=== PATIENT | female | born 1940 | race Caucasian/White ===

== ENCOUNTER → 2018-12-25 | Outpatient (CLI) | payer MEDICARE ==
[~2018-12-25] MED LIST: ADVA1AER2; ALBU17IN2; AMLO5TAB6 PO; BENI20TA11; COLA100C2; CORE12.5; CORE6.25; COUM1TAB18; DULE100A INH; FERR325T; FURO20TA2; FURO40TA2 PO; GLIM2TAB29 PO; HEPARIN; Januvia; LASI20TA; LASI40TA; METAMUCIL; METF500T4; MILKSUS; NORV5TAB; ONDA8TAB8 PO; OXYC20TA15; OYST500T; PANT40TA3 PO; PERC5TAB8; POTA10TA67 PO; PRIL20CA; PROC10TA4 PO; PROV90AE; RIFA300C3; SALINE FLUSH; SENN8.6T14; SENN8.6T5; SEROQUIL; SING10TA31; SPIR1CAP; THEO200T7; THERGRAN; TYLE650T35 PO; TYLENOL; VALS1TAB67 PO; Vancomycin; ZOCO20TA; [UNRECOGNIZED DRUG - CODE]; [UNRECOGNIZED DRUG - CODE]; [UNRECOGNIZED DRUG - OTHER]; metamucil; milk of magnesia; nystatin
--- NOTE | 2018-12-29 11:49 | RADONC ---
RADIATION ONCOLOGY CONSULTATION NOTE DATE OF SERVICE: 12/25/2018 CHART NUMBER: [id number]. DIAGNOSIS: Rectal cancer. STAGE: IIIB, T3, N1b, M0. ECOG PERFORMANCE STATUS: 0. CONSULTATION NOTE: Ms. 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 HISTORY OF PRESENT ILLNESS: The patient was in her usual state of health but has reported some fecal incontinence going on for the last few months. She was seen by Munir Gallegos MD, and was found to have a large rectal lesion extending from just above the anal verge. On 11/17/2018, colonic biopsy was undertaken, and pathology revealed a moderately differentiated adenocarcinoma extending from the anal verge to 20 cm. An MRI was undertaken on 12/14/2018 and revealed a low rectal tumor extending from the anorectal junction with a craniocaudal length of approximately 10.5 cm. The bulkiest portion of the tumor was immediately above the anorectal junction. A second area of mild bulky tumor was noted at 8 cm from the anorectal junction where there was narrowing of the rectal lumen. In addition, there was stranding in adjacent mesorectal fat suggestive of tumor invasion, most prominent along the distal aspect of the tumor. The extramural depth of invasion measured up to 16 mm. There was possible extension into the mesorectal fascia posteriorly. There was no invasion of the uterus or the bladder. There was no definitive extramural venous invasion. There was a suspicious right mesorectal lymph node with mild heterogeneity. This node measured 5 mm, and there was a 6 mm mildly suspicious left mesorectal lymph node noted. The tumor was, therefore, staged as a T3N1b lesion. She is now presenting for consideration of postoperative radiation therapy. PAST MEDICAL HISTORY: The patient's past medical history is positive for arthritis, hypertension, and diabetes. She also has a history of asthma. The patient had an appendectomy and a cholecystectomy in the past. She has had bilateral cataract surgery, as well as bilateral knee replacement surgeries and a left shoulder rotator cuff repair. ALLERGIES: The patient has no known drug allergies. SOCIAL HISTORY: The patient does not smoke cigarettes. She drinks alcohol socially. FAMILY HISTORY: The patient's family history is positive for a mother with squamous cell cancer of the head and neck region and a father with prostate cancer. She also has an uncle with stomach cancer. REVIEW OF SYSTEMS: The patient's review of systems is positive for some rectal bleeding, as well as decreased energy. She has some constipation and very loose stools. She also reports generalized aches and pains. Her review of systems is otherwise noncontributory. She denies nausea, vomiting, fevers, chills, night sweats, diplopia, headaches, anxiety or depression, anorexia, weight loss, visual disturbances, chest pain, urinary or bowel difficulties, bone pain, or neurological problems. PHYSICAL EXAMINATION: The patient is a well-developed, well-nourished female in no acute distress. HEENT examination is normocephalic, atraumatic. Extraocular movements are intact. There is no palpable cervical, supraclavicular, infraclavicular, axillary, or inguinal lymphadenopathy present. Lungs are clear to auscultation and percussion. Heart has a regular rate and rhythm. Abdomen is benign with no hepatosplenomegaly, masses, or tenderness. Skeletal examination reveals no tenderness to pressure or percussion of the bony skeleton. Extremities reveal no clubbing, cyanosis, or edema. Neurologic examination is grossly intact, as is the remainder of the physical examination. Rectal examination revealed a lesion just past the anal verge, which is bleeding. ASSESSMENT: Clearly, the patient has very advanced local disease. With mesorectal fascia invasion, as well as, right and left mesorectal lymph nodes. Following the NCCN guidelines and having discussed this case with our medical oncologist, Dr. Amanda Enamorado, I would recommend 12-16 weeks of chemo such as FOLFOX followed by chemo/RT. The patient is scheduled to see Dr. Enamorado next week. Dr. Enamorado will refer the patient back after initial chemo. Clearly, this lesion requires more than just radiation alone, especially considering its size. I have also ordered a PET scan for further staging purposes. Thank you for allowing us to participate in the care of this very pleasant woman. If I could be of any further assistance, please feel free to contact me any time. As always, warm regards. René Arauz cc: MD Amanda Barnes MD Michael Moffa, MD MTDD
== END ==
LOC: M ONCR 09:42
PROVIDERS: ATTEND Radiology Radiation Oncology
DX: C21.8 Malignant neoplasm of overlapping sites of rectum, anus and anal canal (principal)

== ENCOUNTER → 2019-01-04 | Outpatient (CLI) | payer MEDICARE ==
[~2019-01-04] MED LIST changes: +CLINDAMYCIN 600 MG/50 ML PREMIX BAG As Ordered ONE; +DIFI200T PO; +LIDOCAINE 1% MDV 20ML VIAL As Ordered ONE; +LOPE1CAP5 PO; +MIDAZOLAM INJ 2 MG/2 ML VIAL (J2250) As Ordered ONE; +ONDANSETRON 4MG/2ML VIAL (J2405) As Ordered ONE; +VANC125C3 PO; +diphenhydrAMINE INJ 50MG/ML VIAL (J1200) As Ordered ONE; +fentaNYL 100 MCG/2 ML INJECTION (J3010) As Ordered ONE
--- NOTE | 2019-01-04 12:49 | IRHP ---
[facility] IR Pre-Procedure H & P General Date of Service: Jan 04, 2019 Procedure: Same Day Surgery Interval History and Physical I have seen the patient and reviewed last H & P performed within 30 days. There is [no significant interval change]. Patient [is stable for procedure]. History of Present Illness Chief Complaint The patient is a 78-year-old female admitted with a reason for visit of Rectal Ca. PRE-PROCEDURE DIAGNOSIS: rectal ca HEART: normal rate LUNGS: normal breathing at rest. ASA Classification ASA Classification: II-Mild systemic disease Mallampati Score: II NPO: Yes Problems with prior sedation: No Obstructive Sleep Apnea: No Plan moderate sedation Allergies Coded Allergies: vancomycin (Verified Allergy, Intermediate, HIVES/ITCHING, 01/04/19) Penicillins (Unverified Allergy, Unknown, 01/04/19) Sulfa (Sulfonamide Antibiotics) (Unverified Allergy, Unknown, 01/04/19) morphine (Verified Adverse Reaction, Unknown, NAUSEA, 01/04/19) Medications Scheduled Acetaminophen (Tylenol Arthritis), 650 MG PO Q8H, (Reported) Amlodipine Besylate (Amlodipine Besylate), 5 MG PO DAILY, (Reported) Furosemide (Furosemide), 40 MG PO DAILY, (Reported) Glimepiride (Glimepiride), 2 MG PO DAILY, (Reported) Mometasone/Formoterol (Dulera 100 Mcg/5 Mcg Inhaler), 2 PUFF INH DAILY, (R eported) Pantoprazole Sodium (Pantoprazole Sodium), 40 MG PO DAILY, (Reported) Potassium Chloride (Potassium Chloride), 10 MEQ PO BID, (Reported) Discontinued Medications Albuterol Sulfate (Proventil Hfa), (Reported) Discontinued Reason: Pt states not taking Amlodipine Besylate (Norvasc), (Reported) Discontinued Reason: Pt states not taking Carvedilol (Coreg), (Reported) Discontinued Reason: Pt states not taking Docusate Sod/Senna (Senna-S), (Reported) Discontinued Reason: Pt states not taking Ferrous Sulfate (Ferrous Sulfate), (Reported) Discontinued Reason: Pt states not taking Fluticasone Propion/Salmeterol (Advair 500-50 Diskus), (Reported) Discontinued Reason: Pt states not taking Furosemide (Furosemide), (Reported) Discontinued Reason: Pt states not taking Olmesartan/Hydrochlorothiazide (Benicar Hct 20-12.5 mg Tablet), (Reported) Discontinued Reason: Pt states not taking Omeprazole (Prilosec), (Reported) Discontinued Reason: Pt states not taking Oxycodone/Acetaminophen (Percocet), (Reported) Discontinued Reason: Pt states not taking Oxycodone/Acetaminophen (Percocet), (Reported) Discontinued Reason: Pt states not taking Simvastatin (Zocor), (Reported) Discontinued Reason: Pt states not taking Theophylline (Theophylline Cr), (Reported) Discontinued Reason: Pt states not taking Valsartan (Valsartan), 160 MG PO DAILY, (Reported) Discontinued Reason: Pt states not taking Warfarin Sodium (Coumadin), (Reported) Discontinued Reason: Pt states not taking [Janivia], (Reported) Discontinued Reason: Pt states not taking KENDELL VILLAVICENCIO MD Jan 04, 2019 12:49
--- NOTE | 2019-01-04 14:03 | POST-OPPD ---
Postoperative Procedure Note Date Of Procedure: Jan 04, 2019 Time Of Procedure: 14:02 PREOPERATIVE DIAGNOSIS: rectal ca POSTOPERATIVE DIAGNOSIS: rectal ca FINDINGS: patent right IJ PROCEDURE: right IJ port SURGEON: Venu ANESTHESIA: moderate sedation ESTIMATED BLOOD LOSS: < 5 ml COMPLICATIONS: none POSTOPERATIVE CONDITION: stable KENDELL VILLAVICENCIO MD Jan 04, 2019 14:03
[2019-01-04 16:01] VITALS: BP 145/72
--- NOTE | 2019-01-05 07:41 | REP ---
IR Ultrasound and fluoroscopy-guided port placement. IR Ultrasound of the neck. IR Moderate sedation. Clinical information: Rectal cancer. Needs port for chemotherapy. Physician: Dr. Lea. Procedure: The patient was advised of the benefits, risks, and alternatives of the procedure and informed consent was obtained. A time-out was performed with verification of the patient's name, MRN, site of procedure and type of procedure to be performed. The patient was positioned in the supine position on the angiographic table. The site was prepped and draped in the usual sterile fashion. Moderate sedation was performed by the physician including the presence of an independent trained observer who assisted and monitored the patient's level of consciousness and physiologic status. Following the administration of Fentanyl and Versed, the physician spent 45 minutes of continuous face to face time with the patient. Ultrasound of the neck reveals a patent and compressible right internal jugular vein. A director furniture radiograph reveals no significant abnormality. The neck and anterior chest wall were anesthetized with lidocaine. The right internal jugular vein was accessed using a microintroducer needle by a lateral approach. An 0018 wire was advanced into the superior vena cava, the needle was removed and a microsheath was placed. An Amplatz wire was then passed into the inferior vena cava. An incision at the internal jugular vein access site and anterior chest wall were made using a scalpel. An incision was made at the anterior chest wall. A small pocket was created using a combination of blunt and sharp dissection. A tunneling device was then used to pass the catheter from the pocket to the neck puncture site. An 8-[employer] smart power port was then positioned in the pocket. The catheter was then measured and cut. The introducer sheath was exchanged for a peel-away sheath. The catheter was passed through the peel-away sheath into the internal jugular vein and the peel-away sheath was removed. The port tip was positioned at the cavo atrial junction. The port was then accessed with a Wu needle. The port flushes and aspirates well. The puncture site in the neck was closed. The chest wall incision was then closed with 2-0 Vicryl and 4-0 Monocryl. Glue and Steri-Strips were applied. A sterile dressing was then applied. The patient tolerated the procedure well and was returned to the PRU in stable condition. Estimated blood loss: <5 ml. Complications: None. Conclusion: 1. Successful placement of an 8-[employer] smart power port via the right internal jugular vein. The port is ready for immediate use. 2. Patient to follow up in IR clinic in 2 weeks. Thank you for this referral. Electronically Signed by Frida Lea MD 01/04/2019 03:33 P
== END ==
LOC: M IRPRO 11:58
PROVIDERS: ATTEND Radiology Diagnostic Radiology
DX: C20 Malignant neoplasm of rectum (principal)
CPT/HCPCS: 36563; 76937; 77001; C1769; C1788; C1894; J2250; J2405; J3010

== ENCOUNTER → 2019-03-25 | Outpatient (CLI) | payer MEDICARE ==
[~2019-03-25] MED LIST changes: -CLINDAMYCIN 600 MG/50 ML PREMIX BAG As Ordered ONE; +CVS1CAP2 PO; +FLAG250T PO; +GASTROGRAFIN SOLUTION 30ML (Q9963) As Ordered ONE; +ISOVUE-370 76% 100ML VIAL (Q9967) As Ordered ONE; -LIDOCAINE 1% MDV 20ML VIAL As Ordered ONE; -MIDAZOLAM INJ 2 MG/2 ML VIAL (J2250) As Ordered ONE; -ONDANSETRON 4MG/2ML VIAL (J2405) As Ordered ONE; -diphenhydrAMINE INJ 50MG/ML VIAL (J1200) As Ordered ONE; -fentaNYL 100 MCG/2 ML INJECTION (J3010) As Ordered ONE
--- NOTE | 2019-03-25 17:19 | REP ---
CT chest with IV contrast: History: Colon carcinoma. Restaging. Stage III colon cancer on neoadjuvant chemotherapy, status post four cycles. Comparison chest CT study March 05, 2018. CT contrast dose: 100 ml of intravenous Isovue [address] findings: A large hiatal hernia is again noted. Vascular calcification is observed. Mitral annular calcification is seen. There is a small quantity of pericardial fluid unchanged. No pleural effusion is seen. No hilar or mediastinal mass or adenopathy is observed. There are scattered normal-sized mediastinal lymph nodes. Several of these appear to be some smaller than on the March 05, [address] study even though they were not pathologically enlarged on that prior study. A precarinal lymph node has decreased from 10 mm anterior to posterior dimension to 6 mm today. Another node at the level of the great vessel origins anterior to the trachea has decreased from 11 mm right to left to 4 mm. There is a node adjacent to this which measured 8 mm in short axis dimension previously and now measures 5 mm. No new adenopathy or new node is seen. There is an 8 mm left supraclavicular lymph node which is unchanged. This is normal in size. No axillary adenopathy is seen. There are two tiny pulmonary nodules noted on the right side including a 4 mm right upper lobe nodule and a 4 mm right lower lobe nodule which are unchanged from the March 05, 2018 study. No new pulmonary nodule is appreciated. No bony destructive lesion is seen. Impression: There is no evidence of pathologic adenopathy or new pulmonary nodule. Two stable tiny sub-centimeter nodules are seen in the right lung. There are scattered normal appearing mediastinal lymph nodes which have decreased since March 05, [address] even though they were normal in size at that time. Vascular calcification is noted. A hiatal hernia is seen and there is a small quantity of pericardial fluid again noted. Electronically Signed by Reece Jarrell MD 03/25/2019 06:30 P
--- NOTE | 2019-03-25 17:22 | REP ---
CT abdomen and pelvis with IV and oral contrast: History: Rectal carcinoma. Stage III colon carcinoma on neoadjuvant chemotherapy for restaging. Comparison CT study October 13, 2018. Comparison PET-CT December 30, 2018. CT contrast dose: 100 ml of intravenous Isovue [address] findings: Digital preliminary resident advisor radiograph demonstrates an unremarkable bowel gas pattern. Hiatal hernia is seen. There is a low-density hypervascular nodule in the anterior surface of the left lobe of the liver which measures 15 mm in greatest diameter. This it is unchanged from the October 13, [address] study. It is also felt to be unchanged from March 05, 2018 prior study and is most compatible with a small hemangioma. There is no evidence of hypermetabolic uptake in this region on PET-CT December 30, 2018. No other focal liver lesion is seen. The spleen is unremarkable. Large hiatal hernia again seen. No adrenal lesion is observed on either side. No abnormality noted in the pancreas. The kidneys enhance symmetrically and are morphologically intact. The gallbladder is surgically absent. The appendix is removed as well. No retroperitoneal mass or adenopathy is observed. No mesenteric adenopathy is seen. No uterine or ovarian abnormality is observed. There is some mural thickening in the upper rectum and possibly at the anorectal junction consistent with the patient's known neoplasm. These findings are unchanged. There is a 5 mm lymph node to the left of midline in the ischiorectal fat/presacral fat. This is unchanged. There is no definite pelvic lymphadenopathy. There is pancolonic diverticulosis. No bony destructive lesion is seen. There is no CT evidence of diverticulitis. Impression: Large hiatal hernia. 1.5 cm hemangioma in the left lobe of the liver. No abdominal adenopathy is seen. Mural thickening in the mid rectum and anorectal junction region unchanged. Electronically Signed by Reece Jarrell MD 03/25/2019 06:30 P
== END ==
LOC: M RAD 10:55
PROVIDERS: ATTEND Internal Medicine Medical Oncology
DX: D18.03 Hemangioma of intra-abdominal structures (principal); R91.8 Other nonspecific abnormal finding of lung field; K44.9 Diaphragmatic hernia without obstruction or gangrene; C18.9 Malignant neoplasm of colon, unspecified
CPT/HCPCS: 71260; 74178; Q9963; Q9967

== ENCOUNTER 2019-03-29 08:50 | Outpatient (CLI) | payer MEDICARE ==
[~2019-03-29] VITALS: Ht 180.3 cm; Wt 128.6 kg
[~2019-03-29 08:50] MED LIST changes: -CVS1CAP2 PO; -GASTROGRAFIN SOLUTION 30ML (Q9963) As Ordered ONE; -ISOVUE-370 76% 100ML VIAL (Q9967) As Ordered ONE
[2019-03-29 08:55] VITALS: BP 141/84
[2019-03-29] MEDS ORDERED: FILTER 1.2 MICRON (ADULT TPN/MANNITOL/REMICADE) XX ONE (09:15)
[2019-03-29] MEDS ORDERED: VANC125C3 PO (09:52)
[2019-03-29] MEDS ORDERED: CVS1CAP2 PO (09:52)
[2019-03-29] MEDS ORDERED: BEZLOTOXUMAB 1,000 MG in NS 100 ML IV ONE (10:00)
[2019-03-29] MEDS ORDERED: SODIUM CHLORIDE 0.9% INJ 10 ML SYR IV PRN (11:00)
[2019-03-29 11:30] VITALS: BP 137/72
[2019-03-30] MEDS ORDERED: SODIUM CHLORIDE 0.9% INJ 10 ML SYR IV SCH (09:00)
== END 2019-03-29 11:30 | disposition home or self-care (01) ==
LOC: M INFU 08:50
PROVIDERS: ATTEND Internal Medicine Infectious Disease
DX: A04.71 Enterocolitis due to Clostridium difficile, recurrent (principal)
CPT/HCPCS: 96365; J0565

== ENCOUNTER 2019-04-15 20:33 | Inpatient (IN) | payer MEDICARE ==
[~2019-04-15] VITALS: Ht 160 cm; Wt 121.6 kg
[~2019-04-15 20:33] MED LIST changes: -FOLFOX; -GASTROGRAFIN SOLUTION 30ML (Q9963) As Ordered ONE; -ISOVUE-370 76% 100ML VIAL (Q9967) As Ordered ONE
[2019-04-15] MEDS ORDERED: HumaLOG INSULIN (NovoLOG) PER UNIT SC SCH (21:00)
[2019-04-15 21:19] LABS: BASO # 0.1 10^3/uL (0.0-0.2); BASO % 0.2 % (0.0-1.0); HEMATOCRIT 38.8 % (36.0-47.0); HEMOGLOBIN 11.5 g/dl (12.0-15.5); LYMPH % 0.7 % (24.0-44.0); MEAN CORPUSCULAR HEMOGLOBIN 23.9 pg (27.0-33.0); MEAN CORPUSCULAR HGB CONC 29.6 g/dl (32.0-36.5); MEAN CORPUSCULAR VOLUME 80.5 fl (80.0-96.0); MONO # 0.1 10^3/uL (0.0-0.8); MONO % 0.4 % (0.0-5.0); NEUTROPHILS % 97.3 % (36.0-66.0); PLATELET COUNT, AUTOMATED 203 10^3/uL (150-450); RED BLOOD COUNT 4.82 10^6/uL (4.00-5.40); WHITE BLOOD COUNT 28.5 10^3/uL (4.0-10.0)
[2019-04-15 21:26] LABS: LYMPH # 0.2 10^3/uL (1.5-5.0); NEUTROPHILS # 27.7 10^3/uL (1.5-8.5)
[2019-04-15] MEDS ORDERED: fentaNYL 100 MCG/2 ML INJECTION (J3010) IV ONE (21:30)
[2019-04-15] MEDS ORDERED: ONDANSETRON 4MG/2ML VIAL (J2405) IV ONE (21:30)
[2019-04-15] MEDS ORDERED: ONDA8TAB8 PO (21:31)
[2019-04-15] MEDS ORDERED: FOLFOX (21:31)
[2019-04-15] MEDS ORDERED: PROC10TA4 PO (21:31)
[2019-04-15 21:52] LABS: ALBUMIN 3.3 GM/DL (3.2-5.2); BILIRUBIN,DIRECT 0.2 MG/DL (0.0-0.2); BILIRUBIN,TOTAL 0.6 MG/DL (0.2-1.0); CALCIUM LEVEL 8.7 MG/DL (8.8-10.2); CREATININE FOR GFR 1.22 MG/DL (0.55-1.30); GLOMERULAR FILTRATION RATE 45.5 (>39); POTASSIUM SERUM 4.4 MEQ/L (3.5-5.1); TOTAL PROTEIN 6.6 GM/DL (6.4-8.2)
[2019-04-15] MEDS ORDERED: GLUCOSE 4 GM CHEW TABLET PO PRN (23:45)
[2019-04-15] MEDS ORDERED: GLUCAGON FOR INJ 1 MG VIAL (J1610) SC PRN (23:45)
[2019-04-15] MEDS ORDERED: DEXTROSE 50% 50 ML SYRINGE IV PRN (23:45)
--- NOTE | 2019-04-15 23:47 | HPEPDOC ---
[facility] Medical History & Physical Date of Admission Apr 15, 2019 Date of Service: Apr 15, 2019 Primary Care Physician: Yomi York MD Attending Physician: AMY MCCOY MD History and Physical TIME OF SERVICE: 11:20 PM CHIEF COMPLAINT: Abdominal pain HISTORY OF PRESENT ILLNESS: This is a 78-year-old female who presents with complaints of 10 out of 10 mid nonradiating abdominal pain for 2 days. Associated symptoms include nausea without vomiting. She has chronic C. difficile and continues to have liquid stools. She last passed gas yesterday. A few days ago she saw Dr. Amanda Enamorado who ordered a CT abdomen that showed colonic obstruction, based on these findings, the patient was instructed to come to the ER. 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 Status post carpal tunnel surgery. Status post cataract surgery SOCIAL HISTORY: Nonsmoker FAMILY HISTORY: Prostate cancer Mother had squamous cell carcinoma ALLERGIES: Please see below. HOME MEDICATIONS: Please see below. PHYSICAL EXAMINATION: VITAL SIGNS: Please see below. GENERAL APPEARANCE: Well-nourished, well-developed, not in apparent distress HEENT: Normocephalic, atraumatic, mucous membranes slightly dry CARDIOVASCULAR: Slightly tachycardic. No murmurs, rubs or gallops. Radial pulses are intact LUNGS: Clear to auscultation bilaterally on room air ABDOMEN: There are bowel sounds. Abdomen is soft and tender with palpation in the epigastric region MUSCULOSKELETAL: Range of motion is intact in all 4 extremities INTEGUMENT: She does not have generalized pallor, does not appear flushed and does not have jaundice NEUROLOGICAL: Cranial nerves II-12 grossly intact. Speech is not dysarthric PSYCHIATRIC: Alert and oriented to person, place and time, able to understand and follow all commands LABORATORY DATA: See below. IMAGING: CT of the abdomen " IMPRESSION: 1. Development of severe distention of the entire colon with liquid stool and multiple air-fluid levels. This is thought to be secondary to obstruction by an enhancing neoplasm along the course of the rectum. 2. 1 CM enhancing nodule along the surface of the left lobe of the liver. " MICROBIOLOGY: Please see below. ASSESSMENT: Ms. Blackwell is a 78-year-old female the past medical history of low rectal stage III adenocarcinoma, refractory C. difficile, chronic hypertension, diabetes, iron deficiency anemia and morbid obesity who is admitted for management of a partial small bowel obstruction due to colonic mass. PLAN: 1. Partial small bowel obstruction secondary to colonic mass Report from CT of the abdomen reviewed Plan: Admit to general medical floor/nothing by mouth/IV fluids/ Per discussion with who talked with (Gen Surg) there is no need for an NG tube for now / monitor electrolytes and replete as needed / fentanyl for pain and zofran for nausea 2. SIRS/ Sepsis SIRS criteria include a WBC count of 20.5, heart rate of 111, respiratory rate of 20. Likely due to C. difficile infection versus other cause to be determined. Qsofa score = 0 = not high risk Plan: sepsis protocol/ c/w vancomycin & IVF / f/u lactic acid, blood cx / Acetaminophen PRN for fever 3. Recurrent C. difficile Plan: Contact precautions/Continue with vancomycin 4. Azotemia likely 2/2 dehydration Plan: IVF / f/u BMP in the morning 5. iron deficiency anemia likely 2/2 low rectal stage III adenocarcinoma Plan: f/u CBC / f/u w Oncologist on an out pt basis 6. Chronic hypertension Plan: c/w home meds 7.NIDDM2 Plan: f/u serum glucose 6H while NPO / SSI / hypoglycemia protocol / hold glimepiride DVT prophylaxis with Lovenox. Disposition pending clinical course/ will consult case management to determine if the patient would benefit from a home energy rater and home RN Vital Signs Vital Signs Date Time Temp Pulse Resp B/P (MAP) Pulse Ox O2 Delivery O2 Flow Rate FiO2 04/15/19 23:15 102 20 148/67 (94) 96 Room Air 04/15/19 20:34 97.1 Laboratory Data Labs 24H Laboratory Tests 2 04/15/19 21:04: Immature Granulocyte % (Auto) 1.4, Neutrophils (%) (Auto) 97.3H, Lymphocytes (%) (Auto) 0.7L, Monocytes (%) (Auto) 0.4, Eosinophils (%) (Auto) 0.0, Basophils (%) (Auto) 0.2, Neutrophils # (Auto) 27.7H, Lymphocytes # (Auto) 0.2L, Monocytes # (Auto) 0.1, Eosinophils # (Auto) 0.0, Basophils # (Auto) 0.1, Nucleated Red Blood Cells % (auto) 0.0, Anion Gap 8, Glomerular Filtration Rate 45.5, Calcium Level 8.7L, Total Bilirubin 0.6, Direct Bilirubin 0.2, Aspartate Amino Transf (AST/SGOT) 28, Alanine Aminotransferase (ALT/SGPT) 25, Alkaline Phosphatase 205H, Total Protein 6.6, Albumin 3.3, Albumin/Globulin Ratio 1.00, Lipase 168 CBC/BMP Laboratory Tests 04/15/19 21:04 Home Medications Scheduled Acetaminophen (Tylenol Arthritis) 650 Mg Tablet.er, 650 MG PO Q8H Amlodipine Besylate (Amlodipine Besylate) 5 Mg Tablet, 5 MG PO DAILY Furosemide (Furosemide) 40 Mg Tablet, 40 MG PO DAILY Glimepiride (Glimepiride) 2 Mg Tablet, 2 MG PO DAILY Lactobacillus Combo No.10 (Probiotic) 1 Each Capsule, 1 TAB PO DAILY Mometasone/Formoterol (Dulera 100 Mcg/5 Mcg Inhaler) 13 Gm Hfa.aer.ad, 2 PUFF INH DAILY Pantoprazole Sodium (Pantoprazole Sodium) 40 Mg Tablet.dr, 40 MG PO DAILY Potassium Chloride (Potassium Chloride) 10 Meq Tab.er.prt, 20 MEQ PO BID Vancomycin Hcl (Vancomycin HCl) 125 Mg Capsule, 125 MG PO DAILY PRESCRIBED 35 FOR A 14 DAYS SUPPLY ON 04/08. WAS INSTRUCTED TO TAKE 1 CAP BID OFR 7 DAYS AND THEN 1 CAP DAILY FOR 7 DAYS Scheduled PRN Ondansetron (Ondansetron Odt) 8 Mg Tab.rapdis, 8 MG PO Q6H PRN for NAUSEA OR VOMITING Prochlorperazine Maleate (Prochlorperazine Maleate) 10 Mg Tablet, 10 MG PO Q6H PRN for NAUSEA OR VOMITING Miscellaneous Medications [Folfox] IS UNDERGOING FOLFOX CHEMOTHERAPY WENT ON FRIDAY FOR INFUSION AND HAD HER PUMP TAKEN OUT TODAY. SHE IS ON A 2 WEEK CYCLE Allergies Coded Allergies: vancomycin (Verified Allergy, Intermediate, HIVES/ITCHING, 01/04/19) Penicillins (Unverified Allergy, Unknown, 01/04/19) Sulfa (Sulfonamide Antibiotics) (Unverified Allergy, Unknown, 01/04/19) morphine (Verified Adverse Reaction, Unknown, NAUSEA, 01/04/19) A-FIB/CHADSVASC A-FIB History Current/History of A-Fib/PAF?: No Current PO Anticoag Therapy: No AMY MCCOY MD Apr 15, 2019 23:47
[2019-04-16] MEDS: NS 1,000 ML IV SCH ×2 (00:01→15:15)
[2019-04-16 02:05] VITALS: BP 138/78
[2019-04-16] MEDS ORDERED: ACETAMINOPHEN 650MG ER TAB (TYLENOL ARTHRITIS) PO PRN (02:15)
[2019-04-16] MEDS ORDERED: fentaNYL 100 MCG/2 ML INJECTION (J3010) IV PRN (02:15)
[2019-04-16] MEDS: HumaLOG INSULIN (NovoLOG) PER UNIT SC SCH ×4 (02:44→18:04)
[2019-04-16] MEDS: ONDANSETRON 4MG/2ML VIAL (J2405) IV PRN ×3 (03:24→12:19)
[2019-04-16 03:59] LABS: HEMATOCRIT 39.7 % (36.0-47.0); HEMOGLOBIN 11.8 g/dl (12.0-15.5); MEAN CORPUSCULAR HEMOGLOBIN 23.9 pg (27.0-33.0); MEAN CORPUSCULAR HGB CONC 29.7 g/dl (32.0-36.5); MEAN CORPUSCULAR VOLUME 80.4 fl (80.0-96.0); PLATELET COUNT, AUTOMATED 188 10^3/uL (150-450); RED BLOOD COUNT 4.94 10^6/uL (4.00-5.40)
[2019-04-16 04:00] VITALS: BP 128/68
[2019-04-16 04:00] LABS: WHITE BLOOD COUNT 32.9 10^3/uL (4.0-10.0)
[2019-04-16] MEDS ORDERED: KETOROLAC 30 MG/ML VIAL (J1885) IV ONE (04:15)
[2019-04-16 04:29] LABS: CALCIUM LEVEL 8.5 MG/DL (8.8-10.2); CREATININE FOR GFR 1.13 MG/DL (0.55-1.30); GLOMERULAR FILTRATION RATE 49.7 (>39); MAGNESIUM LEVEL 2.1 MG/DL (1.8-2.4); POTASSIUM SERUM 4.7 MEQ/L (3.5-5.1)
[2019-04-16] MEDS: fentaNYL 100 MCG/2 ML INJECTION (J3010) IV PRN ×2 (05:02→07:33)
[2019-04-16] MEDS ORDERED: HEPARIN SOD (PORCINE) 5000 UNITS/ML VIAL SQ SCH (06:00)
[2019-04-16] MEDS ORDERED: HumaLOG INSULIN (NovoLOG) PER UNIT SC SCH (07:30)
[2019-04-16 08:00] VITALS: BP 148/77
[2019-04-16] MEDS: ALBUTEROL SULFATE 2.5 MG/0.5 ML INH NEB SOLN NEB SCH ×2 (08:00→20:35)
[2019-04-16] MEDS ORDERED: DULERA INH SCH (09:00)
[2019-04-16] MEDS ORDERED: FUROSEMIDE 40 MG TAB PO SCH (09:00)
[2019-04-16] MEDS: ENOXAPARIN 40 MG/0.4 ML SYRINGE (J1650) SC SCH (09:59)
[2019-04-16] MEDS: amLODIPine 5 MG TAB PO SCH (10:00)
[2019-04-16] MEDS: VANCOMYCIN ORAL SOL 250MG/5ML ORAL SYRINGE PO SCH (10:00)
--- NOTE | 2019-04-16 11:15 | IPNPDOC ---
Subjective Date Seen The patient was seen on 04/16/19. Subjective Chief Complaint/HPI Continues to have abdominal pain, now also with nausea. Pain is crampy in nature. no fever or chills, continues to have small amounts of liquid brown stools. She has been having intermittent constipation and diarrhea. last week she was constipated so was taking stool softners. She started with severe abdominal pain with cramps and intermittent diarrhea with small liquid brown stools on 04/13. She also had a fall on 04/13. 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 Denies any sob but has some wheezing. Objective Physical Examination General Exam: Positive: Alert, Cooperative, No Acute Distress Eye Exam: Positive: PERRLA, Conjunctiva & lids normal, EOMI; Negative: Sclera icteric ENT Exam: Positive: Atraumatic, Mucous membr. moist/pink, Pharynx Normal Neck Exam: Positive: Supple; Negative: JVD, thyromegaly Chest Exam: Positive: Rhonchi, Wheezing Heart Exam: Positive: Tachycardic, Regular Rhythm, Normal S1, Normal S2, Murmurs; Negative: Rubs Abdomen Exam: Positive: BS Hyperactive, Soft, Tenderness (in the left upper quadrant, epigastrim and left lower quadrant, ), Other (no guarding or rigidity, no rebound) Extremity Exam: Negative: Clubbing, Cyanosis, Edema Skin Exam: Positive: Nl turgor and temperature; Negative: Rash, Breakdown Assessment /Plan Assessment Ms. Blackwell is a 78-year-old female the past medical history of low rectal stage III adenocarcinoma, refractory C. difficile, chronic hypertension, diabetes, iron deficiency anemia and morbid obesity who is admitted for management of a large bowel obstruction due to colonic mass. Bowel obstruction secondary to colonic mass some of the dilatation seen in ct may also be due to c diff infection. Report from CT of the abdomen reviewed worse than in March. IVF, zofran, morphine for pain. NPO. Dr collins consulted. Leucocytosis this is probably related to filgrastim which she received on 04/14/19 however worsening c diff is always a possibility SIRS/ Sepsis SIRS criteria include a WBC count of 20.5, heart rate of 111, respiratory rate of 20. I am not sure if There is any active infection or not. The wbc probably related to filgrastim. Recurrent C. difficile Contact precautions/Continue with vancomycin Locally advanced low rectal cancer diagnosed in September 2018, she underwent diagnostic colonoscopy with Dr. Moore of [facility]. Findings included a large distal rectal mass multilobulated with biopsy showing moderately differentiated adenocarcinoma. She was referred to Munir Gallegos MD of surgery. His sense was that this was a locally advanced rectal carcinoma, and because of the patient's obesity, she may not be a storm te for abdominal perineal surgical approach and recommended up front chemoradiation. He did obtain an abdomen/pelvis MRI with gadolinium, 12/14/2018, ultimately showing T3d, MRF+N1low rectal tumor and large, multilobulated low rectal tumor extending to the anorectal junction with craniocaudal length 10.5 cm was seen with bulkiest portion above the anorectal junction. A second bulky tumor area measuring 8 cm from the anorectal junction with narrowing of the rectal lumen was seen. Current getting chemo last dose on 04/13/19 planned for chemoradiation next and reassessment for surgery Hiatal hernia and abdominal hernias. Iron deficiency anemia 2/2 low rectal stage III adenocarcinoma Hypertension amlodipine NIDDM2 lispro q 6 hours. DVT prophylaxis with Lovenox. Plan/VTE VTE Prophylaxis Ordered?: Yes VS, I&O, 24H, Fishbone Vital Signs/I&O Vital Signs Date Time Temp Pulse Resp B/P (MAP) Pulse Ox O2 Delivery O2 Flow Rate FiO2 04/16/19 10:00 104 128/68 04/16/19 08:17 16 04/16/19 08:00 98.1 96 04/16/19 05:02 Room Air I&O- Last 24 Hours up to 6 AM 04/16/19 06:00 Intake Total 0 ml Output Total 0 ml Balance 0 ml Laboratory Data 24H LABS Laboratory Tests 2 04/15/19 21:04: Immature Granulocyte % (Auto) 1.4, Neutrophils (%) (Auto) 97.3H, Lymphocytes (%) (Auto) 0.7L, Monocytes (%) (Auto) 0.4, Eosinophils (%) (Auto) 0.0, Basophils (%) (Auto) 0.2, Neutrophils # (Auto) 27.7H, Lymphocytes # (Auto) 0.2L, Monocytes # (Auto) 0.1, Eosinophils # (Auto) 0.0, Basophils # (Auto) 0.1, Nucleated Red Blood Cells % (auto) 0.0, Anion Gap 8, Glomerular Filtration Rate 45.5, Calcium Level 8.7L, Total Bilirubin 0.6, Direct Bilirubin 0.2, Aspartate Amino Transf (AST/SGOT) 28, Alanine Aminotransferase (ALT/SGPT) 25, Alkaline Phosphatase 205H, Total Protein 6.6, Albumin 3.3, Albumin/Globulin Ratio 1.00, Lipase 168 04/15/19 23:56: Bedside Glucose (Misc Panel) 226H 04/16/19 01:47: Bedside Glucose (Misc Panel) 232H 04/16/19 03:52: Nucleated Red Blood Cells % (auto) 0.0, Anion Gap 9, Glomerular Filtration Rate 49.7, Calcium Level 8.5L, Lactic Acid Level 1.4, Magnesium Level 2.1 04/16/19 07:16: Bedside Glucose (Misc Panel) 198H CBC/BMP Laboratory Tests 04/15/19 21:04 04/16/19 03:52 Microbiology Microbiology 04/16/19 Blood Culture, Received Pending JOELLE MARIE MD Apr 16, 2019 11:15
[2019-04-16 12:00] VITALS: BP 148/67
[2019-04-16] MEDS ORDERED: FLEET ENEMA PR ONE (12:00)
[2019-04-16] MEDS: MORPHINE 4 MG/ML 1ML VIAL/SYRINGE (J2270) IV PRN ×2 (12:19→22:47)
[2019-04-16] MEDS: FAMOTIDINE IV BAG 20 MG in IV 1 EA IV SCH ×2 (13:54→22:07)
--- NOTE | 2019-04-16 14:34 | CR ---
DATE OF CONSULTATION: 04/16/2019 REASON FOR CONSULTATION: Rectal cancer with obstruction. HISTORY OF THE PRESENT ILLNESS: The patient is a pleasant 78-year-old woman who was diagnosed in about November with a large rectal cancer. This was very low and was diagnosed apparently by endoscopy at [facility]. She was sent to a Dr. Gallegos at the colorectal surgery group in [place] who, according to the patient, reported that she was a poor candidate for surgery, and she was referred to medical and radiation oncology in [place] for treatment. She has seen Dr. Amanda Enamorado and Dr. René Arauz. She has been receiving chemotherapy every 2 weeks for several cycles now. She apparently has developed some Clostridium difficile at some point in her treatment process and has been on oral vancomycin for the last several weeks to address. She apparently had her most recent episode of chemotherapy 3 days ago on Friday. She had complained to Dr. Enamorado yesterday or the day before about some lower abdominal discomfort and yesterday she underwent a CT scan of the abdomen and pelvis as an outpatient. This revealed that her colon was full of primarily liquid-appearing stool with mild to moderate distension throughout the length of the colon. There was a suggestion of a significant narrowing in her rectum, and it was felt that she had some degree of obstruction and she was directed to the emergency department last evening. She was admitted by the hospitalist, and I am now being consulted. ALLERGIES: Are reported to PENICILLIN, SULFA, MORPHINE and VANCOMYCIN. Her current scheduled medications include; Tylenol as needed for pain, amlodipine, furosemide, glimepiride, a probiotic with lactobacillus, a Dulera inhaler, Protonix, potassium chloride, and oral vancomycin 125 mg by mouth daily. MEDICAL HISTORY: Is significant for her rectal cancer. She has a history of recurrent Clostridium difficile. She has diabetes mellitus, chronic hypertension, a history of iron-deficiency anemia, gastroesophageal reflux, morbid obesity. SURGICAL HISTORY: Is significant for bilateral total knee replacements. She has had an appendectomy, cholecystectomy, right shoulder surgery, carpal tunnel surgery, and cataract surgery. SOCIAL HISTORY: The patient was a year or so ago. She is a nonsmoker and denies any significant alcohol intake. FAMILY HISTORY: Is really noncontributory with no family history of colorectal cancer. REVIEW OF SYSTEMS: Shows no history of chest pains or palpitations. She has no cough, wheezing, or sputum production. She denies any dysuria or hematuria. She reports that she has been having primarily some loose bowel movements fairly regularly. She is not having any solid stool pass. She has no significant control of her bowel function at this point and is relying on adult incontinence garments. She still notes occasional spotting of blood. She has not yet started her radiation therapy. PHYSICAL EXAM: Reveals a pleasant woman who is lying quietly on the hospital bed. Her height is recorded as 63 inches with a weight of 126 kg giving her a BMI of approximately 49. She is alert and oriented and appears quite knowledgeable about her treatment to date. Sclerae are anicteric. Her skin is warm and dry. Heart exam reveals a regular rate and rhythm. Her lungs are clear. The abdomen is somewhat obese. She does have bowel sounds present. The abdomen is somewhat protuberant. There is no evident hernia. She does have some scarring consistent with her prior surgery. There is some mild tenderness to percussion in the low midabdomen. On palpation, she has some mild tenderness to palpation across the lower abdomen, primarily in the suprapubic area and also to a lesser degree in the epigastrium. There is no mass appreciated. She has no rebound tenderness. Laboratory studies from last night showed a white count of 28,000 with a hemoglobin of 11, hematocrit 39, and platelet count of 203,000. Differential count showed 97% neutrophils and 1% lymphocytes. This morning, she had a repeat CBC showing a white count of 33,000, hemoglobin of 12, hematocrit of 40, and a platelet count of 188,000. Her chemistry profile from this morning showed a sodium of 140, potassium 4.7, chloride 110, CO2 of 21, BUN of 30, creatinine is 1.1. and glucose is 215. She had a lactic acid of 1.4. Her CT scan was done yesterday evening. This showed that the colon was quite full of some air and more fluid and material suggestive of liquid stool. There was no pneumatosis noted and no free air or free fluid were noted. There was no evidence of any small bowel distension. The appearance of the rectum suggested some fairly marked narrowing, particularly in the distal rectum. This would correspond with the location of her tumor. IMPRESSION: The patient has known rectal cancer undergoing chemotherapy. She appears to have significant narrowing in this area of the tumor. She is showing some symptoms of obstruction at this point with moderate distension of her entire colon but no evidence of any distension of the small bowel. She has some mild tenderness in the areas of her distended colon but is not showing any signs of impending perforation. She does have an elevated white blood cell count but this may well relate to her recent chemotherapy. RECOMMENDATIONS: At this point, I have recommended that we attempt use of a small Fleet's enema to see if this would allow some passage of additional stool. I would keep her nothing by mouth for now until we see if this is going to improve somewhat. I spoke with the patient about what the long-term plan had been for her cancer, and she is really uncertain. Certainly, her only option for this large, low-lying rectal tumor would be an abdominoperineal resection if curative treatment is planned. Her understanding was that following the chemo and radiation she would be reassessed by the colorectal surgeon in [place] to determine the next course of action. If she does not show evidence of improving her rectal output then a diverting ostomy may be needed urgently in the next day or two to prevent an uncontrolled bowel rupture with sepsis and potentially . I advised her that this may become necessary urgently here in the next day or two, and she appears to understand. She has not yet started her radiation therapy and once this begins I cannot imagine that the degree of narrowing will improve and may actually be worsened with additional treatment to this area. Even if she weathers the storm of this obstruction and it improves over the next couple days, I think considering an elective ostomy would probably be prudent to prevent recurring problems with obstruction. IMER
[2019-04-16 16:00] VITALS: BP 129/60
[2019-04-16 20:00] VITALS: BP 130/60
[2019-04-17] VITALS: BP 166/76
[2019-04-17 04:00] VITALS: BP 176/82
[2019-04-17] MEDS: HumaLOG INSULIN (NovoLOG) PER UNIT SC SCH ×5 (06:00→21:00)
[2019-04-17] MEDS: ALBUTEROL SULFATE 2.5 MG/0.5 ML INH NEB SOLN NEB SCH ×2 (07:33→20:24)
[2019-04-17 08:00] VITALS: BP 138/60
[2019-04-17 08:08] LABS: BASO % 0.1 % (0.0-1.0); HEMATOCRIT 32.4 % (36.0-47.0); LYMPH # 0.6 10^3/uL (1.5-5.0); LYMPH % 3.2 % (24.0-44.0); MEAN CORPUSCULAR HEMOGLOBIN 24.4 pg (27.0-33.0); MEAN CORPUSCULAR HGB CONC 30.2 g/dl (32.0-36.5); MEAN CORPUSCULAR VOLUME 80.6 fl (80.0-96.0); MONO # 0.2 10^3/uL (0.0-0.8); NEUTROPHILS # 17.6 10^3/uL (1.5-8.5); NEUTROPHILS % 93.7 % (36.0-66.0); PLATELET COUNT, AUTOMATED 136 10^3/uL (150-450); RED BLOOD COUNT 4.02 10^6/uL (4.00-5.40); WHITE BLOOD COUNT 18.8 10^3/uL (4.0-10.0)
[2019-04-17 08:11] LABS: HEMOGLOBIN 9.8 g/dl (12.0-15.5)
[2019-04-17 08:27] LABS: ALBUMIN 2.4 GM/DL (3.2-5.2); BILIRUBIN,TOTAL 0.4 MG/DL (0.2-1.0); CALCIUM LEVEL 8.3 MG/DL (8.8-10.2); CREATININE FOR GFR 1.05 MG/DL (0.55-1.30); GLOMERULAR FILTRATION RATE 54.1 (>39); POTASSIUM SERUM 3.5 MEQ/L (3.5-5.1); TOTAL PROTEIN 5.7 GM/DL (6.4-8.2)
[2019-04-17] MEDS: VANCOMYCIN ORAL SOL 250MG/5ML ORAL SYRINGE PO SCH (08:52)
[2019-04-17] MEDS: FAMOTIDINE IV BAG 20 MG in IV 1 EA IV SCH ×2 (08:52→21:12)
[2019-04-17] MEDS: ENOXAPARIN 40 MG/0.4 ML SYRINGE (J1650) SC SCH (08:52)
[2019-04-17] MEDS: NS 1,000 ML IV SCH ×2 (08:53→23:33)
[2019-04-17] MEDS: amLODIPine 5 MG TAB PO SCH (08:58)
--- NOTE | 2019-04-17 10:10 | IPNPDOC ---
Subjective Date Seen The patient was seen on 04/17/19. Subjective Chief Complaint/HPI patient feels much better today after she had 2 massive bowel movements yesterday and several small ones. He pain is resolved says her abominal d istention also feels less. SHe is hungry. No fever or chills, no chest pain or sob , no nausea or vomiting. Objective Physical Examination General Exam: Positive: Alert, Cooperative, No Acute Distress Eye Exam: Positive: PERRLA, Conjunctiva & lids normal, EOMI; Negative: Sclera icteric ENT Exam: Positive: Atraumatic, Mucous membr. moist/pink, Pharynx Normal Neck Exam: Positive: Supple; Negative: JVD, thyromegaly Chest Exam: Positive: Clear to auscultation, Wheezing (on deep expiration) Heart Exam: Positive: Tachycardic, Regular Rhythm, Normal S1, Normal S2, Murmurs; Negative: Rubs Abdomen Exam: Positive: BS Hyperactive, Soft, Other (no guarding or rigidity, no rebound) Extremity Exam: Negative: Clubbing, Cyanosis, Edema Skin Exam: Positive: Nl turgor and temperature; Negative: Rash, Breakdown Assessment /Plan Assessment Ms. Blackwell is a 78-year-old female the past medical history of low rectal stage III adenocarcinoma, refractory C. difficile, chronic hypertension, diabetes, iron deficiency anemia and morbid obesity who is admitted for management of a large bowel obstruction due to colonic mass. Bowel obstruction secondary to colonic mass had massive bowel movement spontaneously yesterday. did not need the enema. Probably is now resolving. IVF, zofran, morphine for pain. allow water and ice chips if tolerated to advance to clear liquids. appreciate surgical consult. Leucocytosis this is probably related to filgrastim which she received on 04/14/19 now improving SIRS but no sepsis. The wbc probably related to filgrastim. Recurrent C. difficile Contact precautions/Continue with vancomycin Locally advanced low rectal cancer diagnosed in September 2018, she underwent diagnostic colonoscopy with Dr. Moore of [facility]. Findings included a large distal rectal mass multilobulated with biopsy showing moderately differentiated adenocarcinoma. She was referred to Munir Gallegos MD of surgery. His sense was that this was a locally advanced rectal carcinoma, and because of the patient's obesity, she may not be a candidate for abdominal perineal surgical approach and recommended up front chemoradiation. He did obtain an abdomen/pelvis MRI with gadolinium, 12/14/2018, ultimately showing T3d, MRF+N1low rectal tumor and large, multilobulated low rectal tumor extending to the anorectal junction with craniocaudal length 10.5 cm was seen with bulkiest portion above the anorectal junction. A second bulky tumor area measuring 8 cm from the anorectal junction with narrowing of the rectal lumen was seen. Current getting chemo last dose on 04/13/19 planned for chemoradiation next and reassessment for surgery Hiatal hernia and abdominal hernias. Iron deficiency anemia 2/2 low rectal stage III adenocarcinoma Hypertension amlodipine NIDDM2 lispro q 6 hours. DVT prophylaxis with Lovenox. Plan/VTE VTE Prophylaxis Ordered?: Yes VS, I&O, 24H, Fishbone Vital Signs/I&O Vital Signs Date Time Temp Pulse Resp B/P (MAP) Pulse Ox O2 Delivery O2 Flow Rate FiO2 04/17/19 08:58 106 138/60 04/17/19 08:00 97.4 20 99 Room Air I&O- Last 24 Hours up to 6 AM 04/17/19 06:00 Intake Total 740 ml Output Total 700 ml Balance 40 ml Laboratory Data 24H LABS Laboratory Tests 2 04/16/19 12:41: Bedside Glucose (Misc Panel) 211H 04/16/19 16:35: Bedside Glucose (Misc Panel) 123H 04/16/19 20:34: Bedside Glucose (Misc Panel) 94 04/17/19 07:42: Immature Granulocyte % (Auto) 2.0, Neutrophils (%) (Auto) 93.7H, Lymphocytes (%) (Auto) 3.2L, Monocytes (%) (Auto) 1.0, Eosinophils (%) (Auto) 0.0, Basophils (%) (Auto) 0.1, Neutrophils # (Auto) 17.6H, Lymphocytes # (Auto) 0.6L, Monocytes # (Auto) 0.2, Eosinophils # (Auto) 0.0, Basophils # (Auto) 0.0, Nucleated Red Blood Cells % (auto) 0.0, Anion Gap 6L, Glomerular Filtration Rate 54.1, Calcium Level 8.3L, Total Bilirubin 0.4, Aspartate Amino Transf (AST/SGOT) 16, Alanine Aminotransferase (ALT/SGPT) 16, Alkaline Phosphatase 137H, Total Protein 5.7L, Albumin 2.4#L, Albumin/Globulin Ratio 0.73L CBC/BMP Laboratory Tests 04/17/19 07:42 Microbiology Microbiology 04/16/19 Blood Culture - Preliminary, Resulted No growth after 24 hours . All specim... JOELLE MARIE MD Apr 17, 2019 10:09
--- NOTE | 2019-04-17 11:21 | REP ---
Supine abdomen two views: Comparison is the abdomen/pelvis CT dated 04/15/2019. There is scattered gas in nondistended small bowel loops. There is gas in the few mildly distended loops of colon in the hepatic flexure and distal transverse colon measuring up to 8 cm transverse diameter. No other dilated colonic loops are identified. However, upon review of the CT most of the dilated colonic loops are filled with fecal residue and may not be visible on plain films. There are metallic surgical sutures in the pelvis. There is degenerative disc disease in the lumbar spine. Impression Mildly dilated loops of small bowel as described. No small bowel distension. Electronically Signed by Quan Corona MD 04/17/2019 11:13 A
[2019-04-17 12:00] VITALS: BP 120/68
[2019-04-17 16:00] VITALS: BP 116/56
[2019-04-17 20:00] VITALS: BP 118/56
[2019-04-18] VITALS: BP 134/58
[2019-04-18 04:00] VITALS: BP 140/64
[2019-04-18] MEDS: ALBUTEROL SULFATE 2.5 MG/0.5 ML INH NEB SOLN NEB SCH ×2 (07:29→20:05)
[2019-04-18] MEDS: HumaLOG INSULIN (NovoLOG) PER UNIT SC SCH ×4 (07:30→20:43)
[2019-04-18 07:38] LABS: BASO % 0.1 % (0.0-1.0); EOS % 0.1 % (0.0-3.0); HEMATOCRIT 29.9 % (36.0-47.0); HEMOGLOBIN 8.8 g/dl (12.0-15.5); LYMPH # 0.7 10^3/uL (1.5-5.0); LYMPH % 6.5 % (24.0-44.0); MEAN CORPUSCULAR HEMOGLOBIN 24.2 pg (27.0-33.0); MEAN CORPUSCULAR HGB CONC 29.4 g/dl (32.0-36.5); MEAN CORPUSCULAR VOLUME 82.4 fl (80.0-96.0); MONO # 0.1 10^3/uL (0.0-0.8); MONO % 1.2 % (0.0-5.0); NEUTROPHILS # 9.2 10^3/uL (1.5-8.5); NEUTROPHILS % 91.2 % (36.0-66.0); PLATELET COUNT, AUTOMATED 124 10^3/uL (150-450); RED BLOOD COUNT 3.63 10^6/uL (4.00-5.40); WHITE BLOOD COUNT 10.1 10^3/uL (4.0-10.0)
[2019-04-18 07:53] LABS: BLOOD UREA NITROGEN 16 MG/DL (7-18); CARBON DIOXIDE LEVEL 22 MEQ/L (21-32); CHLORIDE LEVEL 114 MEQ/L (98-107); CREATININE FOR GFR 0.63 MG/DL (0.55-1.30); GLOMERULAR FILTRATION RATE > 60.0 (>39); GLUCOSE, FASTING 79 MG/DL (70-100); POTASSIUM SERUM 3.1 MEQ/L (3.5-5.1); SODIUM LEVEL 143 MEQ/L (136-145)
[2019-04-18 08:00] VITALS: BP 146/82
--- NOTE | 2019-04-18 08:59 | IPNPDOC ---
Subjective General Date/Time Seen The patient was seen on 04/18/19 at 08:58. Subject Chief Complaint/History The patient is a 78-year-old female admitted with a reason for visit of C-Diff; Colonic Obstruction. Patient has been having incontinent stools, with flatus. Shes generally tolerating clears. Denies nausea, reports mild bloating , occasional cramping. Current Medications Current Medications Current Medications Medications (Trade) Dose Ordered Sig/Tereso Route PRN Reason Start Time Stop Time Status Last Admin Dose Admin Acetaminophen (Tylenol Arthritis Er) 1,300 mg Q8HP PRN PO PAIN 04/16/19 02:15 04/16/19 10:33 DC Albuterol Sulfate (Proventil Neb) 2.5 mg RBID NEB 04/16/19 08:00 04/18/19 07:29 Amlodipine Besylate (Norvasc) 5 mg DAILY PO 04/16/19 09:00 04/17/19 08:58 Dextrose (Dextrose 50%) 25 ml ASDIRECTED PRN IV SEE LABEL COMMENTS 04/15/19 23:45 Enoxaparin Sodium (Lovenox) 40 mg DAILY SC 04/16/19 09:00 04/17/19 08:52 Famotidine 20 mg/ IV Miscellaneous Supplies 50 ml @ 100 mls/hr Q12H IV 04/16/19 09:00 04/17/19 21:12 Fentanyl Citrate (Sublimaze) 25 mcg Q1HP PRN IV PAIN 04/16/19 02:15 04/16/19 04:16 DC 04/16/19 03:26 Fentanyl Citrate (Sublimaze) 50 mcg Q1HP PRN IV PAIN 04/16/19 04:15 04/16/19 10:33 DC 04/16/19 07:33 Furosemide (Lasix) 40 mg DAILY PO 04/16/19 09:00 04/16/19 10:33 DC 04/16/19 10:00 Glucagon (Glucagon) 1 mg ASDIRECTED PRN SC SEE LABEL COMMENTS 04/15/19 23:45 Glucose (Glucose) 16 GM ASDIRECTED PRN PO SEE LABEL COMMENTS 04/15/19 23:45 Heparin Sodium (Porcine) (Heparin) 5,000 units Q8H SQ 04/16/19 06:00 04/16/19 02:39 DC Home Med (Med Rec Complete!) ASDIRECTED XX 04/15/19 21:45 04/15/19 21:33 DC Insulin Human Lispro (HumaLOG INSULIN) See Protocol Table AC [place] 04/16/19 07:30 04/16/19 01:08 DC Insulin Human Lispro (HumaLOG INSULIN) See Protocol Table AC [place] 04/17/19 17:30 04/17/19 18:14 Insulin Human Lispro (HumaLOG INSULIN) See Protocol Table Q6H [place] 04/16/19 00:00 04/17/19 16:05 DC 04/16/19 18:04 Insulin Human Lispro (HumaLOG INSULIN) See Protocol Table QHS [place] 04/15/19 21:00 04/16/19 01:08 DC Insulin Human Lispro (HumaLOG INSULIN) See Protocol Table QFOX [facility] 04/17/19 21:00 Miscellaneous (Unresolved Patient Own Med Order) SEE LABEL COMMENTS DAILY XX 04/16/19 09:00 Morphine Sulfate (Morphine Sulfate Inj) 4 mg Q3HP PRN IV SEVERE PAIN (PS 8-10) 04/16/19 10:30 04/16/19 22:47 Ondansetron HCl (ZOFRAN INJection) 4 mg Q4HP PRN IV NAUSEA OR VOMITING 04/16/19 02:15 04/16/19 12:19 Patient Own Medication (Patient'S Own Med) 2 PUFF DAILY INH 04/16/19 09:00 UNV Sodium Chloride 1,000 ml @ 75 mls/hr [id number] IV 04/15/19 23:45 04/17/19 23:33 Vancomycin HCl (First-Vancomycin 50(Firvanq)- 250mg/5ml) 125 mg DAILY PO 04/16/19 09:00 04/17/19 08:52 Allergies Coded Allergies: vancomycin (Verified Allergy, Intermediate, HIVES/ITCHING, 01/04/19) Penicillins (Unverified Allergy, Unknown, 01/04/19) Sulfa (Sulfonamide Antibiotics) (Unverified Allergy, Unknown, 01/04/19) morphine (Verified Adverse Reaction, Unknown, NAUSEA, 01/04/19) Objective Physical Examination Examination GENERAL APPEARANCE:looks comfortable. SKIN: warm and dry. LUNGS: Clear to auscultation bilaterally. No wheezing appreciated. ABDOMEN: Abdomen is obese, soft, mild prominent distention in the upper abdomen, tympanitic to percussion, nontender on palpation. Vital Signs Vital Signs Date Time Temp Pulse Resp B/P (MAP) Pulse Ox O2 Delivery O2 Flow Rate FiO2 04/18/19 08:00 97.0 89 17 146/82 (103) 96 Room Air I&Os I&O- Last 24 Hours up to 6 AM 04/18/19 06:00 Intake Total 2860 ml Balance 2860 ml Laboratory Data Labs 24H Laboratory Tests 2 04/17/19 12:45: Bedside Glucose (Misc Panel) 90 04/17/19 17:36: Bedside Glucose (Misc Panel) 113H 04/17/19 21:11: Bedside Glucose (Misc Panel) 136H 04/18/19 07:04: Immature Granulocyte % (Auto) 0.9, Neutrophils (%) (Auto) 91.2H, Lymphocytes (%) (Auto) 6.5L, Monocytes (%) (Auto) 1.2, Eosinophils (%) (Auto) 0.1, Basophils (%) (Auto) 0.1, Neutrophils # (Auto) 9.2H, Lymphocytes # (Auto) 0.7L, Monocytes # (Auto) 0.1, Eosinophils # (Auto) 0.0, Basophils # (Auto) 0.0, Nucleated Red Blood Cells % (auto) 0.0, Anion Gap 7L, Glomerular Filtration Rate > 60.0, Calcium Level 8.0L CBC/BMP Laboratory Tests 04/18/19 07:04 Microbiology Microbiology 04/16/19 Blood Culture - Preliminary, Resulted No Growth after 48 hours. All Specime... Impression obstructing advanced rectal adenocarcinoma on chemotherapy presenting with acute obstruction which seems to be resolving on its own. She has a high chance of obstructing while undergoing chemotherapy and probably should get a diverting colostomy in a nonurgent timing. Plan / VTE VTE Prophylaxis Ordered?: Yes JIM CARRILLO MD Apr 18, 2019 08:59
[2019-04-18] MEDS: ENOXAPARIN 40 MG/0.4 ML SYRINGE (J1650) SC SCH (09:09)
[2019-04-18] MEDS: FAMOTIDINE IV BAG 20 MG in IV 1 EA IV SCH ×2 (09:09→20:43)
[2019-04-18] MEDS: amLODIPine 5 MG TAB PO SCH (09:09)
[2019-04-18] MEDS: VANCOMYCIN ORAL SOL 250MG/5ML ORAL SYRINGE PO SCH (09:09)
--- NOTE | 2019-04-18 09:28 | IPNPDOC ---
Subjective Date Seen The patient was seen on 04/18/19. Subjective Chief Complaint/HPI Still has some soreness and pain in the epigastrium and left upper quadrant. Continues to have several small and large bowel movements daily. Objective Physical Examination General Exam: Positive: Alert, Cooperative, No Acute Distress Eye Exam: Positive: PERRLA, Conjunctiva & lids normal, EOMI; Negative: Sclera icteric ENT Exam: Positive: Atraumatic, Mucous membr. moist/pink, Pharynx Normal Neck Exam: Positive: Supple; Negative: JVD, thyromegaly Chest Exam: Positive: Clear to auscultation, Wheezing (on deep expiration) Heart Exam: Positive: Tachycardic, Regular Rhythm, Normal S1, Normal S2, Murmurs; Negative: Rubs Abdomen Exam: Positive: Normal bowel sounds, Soft, Tenderness (in melany epigastrium and left upper quadrant. ), Other (no guarding or rigidity, no rebound) Extremity Exam: Negative: Clubbing, Cyanosis, Edema Skin Exam: Positive: Nl turgor and temperature; Negative: Rash, Breakdown Assessment /Plan Assessment Ms. Blackwell is a 78-year-old female the past medical history of low rectal stage III adenocarcinoma, refractory C. difficile, chronic hypertension, diabetes, iron deficiency anemia and morbid obesity who is admitted for management of a large bowel obstruction due to colonic mass. Bowel obstruction secondary to Rectal cancer now resolving spontaneously IVF, zofran, morphine for pain tolerating full liquids advance diet as per surgery. appreciate surgical consult. hypokalemia replaced Leucocytosis this is probably related to filgrastim which she received on 04/14/19 now improving SIRS but no sepsis. The wbc probably related to filgrastim. Recurrent C. difficile Contact precautions/Continue with vancomycin Locally advanced low rectal cancer diagnosed in September 2018, she underwent diagnostic colonoscopy with Dr. Moore of [facility]. Findings included a large distal rectal mass multilobulated with biopsy showing moderately differentiated adenocarcinoma. She was referred to Munir Gallegos MD of surgery. His sense was that this was a locally advanced rectal carcinoma, and because of the patient's obesity, she may not be a candidate for abdominal perineal surgical approach and recommended up front chemoradiation. He did obtain an abdomen/pelvis MRI with gadolinium, 12/14/2018, ultimately showing T3d, MRF+N1low rectal tumor and large, multilobulated low rectal tumor extending to the anorectal junction with craniocaudal length 10.5 cm was seen with bulkiest portion above the anorectal junction. A second bulky tumor area measuring 8 cm from the anorectal junction with narrowing of the rectal lumen was seen. Current getting chemo last dose on 04/13/19 planned for chemoradiation next and reassessment for surgery Hiatal hernia and abdominal hernias. Iron deficiency anemia 2/2 low rectal stage III adenocarcinoma Hypertension amlodipine NIDDM2 lispro AC and HS. DVT prophylaxis with Lovenox. Plan/VTE VTE Prophylaxis Ordered?: Yes VS, I&O, 24H, Fishbone Vital Signs/I&O Vital Signs Date Time Temp Pulse Resp B/P (MAP) Pulse Ox O2 Delivery O2 Flow Rate FiO2 04/18/19 09:09 78 146/82 04/18/19 08:00 97.0 17 96 Room Air I&O- Last 24 Hours up to 6 AM 04/18/19 05:59 Intake Total 2860 ml Balance 2860 ml Laboratory Data 24H LABS Laboratory Tests 2 04/17/19 12:45: Bedside Glucose (Misc Panel) 90 04/17/19 17:36: Bedside Glucose (Misc Panel) 113H 04/17/19 21:11: Bedside Glucose (Misc Panel) 136H 04/18/19 07:04: Immature Granulocyte % (Auto) 0.9, Neutrophils (%) (Auto) 91.2H, Lymphocytes (%) (Auto) 6.5L, Monocytes (%) (Auto) 1.2, Eosinophils (%) (Auto) 0.1, Basophils (%) (Auto) 0.1, Neutrophils # (Auto) 9.2H, Lymphocytes # (Auto) 0.7L, Monocytes # (Auto) 0.1, Eosinophils # (Auto) 0.0, Basophils # (Auto) 0.0, Nucleated Red Bloo d Cells % (auto) 0.0, Anion Gap 7L, Glomerular Filtration Rate > 60.0, Calcium Level 8.0L CBC/BMP Laboratory Tests 04/18/19 07:04 Microbiology Microbiology 04/16/19 Blood Culture - Preliminary, Resulted No Growth after 48 hours. All Specime... JOELLE MARIE MD Apr 18, 2019 09:28
[2019-04-18] MEDS ORDERED: POTASSIUM CHLORIDE 10 MEQ SR TABLET PO ONE (09:30)
[2019-04-18] MEDS: KCL 10MEQ/100ML SWI (KRUN) 10 MEQ in IV 1 EA IV SCH ×2 (10:33→12:22)
[2019-04-18 12:00] VITALS: BP 118/62
[2019-04-18] MEDS: MORPHINE 4 MG/ML 1ML VIAL/SYRINGE (J2270) IV PRN ×2 (15:23→22:28)
[2019-04-18] MEDS: FUROSEMIDE 40 MG TAB PO SCH (15:23)
[2019-04-18 16:00] VITALS: BP 128/60
[2019-04-18 20:00] VITALS: BP 136/58
[2019-04-18] MEDS: SODIUM CHLORIDE 0.9% INJ 10 ML SYR IV PRN (22:28)
[2019-04-19] VITALS: BP 128/64
[2019-04-19 05:12] LABS: EOS % 0.2 % (0.0-3.0); HEMATOCRIT 29.5 % (36.0-47.0); LYMPH # 0.6 10^3/uL (1.5-5.0); LYMPH % 6.9 % (24.0-44.0); MEAN CORPUSCULAR HEMOGLOBIN 24.2 pg (27.0-33.0); MEAN CORPUSCULAR HGB CONC 30.5 g/dl (32.0-36.5); MEAN CORPUSCULAR VOLUME 79.3 fl (80.0-96.0); MONO # 0.1 10^3/uL (0.0-0.8); MONO % 1.6 % (0.0-5.0); NEUTROPHILS # 7.5 10^3/uL (1.5-8.5); NEUTROPHILS % 89.7 % (36.0-66.0); PLATELET COUNT, AUTOMATED 112 10^3/uL (150-450); RED BLOOD COUNT 3.72 10^6/uL (4.00-5.40); WHITE BLOOD COUNT 8.3 10^3/uL (4.0-10.0)
[2019-04-19 05:36] LABS: BLOOD UREA NITROGEN 11 MG/DL (7-18); CALCIUM LEVEL 8.1 MG/DL (8.8-10.2); CARBON DIOXIDE LEVEL 24 MEQ/L (21-32); CHLORIDE LEVEL 111 MEQ/L (98-107); CREATININE FOR GFR 0.67 MG/DL (0.55-1.30); GLOMERULAR FILTRATION RATE > 60.0 (>39); GLUCOSE, FASTING 86 MG/DL (70-100); POTASSIUM SERUM 3.2 MEQ/L (3.5-5.1); SODIUM LEVEL 142 MEQ/L (136-145)
[2019-04-19] MEDS: HumaLOG INSULIN (NovoLOG) PER UNIT SC SCH ×6 (07:30→20:41)
[2019-04-19 08:00] VITALS: BP 128/72
[2019-04-19] MEDS: VANCOMYCIN ORAL SOL 250MG/5ML ORAL SYRINGE PO SCH (09:00)
[2019-04-19] MEDS: amLODIPine 5 MG TAB PO SCH (09:39)
[2019-04-19] MEDS: ENOXAPARIN 40 MG/0.4 ML SYRINGE (J1650) SC SCH (09:39)
[2019-04-19] MEDS: SODIUM CHLORIDE 0.9% INJ 10 ML SYR IV SCH (09:40)
[2019-04-19] MEDS: FAMOTIDINE IV BAG 20 MG in IV 1 EA IV SCH ×2 (09:40→21:07)
[2019-04-19] MEDS: POTASSIUM CHLORIDE 10 MEQ SR TABLET PO SCH (09:40)
[2019-04-19] MEDS: FUROSEMIDE 40 MG TAB PO SCH (09:41)
[2019-04-19] MEDS: ALBUTEROL SULFATE 2.5 MG/0.5 ML INH NEB SOLN NEB SCH ×2 (10:08→20:31)
[2019-04-19] MEDS: MORPHINE 4 MG/ML 1ML VIAL/SYRINGE (J2270) IV PRN ×2 (10:58→21:08)
[2019-04-19] MEDS: ONDANSETRON 4MG/2ML VIAL (J2405) IV PRN ×2 (12:38→21:12)
--- NOTE | 2019-04-19 13:21 | IPNPDOC ---
Subjective Date Seen The patient was seen on 04/19/19. Subjective Chief Complaint/HPI Complains of frequent loose stools , denies any abdominal pain, says feels hungry . Denies any abdominal distension. No fever or chills, says her perineum is raw from all the stools Objective Physical Examination General Exam: Positive: Alert, Cooperative, No Acute Distress Eye Exam: Positive: PERRLA, Conjunctiva & lids normal, EOMI; Negative: Sclera icteric ENT Exam: Positive: Atraumatic, Mucous membr. moist/pink, Pharynx Normal Neck Exam: Positive: Supple; Negative: JVD, thyromegaly Chest Exam: Positive: Clear to auscultation, Wheezing (on deep expiration) Heart Exam: Positive: Tachycardic, Regular Rhythm, Normal S1, Normal S2, Murmurs; Negative: Rubs Abdomen Exam: Positive: Normal bowel sounds, Soft, Tenderness (in melany epigastrium and left upper quadrant. ), Other (no guarding or rigidity, no rebound) Extremity Exam: Negative: Clubbing, Cyanosis, Edema Skin Exam: Positive: Nl turgor and temperature; Negative: Rash, Breakdown Assessment /Plan Assessment Ms. Blackwell is a 78-year-old female the past medical history of low rectal stage III adenocarcinoma, refractory C. difficile, chronic hypertension, diabetes, iron deficiency anemia and morbid obesity who is admitted for management of a large bowel obstruction due to colonic mass. Bowel obstruction secondary to Rectal cancer now resolving spontaneously. however continues to have large number of loose stools. Unfortunately we cannot give any antidiarrheal agents as that will probably put her back into obstruction again. will need early diverting colostomy to prevent recurrent obstruction which will take care of the diarrhea too. Will discuss with pateint if she wants to go back to the colorectal surgeon that she saw in [place] for this procedure then we can refer her there for an early appointment for evaluation fro colostomy. diet advanced to soft appreciate surgical consult. hypokalemia replaced Leucocytosis this is probably related to filgrastim which she received on 04/14/19 now improved SIRS but no sepsis. The wbc probably related to filgrastim. Recurrent C. difficile Contact precautions/Continue with vancomycin Locally advanced low rectal cancer diagnosed in September 2018, she underwent diagnostic colonoscopy with Dr. Moore of [facility]. Findings included a large distal rectal mass multilobulated with biopsy showing moderately differentiated adenocarcinoma. She was referred to Munir Gallegos MD of surgery. His sense was that this was a locally advanced rectal carcinoma, and because of the patient's obesity, she may not be a candidate for abdominal perineal surgical approach and recommended up front chemoradiation. He did obtain an abdomen/pelvis MRI with gadolinium, 12/14/2018, ultimately showing T3d, MRF+N1low rectal tumor and large, multilob ulated low rectal tumor extending to the anorectal junction with craniocaudal length 10.5 cm was seen with bulkiest portion above the anorectal junction. A second bulky tumor area measuring 8 cm from the anorectal junction with narrowing of the rectal lumen was seen. Current getting chemo last dose on 04/13/19 planned for chemoradiation next and reassessment for surgery Hiatal hernia and abdominal hernias. Iron deficiency anemia 2/2 low rectal stage III adenocarcinoma Hypertension amlodipine NIDDM2 lispro AC and HS. DVT prophylaxis with Lovenox. Plan/VTE VTE Prophylaxis Ordered?: Yes VS, I&O, 24H, [facility] Healthel[facility] Vital Signs/I&O Vital Signs Date Time Temp Pulse Resp B/P (MAP) Pulse Ox O2 Delivery O2 Flow Rate FiO2 04/19/19 12:00 Room Air 04/19/19 11:08 16 04/19/19 09:39 86 128/72 04/19/19 08:00 98.9 96 I&O- Last 24 Hours up to 6 AM 04/19/19 06:00 Intake Total 1660 ml Output Total 700 ml Balance 960 ml Laboratory Data 24H LABS Laboratory Tests 2 04/18/19 17:09: Bedside Glucose (Misc Panel) 110 04/18/19 18:37: Urine Color STRAW, Urine Appearance CLEAR, Urine pH 5.0, Urine Specific [place] 1.005, Urine Protein NEGATIVE, Urine Glucose (UA) NEGATIVE, Urine Ketones NEGATIVE, Urine Blood 1+H, Urine Nitrite NEGATIVE, Urine Bilirubin NEGATIVE, Urine Urobilinogen 0.2, Urine Leukocyte Esterase NEGATIVE, Urine WBC (Auto) 5H, Urine RBC (Auto) 2, Urine Hyaline Casts (Auto) 0, Urine Bacteria (Auto) 1+H, Urine Squamous Epithelial Cells 1, Urine Amorphous Sediment SMALLH, Urine Mucus (Auto) SMALL, Urine Sperm (Auto) 04/18/19 20:38: Bedside Glucose (Misc Panel) 101 04/19/19 04:54: Immature Granulocyte % (Auto) 1.6, Neutrophils (%) (Auto) 89.7H, Lymphocytes (%) (Auto) 6.9L, Monocytes (%) (Auto) 1.6, Eosinophils (%) (Auto) 0.2, Basophils (%) (Auto) 0.0, Neutrophils # (Auto) 7.5, Lymphocytes # (Auto) 0.6L, Monocytes # (Auto) 0.1, Eosinophils # (Auto) 0.0, Basophils # (Auto) 0.0, Nucleated Red B lood Cells % (auto) 0.0, Anion Gap 7L, Glomerular Filtration Rate > 60.0, Calcium Level 8.1L 04/19/19 11:57: Bedside Glucose (Misc Panel) 162H CBC/BMP Laboratory Tests 04/19/19 04:54 Microbiology Microbiology 04/16/19 Blood Culture - Preliminary, Resulted No Growth after 72 hours. All specime... JOELLE MARIE MD Apr 19, 2019 13:21
[2019-04-19 16:00] VITALS: BP 144/80
[2019-04-19 19:54] VITALS: BP 144/50
[2019-04-20] VITALS (8 sets, daily range): BP systolic 121–166; BP diastolic 58–80
[2019-04-20] MEDS: SODIUM CHLORIDE 0.9% INJ 10 ML SYR IV PRN (06:04)
[2019-04-20] MEDS: ONDANSETRON 4MG/2ML VIAL (J2405) IV PRN (06:32)
[2019-04-20] MEDS: MORPHINE 4 MG/ML 1ML VIAL/SYRINGE (J2270) IV PRN ×3 (06:33→20:30)
[2019-04-20] MEDS: HumaLOG INSULIN (NovoLOG) PER UNIT SC SCH ×4 (07:30→20:33)
[2019-04-20] MEDS: ALBUTEROL SULFATE 2.5 MG/0.5 ML INH NEB SOLN NEB SCH ×2 (07:43→20:00)
[2019-04-20 08:57] LABS: BASO % 0.2 % (0.0-1.0); EOS % 0.2 % (0.0-3.0); HEMATOCRIT 29.7 % (36.0-47.0); HEMOGLOBIN 8.8 g/dl (12.0-15.5); LYMPH # 0.4 10^3/uL (1.5-5.0); LYMPH % 8.7 % (24.0-44.0); MEAN CORPUSCULAR HGB CONC 29.6 g/dl (32.0-36.5); MEAN CORPUSCULAR VOLUME 81.1 fl (80.0-96.0); MONO # 0.2 10^3/uL (0.0-0.8); MONO % 3.8 % (0.0-5.0); NEUTROPHILS # 4.1 10^3/uL (1.5-8.5); NEUTROPHILS % 86.5 % (36.0-66.0); RED BLOOD COUNT 3.66 10^6/uL (4.00-5.40); WHITE BLOOD COUNT 4.7 10^3/uL (4.0-10.0)
[2019-04-20 08:58] LABS: PLATELET COUNT, AUTOMATED 95 10^3/uL (150-450)
[2019-04-20 09:22] LABS: BLOOD UREA NITROGEN 9 MG/DL (7-18); CALCIUM LEVEL 7.8 MG/DL (8.8-10.2); CARBON DIOXIDE LEVEL 30 MEQ/L (21-32); CHLORIDE LEVEL 110 MEQ/L (98-107); CREATININE FOR GFR 0.64 MG/DL (0.55-1.30); GLOMERULAR FILTRATION RATE > 60.0 (>39); GLUCOSE, FASTING 101 MG/DL (70-100); POTASSIUM SERUM 3.3 MEQ/L (3.5-5.1); SODIUM LEVEL 144 MEQ/L (136-145)
[2019-04-20] MEDS: SODIUM CHLORIDE 0.9% INJ 10 ML SYR IV SCH (09:45)
[2019-04-20] MEDS: VANCOMYCIN ORAL SOL 250MG/5ML ORAL SYRINGE PO SCH (09:45)
[2019-04-20] MEDS: POTASSIUM CHLORIDE 10 MEQ SR TABLET PO SCH (09:45)
[2019-04-20] MEDS: FUROSEMIDE 40 MG TAB PO SCH (09:45)
[2019-04-20] MEDS: FAMOTIDINE IV BAG 20 MG in IV 1 EA IV SCH ×2 (09:46→20:32)
[2019-04-20] MEDS: amLODIPine 5 MG TAB PO SCH (09:46)
[2019-04-20] MEDS ORDERED: KCL 10MEQ IN STERILE WATER 100ML As Ordered ONE (13:17)
[2019-04-20] MEDS ORDERED: BUPIVACAINE HCL 0.25% 30 ML VIAL As Ordered ONE (13:37)
[2019-04-20] MEDS ORDERED: ERTAPENEM 1 GM INJ (INVanz) (J1335) As Ordered ONE (13:54)
[2019-04-20] MEDS ORDERED: KCL 20MEQ IN 100ML SWI (KRUN) 100 ML IV ONE (14:00)
[2019-04-20] MEDS ORDERED: PHENYLephrine HCL 500 MCG/5 ML (100MCG/ML) SYRINGE (J2370) As Ordered ONE (15:21)
[2019-04-20] MEDS ORDERED: fentaNYL 250 MCG/5 ML INJECTION (J3010) As Ordered ONE (15:21)
[2019-04-20] MEDS ORDERED: LIDOCAINE 2% INJ 100 MG/5 ML SDV (FOR ANES.) As Ordered ONE (15:21)
[2019-04-20] MEDS ORDERED: MIDAZOLAM INJ 2 MG/2 ML VIAL (J2250) As Ordered ONE (15:21)
[2019-04-20] MEDS ORDERED: dexameTHASONE 4 MG/ML 1ML VIAL (J1100) As Ordered ONE (15:21)
[2019-04-20] MEDS ORDERED: ROCURONIUM BROMIDE 50 MG/5 ML VIAL As Ordered ONE ×2 (15:21→15:25)
[2019-04-20] MEDS ORDERED: SUCCINYLCHOLINE 100 MG/5 ML SYRINGE (J0330) As Ordered ONE (15:21)
[2019-04-20] MEDS ORDERED: KETOROLAC 60 MG/2 ML VIAL (J1885) As Ordered ONE (15:21)
[2019-04-20] MEDS ORDERED: METOCLOPRAMIDE INJ 10MG/2ML VIAL (J2765) As Ordered ONE (15:21)
[2019-04-20] MEDS ORDERED: PROPOFOL 200 MG/20 ML VIAL As Ordered ONE (15:21)
[2019-04-20] MEDS ORDERED: SUGAMMADEX SODIUM 500 MG/5 ML VIAL (BRIDION) As Ordered ONE (15:21)
[2019-04-20] MEDS ORDERED: ONDANSETRON 4MG/2ML VIAL (J2405) As Ordered ONE (15:21)
[2019-04-20] MEDS ORDERED: LABETALOL HCL 100 MG/20 ML VIAL As Ordered ONE (15:37)
--- NOTE | 2019-04-20 17:08 | IPN ---
DATE: 04/20/2019 Patient continues to have loose bowel movements, had four bowel movements yesterday, and incontinent bowel movements of three, total of seven yesterday and five today despite being on oral vancomycin daily. Denies any abdominal pain, fever, or chills. No dizziness or lightheadedness. Vital signs: Temperature 97.4, pulse 96, respiratory rate 18, blood pressure 132/72, 98% on room air. Generally, patient is awake, alert, oriented, answering questions appropriately. Moist mucous membranes. No jugular venous distention (JVD). No cervical lymphadenopathy. Lungs are clear to auscultation. Heart: S1, S2, sinus rhythm. Abdomen: Soft, positive bowel sounds, some tenderness on the left. No rebound, guarding. Extremities: No cyanosis or clubbing. ASSESSMENT AND PLAN: A 78-year-old female with a history of stage III adenocarcinoma of the rectum with refractory Clostridium difficile, on oral vancomycin, iron deficiency anemia, admitted for large bowel obstruction due to colonic mass. IMPRESSION: 1. Rectal cancer with bowel obstruction. General surgery is being consulted, recommended nothing by mouth status currently. Will need diverting colostomy to prevent recurrent obstruction. Patient did see a colorectal surgeon in [place] in the past. Defer to general surgery for further management. 2. Electrolyte abnormalities with low potassium. Patient has been given K-run. 3. History of recurrent Clostridium difficile with ongoing diarrhea, hopefully to be resolved with diverting colostomy. Infectious disease has been consulted, Dr. Proctor, on oral vancomycin. 4. Adenocarcinoma of the rectum, stage III. See colorectal surgeon, Dr. Moore, [facility]. Patient was not a candidate for abdominoperineal surgical approach. Recommended chemoradiation. MRI with gadolinium 12/2018 showed T3d rectal tumor, large, multilobulated low rectal tumor extending to the anorectal junction with craniocaudad length 10.5, second bulky tumor 8 cm from anorectal junction with narrowing of the rectal lumen. Last chemotherapy was given 04/13/2019 and received filgrastim with elevated white count on admission. 5. History of abdominal hernia, hiatal hernia. 6. Hypertension, on Norvasc. 7. Insulin-dependent diabetes, on Lispro sliding scale. MTDD
[2019-04-20] MEDS ORDERED: DESFLURANE 240 ML INHALANT As Ordered ONE (17:48)
[2019-04-20] MEDS ORDERED: ACETAMINOPHEN 1000MG 100ML IV BTL (OFIRMEV) (J0131 PER 10MG) As Ordered ONE (17:58)
--- NOTE | 2019-04-20 18:13 | IPN ---
DATE: 04/20/2019 I have tried to see Aida between 4:00 o'clock and 6:00 o'clock, but she remains in the operating room for a diverting colostomy by Dr. Chao. The patient is well-known to me from outpatient visits with recurrent Clostridium (C) difficile colitis that had responded to oral fidaxomicin in the past. The patient was on a tapering dose of vancomycin, currently at 125 mg daily. She is having recurrent diarrhea which could be from obstruction from rectal cancer versus recurrent C. difficile. The patient will be having some perioperative antibiotic, therefore at risk of having recurrent C. difficile. I would recommend switching to Dificid 200 mg twice a day to prevent recurrence in setting of surgery /atbx and recent chemotherapy I will see the patient in consultation in the morning as she is still in the operating room tonight. In the meantime, we will switch her back to dificid Bid as symptoms have worsened on vancocin MTDD
[2019-04-20] MEDS ORDERED: VANCOMYCIN ORAL SOL 250MG/5ML ORAL SYRINGE PO SCH (18:15)
[2019-04-20] MEDS ORDERED: fentaNYL 100 MCG/2 ML INJECTION (J3010) IV PRN (18:45)
[2019-04-20] MEDS ORDERED: NS 0.45% 1,000 ML IV SCH (18:45)
[2019-04-20] MEDS ORDERED: PERCOCET 5MG/325MG TAB As Ordered ONE (18:48)
[2019-04-20] MEDS ORDERED: PERCOCET 5MG/325MG TAB PO SCH (19:15)
[2019-04-20] MEDS: FIDAXOMICIN 200 MG TAB (DIFICID) PO SCH (20:32)
[2019-04-21] VITALS: BP 124/56
[2019-04-21 04:00] VITALS: BP 142/63
[2019-04-21] MEDS: NORCO, ANEXSIA 5/325MG TABLET (HYDROcodone/ACETAMINOPHEN) PO PRN ×2 (05:26→10:02)
[2019-04-21 05:52] LABS: BASO % 0.2 % (0.0-1.0); HEMATOCRIT 26.9 % (36.0-47.0); HEMOGLOBIN 8.2 g/dl (12.0-15.5); LYMPH # 0.3 10^3/uL (1.5-5.0); LYMPH % 5.2 % (24.0-44.0); MEAN CORPUSCULAR HEMOGLOBIN 24.1 pg (27.0-33.0); MEAN CORPUSCULAR HGB CONC 30.5 g/dl (32.0-36.5); MEAN CORPUSCULAR VOLUME 79.1 fl (80.0-96.0); MONO # 0.2 10^3/uL (0.0-0.8); MONO % 3.7 % (0.0-5.0); NEUTROPHILS # 4.8 10^3/uL (1.5-8.5); NEUTROPHILS % 90.3 % (36.0-66.0); WHITE BLOOD COUNT 5.4 10^3/uL (4.0-10.0)
[2019-04-21 05:54] LABS: PLATELET COUNT, AUTOMATED 94 10^3/uL (150-450)
[2019-04-21 06:11] LABS: BLOOD UREA NITROGEN 10 MG/DL (7-18); CALCIUM LEVEL 7.7 MG/DL (8.8-10.2); CARBON DIOXIDE LEVEL 27 MEQ/L (21-32); CHLORIDE LEVEL 107 MEQ/L (98-107); CREATININE FOR GFR 0.65 MG/DL (0.55-1.30); GLOMERULAR FILTRATION RATE > 60.0 (>39); GLUCOSE, FASTING 117 MG/DL (70-100); POTASSIUM SERUM 3.1 MEQ/L (3.5-5.1); SODIUM LEVEL 142 MEQ/L (136-145)
[2019-04-21] MEDS: ALBUTEROL SULFATE 2.5 MG/0.5 ML INH NEB SOLN NEB SCH ×2 (07:18→20:20)
[2019-04-21] MEDS: ONDANSETRON 4MG/2ML VIAL (J2405) IV PRN (08:02)
[2019-04-21] MEDS: SODIUM CHLORIDE 0.9% INJ 10 ML SYR IV SCH (08:11)
[2019-04-21] MEDS: HumaLOG INSULIN (NovoLOG) PER UNIT SC SCH ×4 (08:12→20:06)
[2019-04-21] MEDS: FIDAXOMICIN 200 MG TAB (DIFICID) PO SCH ×2 (10:01→20:16)
[2019-04-21] MEDS: POTASSIUM CHLORIDE 10 MEQ SR TABLET PO SCH (10:01)
[2019-04-21] MEDS: amLODIPine 5 MG TAB PO SCH (10:01)
[2019-04-21] MEDS: FUROSEMIDE 40 MG TAB PO SCH (10:01)
[2019-04-21] MEDS: FAMOTIDINE IV BAG 20 MG in IV 1 EA IV SCH ×2 (10:02→20:16)
[2019-04-21] MEDS: SODIUM CHLORIDE 0.9% INJ 10 ML SYR IV PRN ×2 (10:44→16:25)
[2019-04-21] MEDS: MORPHINE 4 MG/ML 1ML VIAL/SYRINGE (J2270) IV PRN ×3 (10:44→22:22)
[2019-04-21] MEDS ORDERED: PROMETHAZINE 25 MG TAB PO ONE ×2 (10:45→11:00)
[2019-04-21 12:00] VITALS: BP 150/67
--- NOTE | 2019-04-21 13:12 | CR ---
INFECTIOUS DISEASE CONSULTATION DATE OF CONSULTATION: 04/20/2019 REASON FOR CONSULTATION: C. difficile colitis. HISTORY OF PRESENT ILLNESS: Mrs. Blackwell is a 78-year-old female known to me from outpatient visits for recurrent C. difficile colitis. The patient has a history of rectal cancer on FOLFOX treatment with Dr. Amanda Enamorado. The patient had received 2 days prior to admission her sixth cycle of chemotherapy. She then developed severe abdominal pain, nonradiating for a couple days prior to admission. It was associated with nausea, but no vomiting. The patient had a history of recurrent C. difficile colitis since on chemotherapy. She had been treated with two cycles of fidaxomicin for 14 days and had been on a tapering schedule of vancomycin to prevent relapses. She was currently on 125 mg daily. She continued having liquid stools. CT of the abdomen showed colonic obstruction. The patient was taken to the operating room by Dr. Chao for colostomy. I discussed the case with Dr. Chao after the OR and the colon section that he was able to visualize was consistent with C. difficile. PAST MEDICAL HISTORY: Stage III low rectal adenocarcinoma nonresectable, managed with FOLFOX treatment, currently cycle number six out of six. She also gets Neulasta with her chemotherapy. Recurrent C. difficile on vancomycin on a tapering schedule. She received also an IV infusion of a bezlotoxumab on 03/30. Diabetes. Hypertension. Iron deficiency anemia. Gastroesophageal reflux disease. Morbid obesity. History of infected right total knee replacement, treated with six weeks of IV vancomycin. PAST SURGICAL HISTORY Bilateral total knee replacement. Appendectomy. Cholecystectomy. Right shoulder surgery. Carpal tunnel. SOCIAL HISTORY: She does not smoke or drink. She is a . FAMILY HISTORY: Prostate cancer. Mother had squamous cell carcinoma. ALLERGIES: 1. PENICILLIN. 2. SULFA. 3. MORPHINE. LABORATORY DATA: White count on admission was 25, the next day is was 32.9. Of note, the patient had received Neulasta. 04/20 white count was 47, hemoglobin 8.8, hematocrit 29.7, platelets 95, 86% neutrophils, 8% lymphocytes, 3% monocytes. Sodium 144, potassium 3.3, chloride 110, bicarb 30, BUN 9, creatinine 0.64, glucose 105, calcium 7.8. Urinalysis had 5 white cells, 2 red cells. Blood culture 04/16 was no growth after 7 days. C. difficile was not repeated. Abdominal x-ray showed dilated loops of small bowel. No small bowel distention. MEDICATIONS: - vancomycin 125 mg daily - Tylenol as needed - Vicodin as needed - furosemide 40 mg by mouth daily - insulin sliding scale - amlodipine 5 mg by mouth daily - morphine 4 mg IV every 3 hours as needed - Norvasc 5 mg by mouth daily - Lovenox 40 mg daily - famotidine 20 mg IV every 12 hours - albuterol 2.5 mg nebs four times a day - Zofran as needed PHYSICAL EXAMINATION: Patient seen in the recovery room. She is a little lethargic from the anesthsia, but alert and oriented. She knows where she is, recognizes me. She has been afebrile throughout the admission. Temperature is 96.9, pulse 90, respirations 18, blood pressure 121/77, oxygen saturation 99% on room air. Heart normal S1, S2. No murmur is appreciated. Lungs anteriorly clear. No wheezes, rales or rhonchi. Abdomen is distended. Decreased bowel sounds. Colostomy left lower quadrant, mildly tender postoperatively. Extremities no clubbing, cyanosis or edema. No calf tenderness. Alert and oriented times three. Moves all extremities. IMPRESSION: Refractory C. difficile colitis after two courses of fidaxomicin. and tapering schedule of vancomycin and the patient has persistent diarrhea possibly related fidaxomicin or combination with chemotherapy for rectal cancer. Per Dr. Chao intraoperatively the colon looked like it had C. difficile plaques. In spite of the patient being treated with two regimens fidaxomicin and IV ZINPLAVA. PLAN: Discontinue by mouth vancomycin, restart by mouth fidaxomicin 200 mg p.o. b.i.d. Will continue to follow the patient with you. Thank you for the consult. IMER
[2019-04-21] MEDS ORDERED: POTASSIUM CHLORIDE 10 MEQ SR TABLET PO ONE (14:00)
--- NOTE | 2019-04-21 14:01 | IPN ---
DATE: 04/21/2019 Patient underwent diverting colostomy to prevent recurrent obstruction from rectal cancer yesterday. Pain was well controlled overnight and was able to sleep soundly. She continues to have loose bowel movements, six total over the past 24 hours, has complaints of nausea and pain 5 out of 10 this morning, has been given Zofran with no improvement, and has been given [place] one tablet and Phenergan times one dose. The patient had no fever or chills. No new complaints. Per Dr. Proctor, patient has been placed on Dificid 200 mg twice a day due to failure to improve on vancomycin by mouth. Vital signs: Temperature 98, pulse 98, respiratory rate 18, blood pressure 150/67, 96% on room air. Generally, patient is awake, alert, oriented to person, place and time, able to provide the history. No use of respiratory accessory muscles. Anicteric. No jaundice. No pallor. No jugular venous distention (JVD), thyromegaly or cervical lymphadenopathy. Lungs are clear to auscultation. No wheezing, rales or rhonchi. reddened areas under the breast. Heart S1, S2, sinus rhythm. Abdomen is soft, status post diverting colostomy with loose brown stool noted in the bag. No rebound, guarding. Positive bowel sounds, hyperactive. Extremities no cyanosis, clubbing or any pitting edema. LABORATORY DATA: White count 5.4, hemoglobin 8.2, hematocrit 26, platelet count 94, previous platelet count was 203. Heparin induced antibody is pending. Sodium 142, potassium 3.1, chloride 107, bicarb 27, BUN 10, creatinine 0.65, glucose of 117. 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 The patient was found to have a colonic obstruction secondary to rectal CA brought in for diverting colostomy on 04/20/[address] Chao with colon section consistent with C. difficile plaques. Bowel obstruction status post diverting colostomy. Visualization of the colon shows C. difficile plaques currently on Dificid 200 mg twice a day per infectious disease specialist. Defer postop management to general surgery. Currently on a soft diet. History of recurrent Clostridium difficile with ongoing diarrhea, failed on 14 days of fidaxomicin times two cycles, IV infusion of bezlotoxumab on 03/30, and tapering dose of vancomycin. Currently on Dificid 200 mg twice a day with increased colostomy output today. Type 2 diabetes. Currently on a soft diet. Controlled 99-144. Hypertension. Slightly increased due to pain. Currently on [place] as needed for pain. She is on chronic Norvasc 5 mg daily. May need to titrate if needed for better blood pressure control. tinea corporis. topical nystatin powder to affected areas under the breast. keep area dry. MTDD
[2019-04-21 16:00] VITALS: BP 124/60
[2019-04-21 20:00] VITALS: BP 160/74
[2019-04-21] MEDS: NYSTATIN 100,000 UNITS/GM TOPICAL PWD 15 GM TOP SCH (20:16)
[2019-04-21 23:59] VITALS: BP 114/61
[2019-04-22] MEDS: NORCO, ANEXSIA 5/325MG TABLET (HYDROcodone/ACETAMINOPHEN) PO PRN ×3 (03:18→18:33)
[2019-04-22 04:00] VITALS: BP_SYST 122; BP_SYST 134; BP_DIAS 58; BP_DIAS 60
[2019-04-22 06:07] LABS: EOS % 0.2 % (0.0-3.0); HEMATOCRIT 26.4 % (36.0-47.0); HEMOGLOBIN 7.9 g/dl (12.0-15.5); LYMPH # 0.6 10^3/uL (1.5-5.0); LYMPH % 14.6 % (24.0-44.0); MEAN CORPUSCULAR HEMOGLOBIN 24.2 pg (27.0-33.0); MEAN CORPUSCULAR HGB CONC 29.9 g/dl (32.0-36.5); MEAN CORPUSCULAR VOLUME 80.7 fl (80.0-96.0); MONO # 0.4 10^3/uL (0.0-0.8); MONO % 8.8 % (0.0-5.0); NEUTROPHILS # 3.2 10^3/uL (1.5-8.5); NEUTROPHILS % 75.7 % (36.0-66.0); RED BLOOD COUNT 3.27 10^6/uL (4.00-5.40); WHITE BLOOD COUNT 4.2 10^3/uL (4.0-10.0)
[2019-04-22 06:16] LABS: PLATELET COUNT, AUTOMATED 92 10^3/uL (150-450)
[2019-04-22 06:31] LABS: BLOOD UREA NITROGEN 9 MG/DL (7-18); CALCIUM LEVEL 7.3 MG/DL (8.8-10.2); CARBON DIOXIDE LEVEL 31 MEQ/L (21-32); CHLORIDE LEVEL 105 MEQ/L (98-107); CREATININE FOR GFR 0.63 MG/DL (0.55-1.30); GLOMERULAR FILTRATION RATE > 60.0 (>39); GLUCOSE, FASTING 120 MG/DL (70-100); SODIUM LEVEL 141 MEQ/L (136-145)
[2019-04-22] MEDS: HumaLOG INSULIN (NovoLOG) PER UNIT SC SCH ×4 (07:30→21:00)
[2019-04-22 08:00] VITALS: BP 143/63
[2019-04-22] MEDS: ALBUTEROL SULFATE 2.5 MG/0.5 ML INH NEB SOLN NEB SCH ×2 (08:06→20:15)
[2019-04-22] MEDS: ONDANSETRON 4MG/2ML VIAL (J2405) IV PRN (08:43)
[2019-04-22] MEDS: FAMOTIDINE IV BAG 20 MG in IV 1 EA IV SCH ×2 (08:44→21:10)
--- NOTE | 2019-04-22 08:53 | RO ---
DATE OF PROCEDURE: 04/20/2019 PREOPERATIVE DIAGNOSIS: Obstructing rectal cancer. POSTOPERATIVE DIAGNOSES: 1. Obstructing rectal cancer. 2. Clostridium (C.) difficile pseudomembranous colitis. PROCEDURE PERFORMED: Laparoscopy with creation of end descending colostomy. SURGEON: Dr. Shmuel Chao ANESTHESIA: General. INDICATIONS FOR PROCEDURE: The patient is a 78-year-old woman who in about November of this year was identified as having a large rectal cancer. This was described as being associated with some significant narrowing in the mid distal rectum. She was evaluated in [place] for possible resection and started on a program of chemotherapy and possible chemo radiation. The records would suggest that the tumor is so low that her only surgical option would be an abdominoperineal resection. She presented to the hospital several days ago with abdominal distension with pain and severe cramping with a CT scan showing a dilated colon but a narrowed mid to distal rectum consistent with obstruction from her rectal cancer. There has also been concern that she has had episodes of Clostridium difficile colitis and she presented with a marked elevation of her white blood cell count. Because of her obstruction with frequent loose small stools, she is now for a colostomy to divert her fecal stream. DESCRIPTION OF PROCEDURE: The patient was brought to the operating room and placed on the table in a supine position. She was placed under general endotracheal anesthesia. The patient's abdomen was prepped and draped in a sterile fashion. 0.25% Marcaine was infiltrated at her trocar sites. A short supraumbilical midline incision was made. I placed a Shefali cannula using an open technique. The abdomen was insufflated with carbon dioxide gas. The laparoscope was placed. Examination showed that the gallbladder remained mildly to moderately distended throughout its length. The colon wall appeared somewhat thickened and in areas there were suggestions of some edema. There did appear to be adequate room within the abdomen to perform a laparoscopic mobilization of colon. A 5 mm trocar was placed in the lower abdomen near the midline and a third trocar also 5 mm was placed in the upper abdomen along the midline. Graspers were inserted. A harmonic scalpel was used for much of the dissection. The descending colon was identified. The patient was rolled somewhat to the right and placed in a Trendelenburg position. The junction of the descending colon with the sigmoid colon was noted. In order to gain adequate length for creation of an ostomy in the left upper quadrant, I elected to mobilize the descending colon and transected this at the level of the distal descending colon. Colon was rolled medially and the lateral attachments were divided using the harmonic scalpel and the colon was mobilized medially. Dissection was carried up to the splenic flexure. I then divided some attachments in the region of the junction of the descending and sigmoid colon. An opening was created through the mesentery at this level using the harmonic scalpel with dissection on both sides of the colon. The bowel was divided using two loads of the [place] stapler with green loads. The mesentery was then divided down to its base using the harmonic scalpel and dissection proceeded proximally dividing the base of the mesentery of the descending colon. The dissection was carried proximally until there was adequate length to turn this piece of bowel medially and superiorly to exit the anterior abdominal wall as a colostomy. Once the colon had been adequately mobilized, a site for the colostomy was created in the left upper quadrant. This site was initially marked with a skin marker and a 5-mm port was placed into the abdomen through this site. A grasper was inserted and the end of the bowel was grasped. A disk of skin was excised and the subcutaneous tissues were opened longitudinally. The anterior rectus sheath was opened longitudinally as well. The muscle fibers were spread and the posterior sheath was divided longitudinally as well. The colon was delivered through the opening. It was possible to pass approximately 10-12 cm of colon through the abdominal wall. Inspection within the abdomen showed no evidence of any significant bleeding. I elected to resect approximately 5 cm of the colon and this was accomplished using the electrocautery. As the colon was opened, it was clear that there were ulcerated areas within the bowel mucosa that were coated with yellowish patches of adherent matter and the appearance was felt to be typical for pseudomembranous colitis of Clostridium difficile. The colon was everted to mature the ostomy. This required a several centimeter [place] slit down the antimesenteric border of the bowel wall to allow this to be folded back. Several corner sutures of 3-0 Vicryl were placed taking a bite of the dermis, bite of the bowel wall and the edge of the bowel to roll this over and to mature its. Multiple additional tacking sutures of 3-0 Vicryl were also placed to complete the maturation of the ostomy. This appeared pink and viable. Hemostasis was ensured. The abdomen was gently reinflated and final inspection showed no evidence of any significant blood. The remaining trocars were removed. The fascia at the Shefali site was closed with 2-0 Vicryl and the skin incisions were closed with buried 4-0 Vicryl and Steri-Strips. An ostomy appliance was applied to the ostomy. The patient tolerated the procedure well without apparent complication. She was awakened in the operating room, extubated and moved to the recovery room in stable condition. IMER
[2019-04-22] MEDS: MORPHINE 4 MG/ML 1ML VIAL/SYRINGE (J2270) IV PRN ×2 (09:17→14:29)
--- NOTE | 2019-04-22 10:04 | IPN ---
DATE OF SERVICE: 04/22/2019 The patient complains of nausea this morning and pain 8/10 out of a 10/10 pain scale. She says that the bag had to be changed once yesterday. Still with copious amount of liquid through the colostomy. Output was 1.025 liters yesterday and 350 since midnight. Denies any lightheadedness or dizziness. Aside from nausea, she was able to eat her food, however, complained that her eggs were cold, which we are working on heating up for her. No fever. No chills. No weakness. The patient has not been ambulating since her surgery. Afebrile. Temperature 97.4, pulse 92, respiratory rate 18, blood pressure 143/63, and 96% on room air. Generally awake, alert, and oriented times three. No jugular venous distention (JVD) or thyromegaly. Moist mucous membranes. Lungs are clear to auscultation. No wheezing, rales or rhonchi. Heart: S1, S2. Sinus rhythm. Abdomen: Soft. Nontender. Nondistended. Normoactive bowel sounds. Colostomy on the left. Extremities: No pitting edema. LABORATORY DATA: White count 4.2, hemoglobin 7.9, hematocrit 26 and platelet count 92. Previous platelet count was 204. Heparin induced thrombocytopenia panel is pending. Chemistries: Sodium 141, potassium 3, chloride 105, bicarbonate 31, BUN 9, creatinine 0.6, glucose 120. Microbiology and imaging studies have been reviewed. ASSESSMENT AND PLAN: 78-year-old female with history of recurrent Clostridium difficile who failed on oral Vancocin, Dificid for 14 days, and IV infusion of bezlotoxumab on 03/30/2019, on FOLFOX therapy for rectal cancer cycle six out of six with Neulasta with her chemo, diabetes, hypertension, iron deficiency anemia, reflux, morbid obesity, infected right total knee, who presented due to ongoing diarrhea and was found to have a colonic obstruction secondary to rectal CA status post diverting colostomy 04/20/[address] Chao with colon section consistent with C. difficile plaques. Active Issues: 1. Bowel obstruction status post diverting colostomy. Visualization of the colon showed C. Difficile plaques. Currently on Dificid 200 twice a day per infectious disease (ID). Postoperative management per general surgery. Currently on a soft diet which she is tolerating despite episodes of nausea. 2. History of recurrent C. Difficile with ongoing diarrhea. Failed on 14 days of fidaxomicin times two cycles, IV infusion bezlotoxumab on 03/30/2019 and tapering dose of Vancomycin, currently on Dificid 200 mg twice a day managed by infectious disease specialist Dr. Proctor. 3. Type 2 diabetes, on soft diet. Appears to be well controlled on sliding scale. 4. Hypertension. On Norvasc and [place] for pain. 5. Tinea corporis. Topical Nystatin affected areas under the breasts and to keep the area dry. MTDD
[2019-04-22] MEDS: FIDAXOMICIN 200 MG TAB (DIFICID) PO SCH ×2 (10:30→21:08)
[2019-04-22] MEDS: amLODIPine 5 MG TAB PO SCH (10:30)
[2019-04-22] MEDS: FUROSEMIDE 40 MG TAB PO SCH (10:30)
[2019-04-22] MEDS: POTASSIUM CHLORIDE 10 MEQ SR TABLET PO SCH ×3 (10:30→21:08)
[2019-04-22] MEDS: SODIUM CHLORIDE 0.9% INJ 10 ML SYR IV SCH (10:31)
[2019-04-22] MEDS: NYSTATIN 100,000 UNITS/GM TOPICAL PWD 15 GM TOP SCH ×2 (10:33→21:10)
[2019-04-22] MEDS: ENOXAPARIN 40 MG/0.4 ML SYRINGE (J1650) SC SCH (10:44)
[2019-04-22 11:43] VITALS: BP 114/56
[2019-04-22 16:00] VITALS: BP 162/86
[2019-04-22 20:00] VITALS: BP 138/72
--- NOTE | 2019-04-22 23:00 | IPN ---
DATE: 04/22/2019 Mrs. Blackwell is doing well. She is currently postop day #2. Her nausea has improved. It is resolved after some Zofran. She has some pain from surgery, but the colostomy is working well. Stool was getting a little more formed. She has had no fever or chills. PHYSICAL EXAMINATION: Afebrile. Temperature is 97.4, pulse 92, respiratory rate 18, blood pressure 143/63. Heart: Normal S1, S2. No murmurs, rubs or gallops. Lungs are clear. No wheezes, rales or rhonchi. Abdomen: Obese, soft, nontender. Left lower quadrant colostomy with soft stools. Extremities: No clubbing, cyanosis or edema. She has a scab on her big toe on the right side. IMPRESSION 1. Bowel obstruction status post diverting colostomy, doing well. 2. History of recurrent C difficile. Pathology from colectomy shows pseudomembranous colitis with plaques and necrosis in the exudate. Patient on third cycle of daptomycin 200 mg twice a day, also has received IV bezlotoxumab. 3. Anal cancer on FOLFOX treatment cycle 6 out of 12. This probably should be on hold for a little while until her C difficile heals and her surgery. The patient usually gets chemotherapy every 2 weeks. Will discuss the case with Dr. Enamorado tomorrow. LABORATORY DATA White count 4.2, hemoglobin 7.9, hematocrit 26.4, platelet 92, 75% neutrophils, 14% lymphocytes, 8% monocytes. Sodium 141, potassium 3, chloride 105, bicarb 31, BUN 9, creatinine 0.63, glucose 120, calcium 7.3. PLAN Continue to fidaxomycin 200 mg by mouth twice a day and will probably keep her on that for at least 2 weeks and then do a tapering schedule to prevent any further recurrences. MTDD
[2019-04-23] VITALS: BP 139/65
[2019-04-23] MEDS: NORCO, ANEXSIA 5/325MG TABLET (HYDROcodone/ACETAMINOPHEN) PO PRN ×2 (00:30→10:04)
[2019-04-23] MEDS: ACETAMINOPHEN TAB 650MG DOSE (2X325MG) PO PRN (03:49)
[2019-04-23 04:00] VITALS: BP 108/69
[2019-04-23] MEDS: MORPHINE 4 MG/ML 1ML VIAL/SYRINGE (J2270) IV PRN (06:36)
[2019-04-23] MEDS: SODIUM CHLORIDE 0.9% INJ 10 ML SYR IV PRN (06:36)
[2019-04-23] MEDS: ALBUTEROL SULFATE 2.5 MG/0.5 ML INH NEB SOLN NEB SCH ×3 (07:19→19:48)
[2019-04-23] MEDS: HumaLOG INSULIN (NovoLOG) PER UNIT SC SCH ×4 (07:30→21:00)
[2019-04-23] MEDS: ADVAIR HFA 115/21MCG INHALER INH SCH ×3 (07:33→19:48)
[2019-04-23 07:35] LABS: BLOOD UREA NITROGEN 7 MG/DL (7-18); CALCIUM LEVEL 6.9 MG/DL (8.8-10.2); CARBON DIOXIDE LEVEL 28 MEQ/L (21-32); CHLORIDE LEVEL 106 MEQ/L (98-107); CREATININE FOR GFR 0.57 MG/DL (0.55-1.30); GLOMERULAR FILTRATION RATE > 60.0 (>39); GLUCOSE, FASTING 112 MG/DL (70-100); POTASSIUM SERUM 2.9 MEQ/L (3.5-5.1); SODIUM LEVEL 142 MEQ/L (136-145)
[2019-04-23 08:00] VITALS: BP 120/64
[2019-04-23] MEDS ORDERED: POTASSIUM CHLORIDE 10 MEQ SR TABLET PO SCH (09:00)
[2019-04-23] MEDS: NYSTATIN 100,000 UNITS/GM TOPICAL PWD 15 GM TOP SCH ×2 (09:00→21:39)
[2019-04-23] MEDS: amLODIPine 5 MG TAB PO SCH (09:00)
[2019-04-23] MEDS ORDERED: PROMETHAZINE INJ 25 MG/ML VIAL (J2550) IV ONE (09:30)
[2019-04-23] MEDS: FAMOTIDINE IV BAG 20 MG in IV 1 EA IV SCH (09:58)
[2019-04-23] MEDS: SODIUM CHLORIDE 0.9% INJ 10 ML SYR IV SCH (09:59)
[2019-04-23] MEDS: ENOXAPARIN 40 MG/0.4 ML SYRINGE (J1650) SC SCH (10:08)
[2019-04-23 11:38] VITALS: BP 130/60
[2019-04-23] MEDS: ONDANSETRON 4MG/2ML VIAL (J2405) IV PRN (12:05)
[2019-04-23] MEDS: KCL 10MEQ/100ML SWI (KRUN) 10 MEQ in IV 1 EA IV SCH ×4 (14:21→18:30)
[2019-04-23] MEDS: PROMETHAZINE INJ 25 MG/ML VIAL (J2550) IV SCH ×2 (14:21→19:43)
--- NOTE | 2019-04-23 14:27 | REP ---
KUB: Two views. Portable film. History: Intractable nausea. Comparison study: April 17, 2019. Findings: There is an oval-shaped air bubble to the right of midline in the upper abdomen which may be gastric antral air. In addition there is mildly dilated loop of small bowel in the left upper quadrant near or at the ligament of Treitz. No other dilated large or small bowel loops are seen. There is air and stool in the right colon. Sutures are visible in the left pelvis. Impression: Mildly distended small bowel loop at the ligament of Treitz. Gastric antral air. No evidence of obstruction seen. Electronically Signed by Reece Jarrell MD 04/23/2019 06:39 P
[2019-04-23 14:37] LABS: BASO % 0.5 % (0.0-1.0); EOS % 0.5 % (0.0-3.0); HEMATOCRIT 31.4 % (36.0-47.0); HEMOGLOBIN 9.5 g/dl (12.0-15.5); LYMPH # 0.3 10^3/uL (1.5-5.0); LYMPH % 14.2 % (24.0-44.0); MEAN CORPUSCULAR HEMOGLOBIN 24.2 pg (27.0-33.0); MEAN CORPUSCULAR HGB CONC 30.3 g/dl (32.0-36.5); MEAN CORPUSCULAR VOLUME 80.1 fl (80.0-96.0); MONO # 0.4 10^3/uL (0.0-0.8); MONO % 19.1 % (0.0-5.0); NEUTROPHILS # 1.3 10^3/uL (1.5-8.5); NEUTROPHILS % 64.7 % (36.0-66.0); PLATELET COUNT, AUTOMATED 100 10^3/uL (150-450); RED BLOOD COUNT 3.92 10^6/uL (4.00-5.40)
[2019-04-23] MEDS: FIDAXOMICIN 200 MG TAB (DIFICID) PO SCH ×2 (15:00→21:38)
[2019-04-23] MEDS: KCL 40MEQ IN D5/0.45NS 1000ML 1,000 ML IV SCH (17:24)
[2019-04-23] MEDS: ONDANSETRON 4MG/2ML VIAL (J2405) IV SCH ×2 (17:24→23:19)
--- NOTE | 2019-04-23 18:17 | IPN ---
DATE: 04/21/2019 HISTORY The patient is now postop day #1 from a descending colostomy. At the time of her surgery she was noted to have fairly characteristic changes of severe pseudomembranous colitis with ulceration in the bowel consistent with Clostridium difficile. Her symptoms are probably a combination of rectal obstruction, fairly high-grade, and also at the acute Clostridium difficile changes. She reports that she has done fairly well overnight. She is not having much pain currently and her colostomy has been functioning well. Vital signs: Show that she has been afebrile since surgery. Her pulse has been in the 90s to as high as 100. Blood pressure has been good. Intake and output. She has had adequate urine output. She has had a moderate amount of liquid stool from her ostomy with no apparent bleeding. PHYSICAL EXAMINATION The patient is alert and oriented. Heart and lung exams are unremarkable. The abdomen remains quite full. Her ostomy appliance is nicely in place. Her incisions are clean. The ostomy is clearly viable, though perhaps mildly edematous. There is some liquid brown stool in her ostomy bag. Laboratory studies show that her white count this morning is 5 with a hemoglobin of 8, hematocrit 27 and a platelet count of 94,000. Differential count showed 90% neutrophils and 5% lymphocytes. Chemistry profile showed a sodium of 142, potassium 3.1, chloride 107, CO2 of 27, BUN of 10, creatinine 0.7 and a glucose of 117. IMPRESSION The patient is doing quite well following her surgery. She has been able to tolerate a diet. Her ostomy is functioning. PLAN I will continue to monitor the patient during her hospital stay. I have advised her that this should not be a major cause for delay in her cancer treatment, although we would need to let her heal for a time before chemotherapy could be restarted. I suspect that given the Clostridium difficile infection that this will delay her treatment more than anything. [facility]
--- NOTE | 2019-04-23 18:20 | IPN ---
DATE: 04/23/2019 HISTORY The patient is now postop day #3 from her descending colostomy for obstruction and severe Clostridium difficile. She has been having some abdominal discomfort for which she is taking narcotic analgesics. Her ostomy continues to function well. Her pathology revealed changes of marked mucosal inflammation and necrosis with acute inflammatory exudate consistent with C diff/pseudomembranous colitis. Vital signs: Show that she has been afebrile over the past 24 hours. Her pulse has generally been in the 90s to low 100s. Blood pressure is good and her room air oxygen saturation is normal. Intake and output show that yesterday she had 830 of oral intake recorded with 1875 of urine output and 1200 of stool from her ostomy. PHYSICAL EXAMINATION The patient is lying quietly in the hospital bed. She reports some nausea this morning. Heart exam shows a regular rhythm. The abdomen is still somewhat full. She has some very mild tenderness in the mid epigastrium and right upper quadrant. The ostomy appears healthy and is functioning. Her incisions are clean and dry. Laboratory studies show that her CBC is pending but her chemistry profile shows a sodium of 142, potassium 2.9, chloride 106, CO2 of 28, BUN of 7, creatinine 0.6 and glucose of 112. IMPRESSION Patient has fairly severe Clostridium difficile with pseudomembranous colitis. I anticipate that she is going to take quite some time to heal from this. Her ostomy appears to be functioning well. Dr. Proctor is managing the medications for her C diff infection. I encouraged her to take a diet as able and to continue with physical therapy. PLAN I will continue to monitor her though there are no plans for any additional surgical intervention and she appears to be doing well from her surgery. IMER
[2019-04-23 20:00] VITALS: BP 148/80
[2019-04-23] MEDS ORDERED: PROMETHAZINE INJ 25 MG/ML VIAL (J2550) IV PRN (21:00)
[2019-04-23] MEDS: PANTOPRAZOLE 40MG INJ (PROTONIX) (C9113) IV SCH (21:38)
--- NOTE | 2019-04-23 21:59 | IPN ---
DATE: 04/23/2019 SUBJECTIVE: Mrs. Blackwell was seen and examined this morning. She is currently postop day #3 for her diverting colostomy. She states that she has some nausea today with some vomiting. She has had Zofran. Patient admits to some abdominal pain. Otherwise she states she is feeling well. She denies any fevers or chills. OBJECTIVE: VITAL SIGNS: Temperature 98.4, pulse 106, respiratory rate 18, blood pressure 130/60, pulse oximetry, saturating 94% on room air. HEENT: Atraumatic, normocephalic. Eyes nonicteric. Trachea is midline. CARDIAC: Normal S1, S2. There is a regular rate and rhythm. There are no clicks, rubs or murmurs. RESPIRATORY: Patient has clear vesicular breath sounds bilaterally with good respiratory effort. There are no wheezes, rhonchi or rales. Symmetric chest expansion. ABDOMEN: Patient's abdomen is obese, is soft, is nondistended. There is mild tenderness in the left lower quadrant. She has a left lower quadrant colostomy in place. Her stoma appears pink. There is stool in her colostomy bag. EXTREMITIES: There is no clubbing, cyanosis or edema. She has 2+ posterior tibia and radial pulses bilaterally. LABORATORY STUDIES: Hematology: White blood cell 2.0, hemoglobin 9.5, hematocrit 31.4, platelet count 100. Chemistry: Sodium 142, potassium 2.9, chloride 106, CO2 28, BUN 7, creatinine 0.57. Fasting glucose 112. Calcium 6.9. Microbiology: Stool occult blood pending. Blood culture is negative. Abdominal x-ray. Demonstrates mildly distended small loops of bowel at the ligament of Treitz. Gastric antral air. No evidence of obstruction. IMPRESSION AND PLAN: 1. Bowel obstruction, status post diverting colectomy, postop day #3. Patient is currently doing well. 2. History of recurrent C. difficile. Patient had pathology from her colectomy which demonstrates pseudomembranous colitis with plaques and necrosis significant for C. difficile. Patient is currently recieving Dificid 200 mg by mouth twice a day. Will continue. Patient will need to have her chemotherapy held until her C. difficile resolves. 3. Anal cancer on FOLFOX treatment, cycle 6 out of 12. Patient should have this held until her C. difficile heals. Patient typically gets her chemotherapy every two weeks. Patient will need to be evaluated by oncology. However, at the present time I would recommend holding her chemotherapy. PLAN: Patient is to continue her DIFICID 200 mg by mouth twice a day for at least two weeks and then taper her to prevent any further occurrences. Once the patient has completed her therapy for C. difficile and it has resolved, she may resume her chemotherapy. My faculty preceptor for this patient encounter was physically present during the encounter and was fully available. All aspects of the patient interview, examination, medical decision making process, and medical care plan development were reviewed and approved by the faculty preceptor. The faculty preceptor is aware and concurs with the plan as stated in the body of this note and will attest to such by his/her co-signature. IMER
[2019-04-24 00:01] LABS: MAGNESIUM LEVEL 1.4 MG/DL (1.8-2.4); POTASSIUM SERUM 3.8 MEQ/L (3.5-5.1)
[2019-04-24 06:00] VITALS: BP 123/68
[2019-04-24] MEDS: NORCO, ANEXSIA 5/325MG TABLET (HYDROcodone/ACETAMINOPHEN) PO PRN (06:29)
[2019-04-24] MEDS: ONDANSETRON 4MG/2ML VIAL (J2405) IV SCH ×3 (06:29→18:00)
[2019-04-24] MEDS: ALBUTEROL SULFATE 2.5 MG/0.5 ML INH NEB SOLN NEB SCH ×2 (07:26→20:00)
[2019-04-24] MEDS: ADVAIR HFA 115/21MCG INHALER INH SCH ×2 (07:26→21:07)
[2019-04-24 07:28] LABS: HEMATOCRIT 31.7 % (36.0-47.0); HEMOGLOBIN 9.5 g/dl (12.0-15.5); MEAN CORPUSCULAR HEMOGLOBIN 23.9 pg (27.0-33.0); MEAN CORPUSCULAR VOLUME 79.8 fl (80.0-96.0); PLATELET COUNT, AUTOMATED 110 10^3/uL (150-450); RED BLOOD COUNT 3.97 10^6/uL (4.00-5.40)
[2019-04-24] MEDS: HumaLOG INSULIN (NovoLOG) PER UNIT SC SCH ×4 (07:30→21:00)
[2019-04-24 07:42] LABS: ANISOCYTOSIS 1+; ATYPICAL LYMPH 1 % (0-5); BASOPHILS 1 % (0-1); LYMPHOCYTES 28 % (16-44); MICROCYTOSIS 1+; MONOCYTES 23 % (0-5); NEUTROPHILS 42 % (28-66); POLYCHROMASIA 1+
[2019-04-24 07:43] LABS: HYPOCHROMASIA 1+
[2019-04-24 07:44] LABS: PLATELET ESTIMATE DECREASED (NORMAL)
[2019-04-24 07:47] LABS: BLOOD UREA NITROGEN 8 MG/DL (7-18); CARBON DIOXIDE LEVEL 30 MEQ/L (21-32); CHLORIDE LEVEL 103 MEQ/L (98-107); CREATININE FOR GFR 0.74 MG/DL (0.55-1.30); GLOMERULAR FILTRATION RATE > 60.0 (>39); GLUCOSE, FASTING 151 MG/DL (70-100); POTASSIUM SERUM 3.4 MEQ/L (3.5-5.1); SODIUM LEVEL 140 MEQ/L (136-145)
[2019-04-24] MEDS: KCL 40MEQ IN D5/0.45NS 1000ML 1,000 ML IV SCH (08:00)
[2019-04-24] MEDS: PANTOPRAZOLE 40MG INJ (PROTONIX) (C9113) IV SCH ×2 (08:35→21:35)
[2019-04-24] MEDS: SODIUM CHLORIDE 0.9% INJ 10 ML SYR IV SCH (08:38)
[2019-04-24] MEDS: ENOXAPARIN 40 MG/0.4 ML SYRINGE (J1650) SC SCH (08:38)
[2019-04-24] MEDS: FIDAXOMICIN 200 MG TAB (DIFICID) PO SCH ×2 (08:38→21:36)
[2019-04-24] MEDS: amLODIPine 5 MG TAB PO SCH (08:38)
[2019-04-24] MEDS: NYSTATIN 100,000 UNITS/GM TOPICAL PWD 15 GM TOP SCH ×2 (08:39→21:36)
--- NOTE | 2019-04-24 09:15 | IPN ---
DATE: 04/23/2019 Patient complains of significant nausea this morning. Unable to eat her breakfast. Abdominal film is unchanged. No fever or chills overnight. She has continued loose stools through her colostomy bag. Yesterday had 1.1 liters out and since midnight had 550 mL out. Patient had 200 mL of emesis today and despite Zofran, continued to have nausea. Patient has no worsening abdominal distention. Abdominal film shows no obstruction. Currently appears to be herself but according to family members, in the early evening patient appeared to be confused. Vital Signs: Temperature 98.4, pulse 106, respiratory rate 18, blood pressure 130/60, 94% on room air. Generally, awake, alert, oriented, able to state that she is not feeling well. Face is symmetric. No jugular venous distention (JVD). No thyromegaly. Lungs are diminished and clear with fine crackles at the bases. Heart: S1, S2, sinus tachycardia. Abdomen has a left-sided colostomy, distended, hyperactive bowel sounds. Extremities: Positive pitting edema. LABORATORY DATA: White count 2, hemoglobin 9.5, hematocrit 31, platelet count 100. Sodium 142, potassium 2.9, chloride 106, bicarbonate 28, BUN 7, creatinine 0.57, glucose of 112, calcium of 6.9. ASSESSMENT AND PLAN: This is a 78-year-old female, history of recurrent Clostridium difficile, failed on oral Vancocin, Dificid for 14 days and IV infusion of bezlotoxumab on 03/30/2019. Patient has a history of rectal cancer, on FOLFOX therapy, six cycle out of six with Neulasta with her chemo, diabetes, hypertension, iron deficiency anemia, reflux, morbid obesity, presented with ongoing diarrhea, abdominal distention, found to have a colonic obstruction due to rectal CA and underwent diverting colostomy 04/20/[address] Chao with colon resection consistent with Clostridium difficile plaques. Bowel obstruction status post diverting colostomy. Visualization of colon showed Clostridium difficile plaques. Postoperative management per Dr. Chao. Currently on a soft diet but not tolerating this well with intractable nausea. She is currently on Zofran with no improvement. Phenergan has been given but now patient appears to have had changes in mental status according to the family. Acute encephalopathy. Most likely secondary to Phenergan being given at the correct dose and frequency. As an adverse effect, patient currently is not eating well. Defer to surgery for further management. Recurrent Clostridium difficile. Patient failed on 14 days fidaxomicin times two cycles IV infusion of bezlotoxumab on 03/30/2019, tapering dose of oral Vanocin. Dr. Proctor has been consulted and recommended Dificid 200 mg twice a day. Type 2 diabetes. On soft diet. IV fluids for now as the patient has been nauseated and vomiting 200 mL today. Hypertension. On Norvasc. Tinea corporis. Topical Nystatin. 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
[2019-04-24 14:00] VITALS: BP 135/59
[2019-04-24] MEDS ORDERED: POTASSIUM CHLORIDE 10 MEQ SR TABLET PO ONE (14:15)
[2019-04-24] MEDS: ACETAMINOPHEN TAB 650MG DOSE (2X325MG) PO PRN (21:37)
[2019-04-24 22:00] VITALS: BP 135/61
[2019-04-25] VITALS (8 sets, daily range): BP systolic 95–146; BP diastolic 54–82
[2019-04-25] MEDS: ONDANSETRON 4MG/2ML VIAL (J2405) IV SCH ×4 (00:20→17:41)
[2019-04-25] MEDS ORDERED: DIGOXIN INJ 0.5 MG/2 ML AMP (J1160) IV STA (07:40)
[2019-04-25] MEDS: ADVAIR HFA 115/21MCG INHALER INH SCH ×2 (07:40→20:09)
[2019-04-25] MEDS ORDERED: NS 1,000 ML IV ONE (07:45)
[2019-04-25] MEDS: HumaLOG INSULIN (NovoLOG) PER UNIT SC SCH ×4 (07:45→20:32)
[2019-04-25] MEDS: ALBUTEROL SULFATE 2.5 MG/0.5 ML INH NEB SOLN NEB SCH ×2 (08:00→20:00)
[2019-04-25] MEDS ORDERED: MAG SULF 1GM/100ML (MAG RUN) 1 GM in IV 1 EA IV ONE (08:00)
--- NOTE | 2019-04-25 08:12 | IPNPDOC ---
Date Seen The patient was seen on 04/25/19. Progress Note Addendum to progress note: New onset Afib rate 173bpm: -transfer to pcu -since blood pressure is soft, trial of ivfluids and iv cardizem gtt -digoxin 0.125mg iv for now. digoxin level in am -2D echo to rule out structural heart disease -will need to watch for rectal bleeding from rectal cancer on anticoagulation -transfuse rbc if rectal bleed. VS, I&O, 24H, Fishbone Vital Signs/I&O Vital Signs Date Time Temp Pulse Resp B/P (MAP) Pulse Ox O2 Delivery O2 Flow Rate FiO2 04/25/19 06:00 98.4 86 20 115/82 (93) 97 Room Air 04/23/19 10:34 2.0 I&O- Last 24 Hours up to 6 AM 04/25/19 06:00 Intake Total 1125 ml Output Total 1400 ml Balance -275 ml Laboratory Data 24H LABS Laboratory Tests 2 04/24/19 11:37: Bedside Glucose (Misc Panel) 119H 04/24/19 17:10: Bedside Glucose (Misc Panel) 132H 04/24/19 21:43: Bedside Glucose (Misc Panel) 133H 04/25/19 06:48: Bedside Glucose (Misc Panel) 124H Microbiology Microbiology 04/23/19 Stool Occult Blood (ISIDRO), Ordered Pending 04/23/19 Occult Blood - Final, Complete 04/16/19 Blood Culture - Final, Complete NO GROWTH AFTER 5 DAYS BOSTON LEWIS MD Apr 25, 2019 08:12
[2019-04-25] MEDS ORDERED: HEPARIN SOD (PORCINE) 5000 UNITS/ML VIAL IV PRN (08:15)
--- NOTE | 2019-04-25 08:46 | ECGEPIP ---
[facility] Test Date: 2019-04-25 Pat Name: FLO MUNGUIA Department: Room: [place] [address] Gender: Female Area Supervisor: SHAHRZAD : [id number] Requested By: BOSTON Girard Order Number: [id number] Reading MD: Leandra Kruger Measurements Intervals [place] Rate: 173 P: NE: 0 QRS: 65 QRSD: 89 T: -18 QT: 201 QTc: 342 Interpretive Statements ATRIAL FIBRILLATION WITH RAPID VENTRICULAR RESPONSE RIGHT VENTRICULAR CO CONDUCTION DELAY ST & T-WAVE ABNORMALITY NO PRIOR Electronically Signed on 04-25-2019 8:46:01 EST by Leandra Kruger
[2019-04-25] MEDS: NYSTATIN 100,000 UNITS/GM TOPICAL PWD 15 GM TOP SCH ×2 (09:00→21:31)
[2019-04-25] MEDS: FIDAXOMICIN 200 MG TAB (DIFICID) PO SCH ×2 (09:00→21:31)
[2019-04-25] MEDS: SODIUM CHLORIDE 0.9% INJ 10 ML SYR IV SCH ×2 (09:00→12:12)
[2019-04-25] MEDS ORDERED: diltiaZEM 125 MG in NS 100 ML IV SCH (09:00)
[2019-04-25] MEDS ORDERED: POTASSIUM CHLORIDE 10 MEQ SR TABLET PO SCH (09:00)
[2019-04-25 09:11] LABS: PLATELET COUNT, AUTOMATED 125 10^3/uL (150-450); RED BLOOD COUNT 3.75 10^6/uL (4.00-5.40)
[2019-04-25 09:19] LABS: WHITE BLOOD COUNT 1.8 10^3/uL (4.0-10.0)
[2019-04-25] MEDS ORDERED: CALCIUM GLUCONATE 1,000 MG in D5W MINI-BAG PLUS 100 ML IV ONE (09:30)
[2019-04-25 09:33] LABS: BLOOD UREA NITROGEN 10 MG/DL (7-18); CALCIUM LEVEL 7.9 MG/DL (8.8-10.2); CARBON DIOXIDE LEVEL 26 MEQ/L (21-32); CHLORIDE LEVEL 107 MEQ/L (98-107); CREATININE FOR GFR 0.73 MG/DL (0.55-1.30); GLOMERULAR FILTRATION RATE > 60.0 (>39); GLUCOSE, FASTING 137 MG/DL (70-100); MAGNESIUM LEVEL 1.5 MG/DL (1.8-2.4); POTASSIUM SERUM 3.4 MEQ/L (3.5-5.1); SODIUM LEVEL 142 MEQ/L (136-145)
--- NOTE | 2019-04-25 09:45 | IPN ---
DATE OF SERVICE: 04/24/2019 Patient was very nauseated yesterday, required IV Zofran and Phenergan as needed. Per family, she was slightly confused on the Phenergan, appeared to be more sedated. She continues to have increasing diarrhea according to the patient with ostomy output documented of 550 yesterday, 875 this morning from midnight. She complains of persistent intractable nausea but is able to keep her food down today without any emesis. Afebrile, no fever or chills overnight. Was tachycardic yesterday at 121. IV fluids were given. Temperature 97.2, pulse 103, respiratory 19, blood pressure 123/68, 97% on room air. Generally, awake, alert, oriented to person, place and time. Answers questions appropriately this morning. No signs of confusion. Lungs are diminished but clear. Heart: S1, S2, sinus rhythm with episodes of sinus tachycardia. Abdomen is soft, colostomy noted at left lower quadrant. She currently has loose stools in there. No rebound, guarding. No abdominal bruits. Extremities: No cyanosis or clubbing. White count 2, hemoglobin 9.5, hematocrit 31, platelet count 110. Sodium 140, potassium 3.4, chloride 103, bicarbonate 30, BUN 8, creatinine 0.74, glucose of 151. ASSESSMENT AND PLAN: This is a 78-year-old female with history of rectal carcinoma admitted with bowel obstruction status post diverting colostomy, still undergoing chemotherapy and history of recurrent Clostridium difficile, failed on fidaxomicin, oral vancomycin. IV bezlotoxumab on 03/30/2019 admitted for colonic obstruction due to rectal cancer status post diverting colostomy 04/20/[address] Chao with colon resection. IMPRESSION: 1. Bowel obstruction status post diverting colostomy 04/20 with Clostridium difficile plaques noted intraoperatively. Post management per surgery. Currently on soft diet. Had intractable nausea yesterday. Abdominal film showed no change. Patient had been on Zofran routinely, Phenergan as needed. 2. Clostridium difficile. Continue on Dificid per Dr. Proctor's instructions 200 twice daily. 3. Type 2 diabetes on soft diet. IV fluid added due to her current nausea and decreased oral intake yesterday. 4. Hypertension on Norvasc. 5. Tinea corporis on topical Nystatin. MTDD
--- NOTE | 2019-04-25 09:50 | REP ---
Abdomen series: Four views. History: Intractable nausea. Comparison study: April 23, 2019. Findings: Supine chest x-ray demonstrates an [id number] catheter in place. There is linear opacity behind the heart in the left lower lobe consistent with atelectasis and/or fibrosis. Recent CT study shows a hiatal hernia. There is benign pleural thickening along the right lateral chest wall. Supine views of the abdomen demonstrate moderately dilated central abdominal small bowel loops. There is a paucity of colonic gas. There are scattered surgical sutures in the left lower abdomen and pelvis. Some vascular calcification is noted. No evidence of free air. Impression: Air-fluid levels and dilated central abdominal small bowel loops. Paucity of distal gas. Small bowel obstruction pattern. No evidence of free air. Electronically Signed by Reece Jarrell MD 04/25/2019 12:20 P
[2019-04-25] MEDS: HEPARIN DRIP 25,000 UNITS in IV 1 EA IV SCH (10:12)
--- NOTE | 2019-04-25 10:39 | IPN ---
DATE OF SERVICE: 04/25/2019 Patient seen and examined at the bedside. Chart has been reviewed. Per the patient, she had episodes of tachycardia yesterday documented at 121 with questionable irregularity. Patient has had no prior episode of atrial fibrillation. She did not receive any medications. Was asymptomatic. No complains of chest pain, pressure, tightness, palpitations, lightheadedness or dizziness. She continues to complain of copious amounts of output through her colostomy with 1.425 over 24 hours yesterday and 825 since midnight. No complaints of dizziness. Patient had persistent nausea on Zofran every 6 hours. One episode of bilious vomiting per the patient. Eating her breakfast this morning, orange juice and cereal without any difficulty. VITALS: Temperature 98.4, pulse 103, respiratory 20, blood pressure 135/61, 97% on room air. Generally, patient is awake, alert, oriented times three. Sitting at 60 degrees eating her breakfast at the bedside. No pallor. No icterus. No jaundice. Patient has no jugular venous distention (JVD), thyromegaly. Speaks in full sentences. There is no respiratory distress. Able to speak in full sentences. No cervical lymphadenopathy. Lungs are clear, diminished. No wheezing or rales. Heart: S1, S2. Sinus tachycardia. No murmurs, rubs or gallops. Abdomen is obese, soft. Colostomy tube on the left, nontender, nondistended with liquid brownish discharge. No rebound or guarding. Extremities: Positive 1+ pitting edema. Input and output: Input of 1425, output 2025, negative 540. Patient's colostomy output yesterday was 1425. This morning from midnight it is 825 mL. LABORATORY DATA: 04/25/2019 CBC, metabolic panel are not available. ASSESSMENT AND PLAN: 1. 78-year-old female with history of rectal cancer, 6/6 cycles of FOLFOX therapy with Neulasta with her chemo, diabetes, hypertension, iron deficiency anemia, reflex, morbid obesity with recurrent Clostridium difficile, failed on oral vancomycin, Dificid for 14 days and IV infusion bezlotoxumab on 03/30/2019, presented with diarrhea, abdominal distention, found to have colonic obstruction due to rectal cancer, underwent diverting colostomy 04/20/[address] Chao with colon resection and finding of Clostridium difficile plaques. Bowel obstruction status post diverting colostomy, resolved. Postop management per surgery Dr. Chao. Currently on soft diet and is tolerating this currently despite ongoing nausea. Currently on Zofran every 6 hours. 2. Acute encephalopathy secondary to Phenergan given at the right dose and frequency as an adverse affect. Patient's family thought that she was confused and disoriented with the Phenergan. This has been cut as needed currently. 3. Recurrent Clostridium difficile, failed on 14 days of fidaxomicin as well as times two IV infusion of bezlotoxumab and oral Vancocin. Dr. Proctor recommended Dificid 200 twice daily for now still with very high output. 4. Type 2 diabetes, on soft diet. Needed IV fluids due to continued intractable nausea with one episode of bilious emesis. 5. Hypertension on Norvasc. 6. Tinea corporis on Nystatin. 7. Electrolyte abnormality with low potassium secondary to vomiting and persistent diarrhea. Patient has been supplemented yesterday. Awaiting levels today. Will check magnesium as well as ionized calcium. 8. Tachycardia. No hemodynamic compromise yesterday and asymptomatic. Check 12 lead EKG if persistent. Concern for pulmonary embolus (PE), will send for venous Dopplers of the lower extremities, check 12 lead EKG, rule out atrial fibrillation. Continue with compression stockings for now. MTDD
[2019-04-25] MEDS ORDERED: NS 500 ML IV ONE (11:00)
[2019-04-25] MEDS: ENOXAPARIN 40 MG/0.4 ML SYRINGE (J1650) SC SCH (11:06)
[2019-04-25] MEDS ORDERED: AMIODARONE HCL 150 MG in IV 1 EA IV ONE (11:15)
[2019-04-25] MEDS ORDERED: AMIODARONE HCL IV SCH (11:30)
[2019-04-25] MEDS ORDERED: AMIODARONE HCL 360 MG in IV 1 EA IV SCH ×5 (11:30→17:30)
[2019-04-25] MEDS: PANTOPRAZOLE 40MG INJ (PROTONIX) (C9113) IV SCH ×2 (12:11→21:31)
[2019-04-25] MEDS: NORCO, ANEXSIA 5/325MG TABLET (HYDROcodone/ACETAMINOPHEN) PO PRN (13:41)
[2019-04-26] MEDS: ONDANSETRON 4MG/2ML VIAL (J2405) IV SCH ×5 (00:33→23:46)
[2019-04-26] MEDS: NORCO, ANEXSIA 5/325MG TABLET (HYDROcodone/ACETAMINOPHEN) PO PRN ×2 (02:41→18:07)
[2019-04-26 04:00] VITALS: BP 133/63
[2019-04-26] MEDS: HEPARIN DRIP 25,000 UNITS in IV 1 EA IV SCH (04:24)
[2019-04-26] MEDS: SODIUM CHLORIDE 0.9% INJ 10 ML SYR IV PRN (05:24)
[2019-04-26 06:22] LABS: HEMATOCRIT 30.3 % (36.0-47.0); HEMOGLOBIN 8.9 g/dl (12.0-15.5); MEAN CORPUSCULAR HEMOGLOBIN 23.3 pg (27.0-33.0); MEAN CORPUSCULAR HGB CONC 29.4 g/dl (32.0-36.5); MEAN CORPUSCULAR VOLUME 79.3 fl (80.0-96.0); PLATELET COUNT, AUTOMATED 161 10^3/uL (150-450); RED BLOOD COUNT 3.82 10^6/uL (4.00-5.40)
[2019-04-26 06:39] LABS: WHITE BLOOD COUNT 1.9 10^3/uL (4.0-10.0)
[2019-04-26 07:17] LABS: BLOOD UREA NITROGEN 10 MG/DL (7-18); CREATININE FOR GFR 0.86 MG/DL (0.55-1.30); GLUCOSE, FASTING 122 MG/DL (70-100)
[2019-04-26 07:18] LABS: CALCIUM LEVEL 8.1 MG/DL (8.8-10.2); CARBON DIOXIDE LEVEL 28 MEQ/L (21-32); CHLORIDE LEVEL 106 MEQ/L (98-107); DIGOXIN LEVEL 0.3 NG/ML (0.5-2.0); GLOMERULAR FILTRATION RATE > 60.0 (>39); MAGNESIUM LEVEL 1.7 MG/DL (1.8-2.4); POTASSIUM SERUM 3.1 MEQ/L (3.5-5.1); SODIUM LEVEL 142 MEQ/L (136-145)
[2019-04-26] MEDS: HumaLOG INSULIN (NovoLOG) PER UNIT SC SCH ×4 (07:30→21:00)
[2019-04-26 08:00] VITALS: BP 142/82
[2019-04-26] MEDS: ADVAIR HFA 115/21MCG INHALER INH SCH ×2 (08:00→20:34)
[2019-04-26] MEDS: ALBUTEROL SULFATE 2.5 MG/0.5 ML INH NEB SOLN NEB SCH ×2 (08:00→20:00)
[2019-04-26] MEDS: NYSTATIN 100,000 UNITS/GM TOPICAL PWD 15 GM TOP SCH ×2 (08:42→21:01)
[2019-04-26] MEDS: PANTOPRAZOLE 40MG INJ (PROTONIX) (C9113) IV SCH ×2 (08:42→21:02)
[2019-04-26] MEDS: FIDAXOMICIN 200 MG TAB (DIFICID) PO SCH ×2 (08:43→21:01)
[2019-04-26] MEDS: ENOXAPARIN 40 MG/0.4 ML SYRINGE (J1650) SC SCH (08:43)
[2019-04-26] MEDS: POTASSIUM CHLORIDE 10 MEQ SR TABLET PO SCH ×3 (08:43→21:02)
[2019-04-26] MEDS: SODIUM CHLORIDE 0.9% INJ 10 ML SYR IV SCH (08:45)
[2019-04-26] MEDS ORDERED: MAG SULF 1GM/100ML (MAG RUN) 1 GM in IV 1 EA IV ONE (09:00)
[2019-04-26] MEDS: FILGRASTIM 480 MCG/0.8 ML SYRINGE (J1442) SC SCH (10:45)
[2019-04-26 12:00] VITALS: BP 137/67
--- NOTE | 2019-04-26 14:12 | IPN ---
DATE: 04/26/2019 The patient remains without any rectal bleeding despite starting heparin for atrial fibrillation and may be transitioned over to Eliquis twice a day. At this time, the patient states that she continues to have increased output through the colostomy with documented 2.9 liters yesterday and 875 mL since midnight. The patient continues to have nausea, but able to keep her food down. She remains neutropenic since her Neulasta has not bee restarted in the hospital. PHYSICAL EXAMINATION: Temperature 96.5, pulse 97, respiratory rate 16, blood pressure 133/63, 98% on room air. Generally awake, alert, oriented times three, answering questions appropriately. Pupils round and reactive to light and accommodation. Extraocular muscles are intact. Normocephalic, atraumatic. No jugular venous distention (JVD). No thyromegaly. Lungs are clear to auscultation. No wheezing, rales or rhonchi. Heart S1, S2 irregularly irregular, atrial fibrillation, has returned to sinus rhythm this morning with sinus tach. No murmurs, rubs or gallops. Abdomen is soft, nontender, nondistended. Colostomy tube on the left nontender. Liquid brownish bilious discharge. No rebound or guarding. Extremities positive pitting edema, 1+. LABORATORY DATA: White count 1.9, hemoglobin 8.9, hematocrit 30, platelet count 161. Sodium 142, potassium 3.1, chloride 106, bicarb 28, BUN 10, creatinine 0.86, glucose 122, calcium of 8.1, magnesium of 1.7. ASSESSMENT/PLAN: This is a 78-year-old female with a history of rectal cancer who presented with colonic obstruction, status post diverting colostomy, has a history of recurrent C. difficile failed on oral vancomycin, Dificid for 14 days, IV infusion bezlotoxumab on 03/30, on FOLFOX therapy for rectal CA 6/6 cycles, usually gets Neulasta with her chemo, diabetes, hypertension, iron deficiency anemia, reflux disease and morbid obesity. IMPRESSION: 1. Atrial fibrillation with rapid ventricular rate. Currently on IV amiodarone, currently converted to sinus rhythm. On a heparin drip to make sure that she did not bleed through the rectal cancer. She is currently transitioned to Eliquis twice a day, loading dose 10 twice a day and 5 twice a day subsequently. If bleeding occurs will need to discontinue. She is currently sinus rhythm. May be transitioned over to atenolol 50 mg twice a day if the patient remains with a heart rate less than 100. 2. C. difficile colitis. Failed on fidaxomicin 14 days, oral Vancocin and bezlotoxumab, currently on Dificid for [address] Proctor has been consulted for further management. 3. Rectal cancer with diverting colostomy. Managed by surgery. Obstruction has resolved entirely. 4. Electrolyte abnormalities due to increase in colostomy output. Replenish with potassium and magnesium supplementation. 5. Neutropenia. Most likely secondary to chemotherapy. Patient will be receiving Neupogen shots. MTDD
[2019-04-26 16:00] VITALS: BP 144/76
[2019-04-26] MEDS ORDERED: ATENOLOL 50 MG TAB PO ONE (16:30)
[2019-04-27] VITALS (7 sets, daily range): BP systolic 98–129; BP diastolic 50–73
[2019-04-27] MEDS: HEPARIN DRIP 25,000 UNITS in IV 1 EA IV SCH (02:20)
[2019-04-27] MEDS ORDERED: NS 500 ML IV ONE (05:00)
[2019-04-27] MEDS: ONDANSETRON 4MG/2ML VIAL (J2405) IV SCH ×3 (05:50→17:33)
[2019-04-27 05:55] LABS: HEMATOCRIT 29.8 % (36.0-47.0); HEMOGLOBIN 8.6 g/dl (12.0-15.5); MEAN CORPUSCULAR HEMOGLOBIN 23.4 pg (27.0-33.0); MEAN CORPUSCULAR HGB CONC 28.9 g/dl (32.0-36.5); MEAN CORPUSCULAR VOLUME 81.2 fl (80.0-96.0); PLATELET COUNT, AUTOMATED 219 10^3/uL (150-450); RED BLOOD COUNT 3.67 10^6/uL (4.00-5.40); WHITE BLOOD COUNT 15.2 10^3/uL (4.0-10.0)
[2019-04-27 06:11] LABS: BLOOD UREA NITROGEN 10 MG/DL (7-18); CALCIUM LEVEL 8.1 MG/DL (8.8-10.2); CARBON DIOXIDE LEVEL 24 MEQ/L (21-32); CHLORIDE LEVEL 109 MEQ/L (98-107); CREATININE FOR GFR 0.92 MG/DL (0.55-1.30); GLOMERULAR FILTRATION RATE > 60.0 (>39); GLUCOSE, FASTING 71 MG/DL (70-100); MAGNESIUM LEVEL 1.6 MG/DL (1.8-2.4); POTASSIUM SERUM 3.8 MEQ/L (3.5-5.1); SODIUM LEVEL 140 MEQ/L (136-145)
[2019-04-27] MEDS: ADVAIR HFA 115/21MCG INHALER INH SCH ×2 (07:26→20:23)
[2019-04-27] MEDS: ALBUTEROL SULFATE 2.5 MG/0.5 ML INH NEB SOLN NEB SCH ×2 (07:26→20:00)
[2019-04-27] MEDS: HumaLOG INSULIN (NovoLOG) PER UNIT SC SCH ×4 (07:30→21:00)
--- NOTE | 2019-04-27 08:10 | ECHO ---
DATE OF PROCEDURE: 04/26/2019 AGE: 78 Gender: Female. Height 63 inches. Weight 275 pounds. Body surface area 2.22 meters squared. Location: Inpatient, progressive care unit (PCU), room 3228. REFERRING PHYSICIAN: Dr. Glenna العلي INDICATION: Abnormal EKG. Paroxysmal atrial fibrillation. 2-D MEASUREMENTS: RV: 3.6 cm LV: 3.7 cm Septum: 1.2 cm Posterior wall: 1.2 cm Aortic root: 2.9 cm LA: 4.2 cm LVEF: 75% DOPPLER MEASUREMENTS: AV: 2.52 meters per second LVOT: 1.1 meters per second LVOT diameter: 1.9 cm Mean AV systolic gradient 17 mmHg Dimensionless index: 0.4 MVE: 83, A: 123, E/A ratio: 0.7. Early mitral deceleration time 251 milliseconds E prime medial 4.6, A prime medial 9.3, E prime lateral 6.9 Average E/E prime ratio 14.4 PCWP: 19.8 mmHg PV: 0.75 meters per second Pulmonary artery acceleration time 92 milliseconds RVSP: 36 - 42 mmHg IVC: 2.0 cm COMMENT: Normal sinus rhythm without intraventricular conduction disturbance. M-mode and two-dimensional echocardiography was performed with pulsed, continuous wave, color flow and tissue Doppler studies. Borderline concentric left ventricle hypertrophy. Mildly dilated left atrium with grade 1 LV diastolic dysfunction and mildly elevated estimated mean left atrial pressure. Normal right heart chamber sizes and motion with Doppler evidence of mild to moderate pulmonary hypertension. Normal IVC size with slightly reduced respiratory collapse suggestive of at least a mildly elevated central venous pressure. Mild calcific aortic stenosis with trace insufficiency. Normal aortic dimensions. Moderately severe mitral annular calcification without LV inflow tract obstruction or significant mitral insufficiency. Normal appearing tricuspid valve with very mild insufficiency. Small posterior pericardial effusion measuring 5 mm without evidence of cardiac chamber compression. Echogenic catheter in the right atrium but otherwise no apparent intracardiac mass.
[2019-04-27] MEDS ORDERED: MAG SULF 1GM/100ML (MAG RUN) 1 GM in IV 1 EA IV ONE (08:15)
[2019-04-27] MEDS: MAGNESIUM OXIDE 400 MG TAB (MAG-OX) PO SCH ×2 (09:00→21:25)
[2019-04-27] MEDS: FILGRASTIM 480 MCG/0.8 ML SYRINGE (J1442) SC SCH (09:00)
[2019-04-27] MEDS: ATENOLOL 50 MG TAB PO SCH ×2 (09:00→21:27)
[2019-04-27] MEDS: SODIUM CHLORIDE 0.9% INJ 10 ML SYR IV SCH (09:00)
[2019-04-27] MEDS: POTASSIUM CHLORIDE 10 MEQ SR TABLET PO SCH ×3 (09:24→21:26)
[2019-04-27] MEDS: FIDAXOMICIN 200 MG TAB (DIFICID) PO SCH ×2 (09:24→21:25)
[2019-04-27] MEDS: PANTOPRAZOLE 40MG INJ (PROTONIX) (C9113) IV SCH ×2 (09:25→21:26)
[2019-04-27] MEDS: ENOXAPARIN 40 MG/0.4 ML SYRINGE (J1650) SC SCH (09:25)
[2019-04-27] MEDS: NYSTATIN 100,000 UNITS/GM TOPICAL PWD 15 GM TOP SCH ×2 (09:26→21:26)
--- NOTE | 2019-04-27 16:02 | IPNPDOC ---
Text Note Date of Service The patient was seen on 04/27/19. NOTE SUBJECTIVE: Feeling much better today, denies any abdominal pain or nausea, said had a good breakfast. SHe had bright red bleeding from her rectum this am. PHYSICAL EXAM: Vitals: as below General: awake, alert, oriented times three, answering questions appropriately. sitting in chair in no acute distress. HEENT: Pupils round and reactive to light and accommodation. Extraocular muscles are intact. Normocephalic, atraumatic. Neck: No jugular venous distention (JVD). No thyromegaly. Lungs are clear to auscultation. No wheezing, rales or rhonchi. Heart S1, S2 regular,No rub, murmur or gallop. Abdomen is soft, nontender, nondistended. Colostomy tube on the left nontender. Liquid brownish bilious discharge. No rebound or guarding. Extremities positive pitting edema, 1+. Labs : reviewed as below. Assessment and Plan: Ms. Blackwell is a 78-year-old female the past medical history of low rectal stage III adenocarcinoma, refractory C. difficile, hypertension, diabetes, iron deficiency anemia and morbid obesity who is admitted for management of a large bowel obstruction due to colonic mass. Bowel obstruction secondary to Rectal cancer s/p diverting colostomy diet advanced to soft appreciate surgical consult. Paroxysmal Afib with RVR now in sinus rhythm on atenolol. patient was started on heparin gtt with the plan to change it to eliquis However patient having rectal bleeding. have stopped heparin will not give any anticoagulation in view of the rectal cancer due to the high risk of bleeding. Leucopenia due to chemo resolved with neupogen. Recurrent C. difficile was on oral Vancocin daily prolonged taper till 04/20/19 then was stopped. Had bezlotoxumab on 03/30. Started on currently on Dificid for [address] Proctor has been consulted for further management. Locally advanced low rectal cancer diagnosed in September 2018, she underwent diagnostic colonoscopy with Dr. Moore of [facility]. Findings included a large distal rectal mass multilobulated with biopsy showing moderately differentiated adenocarcinoma. She was referred to Munir Gallegos MD of surgery. His sense was that this was a locally advanced rectal carcinoma, and because of the patient's obesity, she may not be a candidate for abdominal perineal surgical approach and recommended up front chemoradiation. He did obtain an abdomen/pelvis MRI with gadolinium, 12/14/2018, ultimately showing T3d, MRF+N1low rectal tumor and large, multilobu lated low rectal tumor extending to the anorectal junction with craniocaudal length 10.5 cm was seen with bulkiest portion above the anorectal junction. A second bulky tumor area measuring 8 cm from the anorectal junction with narrowing of the rectal lumen was seen. Current getting chemo last dose on 04/13/19 planned for chemoradiation next and reassessment for surgery Hiatal hernia and abdominal hernias. Iron deficiency anemia 2/2 low rectal stage III adenocarcinoma Hypertension amlodipine NIDDM2 lispro AC and HS. DVT prophylaxis with Lovenox. VS,Fishbone, I+O VS, Fishbone, I+O Laboratory Tests 04/27/19 05:25 Vital Signs Date Time Temp Pulse Resp B/P (MAP) Pulse Ox O2 Delivery O2 Flow Rate FiO2 04/27/19 12:00 96.9 88 18 123/73 (90) 96 Room Air 04/23/19 10:34 2.0 I&O- Last 24 Hours up to 6 AM 04/27/19 06:00 Intake Total 1569 ml Output Total 1825 ml Balance -256 ml JOELLE MARIE MD Apr 27, 2019 14:49
[2019-04-27] MEDS ORDERED: APIXABAN 5 MG TAB (ELIQUIS) PO SCH (21:00)
[2019-04-28] VITALS (7 sets, daily range): BP systolic 108–131; BP diastolic 54–76
[2019-04-28] MEDS: ONDANSETRON 4MG/2ML VIAL (J2405) IV SCH ×5 (06:00→23:14)
[2019-04-28 06:01] LABS: HEMATOCRIT 32.1 % (36.0-47.0); HEMOGLOBIN 9.1 g/dl (12.0-15.5); MEAN CORPUSCULAR HEMOGLOBIN 23.5 pg (27.0-33.0); MEAN CORPUSCULAR HGB CONC 28.3 g/dl (32.0-36.5); MEAN CORPUSCULAR VOLUME 82.9 fl (80.0-96.0); PLATELET COUNT, AUTOMATED 262 10^3/uL (150-450); RED BLOOD COUNT 3.87 10^6/uL (4.00-5.40); WHITE BLOOD COUNT 15.7 10^3/uL (4.0-10.0)
[2019-04-28 06:17] LABS: CREATININE FOR GFR 1.03 MG/DL (0.55-1.30); GLOMERULAR FILTRATION RATE 55.3 (>39); MAGNESIUM LEVEL 1.8 MG/DL (1.8-2.4)
[2019-04-28] MEDS: ADVAIR HFA 115/21MCG INHALER INH SCH ×2 (07:28→20:06)
[2019-04-28] MEDS: ALBUTEROL SULFATE 2.5 MG/0.5 ML INH NEB SOLN NEB SCH ×2 (07:29→20:00)
--- NOTE | 2019-04-28 08:54 | IPN ---
DATE: HISTORY: The patient is now 1 week postoperative from her laparoscopy and creation of an end descending colostomy for obstructing rectal cancer and Clostridium difficile pseudomembranous colitis. The patient reports that she is feeling much better today. She was up in a chair at the bedside when I came to see her and appears much more comfortable. Vital signs show that she has been afebrile. Her pulse is variable between 55 and 97. Her blood pressure is good. Intake and output show that she is having fair oral intake. She is receiving some IV fluids. Her output from her colostomy has been 2000 mL yesterday. She reports that she does have a small amount of liquid material from the rectum still. Physical exam shows that the heart exam shows a rhythm that appears to be regular at about 100. Her lungs are clear. The abdomen is obese, but soft and without significant tenderness today. Her ostomy appears to have diminished in size slightly consistent with some decrease in swelling and it is clearly viable and working. Laboratory studies today show a white count of 15,000 which is up significantly from yesterday with a hemoglobin of 9, hematocrit of 30 and a platelet count of 219,000. Her chemistry profile shows sodium of 140, potassium 3.8, chloride 109, CO2 of 24, BUN of 10, creatinine 0.9 and glucose of 71. IMPRESSION: The patient appears to be making some progress now. Her pain has diminished and her ostomy is working well. I am not really concerned about the relatively high colostomy output as I would anticipate this to remain elevated until her significant colitis heals. She remains on fidaxomicin as her only antibiotic and is taking a soft diet. RECOMMENDATIONS: At this point, I think the patient is showing some signs of improvement with decreased discomfort and an improved comfort level and demeanor. I would continue the antibiotics per Dr. Proctor. She can take a diet as tolerated. [facility]
--- NOTE | 2019-04-28 09:06 | IPN ---
DATE: 04/27/2019 Aida seems to be doing well. She did have some rectal bleeding. Labs with white count 15.2, hemoglobin 8.6, hematocrit 29.8 and platelets 219,000. White count yesterday was 1.9, but she has responded to Neupogen, sodium 140, potassium 3.8, chloride 109, bicarbonate 24, BUN 10, creatinine 0.92, glucose 71, calcium 8.1, magnesium 1.6. Medications: Fidaxomicin 200 mg by mouth twice a day. Temperature is 96.9, pulse 88, respirations 18, blood pressure 123/73, oxygen saturation 96% on room air. Heart: Normal S1 and S2. No murmurs. Lungs are clear. No wheezes, rales or rhonchi. Abdomen: Left lower quadrant colostomy with some formed bowel movements. Mild serosanguineous discharge on the bed underneath the patient, but there is no evidence of bright red blood per rectum. Extremities: No clubbing, cyanosis or edema. IMPRESSION: 1. Clostridium difficile colitis. On by mouth fidaxomicin. Seems to be controlled. 2. Rectal bleeding. Probably related to rectal mass and IV heparin that has been discontinued. 3. Paroxysmal atrial fibrillation postoperatively. Patient on atenolol and blood thinners have been discontinued. 4. Neutropenia from chemotherapy has resolved. PLAN: Continue fidaxomicin for a total of 2 weeks. Then taper down to one tablet daily for one week and one tablet every other day for one week and then every third day for one week or could do vancomycin tapering as well MTDD
[2019-04-28] MEDS: PANTOPRAZOLE 40MG INJ (PROTONIX) (C9113) IV SCH ×2 (09:20→20:28)
[2019-04-28] MEDS: MAGNESIUM OXIDE 400 MG TAB (MAG-OX) PO SCH ×2 (09:21→20:30)
[2019-04-28] MEDS: FIDAXOMICIN 200 MG TAB (DIFICID) PO SCH ×2 (09:21→20:29)
[2019-04-28] MEDS: ATENOLOL 50 MG TAB PO SCH ×2 (09:21→20:29)
[2019-04-28] MEDS: NYSTATIN 100,000 UNITS/GM TOPICAL PWD 15 GM TOP SCH ×2 (09:21→20:30)
[2019-04-28] MEDS: ENOXAPARIN 40 MG/0.4 ML SYRINGE (J1650) SC SCH (09:22)
[2019-04-28] MEDS: POTASSIUM CHLORIDE 10 MEQ SR TABLET PO SCH ×3 (09:22→20:29)
[2019-04-28] MEDS: SODIUM CHLORIDE 0.9% INJ 10 ML SYR IV SCH (09:23)
[2019-04-28] MEDS: HumaLOG INSULIN (NovoLOG) PER UNIT SC SCH ×4 (09:24→20:11)
--- NOTE | 2019-04-28 11:36 | IPNPDOC ---
Text Note Date of Service The patient was seen on 04/28/19. NOTE SUBJECTIVE: Feeling better every day. denies any abdominal pain or nausea, said had a good breakfast. She had bright red bleeding from her rectum yesterday so her anticoagulation was stopped and was placed only on prophylactic lovenox. PHYSICAL EXAM: Vitals: as below General: awake, alert, oriented times three, answering questions appropriately. sitting in chair in no acute distress. HEENT: Pupils round and reactive to light and accommodation. Extraocular muscles are intact. Normocephalic, atraumatic. Neck: No jugular venous distention (JVD). No thyromegaly. Lungs are clear to auscultation. No wheezing, rales or rhonchi. Heart S1, S2 regular,No rub, murmur or gallop. Abdomen is soft, nontender, nondistended. Colostomy tube on the left nontender. No rebound or guarding. Stool in colostomy bag is semisolid today. Extremities : trace edema. Labs : reviewed as below. Assessment and Plan: Ms. Blackwell is a 78-year-old female the past medical history of low rectal stage III adenocarcinoma, refractory C. difficile, hypertension, diabetes, iron deficiency anemia and morbid obesity who is admitted for management of a large bowel obstruction due to colonic mass. Bowel obstruction secondary to Rectal cancer and C diff pseudomembranous colitis. s/p diverting colostomy. Stool thickening up in the bag. diet advanced to soft appreciate surgical consult. Paroxysmal Afib with RVR now in sinus rhythm on atenolol. patient was started on heparin gtt with the plan to change it to eliquis However patient having rectal bleeding. have stopped heparin and eliquis. Discussed with patient the risk of stroke vs bleeding from the mass. It is felt that her risk of bleeding is higher than stroke so will not give anticoagulation for now. Leucopenia due to chemo resolved with neupogen. Recurrent C. difficile was on oral Vancocin daily prolonged taper till 04/20/19 then was stopped. Had bezlotoxumab on 03/30. Started on currently on Dificid for [address] Proctor has been consulted for further management. Locally advanced low rectal cancer diagnosed in September 2018, she underwent diagnostic colonoscopy with Dr. Moore of [facility]. Findings included a large distal rectal mass multilobulated with biopsy showing moderately differentiated adenocarcinoma. She was referred to Munir Gallegos MD of surgery. His sense was that this was a locally advanced rectal carcinoma, and because of the patient's obesity, she may not be a candidate for abdominal perineal surgical approach and recommended up front chemoradiation. He did obtain an abdomen/pelvis MRI with gadolinium, 12/14/2018, ultimately showing T3d, MRF+N1low rectal tumor and large, multilobulated low rectal tumor extending to the anorectal junction with c raniocaudal length 10.5 cm was seen with bulkiest portion above the anorectal junction. A second bulky tumor area measuring 8 cm from the anorectal junction with narrowing of the rectal lumen was seen. Currently getting chemo last dose on 04/13/19 planned for chemoradiation next and reassessment for surgery Hiatal hernia and abdominal hernias. Iron deficiency anemia 2/2 low rectal stage III adenocarcinoma Hypertension amlodipine NIDDM2 lispro AC and HS. DVT prophylaxis with Lovenox. VS,Fishbone, I+O VS, Fishbone, I+O Laboratory Tests 04/28/19 05:48 Vital Signs Date Time Temp Pulse Resp B/P (MAP) Pulse Ox O2 Delivery O2 Flow Rate FiO2 04/28/19 09:21 81 120/58 04/28/19 08:00 97.7 18 81 Room Air 04/23/19 10:34 2.0 I&O- Last 24 Hours up to 6 AM 04/28/19 06:00 Intake Total 1086 ml Output Total 1075 ml Balance 11 ml JOELLE MARIE MD Apr 28, 2019 11:36
[2019-04-28] MEDS: SODIUM CHLORIDE 0.9% INJ 10 ML SYR IV PRN (20:45)
[2019-04-29] VITALS (7 sets, daily range): BP systolic 108–133; BP diastolic 58–76
[2019-04-29] MEDS: ONDANSETRON 4MG/2ML VIAL (J2405) IV SCH (05:12)
[2019-04-29 05:51] LABS: HEMATOCRIT 30.4 % (36.0-47.0); HEMOGLOBIN 8.7 g/dl (12.0-15.5); MEAN CORPUSCULAR HGB CONC 28.6 g/dl (32.0-36.5); MEAN CORPUSCULAR VOLUME 83.7 fl (80.0-96.0); PLATELET COUNT, AUTOMATED 267 10^3/uL (150-450); RED BLOOD COUNT 3.63 10^6/uL (4.00-5.40); WHITE BLOOD COUNT 9.3 10^3/uL (4.0-10.0)
[2019-04-29 06:09] LABS: CALCIUM LEVEL 7.6 MG/DL (8.8-10.2); CREATININE FOR GFR 0.97 MG/DL (0.55-1.30); GLOMERULAR FILTRATION RATE 59.3 (>39); MAGNESIUM LEVEL 1.7 MG/DL (1.8-2.4); POTASSIUM SERUM 4.4 MEQ/L (3.5-5.1)
[2019-04-29] MEDS: HumaLOG INSULIN (NovoLOG) PER UNIT SC SCH ×4 (07:30→21:00)
[2019-04-29] MEDS: ADVAIR HFA 115/21MCG INHALER INH SCH ×2 (08:13→20:08)
[2019-04-29] MEDS: MAG SULF 1GM/100ML (MAG RUN) 1 GM in IV 1 EA IV SCH ×2 (08:20→09:53)
[2019-04-29] MEDS: ENOXAPARIN 40 MG/0.4 ML SYRINGE (J1650) SC SCH (08:21)
[2019-04-29] MEDS: SODIUM CHLORIDE 0.9% INJ 10 ML SYR IV SCH (08:22)
[2019-04-29] MEDS: NYSTATIN 100,000 UNITS/GM TOPICAL PWD 15 GM TOP SCH ×2 (08:23→21:22)
[2019-04-29] MEDS: MAGNESIUM OXIDE 400 MG TAB (MAG-OX) PO SCH ×2 (08:23→21:21)
[2019-04-29] MEDS: FIDAXOMICIN 200 MG TAB (DIFICID) PO SCH ×2 (08:23→21:21)
[2019-04-29] MEDS: ATENOLOL 50 MG TAB PO SCH ×2 (08:24→21:21)
[2019-04-29] MEDS ORDERED: PANTOPRAZOLE 40MG TAB (PROTONIX) PO SCH (09:00)
[2019-04-29] MEDS ORDERED: POTASSIUM CHLORIDE 10 MEQ SR TABLET PO SCH (09:00)
[2019-04-29] MEDS ORDERED: DIFI200T PO (11:43)
--- NOTE | 2019-04-29 11:50 | IPNPDOC ---
Text Note Date of Service The patient was seen on 04/29/19. NOTE SUBJECTIVE: Feeling better every day. denies any abdominal pain or nausea, said had a good breakfast. She is learning to manage her colostomy. Working with PT. PHYSICAL EXAM: Vitals: as below General: awake, alert, oriented times three, answering questions appropriately. sitting in chair in no acute distress. HEENT: Pupils round and reactive to light and accommodation. Extraocular muscles are intact. Normocephalic, atraumatic. Neck: No jugular venous distention (JVD). No thyromegaly. Lungs are clear to auscultation. No wheezing, rales or rhonchi. Heart S1, S2 regular,No rub, murmur or gallop. Abdomen is soft, nontender, nondistended. Colostomy tube on the left nontender. No rebound or guarding. Stool in colostomy bag is semisolid today. Extremities : trace edema. Labs : reviewed as below. Assessment and Plan: Ms. Blackwell is a 78-year-old female the past medical history of low rectal stage III adenocarcinoma, refractory C. difficile, hypertension, diabetes, iron deficiency anemia and morbid obesity who is admitted for management of a large bowel obstruction due to colonic mass. Bowel obstruction secondary to Rectal cancer and C diff pseudomembranous colitis. s/p diverting colostomy. Stool thickening up in the bag. diet advanced to soft appreciate surgical consult. Colostomy teaching. Hypomagnesemia persistent, will stop PPI and place her on famotidine replaced IV and PO. Paroxysmal Afib with RVR now in sinus rhythm on atenolol. patient was started on heparin gtt with the plan to change it to eliquis However patient having rectal bleeding. have stopped heparin and eliquis. Discussed with patient the risk of stroke vs bleeding from the mass. It is felt that her risk of bleeding is higher than stroke so will not give anticoagulation for now. Leucopenia due to chemo resolved with neupogen. Recurrent C. difficile was on oral Vancocin daily prolonged taper till 04/20/19 then was stopped. Had bezlotoxumab on 03/30. Started on currently on Dificid for 14 days 04/20/19 then tapering course as per ID Locally advanced low rectal cancer diagnosed in September 2018, she underwent diagnostic colonoscopy with Dr. Moore of [facility]. Findings included a large distal rectal mass multilobulated with biopsy showing moderately differentiated adenocarcinoma. She was referred to Munir Gallegos MD of surgery. His sense was that this was a locally advanced rectal carcinoma, and because of the patient's obesity, she may not be a candidate for abdominal perineal surgical approach and recommended up front c hemoradiation. He did obtain an abdomen/pelvis MRI with gadolinium, 12/14/2018, ultimately showing T3d, MRF+N1low rectal tumor and large, multilobulated low rectal tumor extending to the anorectal junction with craniocaudal length 10.5 cm was seen with bulkiest portion above the anorectal junction. A second bulky tumor area measuring 8 cm from the anorectal junction with narrowing of the rectal lumen was seen. Currently getting chemo last dose on 04/13/19 planned for chemoradiation next and reassessment for surgery Hiatal hernia and abdominal hernias. Iron deficiency anemia 2/2 low rectal stage III adenocarcinoma Hypertension with hypertensive heart disease with diastolic dys amd mild to moderrate pulmonary hypertension. amlodipine Valvular heart disease Mild Aortic stenosis and mitral valvular calcification no issues at present NIDDM2 lispro AC and HS. DVT prophylaxis with Lovenox. VS,Fishbone, I+O VS, Fishbone, I+O Laboratory Tests 04/29/19 05:37 Vital Signs Date Time Temp Pulse Resp B/P (MAP) Pulse Ox O2 Delivery O2 Flow Rate FiO2 04/29/19 08:24 72 115/68 04/29/19 08:00 97.3 18 97 Room Air 04/23/19 10:34 2.0 I&O- Last 24 Hours up to 6 AM 04/29/19 06:00 Intake Total 1440 ml Output Total 1815 ml Balance -375 ml JOELLE MARIE MD Apr 29, 2019 11:50
[2019-04-29] MEDS: ALBUTEROL SULFATE 2.5 MG/0.5 ML INH NEB SOLN NEB SCH (20:00)
[2019-04-29] MEDS: FAMOTIDINE 20 MG TAB PO SCH (21:21)
[2019-04-29] MEDS ORDERED: NS 500 ML IV SCH (22:30)
[2019-04-30 04:00] VITALS: BP 110/52
[2019-04-30 05:46] LABS: HEMATOCRIT 30.4 % (36.0-47.0); HEMOGLOBIN 8.6 g/dl (12.0-15.5); MEAN CORPUSCULAR HEMOGLOBIN 23.6 pg (27.0-33.0); MEAN CORPUSCULAR HGB CONC 28.3 g/dl (32.0-36.5); MEAN CORPUSCULAR VOLUME 83.3 fl (80.0-96.0); PLATELET COUNT, AUTOMATED 289 10^3/uL (150-450); RED BLOOD COUNT 3.65 10^6/uL (4.00-5.40); WHITE BLOOD COUNT 6.9 10^3/uL (4.0-10.0)
[2019-04-30 06:00] VITALS: BP_SYST 120; BP_SYST 130; BP_DIAS 64; BP_DIAS 72; BP_DIAS 80
[2019-04-30 06:06] LABS: BLOOD UREA NITROGEN 10 MG/DL (7-18); CARBON DIOXIDE LEVEL 22 MEQ/L (21-32); CHLORIDE LEVEL 114 MEQ/L (98-107); CREATININE FOR GFR 0.85 MG/DL (0.55-1.30); GLOMERULAR FILTRATION RATE > 60.0 (>39); GLUCOSE, FASTING 94 MG/DL (70-100); POTASSIUM SERUM 4.3 MEQ/L (3.5-5.1); SODIUM LEVEL 142 MEQ/L (136-145)
[2019-04-30] MEDS: ALBUTEROL SULFATE 2.5 MG/0.5 ML INH NEB SOLN NEB SCH ×2 (07:17→20:00)
[2019-04-30] MEDS: ADVAIR HFA 115/21MCG INHALER INH SCH ×2 (07:17→19:59)
[2019-04-30] MEDS: HumaLOG INSULIN (NovoLOG) PER UNIT SC SCH ×4 (07:30→21:00)
[2019-04-30 07:59] VITALS: BP 138/58
[2019-04-30] MEDS: POTASSIUM CHLORIDE 10 MEQ SR TABLET PO SCH (09:01)
[2019-04-30] MEDS: FAMOTIDINE 20 MG TAB PO SCH ×2 (09:01→21:41)
[2019-04-30] MEDS: NYSTATIN 100,000 UNITS/GM TOPICAL PWD 15 GM TOP SCH ×2 (09:02→21:42)
[2019-04-30] MEDS: ATENOLOL 50 MG TAB PO SCH ×2 (09:02→21:42)
[2019-04-30] MEDS: MAGNESIUM OXIDE 400 MG TAB (MAG-OX) PO SCH ×2 (09:02→21:41)
[2019-04-30] MEDS: FIDAXOMICIN 200 MG TAB (DIFICID) PO SCH ×2 (09:02→21:41)
[2019-04-30] MEDS: ENOXAPARIN 40 MG/0.4 ML SYRINGE (J1650) SC SCH (09:03)
[2019-04-30] MEDS: SODIUM CHLORIDE 0.9% INJ 10 ML SYR IV SCH (09:04)
--- NOTE | 2019-04-30 11:10 | IPNPDOC ---
Text Note Date of Service The patient was seen on 04/30/19. NOTE SUBJECTIVE: Feeling better every day. denies any abdominal pain or nausea, said had a good breakfast. She is learning to manage her colostomy. Working with PT. PHYSICAL EXAM: Vitals: as below General: awake, alert, oriented times three, answering questions appropriately. sitting in chair in no acute distress. HEENT: Pupils round and reactive to light and accommodation. Extraocular muscles are intact. Normocephalic, atraumatic. Neck: No jugular venous distention (JVD). No thyromegaly. Lungs are clear to auscultation. No wheezing, rales or rhonchi. Heart S1, S2 regular,No rub, murmur or gallop. Abdomen is soft, nontender, nondistended. Colostomy tube on the left nontender. No rebound or guarding. Stool in colostomy bag is semisolid today. Extremities : trace edema. Labs : reviewed as below. Assessment and Plan: Ms. Blackwell is a 78-year-old female the past medical history of low rectal stage III adenocarcinoma, refractory C. difficile, hypertension, diabetes, iron deficiency anemia and morbid obesity who is admitted for management of a large bowel obstruction due to colonic mass. Bowel obstruction secondary to Rectal cancer and C diff pseudomembranous colitis. s/p diverting colostomy. Stool thickening up in the bag. regular diet appreciate surgical consult. Colostomy teaching. Hypomagnesemia corrected with continue po. Paroxysmal Afib with RVR now in sinus rhythm on atenolol. patient was started on heparin gtt with the plan to change it to eliquis However patient having rectal bleeding. have stopped heparin and eliquis. Discussed with patient the risk of stroke vs bleeding from the mass. It is felt that her risk of bleeding is higher than stroke so will not give anticoagulation for now. Leucopenia due to chemo resolved with neupogen. Recurrent C. difficile was on oral Vancocin daily prolonged taper till 04/20/19 then was stopped. Had bezlotoxumab on 03/30. Started on currently on Dificid for 14 days 04/20/19 then tapering course as per ID having difficulty in insurance coverage high coopay as her is in coverage gap. PFS is workng on it. Locally advanced low rectal cancer diagnosed in September 2018, she underwent diagnostic colonoscopy with Dr. Moore of [facility]. Findings included a large distal rectal mass multilobulated with biopsy showing moderately differentiated adenocarcinoma. She was referred to Munir Gallegos MD of surgery. His sense was that this was a locally advanced rectal carcinoma, and because of the patient's obesity, she may not be a candidate for abdominal perineal surgical approach and recommended up front chemoradiation. He did obtain an abdomen/pelvis MRI with gadolinium, 12/14/2018, ultimately showing T3d, MRF+N1low rectal tumor and large, multilobulated low rectal tumor extending to the anorectal junction with craniocaudal length 10.5 cm was seen with bulkiest portion above the anorectal junction. A second bulky tumor area measuring 8 cm from the anorectal junction with narrowing of the rectal lumen was seen. Chemo last dose was on 04/13/19 planned for chemoradiation next and reassessment for surgery Hiatal hernia and abdominal hernias. continue famotidine. PPI changed due to persistent hypomagnesemia. Iron deficiency anemia 2/2 low rectal stage III adenocarcinoma Hypertension with hypertensive heart disease with diastolic dys amd mild to moderrate pulmonary hypertension. amlodipine Valvular heart disease Mild Aortic stenosis and mitral valvular calcification no issues at present NIDDM2 lispro AC and HS. DVT prophylaxis with Lovenox. VS,Fishbone, I+O VS, Fishbone, I+O Laboratory Tests 04/30/19 05:29 Vital Signs Date Time Temp Pulse Resp B/P (MAP) Pulse Ox O2 Delivery O2 Flow Rate FiO2 04/30/19 09:02 73 138/58 04/30/19 07:59 97.8 18 98 Room Air I&O- Last 24 Hours up to 6 AM 04/30/19 06:00 Intake Total 660 ml Output Total 875 ml Balance -215 ml JOELLE MARIE MD Apr 30, 2019 11:10
[2019-04-30] MEDS ORDERED: DIFI200T PO (11:24)
[2019-04-30] MEDS ORDERED: VANC1CAP7 PO (14:08)
[2019-04-30 16:00] VITALS: BP 142/63
[2019-04-30 20:00] VITALS: BP 150/62
[2019-04-30 23:49] VITALS: BP 110/52
--- NOTE | 2019-04-30 23:55 | ECGEPIP ---
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
[2019-05-01 04:00] VITALS: BP 108/60
[2019-05-01 06:20] LABS: HEMATOCRIT 29.8 % (36.0-47.0); HEMOGLOBIN 8.4 g/dl (12.0-15.5); MEAN CORPUSCULAR HEMOGLOBIN 23.7 pg (27.0-33.0); MEAN CORPUSCULAR HGB CONC 28.2 g/dl (32.0-36.5); MEAN CORPUSCULAR VOLUME 83.9 fl (80.0-96.0); PLATELET COUNT, AUTOMATED 295 10^3/uL (150-450); RED BLOOD COUNT 3.55 10^6/uL (4.00-5.40); WHITE BLOOD COUNT 6.8 10^3/uL (4.0-10.0)
[2019-05-01 06:39] LABS: BLOOD UREA NITROGEN 10 MG/DL (7-18); CALCIUM LEVEL 7.7 MG/DL (8.8-10.2); CARBON DIOXIDE LEVEL 20 MEQ/L (21-32); CHLORIDE LEVEL 112 MEQ/L (98-107); CREATININE FOR GFR 0.78 MG/DL (0.55-1.30); GLOMERULAR FILTRATION RATE > 60.0 (>39); GLUCOSE, FASTING 106 MG/DL (70-100); MAGNESIUM LEVEL 1.7 MG/DL (1.8-2.4); POTASSIUM SERUM 4.2 MEQ/L (3.5-5.1); SODIUM LEVEL 139 MEQ/L (136-145)
[2019-05-01 08:00] VITALS: BP 112/68
[2019-05-01] MEDS: ALBUTEROL SULFATE 2.5 MG/0.5 ML INH NEB SOLN NEB SCH (08:00)
[2019-05-01] MEDS: ADVAIR HFA 115/21MCG INHALER INH SCH (08:39)
[2019-05-01] MEDS: FIDAXOMICIN 200 MG TAB (DIFICID) PO SCH (08:56)
[2019-05-01] MEDS: ENOXAPARIN 40 MG/0.4 ML SYRINGE (J1650) SC SCH (08:56)
[2019-05-01] MEDS: HumaLOG INSULIN (NovoLOG) PER UNIT SC SCH ×2 (08:56→12:00)
[2019-05-01 08:57] VITALS: BP 112/68
[2019-05-01] MEDS: ATENOLOL 50 MG TAB PO SCH (08:57)
[2019-05-01] MEDS: MAGNESIUM OXIDE 400 MG TAB (MAG-OX) PO SCH (08:57)
[2019-05-01] MEDS: POTASSIUM CHLORIDE 10 MEQ SR TABLET PO SCH (08:57)
[2019-05-01] MEDS: SODIUM CHLORIDE 0.9% INJ 10 ML SYR IV SCH (08:59)
[2019-05-01] MEDS: NYSTATIN 100,000 UNITS/GM TOPICAL PWD 15 GM TOP SCH (09:00)
[2019-05-01] MEDS: FAMOTIDINE 20 MG TAB PO SCH (09:00)
[2019-05-01] MEDS ORDERED: MAG400TA PO (10:08)
[2019-05-01] MEDS ORDERED: ATEN50TA2 PO (10:08)
--- NOTE | 2019-05-01 10:22 | DS.PDOC ---
Discharge Summary General Date of Admission Apr 15, 2019 at 23:40 Date of Discharge 05/01/19 Discharge Summary PROCEDURES PERFORMED DURING STAY: 04/20/19: Laparoscopy with creation of end descending colostomy. DISCHARGE DIAGNOSES: Bowel obstruction secondary to Rectal cancer C diff pseudomembranous colitis S/p Diverting colostomy New onset Paroxysmal Afib with RVR. Mild Aortic stenosis and mild mitral valvular calcification. SECONDARY DIAGNOSIS: Low rectal stage III adenocarcinoma, refractory C. difficile, hypertension, diabetes, iron deficiency anemia and morbid obesity , Hiatal hernia with GERD COMPLICATIONS/CHIEF COMPLAINT: C-Diff; Colonic Obstruction. HISTORY OF PRESENT ILLNESS: see history and physical. HOSPITAL COURSE: Ms. Blackwell is a 78-year-old female the past medical history of low rectal stage III adenocarcinoma, refractory C. difficile, hypertension, diabetes, iron deficiency anemia and morbid obesity who is admitted for management of a large bowel obstruction due to colonic mass. Bowel obstruction secondary to Rectal cancer and C diff pseudomembranous colitis. s/p diverting colostomy. Stool thickening up in the bag. regular diet appreciate surgical consult. Colostomy teaching completed Discussed with Dr Chao . Patient's Chemotherapy can be resumed 1 month after the surgery unless some complication ocurs then to follow up prn with him. Hypomagnesemia corrected with continue po. Paroxysmal Afib with RVR now in sinus rhythm on atenolol. patient was started on heparin gtt with the plan to change it to eliquis However patient was having rectal bleeding. So have stopped heparin and eliquis. Discussed with patient the risk of stroke vs bleeding from the mass. It is felt that her risk of bleeding is higher than stroke so will not give anticoagulation for now. Patient continues to have daily small amounts of rectal bleeding. Leucopenia due to chemo resolved with neupogen. Recurrent C. difficile was on oral Vancocin daily prolonged taper till 04/20/19 then was stopped. Had bezlotoxumab on 03/30. Started on currently on Dificid for 14 days 04/20/19 then tapering course as per ID. However very high copy so changed back to vancomycin willneed the tapering course again. Starting with 250 mg bid for 14 days . Rest to be given by DR Proctor when she sees her in the office on 05/10/19. Locally advanced low rectal cancer diagnosed in September 2018, she underwent diagnostic colonoscopy with Dr. Moore of [facility]. Findings included a large distal rectal mass multilobulated with biopsy showing moderately differentiated adenocarcinoma. She was referred to Munir Gallegos MD of surgery. His sense was that this was a locally advanced rectal carcinoma, and because of the patient's obesity, she may not be a candidate for abdominal perineal surgical approach and recommended up front chemoradiation. He did obtain an abdomen/pelvis MRI with gadolinium, 12/14/2018, ultimately showing T3d, MRF+N1low rectal tumor and large, multilo bulated low rectal tumor extending to the anorectal junction with craniocaudal length 10.5 cm was seen with bulkiest portion above the anorectal junction. A second bulky tumor area measuring 8 cm from the anorectal junction with narrowing of the rectal lumen was seen. Chemo last dose was on 04/13/19 planned for chemoradiation next and reassessment for surgery Chemo can be resumed 1 month after surgery. Hiatal hernia and abdominal hernias. patient wants to go back to PPI will also give magnesium. Iron deficiency anemia 2/2 low rectal stage III adenocarcinoma Hypertension with hypertensive heart disease with diastolic dys amd mild to moderrate pulmonary hypertension. amlodipine changed to atenolol due to afib Valvular heart disease Mild Aortic stenosis and mitral valvular calcification no issues at present NIDDM2 sugars controlled not on any home meds. DISCHARGE MEDICATIONS: Please see below. ALLERGIES: Please see below. PHYSICAL EXAMINATION ON DISCHARGE: VITAL SIGNS: Please see below. General: awake, alert, oriented times three, answering questions appropriately. sitting in chair in no acute distress. HEENT: Pupils round and reactive to light and accommodation. Extraocular muscles are intact. Normocephalic, atraumatic. Neck: No jugular venous distention (JVD). No thyromegaly. Lungs are clear to auscultation. No wheezing, rales or rhonchi. Heart S1, S2 regular,No rub, murmur or gallop. Abdomen is soft, nontender, nondistended. Colostomy tube on the left nontender. No rebound or guarding. Stool in colostomy bag is semisolid today. Extremities : trace edema. LABORATORY DATA: Please see below. ACTIVITY: [As tolerated]. DIET: As tolerated DISCHARGE PLAN: Home with services. DISPOSITION: . DISCHARGE INSTRUCTIONS: Follow up Dr Hitesh Villasenor up PMD Follow up Dr Chao Follow up DR Enamorado DISCHARGE CONDITION: [Stable]. TIME SPENT ON DISCHARGE: 35minutes. Vital Signs/I&Os Vital Signs Date Time Temp Pulse Resp B/P (MAP) Pulse Ox O2 Delivery O2 Flow Rate FiO2 05/01/19 08:57 80 112/68 05/01/19 08:00 96.6 17 99 Room Air I&O- Last 24 Hours up to 6 AM 05/01/19 06:00 Intake Total 1260 ml Output Total 925 ml Balance 335 ml Laboratory Data Labs 24H Laboratory Tests 2 04/30/19 12:13: Bedside Glucose (Misc Panel) 153H 04/30/19 16:36: Bedside Glucose (Misc Panel) 104 04/30/19 20:54: Bedside Glucose (Misc Panel) 122H 05/01/19 05:43: Nucleated Red Blood Cells % (auto) 0.0, Anion Gap 7L, Glomerular Filtration Rate > 60.0, Calcium Level 7.7L, Magnesium Level 1.7L CBC/BMP Laboratory Tests 05/01/19 05:43 FSBS Laboratory Tests Test 04/30/19 12:13 04/30/19 16:36 04/30/19 20:54 Range/Units Bedside Glucose (Misc Panel) 153 104 122 83-110 MG/DL Microbiology Microbiology 04/23/19 Occult Blood - Final, Complete Discharge Medications Scheduled Acetaminophen (Tylenol Arthritis) 650 Mg Tablet.er, 650 MG PO Q8H, (Reported) Atenolol (Atenolol) 50 Mg Tablet, 50 MG PO BID Furosemide (Furosemide) 40 Mg Tablet, 40 MG PO DAILY, (Reported) Glimepiride (Glimepiride) 2 Mg Tablet, 2 MG PO DAILY, (Reported) Lactobacillus Combo No.10 (Probiotic) 1 Each Capsule, 1 TAB PO DAILY, (Reported) Magnesium Oxide (Magnesium Oxide) 400 Mg Tablet, 400 MG PO DAILY Mometasone/Formoterol (Dulera 100 Mcg/5 Mcg Inhaler) 13 Gm Hfa.aer.ad, 2 PUFF INH DAILY, (Reported) Pantoprazole Sodium (Pantoprazole Sodium) 40 Mg Tablet.dr, 40 MG PO DAILY, (Reported) Potassium Chloride (Potassium Chloride) 10 Meq Tab.er.prt, 20 MEQ PO BID, (Reported) Vancomycin HCl (Vancocin HCl) 250 Mg Capsule, 250 MG PO BID Scheduled PRN Ondansetron (Ondansetron Odt) 8 Mg Tab.rapdis, 8 MG PO Q6H PRN for NAUSEA OR VOMITING, (Reported) Prochlorperazine Maleate (Prochlorperazine Maleate) 10 Mg Tablet, 10 MG PO Q6H PRN for NAUSEA OR VOMITING, (Reported) Miscellaneous Medications [Folfox] , (Reported) IS UNDERGOING FOLFOX CHEMOTHERAPY WENT ON FRIDAY FOR INFUSION AND HAD HER PUMP TAKEN OUT TODAY. SHE IS ON A 2 WEEK CYCLE Allergies Coded Allergies: vancomycin (Verified Allergy, Intermediate, HIVES/ITCHING, 01/04/19) Penicillins (Unverified Allergy, Unknown, 01/04/19) Sulfa (Sulfonamide Antibiotics) (Unverified Allergy, Unknown, 01/04/19) morphine (Verified Adverse Reaction, Unknown, NAUSEA, 01/04/19) JOELLE MARIE MD May 01, 2019 10:22
--- NOTE | 2019-05-01 14:14 | IPN ---
DATE: 05/01/2019 HISTORY: Patient is now 11 days postop from laparoscopy with creation of an end descending colostomy for colonic obstruction, which may have been a combination of her rectal stricture from her tumor and Clostridium difficile pseudomembranous colitis. She has been doing well over the last couple days and is scheduled to go home today. Vital signs show that she has been afebrile with a pulse in the 70s and low 80s and a good blood pressure. Intake and output shows that she had 1350 in yesterday with 1600 out. PHYSICAL EXAMINATION: The patient is sitting up in a chair awaiting discharge. Her ostomy appliance is in place. She denies any abdominal pain. Laboratory studies shows a white count of 7, hemoglobin of 8, hematocrit of 30 and platelet count of 295,000. Chemistry profile shows sodium 139, potassium 4.2, chloride 112, CO2 of 20, BUN of 10, creatinine 0.8 and a glucose of 106. IMPRESSION: The patient appears to be doing well and seems ready for discharge. RECOMMENDATIONS: I have recommended to the patient that she avoid any chemotherapy until she has had about a month to heal from her colostomy. Certainly this decision would ultimately be made by the medical oncologist. I do not see any likelihood of reversing her colostomy at any time. She has some what sounds like a low-lying rectal cancer, which has been treated with chemotherapy and my understanding is that there is a plan for radiation therapy as well. The colorectal surgeon in [place] would ultimately have to determine if there is any chance of resecting her rectal cancer with the establishment of bowel continuity or whether an abdominoperineal resection would be appropriate. The patient can follow up with me as necessary for her colostomy. MARY IMOGENE BASSETT HOSPITALEloise
== END 2019-05-01 12:31 | disposition home health service (06) | DRG 330 ==
LOC: M ED 20:33 → M ED INP 23:40 → M PCU 04-16 01:43 → M MS5PR 04-23 17:06 → M PCU 04-25 09:17
PROVIDERS: ADMIT Internal Medicine; ATTEND Internal Medicine Nephrology
PROC: 0D1 Gastrointestinal System, Bypass (ICD-10-PCS; 2019-04-20)
PROC: 0DBM4ZZ Excision of Descending Colon, Percutaneous Endoscopic Approach (ICD-10-PCS; principal; 2019-04-20 11:00)
DX: C20 Malignant neoplasm of rectum (principal); K56.699 Other intestinal obstruction unspecified as to partial versus complete obstruction; A04.71 Enterocolitis due to Clostridium difficile, recurrent; Z68.42 Body mass index [BMI] 45.0-49.9, adult; E66.01 Morbid (severe) obesity due to excess calories; K21.9 Gastro-esophageal reflux disease without esophagitis; E11.9 Type 2 diabetes mellitus without complications; D50.9 Iron deficiency anemia, unspecified; I10 Essential (primary) hypertension; E86.0 Dehydration; Z88.0 Allergy status to penicillin; Z88.2 Allergy status to sulfonamides; Z88.5 Allergy status to narcotic agent; D72.829 Elevated white blood cell count, unspecified; E87.6 Hypokalemia; B35.4 Tinea corporis; E83.42 Hypomagnesemia; I48.0 Paroxysmal atrial fibrillation; K44.9 Diaphragmatic hernia without obstruction or gangrene; D70.1 Agranulocytosis secondary to cancer chemotherapy

== ENCOUNTER → 2019-04-15 | Outpatient (CLI) | payer MEDICARE ==
[~2019-04-15] MED LIST changes: +CVS1CAP2 PO; +FOLFOX; +GASTROGRAFIN SOLUTION 30ML (Q9963) As Ordered ONE; +ISOVUE-370 76% 100ML VIAL (Q9967) As Ordered ONE
--- NOTE | 2019-04-15 18:58 | REPVR ---
PROCEDURE INFORMATION: Exam: CT Chest With Contrast Exam date and time: 04/15/2019 5:54 PM Clinical history: 78 years old, female; Condition or disease; Other: CA; Additional info: Advanced colon CA, inact rectal mass, eval progress TECHNIQUE: Imaging protocol: Computed tomography of the chest with intravenous contrast. Radiation optimization: All CT scans at this facility use at least one of these dose optimization techniques: automated exposure control; mA and/or kV adjustment per patient size (includes targeted exams where dose is matched to clinical indication); or iterative reconstruction. Contrast material: ISOVUE 370; Contrast volume: 100 ml; Contrast route: IV; COMPARISON: CT Chest with contrast 03/25/2019 1:00 PM FINDINGS: Thyroid: Normal appearing thyroid. Lungs: The lungs appear clear. Pleural space: Unremarkable. No pneumothorax. No pleural effusion. Heart: The heart is top normal in size. Pulmonary arteries: This opacification of the pulmonary arteries with no evidence of pulmonary embolus. Aorta: There is opacification of the aorta which appears normal in size. Lymph nodes: There is no evidence of mediastinal or hilar lymphadenopathy. Stomach and bowel: There is a large hiatal hernia with one fourth of the stomach above the diaphragm. There is prominent distention of the entire colon with liquid stool. If there is any concern for obstruction suggest correlation with a abdominal CT. IMPRESSION: 1. Clear lungs. 2. Progressive distention of the colon with liquid stool. Suggest CT scan of the abdomen and pelvis to exclude developing obstruction. Electronically signed by: Venancio Hernandes On 04/15/2019 18:58:18 PM
--- NOTE | 2019-04-15 19:19 | REPVR ---
PROCEDURE INFORMATION: Exam: CT Abdomen And Pelvis With Contrast Exam date and time: 04/15/2019 5:54 PM Clinical history: 78 years old, female; Condition or disease; Cancer; Intestine, large; Additional info: Advanced colon CA, inact rectal mass, eval progress TECHNIQUE: Imaging protocol: Computed tomography of the abdomen and pelvis with intravenous contrast. Radiation optimization: All CT scans at this facility use at least one of these dose optimization techniques: automated exposure control; mA and/or kV adjustment per patient size (includes targeted exams where dose is matched to clinical indication); or iterative reconstruction. Contrast material: ISOVUE 370; Contrast volume: 100 ml; Contrast route: IV; COMPARISON: CT ABD PELVIS W/O FOL BY WIT 03/25/2019 1:00 PM FINDINGS: Liver: There is a 1 CM enhancing nodule along the surface of the left lobe of the liver which could be benign or malignant. Pancreas: Normal pancreas. Spleen: Normal spleen. Adrenals: Mild adrenal hypertrophy bilaterally. Kidneys and ureters: There is opacification of the kidneys. There is no evidence of hydronephrosis. Stomach and bowel: Large hiatal hernia with one fourth of the stomach above the diaphragm. There is contrast throughout the small bowel. There is a small amount of free fluid in the right and left paracolic space. There is severe distention of the entire colon with liquid stool and a few air-fluid levels. There is thickened enhancing areas within the rectum suspicious for neoplasm. This is thought to represent a high grade obstruction of the colon. The amount of distention of the colon has developed since the examination of 03/25/2019. Intraperitoneal space: There is no evidence of pneumoperitoneum. Vasculature: There is opacification of the SMV and the SMA. There is enhancement of the aorta which appears intact. Lymph nodes: Unremarkable. No enlarged lymph nodes. Bladder: Small amount of urine in the urinary bladder. Reproductive: Uterus is normal in size. Bones/joints: There is degenerative change of the thoracic and lumbar spine with anterior osteophyte formation. Soft tissues: Unremarkable. IMPRESSION: 1. Development of severe distention of the entire colon with liquid stool and multiple air-fluid levels. This is thought to be secondary to obstruction by an enhancing neoplasm along the course of the rectum. 2. 1 CM enhancing nodule along the surface of the left lobe of the liver. Electronically signed by: Venancio Hernandes On 04/15/2019 19:18:51 PM
== END ==
LOC: M RAD 14:57
PROVIDERS: ATTEND Internal Medicine Medical Oncology
DX: C18.9 Malignant neoplasm of colon, unspecified (principal); K76.9 Liver disease, unspecified; E27.8 Other specified disorders of adrenal gland; K44.9 Diaphragmatic hernia without obstruction or gangrene

== ENCOUNTER → 2019-06-11 | Outpatient (CLI) | payer MEDICARE ==
[~2019-06-11] MED LIST changes: +ATEN50TA2 PO; +FOLFOX; +GASTROGRAFIN SOLUTION 30ML (Q9963) As Ordered ONE; +ISOVUE-370 76% 100ML VIAL (Q9967) As Ordered ONE; +MAG400TA PO; +VANC1CAP7 PO
--- NOTE | 2019-06-11 15:33 | REP ---
Clinical: Colorectal carcinoma. Followup. Technique: Axial contrast enhanced images from the the as inlet to the upper abdomen with coronal and sagittal re-formations using 100 ml Isovue 370 intravenous contrast material. Comparison: 04/15/2019. Findings: The bilateral lung knight are relatively well aerated and without consolidation, nodule or mass lesion. Trace right basilar atelectasis is suggested. A moderate hiatal hernia is again noted. No adenopathy. The mediastinum demonstrates relatively normal thoracic aorta, pulmonary vasculature, and heart/pericardium. Surrounding musculoskeletal structures are intact. Impression: 1. Trace right basilar atelectasis. 2. No acute mediastinal or pleuroparenchymal process. No evidence for metastatic disease. 3. Stable moderate hiatal hernia. Electronically Signed by Desmond Alcantara MD 06/11/2019 03:24 P
--- NOTE | 2019-06-15 08:56 | REP ---
Clinical: Colorectal carcinoma. Followup. Technique: Axial contrast enhanced images from the lung bases to the pubic symphysis using oral (per protocol) and 100 ml Isovue 370 intravenous contrast material coronal and sagittal re-formations. Comparison: 04/15/2019, 03/25/2019 Findings: Liver demonstrates a small subcapsular enhancing lesion measuring 1 cm along the anterior margin of the left lateral segment similar to prior examination. No further hepatic lesions are identified. Spleen, pancreas, bilateral adrenal glands, and kidneys are normal / stable. Evidence of prior cholecystectomy. There is evidence for prior partial left hemicolectomy with ostomy through the left anterior abdominal wall and oversewn, excluded sigmoid colon. Scattered colonic diverticula noted without acute diverticulitis. The small bowel is unremarkable. The 2 cm fat containing periumbilical hernia is identified and unchanged. Evaluation of the pelvis demonstrates normal bladder and and age-appropriate uterus/adnexa the rectosigmoid and anorectal regions appear relatively normal / stable. No pelvic fluid or ascites. No free air. No obvious adenopathy. Abdominal aorta without aneurysm or dissection. Musculoskeletal structures demonstrate age-related degenerative changes without focal abnormality. Impression: 1. Stable small hyperdense lesion along the subcapsular left hepatic lobe previously described as hemangioma. No further hepatic lesions are identified. 2. Evidence for recent partial left hemicolectomy and ostomy without obstruction or obvious acute abnormality. 3. Diverticulosis. 4. No ascites, adenopathy, focal inflammatory stranding, or obvious metastasis/recurrence. Electronically Signed by Desmond Alcantara MD 06/15/2019 08:47 A
== END ==
LOC: M RAD 11:17
PROVIDERS: ATTEND Internal Medicine Medical Oncology
DX: C18.9 Malignant neoplasm of colon, unspecified (principal); K57.30 Diverticulosis of large intestine without perforation or abscess without bleeding; K76.89 Other specified diseases of liver; J98.11 Atelectasis; D64.9 Anemia, unspecified; K44.9 Diaphragmatic hernia without obstruction or gangrene; Z90.49 Acquired absence of other specified parts of digestive tract
CPT/HCPCS: 71260; 74177; Q9963; Q9967

== ENCOUNTER → 2019-06-22 | Outpatient (CLI) | payer MEDICARE ==
[~2019-06-22] MED LIST changes: -GASTROGRAFIN SOLUTION 30ML (Q9963) As Ordered ONE; -ISOVUE-370 76% 100ML VIAL (Q9967) As Ordered ONE
--- NOTE | 2019-06-22 14:24 | REP ---
PET/CT: HISTORY: Restaging colorectal cancer. COMPARISONS: Comparison PET/CT study December 30, 2018. Comparison CT study chest, abdomen pelvis June 11, 2019. TECHNIQUE: 55 minutes following the intravenous injection of a 8.54 mCi dose of F-18 FDG, three-dimensional PET scintigraphy is acquired from the skull base to the proximal thighs. Triplanar noncontrast CT scanning is acquired through the same anatomic range for attenuation correction, and image registration with scan parameters optimized to minimize radiation exposure to the patient. PET scintigraphy and CT datasets were fused and displayed on a workstation with multiplanar and projection display capability. PET/CT FINDINGS: Head and neck soft tissues remain unremarkable. There is some normal variant skeletal muscle uptake about the shoulders. There is a small new right pleural effusion. A tiny sliver of pleural fluid is noted on the left. A moderate size hiatal hernia is noted. No abnormal pulmonary parenchymal hypermetabolic uptake is seen. No hilar or mediastinal josie hypermetabolic uptake is appreciated. There is a right-sided Iishoc-J-Pqhc catheter. No abnormal hypermetabolic uptake is seen in the liver. Normal splenic uptake is observed. The left lower quadrant colostomy is noted. No hypermetabolic uptake is seen in retroperitoneal or upper abdominal lymph nodes. No abnormal abdominal wall mass is seen. There is hypermetabolic uptake again noted in the rectosigmoid colon and in the region of the anus corresponding with the patient's known malignancy. Maximum standard uptake value in the region of the anal uptake is 22.43. The more rectal uptake shows maximum standard uptake value of 21.7. These values are essentially unchanged, previously 19.3. There is no evidence of adenopathy either on CT images or scintigraphy images. No other abnormal hypermetabolic uptake is appreciated within the pelvis. No abnormal skeletal hypermetabolic uptake is seen. IMPRESSION: There is persistent abnormal hypermetabolic uptake in the region of the anus and rectum. This is essentially unchanged from comparison PET/CT. No other abnormal hypermetabolic uptake is appreciated. There is a small right and a tiny left pleural effusion noted today. Electronically Signed by Reece Jarrell MD 06/22/2019 06:01 P
== END ==
LOC: M PLARAD 08:05
PROVIDERS: ATTEND Internal Medicine Medical Oncology
DX: C19 Malignant neoplasm of rectosigmoid junction (principal)
CPT/HCPCS: 78815; A9552

== ENCOUNTER → 2019-07-15 | Outpatient (CLI) | payer MEDICARE ==
--- NOTE | 2019-07-15 14:45 | RADONC ---
RADIATION ONCOLOGY CONSULTATION NOTE DATE OF SERVICE: 07/15/2019 CHART NUMBER: [id number] DIAGNOSIS: Rectal cancer. STAGE: Stage III B, [id number]. ECOG PERFORMANCE STATUS: 0. CONSULTATION NOTE: Ms. 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 Since her initial visit, the decision was made to have the patient undergo neoadjuvant FOLFOX. She underwent FOLFOX but subsequently developed refractor Clostridium (C.) difficile, which resulted in pseudomembranous colitis and obstructive bowel. On 04/20/2019, the patient underwent a colectomy and diverting colostomy. The patient reports that after her last course of vancomycin, she has had no usual smelling bowel movements or diarrhea. She reports that her colostomy is working well. More recently, a CT scan of the chest, abdomen and pelvis was done on June 11, 2019, none of which showed any evidence of metastatic disease. There was no evidence of lymphadenopathy. There was no focal inflammatory stranding or obvious recurrence. On 06/22/2019, the patient had a PET CT scan done, which showed no evidence of metastatic disease. There continued to be persistent abnormal hypermetabolic uptake in the region of the rectum with an SUV value essentially unchanged at 19.3. Previous SUV value was 21.7. The patient is now presenting to me to discuss the possibility of external beam radiation therapy combined with chemotherapy as a therapeutic option. I had a very lengthy discussion with this patient. Apparently, other than her C diff., she has been in generally good health. Indeed the patient has a history of some hypertension and diabetes, as well as arthritis but no significant heart problems or kidney problems or other illnesses. I am unsure of why her previous colorectal surgeon said she would not be a candidate for surgery due to comorbidities. Indeed, the C diff developed after initiation of chemotherapy and was not of factor in that decision. Indeed, she underwent diverting colostomy and colectomy without significant difficulties for her C. Diff. In light of the fact that there is no evidence of metastatic disease and indeed her initial stage was a III B, [id number] rectal cancer with subsequent scanning, including the most recent CT scan showing only localized disease, I think she should be reevaluated at a major center to see whether or not she would be a surgical candidate. Clearly, we cannot control this and this would not be curable with radiation and chemo alone. Indeed, we continued to have hypermetabolic uptake, which is largely unchanged after FOLFOX chemotherapy. I am therefore referring this patient to the [facility] in [place] for evaluation for the possibility of surgical resection following preoperative radiation therapy and chemo sensitizing agent. I have discussed this case at length with her medical oncologist, Dr. Enamorado. I do wish to confirm whether or not this woman qualifies for surgery prior to deciding simply to give palliative radiation therapy. I have placed this patient in addition for discussion on our multidisciplinary tumor conference. I have spoken with the patient in detail about the potential benefits, as well as possible acute and chronic sequelae of external beam radiation therapy. We discussed the risks of radiation after colitis and will take great care to stay off her small bowel with our radiation knight, which will be limited. I am scheduling her for simulation initiation of treatment planning. Clearly, if she receives preoperative radiation or palliative radiation, the planning should be the same, and we will take great care to avoid her small bowel and unnecessary GI tract regions. I look forward to the expert opinion of the colorectal service at [facility], as well as discussion at our multidisciplinary tumor conference. cc: MD Amanda Barnes MD
== END ==
LOC: M ONCR 08:49
PROVIDERS: ATTEND Radiology Radiation Oncology
DX: C20 Malignant neoplasm of rectum (principal)

== ENCOUNTER 2019-07-27 10:16 | Outpatient (RCR) | payer MEDICARE | END 2019-08-07 | LOC: M ONCR 10:16 | PROVIDERS: ATTEND Radiology Radiation Oncology | DX: C20 Malignant neoplasm of rectum (principal) ==

== ENCOUNTER → 2019-09-07 | Outpatient (RCR) | payer MEDICARE ==
--- NOTE | 2019-08-10 13:12 | RADONC ---
RADIATION ONCOLOGY PROGRESS NOTE DATE OF SERVICE: 08/09/2019 CHART NUMBER: [id number] Ms. Blackwell has undergone her first fraction of radiation today to her rectum. It was tolerated without difficulty or discomfort. The patient's review of systems is noncontributory. Denies nausea, vomiting, fevers, chills, night sweats, diplopia, headaches, anxiety or depression, anorexia, weight loss, visual disturbances, chest pain, urinary or bowel difficulties, bone pain, or neurological problems. PHYSICAL EXAMINATION Clearly, there is no evidence of radiation change present as this was her first fraction. The remainder of her physical exam remains unchanged. I had a discussion with the patient who has not started Xeloda. She has seen the surgeon in [place] who is planning on doing surgery. We are attempting to get the records from [place] with his dictation. In addition, I will be speaking with her medical oncologist to see whether or not Xeloda is planned. Standardly, we would; however, I believe her medical oncologist, Dr. Enamorado, is having some reservations considering her difficulties with Clostridium (C.) difficile. In the meantime, radiation will continue as scheduled.
--- NOTE | 2019-08-17 15:58 | RADONC ---
RADIATION ONCOLOGY PROGRESS NOTE DATE: 08/16/2019 CHART NUMBER: [id number] Ms. Blackwell is presently at a dose of 1080 cGy to her rectum and is tolerating treatments quite well at this point with no complaints related to her radiation therapy. She is having no rectal pain or other problems. The patient's review of systems is noncontributory. She denies nausea, vomiting, fevers, chills, night sweats, diplopia, headaches, anxiety or depression, anorexia, weight loss, visual disturbances, chest pain, urinary or bowel difficulties, bone pain, or neurological problems. PHYSICAL EXAMINATION: The patient's skin is in good condition with no evidence of moist or dry desquamation. The remainder of her physical exam remains unchanged. Ms. Blackwell is tolerating treatments quite well and radiation will continue as scheduled. As per multiple discussions with her medical oncologist, Dr. Amanda Enamorado, radiation sensitizing chemotherapy is being withheld. The concern is another flare up of C. difficile which has caused this patient any problems and was worsened by her previous chemotherapy. We therefore are planning to continue with radiation without chemotherapy sensitization.
--- NOTE | 2019-08-30 14:35 | RADONC ---
RADIATION ONCOLOGY PROGRESS NOTE DATE: 08/30/2019 CHART NUMBER: [id number] PROGRESS NOTE: Ms. Blackwell is presently at a dose of 2520 cGy to her rectum and is tolerating her treatments fairly well with some burning upon urination. REVIEW OF SYSTEMS: The patient's review of systems is positive for some burning on urination but is otherwise noncontributory. Denies nausea, vomiting, fevers, chills, night sweats, diplopia, headaches, anxiety or depression, anorexia, weight loss, visual disturbances, chest pain, urinary or bowel difficulties, bone pain, or neurological problems. PHYSICAL EXAMINATION: The physical examination was deferred secondary to COVID-19 precautions. ASSESSMENT: Ms. Blackwell is tolerating treatments quite well and radiation will continue as scheduled.
--- NOTE | 2019-09-06 14:02 | RADONC ---
RADIATION ONCOLOGY PROGRESS NOTE DATE: 09/06/2019 CHART NUMBER: [id number] Ms. Blackwell is thus far at a dose of 3240 cGy to her rectum and was last treated on 09/03/2019. She was not treated today secondary to machine breakdown. As of Friday she was tolerating her treatments quite well with no significant difficulties related to her radiation therapy. The patient is scheduled for reinitiation of treatment tomorrow.
== END ==
LOC: M ONCR 08-09 11:04
PROVIDERS: ATTEND Radiology Radiation Oncology
DX: C20 Malignant neoplasm of rectum (principal)

== ENCOUNTER 2019-09-15 11:07 | Outpatient (RCR) | payer MEDICARE ==
--- NOTE | 2019-09-14 08:16 | RADONC ---
RADIATION ONCOLOGY PROGRESS NOTE: DATE OF SERVICE: 09/13/2019 CHART NUMBER: [id number] Ms. Blackwell is presently at a dose of 4140 cGy to her rectum and is tolerating treatments quite well at this point with no significant difficulties related to her radiation therapy. She does have some tenderness with bowel movements. Physical examination was deferred at this point for COVID-19 precautions. The patient is scheduled to continue with her treatment as scheduled. I have reviewed the patient's vital signs in our treatment records. Apparently, her weight showed a typographical error 08/16/2019. She appears to have been stable in weight from 07/15/2019 to 08/23/2019. Yesterday's journal has not been entered by our nurse and I will investigate that as well. In the meantime radiation will continue as scheduled.
--- NOTE | 2019-09-15 13:28 | RADONC ---
RADIATION ONCOLOGY TREATMENT SUMMARY DATE: 09/15/2019 CHART #: [id number] DIAGNOSIS: Rectal cancer. STAGE: III B, H2E3pN2. ECOG PERFORMANCE STATUS: 0. TREATMENT SUMMARY: Ms. Blackwell is a very pleasant 78-year-old white female with the diagnosis of an initially stage III B, [id number], moderately differentiated adenocarcinoma of the rectum who presented to us for consideration of preoperative external beam radiation therapy combined with chemotherapy as a therapeutic option. We treated the patient to her rectum for a total dose of 4500 cGy delivered in 25 fractions of 180 cGy each over 37 elapsed days from 08/09/2019 through 09/15/2019. The patient's rectum was treated on a linear accelerator utilizing 3-D conformal technique with a 15 MV photon beam via posterior left and right lateral knight. Ms. Blackwell tolerated her treatments quite well and was able complete therapy as prescribed without difficulties. I have scheduled the patient to see me again in 1 month for further followup. She will also continue to be followed by her other physicians as well. As per my discussion with her, she is scheduled to see her surgeon in [place] who is planning on scheduling her for her resection. cc: MD Amanda Barnes MD Steven Nurkin, MD
== END 2019-10-07 ==
LOC: M ONCR 11:07
PROVIDERS: ATTEND Radiology Radiation Oncology
DX: C20 Malignant neoplasm of rectum (principal)

== ENCOUNTER → 2019-10-20 | Outpatient (CLI) | payer MEDICARE ==
[~2019-10-20] MED LIST changes: +OXYC-1 PO; +PRED10TA2 PO
--- NOTE | 2019-10-25 09:53 | RADONC ---
RADIATION ONCOLOGY TELEPHONE FOLLOWUP NOTE DATE: 10/20/2019 This is a telemedicine visit. The patient was informed of the risks including security breech, technological failure, inability to perform a comprehensive physical exam which could delay or prevent an accurate diagnosis, and potential complications from treatment decisions rendered over a telemedicine platform. The patient understands and consented to the use of telehealth services phone only. CHART #: [id number] DIAGNOSIS: Rectal cancer. STAGE: Initial III B, T3, N1b, M0. ECOG PERFORMANCE STATUS: 0. FOLLOWUP NOTE: Ms. Blackwell is a very pleasant 78-year-old white female with the diagnosis of what initially was thought to be a stage III B, T3, N1b, M0, moderately differentiated adenocarcinoma of the rectum who is presenting to me today for followup visit 1 month post completion of preoperative radiation therapy with concomitant chemotherapy. The patient presents today reporting that she is having chronic rectal pain. Her medical oncologist gave her narcotics, but that caused constipation and she stopped using them after 3 days. She reports that she has also had problems with Advil. She reports that the pain in the radiated area is keeping her from sleeping and causing loss of [id number]-ld-yxbs. She is having no blood, urinary problems or other bowel problems at this time. She is taking stool softeners and bowel movements are okay. REVIEW OF SYSTEMS: The patient's review of systems is otherwise noncontributory. Denies nausea, vomiting, fevers, chills, night sweats, diplopia, headaches, anxiety or depression, anorexia, weight loss, visual disturbances, chest pain, urinary or bowel difficulties, bone pain, or neurological problems. PHYSICAL EXAMINATION: The patient's physical examination was deferred at this time secondary to COVID-19 precautions. This was a telephone consult. ASSESSMENT: The patient is scheduled to be seen by her surgeon on November 10 for a full evaluation. A CT scan of the chest, abdomen and pelvis will be done initially followed by a scoping and visit with the surgeon to discuss surgery and its possibility. I am concerned about the patient's discomfort at this point and I suspect that this is radiation inflammation. I have sent in a prescription for prednisone to begin today. I have recommended 20 mg of prednisone daily and we will begin that this afternoon. I have set her up for a followup visit with me on a weekly basis until this pain is resolved. I have given her enough pills to increase the dose if necessary and have confirmed with her the need for a tapering schedule and routine followup. The patient has been given my cell phone number once again as well as office number and told to contact our office to let us know if the pills are not working. I made clear that I want to follow her closely until we get her over this acute inflammation. Once again, the patient is scheduled to see me again on a weekly basis and we began with prednisone. She has been instructed to contact me on a p.r.n. basis throughout this week. In addition, she is scheduled to see her surgeon on November 10 for scheduling of her resection. She will also continue her close followup with her medical oncologist, Dr. Amanda Enamorado. cc: MD Amanda Barnes MD
== END ==
LOC: M ONCR 10:07
PROVIDERS: ATTEND Radiology Radiation Oncology
DX: C20 Malignant neoplasm of rectum (principal)

== ENCOUNTER 2020-01-01 14:02 | Emergency (ER) | payer MEDICARE ==
[~2020-01-01 14:02] MED LIST changes: +ACET650T61 PO; +AMLO1TAB24 PO; -AMLO5TAB6 PO; +PANT40TA29 PO; -PANT40TA3 PO; -TYLE650T35 PO
== END 2020-01-01 16:45 | disposition home or self-care (01) ==
LOC: M ED 14:02
DX: L76.32 Postprocedural hematoma of skin and subcutaneous tissue following other procedure (principal); I10 Essential (primary) hypertension; E78.5 Hyperlipidemia, unspecified; Z85.048 Personal history of other malignant neoplasm of rectum, rectosigmoid junction, and anus; Z79.899 Other long term (current) drug therapy

== ENCOUNTER → 2020-09-12 | Outpatient (CLI) | payer MEDICARE ==
[~2020-09-12] MED LIST changes: +GASTROGRAFIN SOLUTION 30ML (Q9963) As Ordered ONE; +ISOVUE-370 76% 100ML VIAL As Ordered ONE; -MAG400TA PO; +MAGN400T35 PO; +METF500T13 PO; +NEUR100C PO
--- NOTE | 2020-09-12 17:54 | REP ---
INDICATION: COLORECTAL CA. COMPARISON: Chest CT studies dated 06/11/2019 and 03/25/2019. TECHNIQUE: CT of the chest with IV contrast. FINDINGS: There are small bilateral pleural effusions as a change from the prior studies. There is a 3 mm pleural-based nodule peripherally in the left lower lobe on image 63, not present on the comparison studies. There is a small 3 mm nodule posteriorly in the right middle lobe on image 47, unchanged from both prior studies. This is likely a granuloma. On 03/25/2019 there was a tiny lung nodule posteriorly in the left lower lobe on image 46. This was no longer present on 06/11/2019 there is no longer present today, likely transient atelectasis. There is no mediastinal or hilar lymph node enlargement. There is no axillary lymphadenopathy. The thoracic aorta is unremarkable. Cardiac size is normal. There is no pericardial effusion. There is a fixed hiatal hernia, unchanged. There are no lytic, blastic or destructive skeletal changes. IMPRESSION: There are new small bilateral pleural effusions. There are no infiltrates. There is a 3 mm pleural based nodule peripherally in the left lower lobe, not present previously. There is a 3 mm granuloma in the right lung as described. There are no other lung nodules or masses. There is no lymphadenopathy. There are no lytic, blastic or destructive skeletal changes. There is a fixed hiatal hernia, unchanged. <Electronically signed by Quan Corona > 09/12/20 [id number]
--- NOTE | 2020-09-12 18:13 | REP ---
INDICATION: COLORECTAL CA. COMPARISON: Abdomen and pelvis CT studies dated 06/11/2019 and 04/15/2019. TECHNIQUE: Abdomen/pelvis CT with IV and bowel contrast during the portal venous phase of enhancement and repeat scanning the abdomen after a delay during the renal excretion phase of enhancement. FINDINGS: There is a left hemicolectomy and colostomy, unchanged. Additionally there is a cholecystectomy and appendectomy. The visualized hepatic parenchyma is homogeneous. There are small bilateral pleural effusions as a change from the prior study. There is a fixed hiatal hernia, unchanged. There are no hepatic metastases. There is a focal small enhancing subcapsular lesion anteriorly in the left lobe of the liver, unchanged, previously described as a small hemangioma. The pancreas and spleen are normal size and unremarkable. There is a fixed hiatal hernia, unchanged. The adrenals and kidneys are unremarkable. The abdominal aorta is unremarkable. There is no periaortic adenopathy or mass. The bowel and mesentery are unremarkable. There is no ascites. There is a fat containing umbilical hernia measuring approximately 3.4 cm, unchanged. Pelvis: The uterus, adnexa and bladder are unremarkable. There is no pelvic adenopathy or ascites. There are stranding densities into the pararenal fat as an interval change, possibly post radiation change. No focal nodule or mass is identified. There are no lytic, blastic or destructive skeletal changes. There is multilevel degenerative disc disease in the lumbar spine IMPRESSION: There is stranding into the perirectal fat as an interval change, possibly postradiation change. There are small bilateral pleural effusions as an interval change. Fixed hiatal hernia, unchanged. Fat containing umbilical hernia, unchanged. Small subcapsular hepatic hemangioma, unchanged. No ascites, adenopathy or metastatic disease. <Electronically signed by Quan Corona > 09/12/20 [id number]
== END ==
LOC: M RAD 14:15
PROVIDERS: ATTEND Internal Medicine Medical Oncology
DX: C18.9 Malignant neoplasm of colon, unspecified (principal)
CPT/HCPCS: 71260; 74177; J1642; Q9963; Q9967

== ENCOUNTER → 2020-12-04 | Outpatient (CLI) | payer MEDICARE ==
[~2020-12-04] MED LIST changes: +BUME1TAB3 PO; +CARV3.12 PO; +ENTR1TAB PO; -GASTROGRAFIN SOLUTION 30ML (Q9963) As Ordered ONE; +IPRA0.00 NEB; -ISOVUE-370 76% 100ML VIAL As Ordered ONE; +MECL-136 PO; +NEUR300C PO; +POTA20TA6 PO; +PROAAER10 INH; +TRAZ-252 PO
--- NOTE | 2020-12-05 10:46 | REP ---
INDICATION: RESTAGING COLON CANCER C18.8. Patient is status post robotic abdominal peroneal resection December of 2019 for rectal adenocarcinoma with adjacent vaginal invasion. Status post neoadjuvant radiation and chemotherapy. COMPARISON: Comparison PET-CT study is from 22 June 2019. Comparison PET-CT study is also reviewed from December 30, 2018. Most recent comparison chest abdomen pelvis CT study September 12, 2020.. TECHNIQUE: Sixty-two minutes following the intravenous injection of a 8.60 mCi dose of F-18 FDG, three-dimensional PET scintigraphy is acquired from the skull base to the proximal thighs. Triplanar noncontrast CT scanning is acquired through the same anatomic range for attenuation correction, and image registration with scan parameters optimized to minimize radiation exposure to the patient. PET scintigraphy and CT datasets were fused and displayed on a workstation with multiplanar and projection display capability. FINDINGS: Head and neck soft tissues are unremarkable. There is arthropathy associated uptake about the shoulders. A right-sided Jcopse-O-Dzwl catheter is seen in place with its tip in the superior vena cava. No hypermetabolic uptake is seen within the mediastinum or in either lung hilus. There is a large sliding-type hiatal hernia. No abnormal pulmonary parenchymal hypermetabolic uptake is appreciated. In the abdomen and pelvis there is normal distribution to the liver, spleen, gastrointestinal, and genitourinary tract. There is a parastomal hernia in the left lower quadrant trans Rios nonobstructed small and large bowel loops. There is a ventral periumbilical hernia trans Rios some abdominal fat. No hypermetabolic josie uptake is seen in the upper abdomen. In the pelvis there is postoperative soft tissue fibrosis and/or granulation tissue post abdominal perineal resection. There is some slightly increased uptake in this tissue posterior to the bladder. The proximity of the physiologic activity in the bladder may artificially elevate this and this is of uncertain significance. There is no definite mass effect. Maximum SUV value here is 5.85. No inguinal or pelvic josie hypermetabolic uptake is seen. No abnormal skeletal hypermetabolic uptake is appreciated. IMPRESSION: Status post abdominal peroneal resection. AP resection bed activity of uncertain significance without obvious mass effect. See discussion above. No other abnormal hypermetabolic uptake is seen. <Electronically signed by Michael Jarrell > 12/05/20 [id number]
== END ==
LOC: M PLARAD 11:53
PROVIDERS: ATTEND Internal Medicine Medical Oncology
DX: C18.8 Malignant neoplasm of overlapping sites of colon (principal)
CPT/HCPCS: 78815; A9552

== ENCOUNTER → 2021-01-16 | Outpatient (CLI) | payer MEDICARE ==
[~2021-01-16] MED LIST changes: +PROHANCE 279.3MG/ML 15ML VIAL As Ordered ONE; +PROHANCE 279.3MG/ML 5ML VIAL As Ordered ONE
--- NOTE | 2021-01-17 08:13 | REP ---
INDICATION: INCREASING CEA, COLON CA. COMPARISON: Comparison is made with CT study of the pelvis from September 12, 2020 and PET-CT study dated December 04, 2020. June 11, 2019 CT study is also reviewed. TECHNIQUE: Axial and sagittal and coronal images are utilized. T1 and T2 weighted sequences include spin echo, turbo spin echo, inversion recovery, diffusion, and post gadolinium enhanced T1 fat sat images. Gadolinium enhancement dose is 20 mL of intravenous ProHance.. FINDINGS: Cortical and medullary bone signal intensity are normal in the visualized pelvis. There is no evidence of pelvic mass or adenopathy. The patient is status post abdominal peroneal resection. No abnormality is noted in the cervix or uterus. It is displaced posteriorly as expected post AP resection. The urinary bladder is intact. No perineal mass is appreciated. There is postoperative granulation tissue in the presacral space, somewhat eccentric to the right but unchanged from the September 12, 2020 CT study. No mass lesion or pelvic adenopathy is seen. Postcontrast images show no evidence of pelvic mass or adenopathy. IMPRESSION: No evidence of mass or adenopathy seen. Postoperative changes in the presacral soft tissues as expected post AP resection. <Electronically signed by Michael Jarrell > 01/17/21 0809
== END ==
LOC: M RAD 15:44
PROVIDERS: ATTEND Internal Medicine Medical Oncology
DX: C18.9 Malignant neoplasm of colon, unspecified (principal); R97.0 Elevated carcinoembryonic antigen [CEA]; Z98.890 Other specified postprocedural states
CPT/HCPCS: 72197; A9576

== ENCOUNTER → 2021-05-07 | Outpatient (CLI) | payer MEDICARE ==
[~2021-05-07] MED LIST changes: +EZET10TA21 PO; +LEVO50TA5 PO; +MAGN400T2 PO; +NITR-67 PO; +ONDA-84 PO; +POTA-151 PO; -POTA20TA6 PO; -PROC10TA4 PO; +PROC10TA5 PO; -PROHANCE 279.3MG/ML 15ML VIAL As Ordered ONE; -PROHANCE 279.3MG/ML 5ML VIAL As Ordered ONE
== END ==
LOC: M PLARAD 07:52
PROVIDERS: ATTEND Internal Medicine Medical Oncology
DX: C18.8 Malignant neoplasm of overlapping sites of colon (principal)
CPT/HCPCS: 78815; A9552

== ENCOUNTER → 2021-10-01 | Outpatient (CLI) | payer MEDICARE ==
[~2021-10-01] MED LIST changes: +CLOT1CRE56 TOP
== END ==
LOC: M PLARAD 08:59
PROVIDERS: ATTEND Internal Medicine Medical Oncology
DX: C20 Malignant neoplasm of rectum (principal); I51.7 Cardiomegaly; I25.10 Atherosclerotic heart disease of native coronary artery without angina pectoris; K44.9 Diaphragmatic hernia without obstruction or gangrene
CPT/HCPCS: 78815; A9552

== ENCOUNTER → 2022-01-16 | Outpatient (CLI) | payer MEDICARE ==
[~2022-01-16] MED LIST changes: +GASTROGRAFIN SOLUTION 30ML (Q9963) As Ordered ONE; +ISOVUE-370 76% 100ML VIAL As Ordered ONE
== END ==
LOC: M RAD 14:03
PROVIDERS: ATTEND Internal Medicine Medical Oncology
DX: C20 Malignant neoplasm of rectum (principal); R91.1 Solitary pulmonary nodule
CPT/HCPCS: 71260; 74177; Q9963; Q9967

== ENCOUNTER → 2022-04-23 | Outpatient (CLI) | payer MEDICARE ==
[~2022-04-23] VITALS: Ht 154.9 cm; Wt 125.9 kg
[~2022-04-23] MED LIST changes: +CALC-175; +CARV6.25; +CLIN1GEL3 TOP; +CLIN30GE TP; +DILT-65; +FIDA200TA PO; +FLUO-215 TOP; -GASTROGRAFIN SOLUTION 30ML (Q9963) As Ordered ONE; +HYDR-3363; +HYDR25OIN TOP; +HYDR28CR33 TOP; -ISOVUE-370 76% 100ML VIAL As Ordered ONE; +LOMO2.5T PO; +XARE15TA
[2022-04-23 10:11] VITALS: BP 128/78
== END ==
LOC: M PAL 09:47
PROVIDERS: ATTEND Nurse Practitioner Adult Health
DX: C20 Malignant neoplasm of rectum (principal); E11.9 Type 2 diabetes mellitus without complications; I48.91 Unspecified atrial fibrillation; I10 Essential (primary) hypertension; K91.5 Postcholecystectomy syndrome; L85.3 Xerosis cutis; L89.152 Pressure ulcer of sacral region, stage 2; L89.321 Pressure ulcer of left buttock, stage 1; M19.90 Unspecified osteoarthritis, unspecified site; Z51.5 Encounter for palliative care; Z66 Do not resuscitate; Z79.51 Long term (current) use of inhaled steroids; Z88.0 Allergy status to penicillin; Z88.1 Allergy status to other antibiotic agents; Z88.2 Allergy status to sulfonamides; Z88.5 Allergy status to narcotic agent; Z79.84 Long term (current) use of oral hypoglycemic drugs; Z95.0 Presence of cardiac pacemaker; Z92.21 Personal history of antineoplastic chemotherapy; Z96.653 Presence of artificial knee joint, bilateral; Z80.42 Family history of malignant neoplasm of prostate; Z80.0 Family history of malignant neoplasm of digestive organs; Z79.899 Other long term (current) drug therapy

== ENCOUNTER → 2022-06-11 | Outpatient (CLI) | payer MEDICARE ==
[~2022-06-11] MED LIST changes: +ALBU6.7H6 INH; +DOXY100C81 PO; +FLUOCRE TOP; +PRED20TA PO; +VENL37TA PO
== END ==
LOC: M PAL 07:47
PROVIDERS: ATTEND Nurse Practitioner Family
DX: C20 Malignant neoplasm of rectum (principal); Z51.5 Encounter for palliative care; R21 Rash and other nonspecific skin eruption; Z95.0 Presence of cardiac pacemaker; I10 Essential (primary) hypertension; M19.90 Unspecified osteoarthritis, unspecified site; Z90.89 Acquired absence of other organs; Z90.49 Acquired absence of other specified parts of digestive tract; E11.9 Type 2 diabetes mellitus without complications; Z80.0 Family history of malignant neoplasm of digestive organs; Z80.42 Family history of malignant neoplasm of prostate; Z92.21 Personal history of antineoplastic chemotherapy; Z96.653 Presence of artificial knee joint, bilateral

== ENCOUNTER → 2022-06-25 | Outpatient (CLI) | payer MEDICARE ==
[~2022-06-25] MED LIST changes: +DOXY-444 PO; +GASTROGRAFIN SOLUTION 30ML As Ordered ONE; +ISOVUE-370 76% 100ML VIAL As Ordered ONE
== END ==
LOC: M RAD 10:56
PROVIDERS: ATTEND Nurse Practitioner
DX: C18.9 Malignant neoplasm of colon, unspecified (principal)
CPT/HCPCS: 71260; 74177; Q9963; Q9967

== ENCOUNTER → 2022-07-17 | Outpatient (CLI) | payer MEDICARE ==
[~2022-07-17] MED LIST changes: +AZIT-12 PO; -GASTROGRAFIN SOLUTION 30ML As Ordered ONE; -ISOVUE-370 76% 100ML VIAL As Ordered ONE
== END ==
LOC: M PAL 08:36
PROVIDERS: ATTEND Nurse Practitioner Adult Health
DX: C20 Malignant neoplasm of rectum (principal); Z51.5 Encounter for palliative care; R21 Rash and other nonspecific skin eruption; R61 Generalized hyperhidrosis; Z95.0 Presence of cardiac pacemaker; I10 Essential (primary) hypertension; M19.90 Unspecified osteoarthritis, unspecified site; Z90.89 Acquired absence of other organs; Z90.49 Acquired absence of other specified parts of digestive tract; E11.9 Type 2 diabetes mellitus without complications; Z80.0 Family history of malignant neoplasm of digestive organs; Z80.42 Family history of malignant neoplasm of prostate; Z92.21 Personal history of antineoplastic chemotherapy; Z96.653 Presence of artificial knee joint, bilateral; Z88.0 Allergy status to penicillin; Z88.2 Allergy status to sulfonamides; Z88.1 Allergy status to other antibiotic agents; Z88.5 Allergy status to narcotic agent; Z79.899 Other long term (current) drug therapy; Z79.891 Long term (current) use of opiate analgesic; Z79.51 Long term (current) use of inhaled steroids; R11.0 Nausea

== ENCOUNTER → 2022-08-08 | Outpatient (CLI) | payer MEDICARE ==
[~2022-08-08] MED LIST changes: -DULE100A INH; -FLUO-215 TOP; +FLUO5OI TOP; +MOME13HF8 INH
== END ==
LOC: M PAL 09:14
PROVIDERS: ATTEND Nurse Practitioner Adult Health
DX: C20 Malignant neoplasm of rectum (principal); Z51.5 Encounter for palliative care; R21 Rash and other nonspecific skin eruption; R61 Generalized hyperhidrosis; Z95.0 Presence of cardiac pacemaker; I10 Essential (primary) hypertension; M19.90 Unspecified osteoarthritis, unspecified site; Z90.89 Acquired absence of other organs; Z90.49 Acquired absence of other specified parts of digestive tract; Z92.21 Personal history of antineoplastic chemotherapy; Z96.653 Presence of artificial knee joint, bilateral; Z88.0 Allergy status to penicillin; Z88.1 Allergy status to other antibiotic agents; Z88.2 Allergy status to sulfonamides; Z79.891 Long term (current) use of opiate analgesic; Z79.899 Other long term (current) drug therapy; Z88.5 Allergy status to narcotic agent; Z79.51 Long term (current) use of inhaled steroids; R11.0 Nausea; Z66 Do not resuscitate

== ENCOUNTER 2022-08-28 11:44 | Outpatient (CLI) | payer MEDICARE ==
[2022-08-28 11:40] VITALS: BP 168/71
[2022-08-28] MEDS ORDERED: SODIUM CHLORIDE 0.9% INJ 10 ML SYR IV PRN (12:25)
[2022-08-28] MEDS: MAG SULF 1GM/100ML (MAG RUN) X 2 DOSES (2GM TOTAL) IV SCH ×4 (12:25→13:21)
[2022-08-28 14:35] VITALS: BP 151/65
[2022-08-29] MEDS ORDERED: SODIUM CHLORIDE 0.9% INJ 10 ML SYR IV SCH (09:00)
== END 2022-08-28 14:35 | disposition home or self-care (01) ==
LOC: M INFU 11:44
PROVIDERS: ATTEND Internal Medicine Medical Oncology
DX: C20 Malignant neoplasm of rectum (principal); Z88.0 Allergy status to penicillin; Z88.1 Allergy status to other antibiotic agents; Z88.2 Allergy status to sulfonamides; Z88.5 Allergy status to narcotic agent
CPT/HCPCS: 36591; 83735; 96365; 96366; J1642; J3475

== ENCOUNTER 2022-09-04 09:43 | Observation (INO) | payer MEDICARE ==
[~2022-09-04] VITALS: Ht 154.9 cm; Wt 116.7 kg
[~2022-09-04 09:43] MED LIST changes: -HYDR-3363; +HYDR-3363 PO; +VITMTA PO; -XARE15TA; +XARE15TA PO
[2022-09-04] MEDS ORDERED: MAG SULF 1GM/100ML (MAG RUN) 1 GM in IV 1 EA IV ONE ×3 (10:25→11:55)
[2022-09-04 11:17] LABS: TOTAL 25(OH) VITAMIN D 38.6 NG/ML (20.0-100.0)
[2022-09-04] MEDS ORDERED: POTASSIUM CHLORIDE 10MEQ SR TABLET PO ONE (11:55)
[2022-09-04] MEDS ORDERED: GLUCOSE 4GM CHEW TABLET PO PRN (11:55)
[2022-09-04] MEDS ORDERED: MAGNESIUM OXIDE 400MG TAB (MAG-OX) PO ONE (11:55)
[2022-09-04] MEDS ORDERED: ACETAMINOPHEN TAB 650MG DOSE (2X325MG) PO PRN (11:55)
[2022-09-04] MEDS ORDERED: DEXTROSE 50% 50ML SYRINGE IV PRN (11:55)
[2022-09-04] MEDS ORDERED: GLUCAGON INJ 1MG VIAL SC PRN (11:55)
[2022-09-04] MEDS ORDERED: CALCIUM GLUCONATE 1,000 MG in D5W MINI-BAG PLUS 100 ML IV ONE ×2 (11:55→21:00)
[2022-09-04] MEDS: INSULIN LISPRO (NovoLOG) PER UNIT SC SCH ×2 (12:00→17:13)
[2022-09-04] MEDS ORDERED: BUDE10.7 INH (12:21)
[2022-09-04] MEDS ORDERED: ONDA-196 PO (12:21)
[2022-09-04] MEDS ORDERED: HYDR25OIN TOP (12:24)
[2022-09-04] MEDS ORDERED: PANT-23 PO (12:24)
[2022-09-04] MEDS ORDERED: HOME MED LIST COMPLETE! XX SCH (12:25)
[2022-09-04 12:41] LABS: RSV AMPLIFICATION NEGATIVE (NEGATIVE)
[2022-09-04 12:44] LABS: ALKALINE PHOSPHATASE 78 U/L (46-116); ALT/SGPT 11 U/L (7.0-40); AST/SGOT 14 U/L (<34); BILIRUBIN,TOTAL 0.5 MG/DL (0.3-1.2); BLOOD UREA NITROGEN 8 MG/DL (9-23); CALCIUM LEVEL 5.2 MG/DL (8.3-10.6); CARBON DIOXIDE LEVEL 23 MMOL/L (20-31); CHLORIDE LEVEL 108 MMOL/L (98-107); CREATININE FOR GFR 0.62 MG/DL (0.55-1.30); GLOMERULAR FILTRATION RATE > 60.0 (>32); GLUCOSE, FASTING 109 MG/DL (74-106); POTASSIUM SERUM 3.3 MMOL/L (3.5-5.1); SODIUM LEVEL 142 MMOL/L (136-145)
[2022-09-04] MEDS ORDERED: ACETAMINOPHEN 650MG ER TAB (TYLENOL ARTHRITIS) PO PRN (12:55)
[2022-09-04] MEDS ORDERED: ALBUTEROL 90 MCG/ACT 8GM HFA INHALER INH PRN (12:55)
[2022-09-04] MEDS ORDERED: PROCHLORPERAZINE 5MG TAB PO PRN (12:55)
[2022-09-04] MEDS ORDERED: IPRATROPIUM 0.5MG/ALBUTEROL 2.5MG INH SOL UD 3ML (DUONEB) NEB PRN (12:55)
[2022-09-04] MEDS ORDERED: SODIUM CHLORIDE 0.9% INJ 10 ML SYR IV PRN (14:40)
[2022-09-04 15:31] VITALS: BP 138/58
[2022-09-04] MEDS: EZETIMIBE 10MG TABLET (ZETIA) PO SCH (15:42)
[2022-09-04] MEDS: MULTIVITAMINS/MINERALS THERAP 1 TAB PO SCH (15:42)
[2022-09-04] MEDS: GABAPENTIN 300 MG CAP PO SCH ×2 (15:42→20:16)
[2022-09-04] MEDS: LEVOTHYROXINE 50MCG TABLET (0.05MG) PO SCH (16:27)
[2022-09-04] MEDS: BUMETANIDE 1 MG TAB PO SCH (17:12)
[2022-09-04] MEDS ORDERED: RIVAROXABAN 15MG TAB (XARELTO) PO SCH (18:00)
[2022-09-04 18:02] LABS: BLOOD UREA NITROGEN 7 MG/DL (9-23); CALCIUM LEVEL 6.2 MG/DL (8.3-10.6); CARBON DIOXIDE LEVEL 27 MMOL/L (20-31); CHLORIDE LEVEL 107 MMOL/L (98-107); CREATININE FOR GFR 0.64 MG/DL (0.55-1.30); GLOMERULAR FILTRATION RATE > 60.0 (>32); GLUCOSE, FASTING 130 MG/DL (74-106); MAGNESIUM LEVEL 1.1 MG/DL (1.8-2.4); SODIUM LEVEL 142 MMOL/L (136-145)
[2022-09-04] MEDS ORDERED: CALCIUM CARBONATE 500 MG CHEW U/D PO ONE (18:05)
[2022-09-04] MEDS: MAG SULF 1GM/100ML (MAG RUN) 1 GM in IV 1 EA IV SCH ×2 (18:32→20:16)
[2022-09-04 20:00] VITALS: BP 136/92
[2022-09-04] MEDS: NYSTATIN 100,000 UNITS/GM TOPICAL PWD 15GM TOP SCH (20:16)
[2022-09-04] MEDS ORDERED: INSULIN LISPRO (NovoLOG) PER UNIT SC SCH (21:00)
[2022-09-05] MEDS: LEVOTHYROXINE 50MCG TABLET (0.05MG) PO SCH (05:43)
[2022-09-05 05:49] LABS: HEMATOCRIT 31.8 % (36.0-47.0); HEMOGLOBIN 9.4 g/dl (12.0-15.5); MEAN CORPUSCULAR HEMOGLOBIN 25.5 pg (27.0-33.0); MEAN CORPUSCULAR HGB CONC 29.6 g/dl (32.0-36.5); MEAN CORPUSCULAR VOLUME 86.4 fl (80.0-96.0); PLATELET COUNT, AUTOMATED 273 10^3/uL (150-450); RED BLOOD COUNT 3.68 10^6/uL (4.00-5.40); WHITE BLOOD COUNT 5.9 10^3/uL (4.0-10.0)
[2022-09-05 06:14] LABS: ALKALINE PHOSPHATASE 82 U/L (46-116); ALT/SGPT 12 U/L (7.0-40); AST/SGOT 21 U/L (<34); BILIRUBIN,TOTAL 0.4 MG/DL (0.3-1.2); BLOOD UREA NITROGEN 7 MG/DL (9-23); CALCIUM LEVEL 6.4 MG/DL (8.3-10.6); CARBON DIOXIDE LEVEL 28 MMOL/L (20-31); CHLORIDE LEVEL 107 MMOL/L (98-107); CREATININE FOR GFR 0.59 MG/DL (0.55-1.30); GLOMERULAR FILTRATION RATE > 60.0 (>32); GLUCOSE, FASTING 86 MG/DL (74-106); MAGNESIUM LEVEL 1.1 MG/DL (1.8-2.4); POTASSIUM SERUM 3.7 MMOL/L (3.5-5.1); SODIUM LEVEL 141 MMOL/L (136-145); TOTAL PROTEIN 5.2 G/DL (5.7-8.2)
[2022-09-05 06:33] VITALS: BP 132/51
[2022-09-05] MEDS: INSULIN LISPRO (NovoLOG) PER UNIT SC SCH ×2 (07:30→13:15)
[2022-09-05] MEDS ORDERED: MAGNESIUM OXIDE 400MG TAB (MAG-OX) PO ONE (07:40)
[2022-09-05] MEDS: BUMETANIDE 1 MG TAB PO SCH (08:24)
[2022-09-05] MEDS: MULTIVITAMINS/MINERALS THERAP 1 TAB PO SCH (08:24)
[2022-09-05] MEDS: MAG SULF 1GM/100ML (MAG RUN) 1 GM in IV 1 EA IV SCH ×2 (08:24→08:28)
[2022-09-05] MEDS: EZETIMIBE 10MG TABLET (ZETIA) PO SCH (08:24)
[2022-09-05] MEDS: GABAPENTIN 300 MG CAP PO SCH (08:24)
[2022-09-05] MEDS: NYSTATIN 100,000 UNITS/GM TOPICAL PWD 15GM TOP SCH (08:25)
[2022-09-05] MEDS ORDERED: SODIUM CHLORIDE 0.9% INJ 10 ML SYR IV SCH (09:00)
[2022-09-05] MEDS ORDERED: CALCIUM GLUCONATE 1,000 MG in D5W MINI-BAG PLUS 100 ML IV ONE (10:00)
[2022-09-05] MEDS ORDERED: MAGN400T2 PO (10:45)
[2022-09-05 13:23] LABS: BLOOD UREA NITROGEN 6 MG/DL (9-23); CALCIUM LEVEL 6.7 MG/DL (8.3-10.6); CARBON DIOXIDE LEVEL 28 MMOL/L (20-31); CHLORIDE LEVEL 105 MMOL/L (98-107); CREATININE FOR GFR 0.64 MG/DL (0.55-1.30); GLOMERULAR FILTRATION RATE > 60.0 (>32); GLUCOSE, FASTING 119 MG/DL (74-106); MAGNESIUM LEVEL 1.4 MG/DL (1.8-2.4); POTASSIUM SERUM 3.4 MMOL/L (3.5-5.1); SODIUM LEVEL 140 MMOL/L (136-145)
[2022-09-05] MEDS ORDERED: POTASSIUM CHLORIDE 10MEQ SR TABLET PO ONE (13:40)
[2022-09-05] MEDS ORDERED: MAG SULF 1GM/100ML (MAG RUN) 1 GM in IV 1 EA IV ONE (13:40)
[2022-09-05 14:00] VITALS: BP 113/60
== END 2022-09-05 15:55 | disposition home or self-care (01) ==
LOC: M ED 09:43 → M ED INP 09:44 → M MSPAV 13:44 → ENRESERV 13:44 → M MSPAV 15:20
PROVIDERS: ADMIT Family Medicine; ATTEND Family Medicine
DX: E87.8 Other disorders of electrolyte and fluid balance, not elsewhere classified (principal); E87.6 Hypokalemia; E83.51 Hypocalcemia; E83.42 Hypomagnesemia; I10 Essential (primary) hypertension; I48.0 Paroxysmal atrial fibrillation; E11.9 Type 2 diabetes mellitus without complications; E03.9 Hypothyroidism, unspecified; J45.909 Unspecified asthma, uncomplicated; Z95.0 Presence of cardiac pacemaker; Z79.01 Long term (current) use of anticoagulants; Z79.84 Long term (current) use of oral hypoglycemic drugs; Z79.899 Other long term (current) drug therapy; Z88.5 Allergy status to narcotic agent; Z88.0 Allergy status to penicillin; Z88.2 Allergy status to sulfonamides; Z88.1 Allergy status to other antibiotic agents
CPT/HCPCS: 36415; 80048; 80053; 82306; 82330; 83735; 83970; 84100; 85025; 85027; 87631; 93005; 96361; 96365; 96523; 99284; G0378; J1815; J3475

== ENCOUNTER → 2022-09-09 | Outpatient (CLI) | payer MEDICARE ==
[~2022-09-09] MED LIST changes: +ALBU8.5H INH; +BUDE10.7 INH; +GASTROGRAFIN SOLUTION 30ML As Ordered ONE; +IPRA0.00 INH; -IPRA0.00 NEB; +ISOVUE-370 76% 100ML VIAL As Ordered ONE; +LONS0.27 PO; +MAGN400T33 PO; +ONDA-196 PO; +ONDA-83 PO; +PANT-23 PO
== END ==
LOC: M RAD 11:53
PROVIDERS: ATTEND Nurse Practitioner
DX: C20 Malignant neoplasm of rectum (principal); R91.1 Solitary pulmonary nodule; R93.2 Abnormal findings on diagnostic imaging of liver and biliary tract; I25.83 Coronary atherosclerosis due to lipid rich plaque; K44.9 Diaphragmatic hernia without obstruction or gangrene; K42.9 Umbilical hernia without obstruction or gangrene; K57.90 Diverticulosis of intestine, part unspecified, without perforation or abscess without bleeding; Z90.49 Acquired absence of other specified parts of digestive tract
CPT/HCPCS: 71260; 74177; Q9963; Q9967

== ENCOUNTER 2022-09-11 13:02 | Inpatient (IN) | payer MEDICARE ==
[~2022-09-11] VITALS: Ht 154.9 cm; Wt 123.1 kg
[~2022-09-11 13:02] MED LIST changes: -ALBU8.5H INH; -GASTROGRAFIN SOLUTION 30ML As Ordered ONE; -ISOVUE-370 76% 100ML VIAL As Ordered ONE; -MAGN400T33 PO
[2022-09-11] MEDS ORDERED: MAG SULF 1GM/100ML (MAG RUN) 1 GM in IV 1 EA IV ONE ×2 (13:20→14:35)
[2022-09-11] MEDS ORDERED: SODIUM CHLORIDE 0.9% INJ 10 ML SYR IV PRN (13:20)
[2022-09-11] MEDS ORDERED: CALCIUM GLUCONATE 1,000 MG in D5W MINI-BAG PLUS 100 ML IV ONE ×2 (13:20→18:00)
[2022-09-11] MEDS ORDERED: ONDANSETRON 4MG 2ML VIAL IV ONE (13:30)
[2022-09-11 14:12] LABS: RSV AMPLIFICATION NEGATIVE (NEGATIVE)
[2022-09-11] MEDS ORDERED: ACETAMINOPHEN TAB 650MG DOSE (2X325MG) PO PRN (14:35)
[2022-09-11] MEDS ORDERED: MAGNESIUM OXIDE 400MG TAB (MAG-OX) PO ONE (14:35)
[2022-09-11 15:45] VITALS: BP 101/58
[2022-09-11] MEDS: CALCIUM CARBONATE 500 MG CHEW U/D PO SCH ×2 (16:12→20:40)
[2022-09-11] MEDS: CALCITRIOL 0.25 MCG CAP (S0169) PO SCH (17:39)
[2022-09-11 20:00] VITALS: BP 101/57
[2022-09-11] MEDS ORDERED: CALCITRIOL 0.25 MCG CAP (S0169) PO SCH (21:00)
[2022-09-11 21:13] VITALS: BP 128/56
[2022-09-11] MEDS ORDERED: MAG SULF 1GM/100ML (MAG RUN) 1 GM in IV 1 EA IV SCH (21:30)
[2022-09-11] MEDS: MAG SULF 1GM/100ML (MAG RUN) 1 GM in IV 1 EA IV SCH ×2 (22:12→23:14)
[2022-09-11] MEDS ORDERED: MAGN400T33 PO (22:31)
[2022-09-11] MEDS ORDERED: ALBU8.5H INH (22:31)
[2022-09-11] MEDS ORDERED: HOME MED LIST COMPLETE! XX SCH (22:35)
[2022-09-11] MEDS: NYSTATIN 100,000 UNITS/GM TOPICAL PWD 15GM TOP SCH (23:15)
[2022-09-11] MEDS ORDERED: ALBUTEROL 90 MCG/ACT 8GM HFA INHALER INH PRN (23:40)
[2022-09-11] MEDS ORDERED: GLUCOSE 4GM CHEW TABLET PO PRN (23:45)
[2022-09-11] MEDS ORDERED: DEXTROSE 50% 50ML SYRINGE IV PRN (23:45)
[2022-09-11] MEDS ORDERED: GLUCAGON INJ 1MG VIAL SC PRN (23:45)
[2022-09-12] MEDS: RIVAROXABAN 15MG TAB (XARELTO) PO SCH ×2 (00:07→18:09)
[2022-09-12] MEDS: GABAPENTIN 300 MG CAP PO SCH ×4 (00:07→21:03)
[2022-09-12] MEDS: MAG SULF 1GM/100ML (MAG RUN) 1 GM in IV 1 EA IV SCH ×2 (00:28→01:05)
[2022-09-12 06:00] VITALS: BP 107/57
[2022-09-12 06:05] LABS: HEMATOCRIT 32.5 % (36.0-47.0); HEMOGLOBIN 9.6 g/dl (12.0-15.5); MEAN CORPUSCULAR HEMOGLOBIN 25.4 pg (27.0-33.0); MEAN CORPUSCULAR HGB CONC 29.5 g/dl (32.0-36.5); RED BLOOD COUNT 3.78 10^6/uL (4.00-5.40); WHITE BLOOD COUNT 6.2 10^3/uL (4.0-10.0)
[2022-09-12] MEDS: LEVOTHYROXINE 50MCG TABLET (0.05MG) PO SCH (06:14)
[2022-09-12 06:21] LABS: PLATELET COUNT, AUTOMATED 259 10^3/uL (150-450)
[2022-09-12 07:18] LABS: ALKALINE PHOSPHATASE 87 U/L (46-116); ALT/SGPT 9 U/L (7.0-40); AST/SGOT 16 U/L (<34); BILIRUBIN,TOTAL 0.4 MG/DL (0.3-1.2); BLOOD UREA NITROGEN 8 MG/DL (9-23); CALCIUM LEVEL 6.2 MG/DL (8.3-10.6); CARBON DIOXIDE LEVEL 24 MMOL/L (20-31); CHLORIDE LEVEL 107 MMOL/L (98-107); CREATININE FOR GFR 0.74 MG/DL (0.55-1.30); GLOMERULAR FILTRATION RATE > 60.0 (>32); GLUCOSE, FASTING 95 MG/DL (74-106); MAGNESIUM LEVEL 1.6 MG/DL (1.8-2.4); POTASSIUM SERUM 4.6 MMOL/L (3.5-5.1); SODIUM LEVEL 141 MMOL/L (136-145); TOTAL PROTEIN 5.1 G/DL (5.7-8.2)
[2022-09-12] MEDS: INSULIN LISPRO (NovoLOG) PER UNIT SC SCH ×3 (07:30→17:20)
[2022-09-12] MEDS ORDERED: IPRATROPIUM 0.5MG/ALBUTEROL 2.5MG INH SOL UD 3ML (DUONEB) INH PRN (09:05)
[2022-09-12] MEDS ORDERED: HYDROCORTISONE 2.5% 20GM OINTMENT TOP PRN (09:05)
[2022-09-12] MEDS ORDERED: PROCHLORPERAZINE 5MG TAB PO PRN (09:05)
[2022-09-12] MEDS: EZETIMIBE 10MG TABLET (ZETIA) PO SCH (09:21)
[2022-09-12] MEDS: MAGNESIUM OXIDE 400MG TAB (MAG-OX) PO SCH ×3 (09:22→21:03)
[2022-09-12] MEDS: MULTIVITAMINS/MINERALS THERAP 1 TAB PO SCH (09:22)
[2022-09-12] MEDS: PANTOPRAZOLE 40MG TAB (PROTONIX) PO SCH (09:22)
[2022-09-12] MEDS: CALCIUM CARBONATE 500 MG CHEW U/D PO SCH ×3 (09:23→21:03)
[2022-09-12] MEDS: CALCITRIOL 0.25 MCG CAP (S0169) PO SCH ×2 (09:23→21:03)
[2022-09-12] MEDS: NYSTATIN 100,000 UNITS/GM TOPICAL PWD 15GM TOP SCH ×2 (09:23→21:05)
[2022-09-12] MEDS: SODIUM CHLORIDE 0.9% INJ 10 ML SYR IV SCH (09:24)
[2022-09-12 14:00] VITALS: BP 134/63
[2022-09-12] MEDS ORDERED: INSULIN LISPRO (NovoLOG) PER UNIT SC SCH (21:00)
[2022-09-12 21:07] VITALS: BP 139/59
[2022-09-13 05:06] VITALS: BP 140/60
[2022-09-13 06:05] LABS: BASO % 0.3 % (0.0-1.0); EOS # 0.3 10^3/uL (0.0-0.5); EOS % 3.4 % (0.0-3.0); HEMATOCRIT 31.1 % (36.0-47.0); HEMOGLOBIN 9.4 g/dl (12.0-15.5); LYMPH # 0.6 10^3/uL (1.5-5.0); LYMPH % 8.3 % (24.0-44.0); MEAN CORPUSCULAR HGB CONC 30.2 g/dl (32.0-36.5); MEAN CORPUSCULAR VOLUME 86.1 fl (80.0-96.0); MONO # 0.7 10^3/uL (0.0-0.8); NEUTROPHILS # 5.8 10^3/uL (1.5-8.5); NEUTROPHILS % 78.3 % (36.0-66.0); PLATELET COUNT, AUTOMATED 273 10^3/uL (150-450); RED BLOOD COUNT 3.61 10^6/uL (4.00-5.40); WHITE BLOOD COUNT 7.4 10^3/uL (4.0-10.0)
[2022-09-13] MEDS: LEVOTHYROXINE 50MCG TABLET (0.05MG) PO SCH (06:05)
[2022-09-13 06:37] LABS: ALBUMIN 1.8 G/DL (3.2-5.2); ALKALINE PHOSPHATASE 81 U/L (46-116); ALT/SGPT 12 U/L (7.0-40); AST/SGOT 13 U/L (<34); BILIRUBIN,TOTAL 0.4 MG/DL (0.3-1.2); BLOOD UREA NITROGEN 7 MG/DL (9-23); CALCIUM LEVEL 6.7 MG/DL (8.3-10.6); CARBON DIOXIDE LEVEL 26 MMOL/L (20-31); CHLORIDE LEVEL 107 MMOL/L (98-107); CREATININE FOR GFR 0.81 MG/DL (0.55-1.30); GLOMERULAR FILTRATION RATE > 60.0 (>32); GLUCOSE, FASTING 98 MG/DL (74-106); MAGNESIUM LEVEL 1.1 MG/DL (1.8-2.4); POTASSIUM SERUM 4.6 MMOL/L (3.5-5.1); SODIUM LEVEL 141 MMOL/L (136-145); TOTAL PROTEIN 4.8 G/DL (5.7-8.2)
[2022-09-13] MEDS: INSULIN LISPRO (NovoLOG) PER UNIT SC SCH ×2 (07:24→12:07)
[2022-09-13] MEDS: PANTOPRAZOLE 40MG TAB (PROTONIX) PO SCH ×2 (08:11→08:16)
[2022-09-13] MEDS: GABAPENTIN 300 MG CAP PO SCH ×2 (08:11→15:22)
[2022-09-13] MEDS: MAGNESIUM OXIDE 400MG TAB (MAG-OX) PO SCH ×2 (08:11→15:22)
[2022-09-13] MEDS: MAG SULF 1GM/100ML (MAG RUN) 1 GM in IV 1 EA IV SCH ×3 (08:11→10:40)
[2022-09-13] MEDS: CALCITRIOL 0.25 MCG CAP (S0169) PO SCH (08:11)
[2022-09-13] MEDS: EZETIMIBE 10MG TABLET (ZETIA) PO SCH (08:11)
[2022-09-13] MEDS: MULTIVITAMINS/MINERALS THERAP 1 TAB PO SCH (08:11)
[2022-09-13] MEDS: SODIUM CHLORIDE 0.9% INJ 10 ML SYR IV SCH (08:12)
[2022-09-13] MEDS: CALCIUM CARBONATE 500 MG CHEW U/D PO SCH ×2 (08:12→12:07)
[2022-09-13] MEDS: NYSTATIN 100,000 UNITS/GM TOPICAL PWD 15GM TOP SCH (08:14)
[2022-09-13] MEDS ORDERED: MAGN400T33 PO (13:46)
[2022-09-13] MEDS ORDERED: CALC200T15 PO (13:46)
[2022-09-13] MEDS ORDERED: PANT-23 PO (13:46)
[2022-09-13] MEDS ORDERED: CALC1CAP31 PO (13:46)
[2022-09-13 14:00] VITALS: BP 146/59
== END 2022-09-13 16:50 | disposition home or self-care (01) | DRG 641 ==
LOC: M ED 13:02 → M ED INP 13:03 → UNDOADMOB 15:23 → INTOOBSV 15:23 → ENRESERV 15:30 → M ED INP 15:45 → M MSPAV 15:45 → OBSVTOIN 09-13 11:00
PROVIDERS: ADMIT Family Medicine; ATTEND Student in an Organized Health Care Education/Training Program
DX: E83.42 Hypomagnesemia (principal); C20 Malignant neoplasm of rectum; T45.1X5A Adverse effect of antineoplastic and immunosuppressive drugs, initial encounter; E83.51 Hypocalcemia; I10 Essential (primary) hypertension; E78.5 Hyperlipidemia, unspecified; E11.9 Type 2 diabetes mellitus without complications; E03.9 Hypothyroidism, unspecified; M19.90 Unspecified osteoarthritis, unspecified site; K21.9 Gastro-esophageal reflux disease without esophagitis; G89.29 Other chronic pain; I48.0 Paroxysmal atrial fibrillation; J45.909 Unspecified asthma, uncomplicated; Z95.0 Presence of cardiac pacemaker; Z20.822 Contact with and (suspected) exposure to COVID-19; Z79.2 Long term (current) use of antibiotics; Z79.890 Hormone replacement therapy; Z79.84 Long term (current) use of oral hypoglycemic drugs; Z79.899 Other long term (current) drug therapy; Z88.0 Allergy status to penicillin; Z88.1 Allergy status to other antibiotic agents; Z88.2 Allergy status to sulfonamides; Z88.5 Allergy status to narcotic agent; Z66 Do not resuscitate

== ENCOUNTER → 2022-09-17 | Outpatient (CLI) | payer MEDICARE ==
[~2022-09-17] MED LIST changes: +ALBU8.5H INH; +CALC1CAP31 PO; +CALC200T15 PO; +MAGN400T33 PO
== END ==
LOC: M PAL 07:51
PROVIDERS: ATTEND Nurse Practitioner Family
DX: C20 Malignant neoplasm of rectum (principal); E83.42 Hypomagnesemia; Z92.21 Personal history of antineoplastic chemotherapy; Z95.0 Presence of cardiac pacemaker; E11.9 Type 2 diabetes mellitus without complications; I10 Essential (primary) hypertension; Z90.89 Acquired absence of other organs; Z90.49 Acquired absence of other specified parts of digestive tract; Z51.5 Encounter for palliative care; R11.2 Nausea with vomiting, unspecified; Z88.0 Allergy status to penicillin; Z88.1 Allergy status to other antibiotic agents; Z88.2 Allergy status to sulfonamides; Z88.5 Allergy status to narcotic agent; Z79.899 Other long term (current) drug therapy; Z79.51 Long term (current) use of inhaled steroids; Z79.890 Hormone replacement therapy

== ENCOUNTER → 2022-10-17 | Outpatient (CLI) | payer MEDICARE ==
[~2022-10-17] MED LIST changes: +PERC5TAB12 PO
== END ==
LOC: M PAL 09:30
PROVIDERS: ATTEND Nurse Practitioner Adult Health
DX: C20 Malignant neoplasm of rectum (principal); G89.3 Neoplasm related pain (acute) (chronic); Z51.5 Encounter for palliative care; Z92.21 Personal history of antineoplastic chemotherapy; R11.0 Nausea; R63.0 Anorexia; R53.83 Other fatigue; Z66 Do not resuscitate; Z79.899 Other long term (current) drug therapy; Z79.01 Long term (current) use of anticoagulants; Z80.0 Family history of malignant neoplasm of digestive organs; Z80.42 Family history of malignant neoplasm of prostate; Z80.8 Family history of malignant neoplasm of other organs or systems; Z90.49 Acquired absence of other specified parts of digestive tract; Z98.890 Other specified postprocedural states; Z95.0 Presence of cardiac pacemaker; Z88.1 Allergy status to other antibiotic agents; Z88.0 Allergy status to penicillin; Z88.2 Allergy status to sulfonamides; Z88.5 Allergy status to narcotic agent; Z79.51 Long term (current) use of inhaled steroids

== ENCOUNTER → 2022-11-19 | Outpatient (CLI) | payer MEDICARE ==
[~2022-11-19] MED LIST changes: -DOXY100C81 PO; +DOXY100C82 PO; +MIRA3350 PO
== END ==
LOC: M PAL 11:15
PROVIDERS: ATTEND Nurse Practitioner Adult Health
DX: C20 Malignant neoplasm of rectum (principal); G89.3 Neoplasm related pain (acute) (chronic); Z51.5 Encounter for palliative care; R53.83 Other fatigue; R53.1 Weakness; R32 Unspecified urinary incontinence; Z87.440 Personal history of urinary (tract) infections; Z66 Do not resuscitate; Z79.01 Long term (current) use of anticoagulants; Z79.899 Other long term (current) drug therapy; Z88.1 Allergy status to other antibiotic agents; Z88.0 Allergy status to penicillin; Z88.2 Allergy status to sulfonamides; Z88.5 Allergy status to narcotic agent; Z80.8 Family history of malignant neoplasm of other organs or systems; Z80.0 Family history of malignant neoplasm of digestive organs; Z80.42 Family history of malignant neoplasm of prostate; Z92.21 Personal history of antineoplastic chemotherapy; Z95.0 Presence of cardiac pacemaker; Z98.890 Other specified postprocedural states; I48.91 Unspecified atrial fibrillation; Z90.49 Acquired absence of other specified parts of digestive tract

== ENCOUNTER 2022-12-02 16:15 | Inpatient (IN) | payer MEDICARE ==
[~2022-12-02] VITALS: Ht 154.9 cm; Wt 106.9 kg
[2022-12-02] MEDS ORDERED: SODIUM CHLORIDE 0.9% INJ 10 ML SYR IV PRN (16:20)
[2022-12-02 17:03] LABS: HEMATOCRIT 26.6 % (36.0-47.0); HEMOGLOBIN 8.4 g/dl (12.0-15.5); MEAN CORPUSCULAR HEMOGLOBIN 26.8 pg (27.0-33.0); MEAN CORPUSCULAR HGB CONC 31.6 g/dl (32.0-36.5); PLATELET COUNT, AUTOMATED 200 10^3/uL (150-450); RED BLOOD COUNT 3.13 10^6/uL (4.00-5.40); WHITE BLOOD COUNT 1.6 10^3/uL (4.0-10.0)
[2022-12-02 17:26] LABS: CPK CREATINE PHOSPHOKINASE 21 U/L (34-145); MB/CK RELATIVE INDEX 4.76 (< OR =4)
[2022-12-02 17:28] LABS: THYROID STIMULATING HORMONE 5.004 uIU/ML (0.55-4.78)
[2022-12-02 17:30] LABS: ALBUMIN 2.2 G/DL (3.2-5.2); ALKALINE PHOSPHATASE 68 U/L (46-116); ALT/SGPT < 9 U/L (7.0-40); AST/SGOT 10 U/L (<34); BILIRUBIN,DIRECT 0.5 MG/DL (<0.4); BILIRUBIN,TOTAL 1.3 MG/DL (0.3-1.2); BLOOD UREA NITROGEN 13 MG/DL (9-23); CALCIUM LEVEL 7.6 MG/DL (8.3-10.6); CARBON DIOXIDE LEVEL 23 MMOL/L (20-31); CHLORIDE LEVEL 104 MMOL/L (98-107); CREATININE FOR GFR 0.85 MG/DL (0.55-1.30); GLOMERULAR FILTRATION RATE > 60.0 (>32); GLUCOSE, FASTING 145 MG/DL (74-106); POTASSIUM SERUM 3.4 MMOL/L (3.5-5.1); SODIUM LEVEL 135 MMOL/L (136-145); TOTAL PROTEIN 5.4 G/DL (5.7-8.2)
[2022-12-02 17:43] LABS: RSV AMPLIFICATION NEGATIVE (NEGATIVE)
[2022-12-02 17:49] LABS: ANISOCYTOSIS 2+; ATYPICAL LYMPH 2 % (0-5); LYMPHOCYTES 21 % (16-44); METAMYELOCYTES 5 % (0-0); MONOCYTES 9 % (0-5); MYELOCYTES 1 % (0-0); NEUTROPHILS 31 % (28-66); PLATELET ESTIMATE NORMAL (NORMAL); POIKILOCYTOSIS 1+
[2022-12-02] MEDS ORDERED: CEFEPIME HCL 2 GM in D5W MINI-BAG PLUS 50 ML IV ONE (18:00)
[2022-12-02 18:05] LABS: MAGNESIUM LEVEL 1.2 MG/DL (1.8-2.4)
[2022-12-02] MEDS ORDERED: ACETAMINOPHEN TAB 650MG DOSE (2X325MG) PO ONE (18:15)
[2022-12-02] MEDS ORDERED: MAG SULF 1GM/100ML (MAG RUN) 1 GM in IV 1 EA IV ONE ×2 (19:00→22:00)
[2022-12-02] MEDS ORDERED: MED REC IN PROGRESS XX SCH (19:15)
[2022-12-02] MEDS ORDERED: HOME MED LIST COMPLETE! XX SCH (19:50)
[2022-12-02] MEDS ORDERED: ONDANSETRON 4MG 2ML VIAL IV PRN (20:05)
[2022-12-02] MEDS ORDERED: HYDROCORTISONE 2.5% 20GM OINTMENT TOP PRN (20:05)
[2022-12-02] MEDS ORDERED: ALBUTEROL 90 MCG/ACT 8GM HFA INHALER INH PRN (20:05)
[2022-12-02 20:08] LABS: CK-MB VALUE MASS < 1.0 NG/ML (<3.6)
[2022-12-02 20:10] LABS: CPK CREATINE PHOSPHOKINASE 29 U/L (34-145); MB/CK RELATIVE INDEX 3.44 (< OR =4)
[2022-12-02] MEDS ORDERED: GLUCAGON INJ 1MG VIAL SC PRN (20:10)
[2022-12-02] MEDS ORDERED: GLUCOSE 4GM CHEW TABLET PO PRN (20:10)
[2022-12-02] MEDS ORDERED: DEXTROSE 50% 50ML SYRINGE IV PRN (20:10)
[2022-12-02] MEDS: RIVAROXABAN 15MG TAB (XARELTO) PO SCH (20:34)
[2022-12-02] MEDS: INSULIN LISPRO (NovoLOG) PER UNIT SC SCH (21:00)
[2022-12-02 21:35] VITALS: BP 144/81; TEMP 98.6; O2SAT 97
[2022-12-02] MEDS: GABAPENTIN 300 MG CAP PO SCH (21:45)
[2022-12-02] MEDS: MAGNESIUM OXIDE 400MG TAB (MAG-OX) PO SCH (21:45)
[2022-12-02] MEDS: POTASSIUM CHLORIDE 10MEQ SR TABLET PO SCH (21:46)
[2022-12-02] MEDS: CALCIUM CARBONATE 500 MG CHEW U/D PO SCH (21:46)
[2022-12-02 22:00] VITALS: O2SAT 98
[2022-12-02] MEDS: IPRATROPIUM 0.5MG/ALBUTEROL 2.5MG INH SOL UD 3ML (DUONEB) NEB SCH (22:22)
[2022-12-02 23:00] VITALS: O2SAT 98
[2022-12-02] MEDS: LR 1,000 ML IV SCH (23:08)
[2022-12-02 23:48] VITALS: BP 161/70; TEMP 98.2; O2SAT 98
[2022-12-03] VITALS (15 sets, daily range): BP systolic 122–166; BP diastolic 57–66; TEMP 97.1–98.5; O2SAT 93–100
[2022-12-03] MEDS: IPRATROPIUM 0.5MG/ALBUTEROL 2.5MG INH SOL UD 3ML (DUONEB) NEB SCH ×4 (02:15→20:09)
[2022-12-03 05:41] LABS: HEMATOCRIT 27.1 % (36.0-47.0); HEMOGLOBIN 8.3 g/dl (12.0-15.5); MEAN CORPUSCULAR HEMOGLOBIN 26.4 pg (27.0-33.0); MEAN CORPUSCULAR HGB CONC 30.6 g/dl (32.0-36.5); MEAN CORPUSCULAR VOLUME 86.3 fl (80.0-96.0); PLATELET COUNT, AUTOMATED 189 10^3/uL (150-450); RED BLOOD COUNT 3.14 10^6/uL (4.00-5.40); WHITE BLOOD COUNT 1.4 10^3/uL (4.0-10.0)
[2022-12-03 05:52] LABS: INR 1.56
[2022-12-03 05:53] LABS: PARTIAL THROMBOPLASTIN TIME 40.7 SECONDS (24.8-34.2)
[2022-12-03] MEDS: LEVOTHYROXINE 50MCG TABLET (0.05MG) PO SCH (05:54)
[2022-12-03] MEDS: CEFEPIME HCL 2 GM in D5W MINI-BAG PLUS 50 ML IV SCH ×2 (05:54→18:10)
[2022-12-03 06:14] LABS: PROCALCITONIN 0.78 ng/ml
[2022-12-03 06:24] LABS: ALBUMIN 2.1 G/DL (3.2-5.2); ALKALINE PHOSPHATASE 65 U/L (46-116); ALT/SGPT < 9 U/L (7.0-40); AST/SGOT 9 U/L (<34); BILIRUBIN,TOTAL 1.2 MG/DL (0.3-1.2); BLOOD UREA NITROGEN 14 MG/DL (9-23); CALCIUM LEVEL 7.9 MG/DL (8.3-10.6); CARBON DIOXIDE LEVEL 21 MMOL/L (20-31); CHLORIDE LEVEL 104 MMOL/L (98-107); GLOMERULAR FILTRATION RATE > 60.0 (>32); GLUCOSE, FASTING 128 MG/DL (74-106); MAGNESIUM LEVEL 1.6 MG/DL (1.8-2.4); POTASSIUM SERUM 4.2 MMOL/L (3.5-5.1); SODIUM LEVEL 136 MMOL/L (136-145); TOTAL PROTEIN 5.3 G/DL (5.7-8.2)
[2022-12-03 07:46] LABS: CK-MB VALUE MASS < 1.0 NG/ML (<3.6)
[2022-12-03 07:47] LABS: CPK CREATINE PHOSPHOKINASE 26 U/L (34-145); MB/CK RELATIVE INDEX 3.84 (< OR =4)
[2022-12-03] MEDS: SYMBICORT 160/4.5MCG INHALER 6GM INH SCH ×2 (08:01→20:09)
[2022-12-03 08:13] LABS: LYMPH # 0.2 10^3/uL (1.5-5.0); LYMPH % 16.6 % (24.0-44.0); MONO # 0.3 10^3/uL (0.0-0.8); MONO % 23.4 % (2.0-8.0); NEUTROPHILS % 59.3 % (36.0-66.0)
[2022-12-03 08:21] LABS: NEUTROPHILS # 0.9 10^3/uL (1.5-8.5)
[2022-12-03] MEDS: LR 1,000 ML IV SCH (08:53)
[2022-12-03] MEDS: INSULIN LISPRO (NovoLOG) PER UNIT SC SCH ×4 (08:53→20:23)
[2022-12-03] MEDS: MAGNESIUM OXIDE 400MG TAB (MAG-OX) PO SCH ×3 (08:54→20:27)
[2022-12-03] MEDS: BUMETANIDE 1 MG TAB PO SCH (08:54)
[2022-12-03] MEDS: CALCIUM CARBONATE 500 MG CHEW U/D PO SCH ×4 (08:55→20:27)
[2022-12-03] MEDS: POTASSIUM CHLORIDE 10MEQ SR TABLET PO SCH ×2 (08:55→20:27)
[2022-12-03] MEDS: GABAPENTIN 300 MG CAP PO SCH ×3 (08:55→20:27)
[2022-12-03] MEDS: EZETIMIBE 10MG TABLET (ZETIA) PO SCH (08:55)
[2022-12-03] MEDS: PANTOPRAZOLE 40MG TAB (PROTONIX) PO SCH (08:55)
[2022-12-03] MEDS: SODIUM CHLORIDE 0.9% INJ 10 ML SYR IV SCH (08:56)
[2022-12-03] MEDS ORDERED: SODIUM CHLORIDE 0.9% INJ 10 ML SYR IV SCH (09:00)
[2022-12-03] MEDS ORDERED: methylPREDNISolone 125MG 2ML VIAL IV ONE (09:35)
[2022-12-03] MEDS ORDERED: FUROSEMIDE 40MG/4ML VIAL IV ONE (17:15)
[2022-12-03] MEDS ORDERED: ALBUTEROL SULFATE 2.5MG/0.5ML INH NEB SOLN NEB PRN (17:25)
[2022-12-03] MEDS: LACTOBACILLUS ACIDOPHILUS CAP (BACID) PO SCH (18:09)
[2022-12-03] MEDS: RIVAROXABAN 15MG TAB (XARELTO) PO SCH (18:09)
[2022-12-03] MEDS: FILGRASTIM 480 MCG/0.8 ML SYRINGE **SC ADMINISTRATION ONLY SC SCH (18:27)
[2022-12-03] MEDS: DOXYCYCLINE HYCLATE 100MG TABLET PO SCH (20:27)
[2022-12-03] MEDS: methylPREDNISolone 125MG 2ML VIAL IV SCH (20:28)
[2022-12-04] VITALS (10 sets, daily range): BP systolic 128–144; BP diastolic 58–76; TEMP 96.5–97.7; O2SAT 90–99
[2022-12-04] MEDS: IPRATROPIUM 0.5MG/ALBUTEROL 2.5MG INH SOL UD 3ML (DUONEB) NEB SCH ×4 (01:25→19:45)
[2022-12-04] MEDS: CEFEPIME HCL 2 GM in D5W MINI-BAG PLUS 50 ML IV SCH ×2 (05:29→17:30)
[2022-12-04] MEDS: LEVOTHYROXINE 50MCG TABLET (0.05MG) PO SCH (05:29)
[2022-12-04 06:12] LABS: HEMATOCRIT 24.8 % (36.0-47.0); HEMOGLOBIN 7.7 g/dl (12.0-15.5); MEAN CORPUSCULAR HEMOGLOBIN 26.6 pg (27.0-33.0); MEAN CORPUSCULAR VOLUME 85.5 fl (80.0-96.0); PLATELET COUNT, AUTOMATED 175 10^3/uL (150-450); WHITE BLOOD COUNT 2.1 10^3/uL (4.0-10.0)
[2022-12-04 06:41] LABS: ALKALINE PHOSPHATASE 60 U/L (46-116); ALT/SGPT 9 U/L (7.0-40); AST/SGOT < 8 U/L (<34); BILIRUBIN,TOTAL 0.7 MG/DL (0.3-1.2); BLOOD UREA NITROGEN 19 MG/DL (9-23); CALCIUM LEVEL 8.4 MG/DL (8.3-10.6); CARBON DIOXIDE LEVEL 22 MMOL/L (20-31); CHLORIDE LEVEL 106 MMOL/L (98-107); CREATININE FOR GFR 0.84 MG/DL (0.55-1.30); GLOMERULAR FILTRATION RATE > 60.0 (>32); GLUCOSE, FASTING 198 MG/DL (74-106); MAGNESIUM LEVEL 1.7 MG/DL (1.8-2.4); POTASSIUM SERUM 4.4 MMOL/L (3.5-5.1); SODIUM LEVEL 136 MMOL/L (136-145)
[2022-12-04] MEDS ORDERED: FUROSEMIDE 40MG/4ML VIAL IV ONE (07:00)
[2022-12-04] MEDS: INSULIN LISPRO (NovoLOG) PER UNIT SC SCH ×4 (07:30→21:00)
[2022-12-04] MEDS: SYMBICORT 160/4.5MCG INHALER 6GM INH SCH ×2 (07:43→19:43)
[2022-12-04 08:30] LABS: ATYPICAL LYMPH 4 % (0-5); LYMPHOCYTES 9 % (16-44); METAMYELOCYTES 3 % (0-0); MONOCYTES 9 % (0-5); MYELOCYTES 1 % (0-0); NEUTROPHILS 49 % (28-66)
[2022-12-04 08:31] LABS: ANISOCYTOSIS 2+; HYPOCHROMASIA 1+
[2022-12-04 08:32] LABS: MICROCYTOSIS 1+; PLATELET ESTIMATE NORMAL (NORMAL)
[2022-12-04] MEDS: POTASSIUM CHLORIDE 10MEQ SR TABLET PO SCH ×2 (08:59→21:37)
[2022-12-04] MEDS: methylPREDNISolone 125MG 2ML VIAL IV SCH ×2 (09:00→21:37)
[2022-12-04] MEDS: DOXYCYCLINE HYCLATE 100MG TABLET PO SCH ×2 (09:01→21:36)
[2022-12-04] MEDS: PANTOPRAZOLE 40MG TAB (PROTONIX) PO SCH (09:01)
[2022-12-04] MEDS: SODIUM CHLORIDE 0.9% INJ 10 ML SYR IV SCH (09:01)
[2022-12-04] MEDS: MAGNESIUM OXIDE 400MG TAB (MAG-OX) PO SCH ×3 (09:01→21:36)
[2022-12-04] MEDS: GABAPENTIN 300 MG CAP PO SCH ×3 (09:01→21:36)
[2022-12-04] MEDS: CALCIUM CARBONATE 500 MG CHEW U/D PO SCH ×4 (09:02→21:35)
[2022-12-04] MEDS: BUMETANIDE 1 MG TAB PO SCH (09:02)
[2022-12-04] MEDS: LACTOBACILLUS ACIDOPHILUS CAP (BACID) PO SCH ×2 (09:02→17:29)
[2022-12-04] MEDS: EZETIMIBE 10MG TABLET (ZETIA) PO SCH (09:03)
[2022-12-04] MEDS: MAG SULF 1GM/100ML (MAG RUN) 1 GM in IV 1 EA IV SCH ×2 (15:55→16:44)
[2022-12-04] MEDS: FUROSEMIDE 20MG/2ML VIAL IV SCH (16:01)
[2022-12-04] MEDS: RIVAROXABAN 15MG TAB (XARELTO) PO SCH (17:30)
[2022-12-04] MEDS: FILGRASTIM 480 MCG/0.8 ML SYRINGE **SC ADMINISTRATION ONLY SC SCH (18:34)
[2022-12-04] MEDS: SODIUM CHLORIDE 0.9% INJ 10 ML SYR IV PRN (21:45)
[2022-12-04] MEDS ORDERED: FLUTICASONE PROP 0.05% NASAL SPRAY 16 GM (FLONASE) NARES PRN (22:30)
[2022-12-05] MEDS: IPRATROPIUM 0.5MG/ALBUTEROL 2.5MG INH SOL UD 3ML (DUONEB) NEB SCH ×4 (02:00→19:49)
[2022-12-05 06:00] VITALS: BP 137/70; TEMP 97.5; O2SAT 98
[2022-12-05] MEDS: LEVOTHYROXINE 50MCG TABLET (0.05MG) PO SCH (06:22)
[2022-12-05] MEDS: CEFEPIME HCL 2 GM in D5W MINI-BAG PLUS 50 ML IV SCH ×2 (06:22→17:46)
[2022-12-05] MEDS: SYMBICORT 160/4.5MCG INHALER 6GM INH SCH ×2 (07:19→20:35)
[2022-12-05] MEDS: SODIUM CHLORIDE 0.9% INJ 10 ML SYR IV PRN ×3 (07:35→22:09)
[2022-12-05 08:00] LABS: HEMATOCRIT 25.6 % (36.0-47.0); HEMOGLOBIN 7.8 g/dl (12.0-15.5); MEAN CORPUSCULAR HEMOGLOBIN 26.4 pg (27.0-33.0); MEAN CORPUSCULAR HGB CONC 30.5 g/dl (32.0-36.5); MEAN CORPUSCULAR VOLUME 86.5 fl (80.0-96.0); PLATELET COUNT, AUTOMATED 238 10^3/uL (150-450); RED BLOOD COUNT 2.96 10^6/uL (4.00-5.40); WHITE BLOOD COUNT 5.7 10^3/uL (4.0-10.0)
[2022-12-05 08:34] LABS: ALBUMIN 2.1 G/DL (3.2-5.2); ALKALINE PHOSPHATASE 62 U/L (46-116); ALT/SGPT < 9 U/L (7.0-40); AST/SGOT < 8 U/L (<34); BILIRUBIN,TOTAL 0.6 MG/DL (0.3-1.2); BLOOD UREA NITROGEN 25 MG/DL (9-23); CALCIUM LEVEL 9.3 MG/DL (8.3-10.6); CARBON DIOXIDE LEVEL 22 MMOL/L (20-31); CHLORIDE LEVEL 102 MMOL/L (98-107); CREATININE FOR GFR 0.95 MG/DL (0.55-1.30); GLOMERULAR FILTRATION RATE > 60.0 (>32); GLUCOSE, FASTING 284 MG/DL (74-106); POTASSIUM SERUM 4.7 MMOL/L (3.5-5.1); SODIUM LEVEL 131 MMOL/L (136-145); TOTAL PROTEIN 5.5 G/DL (5.7-8.2)
[2022-12-05 08:52] LABS: ATYPICAL LYMPH 3 % (0-5); LYMPHOCYTES 6 % (16-44); METAMYELOCYTES 1 % (0-0); MONOCYTES 8 % (0-5); NEUTROPHILS 67 % (28-66)
[2022-12-05 08:53] LABS: HYPOCHROMASIA 2+
[2022-12-05 08:55] LABS: PLATELET ESTIMATE NORMAL (NORMAL)
[2022-12-05 09:00] VITALS: O2SAT 97
[2022-12-05] MEDS: FUROSEMIDE 20MG/2ML VIAL IV SCH (09:23)
[2022-12-05] MEDS: methylPREDNISolone 125MG 2ML VIAL IV SCH ×2 (09:23→22:08)
[2022-12-05] MEDS: MAGNESIUM OXIDE 400MG TAB (MAG-OX) PO SCH ×3 (09:24→22:06)
[2022-12-05] MEDS: BUMETANIDE 1 MG TAB PO SCH (09:24)
[2022-12-05] MEDS: LACTOBACILLUS ACIDOPHILUS CAP (BACID) PO SCH ×2 (09:24→17:44)
[2022-12-05] MEDS: EZETIMIBE 10MG TABLET (ZETIA) PO SCH (09:24)
[2022-12-05] MEDS: CALCIUM CARBONATE 500 MG CHEW U/D PO SCH ×4 (09:24→22:06)
[2022-12-05] MEDS: POTASSIUM CHLORIDE 10MEQ SR TABLET PO SCH ×2 (09:24→22:07)
[2022-12-05] MEDS: GABAPENTIN 300 MG CAP PO SCH ×3 (09:24→22:07)
[2022-12-05] MEDS: DOXYCYCLINE HYCLATE 100MG TABLET PO SCH ×2 (09:25→22:07)
[2022-12-05] MEDS: PANTOPRAZOLE 40MG TAB (PROTONIX) PO SCH (09:25)
[2022-12-05] MEDS: INSULIN LISPRO (NovoLOG) PER UNIT SC SCH ×4 (09:26→20:57)
[2022-12-05] MEDS: SODIUM CHLORIDE 0.9% INJ 10 ML SYR IV SCH (09:27)
[2022-12-05 14:00] VITALS: BP 129/94; TEMP 97.7; O2SAT 97
[2022-12-05] MEDS: RIVAROXABAN 15MG TAB (XARELTO) PO SCH (17:44)
[2022-12-05] MEDS: ACETAMINOPHEN TAB 650MG DOSE (2X325MG) PO PRN (22:08)
[2022-12-05] MEDS: BABY POWDER 120GM TOP SCH (22:16)
[2022-12-06 01:47] VITALS: O2SAT 98
[2022-12-06] MEDS: IPRATROPIUM 0.5MG/ALBUTEROL 2.5MG INH SOL UD 3ML (DUONEB) NEB SCH ×4 (02:21→19:38)
[2022-12-06 05:26] VITALS: BP 102/64; TEMP 97.9; O2SAT 98
[2022-12-06] MEDS: LevoFLOXacin 750 MG TABLET PO SCH (05:39)
[2022-12-06] MEDS: LEVOTHYROXINE 50MCG TABLET (0.05MG) PO SCH (05:39)
[2022-12-06] MEDS: SODIUM CHLORIDE 0.9% INJ 10 ML SYR IV PRN (05:39)
[2022-12-06] MEDS: ACETAMINOPHEN TAB 650MG DOSE (2X325MG) PO PRN (05:50)
[2022-12-06 06:07] LABS: HEMATOCRIT 27.6 % (36.0-47.0); HEMOGLOBIN 8.2 g/dl (12.0-15.5); MEAN CORPUSCULAR HEMOGLOBIN 26.4 pg (27.0-33.0); MEAN CORPUSCULAR HGB CONC 29.7 g/dl (32.0-36.5); MEAN CORPUSCULAR VOLUME 88.7 fl (80.0-96.0); PLATELET COUNT, AUTOMATED 258 10^3/uL (150-450); RED BLOOD COUNT 3.11 10^6/uL (4.00-5.40); WHITE BLOOD COUNT 11.2 10^3/uL (4.0-10.0)
[2022-12-06 06:22] LABS: ALBUMIN 2.2 G/DL (3.2-5.2); ALKALINE PHOSPHATASE 69 U/L (46-116); ALT/SGPT < 9 U/L (7.0-40); AST/SGOT < 8 U/L (<34); BILIRUBIN,TOTAL 0.6 MG/DL (0.3-1.2); BLOOD UREA NITROGEN 30 MG/DL (9-23); CARBON DIOXIDE LEVEL 24 MMOL/L (20-31); CHLORIDE LEVEL 105 MMOL/L (98-107); CREATININE FOR GFR 1.08 MG/DL (0.55-1.30); GLOMERULAR FILTRATION RATE 51.8 (>32); GLUCOSE, FASTING 233 MG/DL (74-106); MAGNESIUM LEVEL 1.8 MG/DL (1.8-2.4); POTASSIUM SERUM 5.1 MMOL/L (3.5-5.1); SODIUM LEVEL 136 MMOL/L (136-145); TOTAL PROTEIN 5.9 G/DL (5.7-8.2)
[2022-12-06 06:38] LABS: ANISOCYTOSIS 4+; HYPOCHROMASIA 2+; LYMPHOCYTES 3 % (16-44); METAMYELOCYTES 3 % (0-0); MONOCYTES 5 % (0-5); MYELOCYTES 2 % (0-0); NEUTROPHILS 81 % (28-66); PLATELET ESTIMATE NORMAL (NORMAL)
[2022-12-06 06:39] LABS: OVALOCYTES 1+
[2022-12-06] MEDS: SYMBICORT 160/4.5MCG INHALER 6GM INH SCH ×2 (07:46→19:38)
[2022-12-06] MEDS: SODIUM CHLORIDE 0.9% INJ 10 ML SYR IV SCH (08:07)
[2022-12-06] MEDS: methylPREDNISolone 125MG 2ML VIAL IV SCH (08:08)
[2022-12-06] MEDS: POTASSIUM CHLORIDE 10MEQ SR TABLET PO SCH ×2 (08:08→21:32)
[2022-12-06] MEDS: CALCIUM CARBONATE 500 MG CHEW U/D PO SCH ×4 (08:08→21:32)
[2022-12-06] MEDS: INSULIN LISPRO (NovoLOG) PER UNIT SC SCH ×4 (08:08→21:00)
[2022-12-06] MEDS: EZETIMIBE 10MG TABLET (ZETIA) PO SCH (08:08)
[2022-12-06] MEDS: GABAPENTIN 300 MG CAP PO SCH ×3 (08:09→21:31)
[2022-12-06] MEDS: PANTOPRAZOLE 40MG TAB (PROTONIX) PO SCH (08:09)
[2022-12-06] MEDS: LACTOBACILLUS ACIDOPHILUS CAP (BACID) PO SCH ×2 (08:09→17:42)
[2022-12-06] MEDS: MAGNESIUM OXIDE 400MG TAB (MAG-OX) PO SCH ×3 (08:09→21:31)
[2022-12-06] MEDS ORDERED: KETOROLAC 30 MG/ML 1ML VIAL IV ONE (08:15)
[2022-12-06] MEDS: BABY POWDER 120GM TOP SCH ×2 (08:17→21:33)
[2022-12-06] MEDS ORDERED: FUROSEMIDE 40MG/4ML VIAL IV SCH (09:00)
[2022-12-06] MEDS: BUMETANIDE 1 MG TAB PO SCH (10:59)
[2022-12-06 14:00] VITALS: BP 109/66; TEMP 97.5; O2SAT 95
[2022-12-06 15:00] VITALS: O2SAT 98
[2022-12-06] MEDS: RIVAROXABAN 15MG TAB (XARELTO) PO SCH (17:41)
[2022-12-07] MEDS: IPRATROPIUM 0.5MG/ALBUTEROL 2.5MG INH SOL UD 3ML (DUONEB) NEB SCH ×4 (01:15→19:52)
[2022-12-07 05:40] VITALS: BP 116/65; TEMP 97.7; O2SAT 97
[2022-12-07] MEDS: LEVOTHYROXINE 50MCG TABLET (0.05MG) PO SCH (05:46)
[2022-12-07] MEDS: LevoFLOXacin 750 MG TABLET PO SCH (05:46)
[2022-12-07] MEDS: SODIUM CHLORIDE 0.9% INJ 10 ML SYR IV PRN (05:49)
[2022-12-07 06:10] LABS: HEMATOCRIT 27.3 % (36.0-47.0); HEMOGLOBIN 8.2 g/dl (12.0-15.5); MEAN CORPUSCULAR HEMOGLOBIN 26.5 pg (27.0-33.0); MEAN CORPUSCULAR VOLUME 88.3 fl (80.0-96.0); PLATELET COUNT, AUTOMATED 252 10^3/uL (150-450); RED BLOOD COUNT 3.09 10^6/uL (4.00-5.40); WHITE BLOOD COUNT 12.9 10^3/uL (4.0-10.0)
[2022-12-07 06:30] LABS: ALBUMIN 2.2 G/DL (3.2-5.2); ALKALINE PHOSPHATASE 69 U/L (46-116); ALT/SGPT < 9 U/L (7.0-40); AST/SGOT < 8 U/L (<34); BILIRUBIN,TOTAL 0.5 MG/DL (0.3-1.2); BLOOD UREA NITROGEN 34 MG/DL (9-23); CALCIUM LEVEL 10.4 MG/DL (8.3-10.6); CARBON DIOXIDE LEVEL 26 MMOL/L (20-31); CHLORIDE LEVEL 106 MMOL/L (98-107); CREATININE FOR GFR 1.22 MG/DL (0.55-1.30); GLUCOSE, FASTING 161 MG/DL (74-106); MAGNESIUM LEVEL 1.9 MG/DL (1.8-2.4); POTASSIUM SERUM 5.5 MMOL/L (3.5-5.1); SODIUM LEVEL 138 MMOL/L (136-145); TOTAL PROTEIN 5.7 G/DL (5.7-8.2)
[2022-12-07 06:51] LABS: ATYPICAL LYMPH 2 % (0-5); LYMPHOCYTES 3 % (16-44); MONOCYTES 7 % (0-5); NEUTROPHILS 78 % (28-66)
[2022-12-07 06:52] LABS: ANISOCYTOSIS 1+; MICROCYTOSIS 1+
[2022-12-07 06:53] LABS: POIKILOCYTOSIS 2+; POLYCHROMASIA 1+
[2022-12-07 06:54] LABS: HYPOCHROMASIA 1+; TARGET CELLS 1+
[2022-12-07 06:55] LABS: OVALOCYTES 1+; PLATELET ESTIMATE NORMAL (NORMAL)
[2022-12-07 07:00] VITALS: BP 116/66; TEMP 97.7; O2SAT 97
[2022-12-07] MEDS: SYMBICORT 160/4.5MCG INHALER 6GM INH SCH ×2 (07:30→19:51)
[2022-12-07] MEDS: BUMETANIDE 1 MG TAB PO SCH (08:59)
[2022-12-07] MEDS: CALCIUM CARBONATE 500 MG CHEW U/D PO SCH ×4 (08:59→21:15)
[2022-12-07] MEDS: LACTOBACILLUS ACIDOPHILUS CAP (BACID) PO SCH ×2 (09:00→17:49)
[2022-12-07] MEDS: POTASSIUM CHLORIDE 10MEQ SR TABLET PO SCH (09:00)
[2022-12-07] MEDS: EZETIMIBE 10MG TABLET (ZETIA) PO SCH (09:00)
[2022-12-07] MEDS: PANTOPRAZOLE 40MG TAB (PROTONIX) PO SCH (09:01)
[2022-12-07] MEDS: MAGNESIUM OXIDE 400MG TAB (MAG-OX) PO SCH ×3 (09:01→21:15)
[2022-12-07] MEDS: predniSONE 20 MG TAB PO SCH (09:01)
[2022-12-07] MEDS: GABAPENTIN 300 MG CAP PO SCH ×3 (09:01→21:15)
[2022-12-07] MEDS: INSULIN LISPRO (NovoLOG) PER UNIT SC SCH ×4 (09:03→21:00)
[2022-12-07] MEDS: SODIUM CHLORIDE 0.9% INJ 10 ML SYR IV SCH (09:04)
[2022-12-07] MEDS: BABY POWDER 120GM TOP SCH ×2 (09:05→21:16)
[2022-12-07 10:23] VITALS: O2SAT 97
[2022-12-07 14:30] VITALS: BP 115/66; TEMP 97.7; O2SAT 96
[2022-12-07] MEDS: RIVAROXABAN 15MG TAB (XARELTO) PO SCH (17:50)
[2022-12-07] MEDS ORDERED: PILL CUTTER 1 EACH XX PRN (18:10)
[2022-12-07] MEDS: traMADol 50 MG TAB PO PRN (21:27)
[2022-12-08] MEDS: IPRATROPIUM 0.5MG/ALBUTEROL 2.5MG INH SOL UD 3ML (DUONEB) NEB SCH ×4 (01:19→19:06)
[2022-12-08 05:40] VITALS: BP 121/66; TEMP 97.5; O2SAT 95
[2022-12-08] MEDS: LEVOTHYROXINE 50MCG TABLET (0.05MG) PO SCH (06:29)
[2022-12-08] MEDS: LevoFLOXacin 750 MG TABLET PO SCH (06:29)
[2022-12-08] MEDS: SYMBICORT 160/4.5MCG INHALER 6GM INH SCH ×2 (07:50→19:06)
[2022-12-08] MEDS: SODIUM CHLORIDE 0.9% INJ 10 ML SYR IV SCH (09:07)
[2022-12-08] MEDS: LACTOBACILLUS ACIDOPHILUS CAP (BACID) PO SCH ×2 (09:07→17:09)
[2022-12-08] MEDS: predniSONE 20 MG TAB PO SCH (09:07)
[2022-12-08] MEDS: INSULIN LISPRO (NovoLOG) PER UNIT SC SCH ×4 (09:07→20:32)
[2022-12-08] MEDS: PANTOPRAZOLE 40MG TAB (PROTONIX) PO SCH (09:08)
[2022-12-08] MEDS: BUMETANIDE 1 MG TAB PO SCH (09:08)
[2022-12-08] MEDS: EZETIMIBE 10MG TABLET (ZETIA) PO SCH (09:08)
[2022-12-08] MEDS: MAGNESIUM OXIDE 400MG TAB (MAG-OX) PO SCH ×3 (09:08→20:32)
[2022-12-08] MEDS: GABAPENTIN 300 MG CAP PO SCH ×3 (09:08→20:32)
[2022-12-08] MEDS: CALCIUM CARBONATE 500 MG CHEW U/D PO SCH ×4 (09:08→20:32)
[2022-12-08] MEDS: BABY POWDER 120GM TOP SCH ×2 (09:09→20:33)
[2022-12-08 09:50] LABS: HEMATOCRIT 29.8 % (36.0-47.0); HEMOGLOBIN 8.9 g/dl (12.0-15.5); MEAN CORPUSCULAR HEMOGLOBIN 26.5 pg (27.0-33.0); MEAN CORPUSCULAR HGB CONC 29.9 g/dl (32.0-36.5); MEAN CORPUSCULAR VOLUME 88.7 fl (80.0-96.0); PLATELET COUNT, AUTOMATED 259 10^3/uL (150-450); RED BLOOD COUNT 3.36 10^6/uL (4.00-5.40); WHITE BLOOD COUNT 13.3 10^3/uL (4.0-10.0)
[2022-12-08 10:15] LABS: LYMPHOCYTES 7 % (16-44); METAMYELOCYTES 4 % (0-0); MONOCYTES 5 % (0-5); MYELOCYTES 6 % (0-0); NEUTROPHILS 70 % (28-66)
[2022-12-08 10:18] LABS: PLATELET ESTIMATE NORMAL (NORMAL)
[2022-12-08 10:19] LABS: ANISOCYTOSIS 3+; HYPOCHROMASIA 1+; OVALOCYTES 1+; POLYCHROMASIA 1+; TEAR DROP CELLS 1+
[2022-12-08 10:20] LABS: PLATELET CLUMPS SMALL AMT
[2022-12-08 10:21] LABS: MICROCYTOSIS 1+
[2022-12-08 10:22] LABS: POIKILOCYTOSIS 1+
[2022-12-08 10:23] LABS: SPHEROCYTES 1+
[2022-12-08 10:26] VITALS: O2SAT 96
[2022-12-08 10:39] LABS: ALBUMIN 2.5 G/DL (3.2-5.2); BILIRUBIN,TOTAL 0.5 MG/DL (0.3-1.2); CALCIUM LEVEL 10.2 MG/DL (8.3-10.6); CREATININE FOR GFR 1.2 MG/DL (0.55-1.30); GLOMERULAR FILTRATION RATE 45.9 (>32); MAGNESIUM LEVEL 2.1 MG/DL (1.8-2.4); POTASSIUM SERUM 4.8 MMOL/L (3.5-5.1); TOTAL PROTEIN 5.7 G/DL (5.7-8.2)
[2022-12-08] MEDS: RIVAROXABAN 15MG TAB (XARELTO) PO SCH (17:10)
[2022-12-08] MEDS: traMADol 50 MG TAB PO PRN (19:45)
[2022-12-09] MEDS: IPRATROPIUM 0.5MG/ALBUTEROL 2.5MG INH SOL UD 3ML (DUONEB) NEB SCH ×4 (01:11→19:49)
[2022-12-09 06:00] VITALS: BP 154/68; TEMP 97.5; O2SAT 94
[2022-12-09 06:05] LABS: HEMATOCRIT 28.2 % (36.0-47.0); HEMOGLOBIN 8.3 g/dl (12.0-15.5); MEAN CORPUSCULAR HEMOGLOBIN 25.9 pg (27.0-33.0); MEAN CORPUSCULAR HGB CONC 29.4 g/dl (32.0-36.5); MEAN CORPUSCULAR VOLUME 87.9 fl (80.0-96.0); PLATELET COUNT, AUTOMATED 239 10^3/uL (150-450); RED BLOOD COUNT 3.21 10^6/uL (4.00-5.40); WHITE BLOOD COUNT 11.5 10^3/uL (4.0-10.0)
[2022-12-09] MEDS: LEVOTHYROXINE 50MCG TABLET (0.05MG) PO SCH (06:17)
[2022-12-09] MEDS: LevoFLOXacin 750 MG TABLET PO SCH (06:17)
[2022-12-09 06:22] LABS: ALBUMIN 2.4 G/DL (3.2-5.2); ALKALINE PHOSPHATASE 75 U/L (46-116); ALT/SGPT < 9 U/L (7.0-40); AST/SGOT < 8 U/L (<34); BILIRUBIN,TOTAL 0.4 MG/DL (0.3-1.2); BLOOD UREA NITROGEN 37 MG/DL (9-23); CALCIUM LEVEL 9.3 MG/DL (8.3-10.6); CARBON DIOXIDE LEVEL 31 MMOL/L (20-31); CHLORIDE LEVEL 103 MMOL/L (98-107); CREATININE FOR GFR 1.08 MG/DL (0.55-1.30); GLOMERULAR FILTRATION RATE 51.8 (>32); GLUCOSE, FASTING 140 MG/DL (74-106); MAGNESIUM LEVEL 1.9 MG/DL (1.8-2.4); POTASSIUM SERUM 4.8 MMOL/L (3.5-5.1); SODIUM LEVEL 139 MMOL/L (136-145); TOTAL PROTEIN 5.1 G/DL (5.7-8.2)
[2022-12-09 07:03] LABS: ANISOCYTOSIS 4+; HYPOCHROMASIA 1+; LYMPHOCYTES 5 % (16-44); METAMYELOCYTES 4 % (0-0); MONOCYTES 5 % (0-5); MYELOCYTES 15 % (0-0); NEUTROPHILS 68 % (28-66); PLATELET ESTIMATE NORMAL (NORMAL)
[2022-12-09] MEDS: SYMBICORT 160/4.5MCG INHALER 6GM INH SCH ×2 (07:35→19:50)
[2022-12-09] MEDS: EZETIMIBE 10MG TABLET (ZETIA) PO SCH (09:01)
[2022-12-09] MEDS: BUMETANIDE 1 MG TAB PO SCH (09:01)
[2022-12-09] MEDS: PANTOPRAZOLE 40MG TAB (PROTONIX) PO SCH (09:01)
[2022-12-09] MEDS: INSULIN LISPRO (NovoLOG) PER UNIT SC SCH ×4 (09:01→21:38)
[2022-12-09] MEDS: CALCIUM CARBONATE 500 MG CHEW U/D PO SCH ×4 (09:01→21:36)
[2022-12-09] MEDS: LACTOBACILLUS ACIDOPHILUS CAP (BACID) PO SCH ×2 (09:02→17:51)
[2022-12-09] MEDS: predniSONE 20 MG TAB PO SCH (09:02)
[2022-12-09] MEDS: GABAPENTIN 300 MG CAP PO SCH ×3 (09:02→21:37)
[2022-12-09] MEDS: MAGNESIUM OXIDE 400MG TAB (MAG-OX) PO SCH ×3 (09:03→21:37)
[2022-12-09] MEDS: SODIUM CHLORIDE 0.9% INJ 10 ML SYR IV SCH (09:04)
[2022-12-09] MEDS: BABY POWDER 120GM TOP SCH ×2 (09:04→21:39)
[2022-12-09] MEDS: ACETAMINOPHEN TAB 650MG DOSE (2X325MG) PO PRN (11:15)
[2022-12-09] MEDS: RIVAROXABAN 15MG TAB (XARELTO) PO SCH (17:51)
[2022-12-10] MEDS: IPRATROPIUM 0.5MG/ALBUTEROL 2.5MG INH SOL UD 3ML (DUONEB) NEB SCH ×4 (01:14→19:31)
[2022-12-10] MEDS: LevoFLOXacin 750 MG TABLET PO SCH (05:03)
[2022-12-10] MEDS: LEVOTHYROXINE 50MCG TABLET (0.05MG) PO SCH (05:03)
[2022-12-10 05:37] LABS: HEMATOCRIT 28.5 % (36.0-47.0); HEMOGLOBIN 8.6 g/dl (12.0-15.5); MEAN CORPUSCULAR HEMOGLOBIN 26.5 pg (27.0-33.0); MEAN CORPUSCULAR HGB CONC 30.2 g/dl (32.0-36.5); PLATELET COUNT, AUTOMATED 211 10^3/uL (150-450); RED BLOOD COUNT 3.24 10^6/uL (4.00-5.40); WHITE BLOOD COUNT 11.5 10^3/uL (4.0-10.0)
[2022-12-10 05:50] VITALS: BP_SYST 123; BP_SYST 140; BP_DIAS 43; BP_DIAS 50; TEMP 97.3; O2SAT 97
[2022-12-10 05:59] LABS: ALBUMIN 2.4 G/DL (3.2-5.2); ALKALINE PHOSPHATASE 77 U/L (46-116); ALT/SGPT 10 U/L (7.0-40); AST/SGOT < 8 U/L (<34); BILIRUBIN,TOTAL 0.4 MG/DL (0.3-1.2); BLOOD UREA NITROGEN 35 MG/DL (9-23); CALCIUM LEVEL 10.1 MG/DL (8.3-10.6); CARBON DIOXIDE LEVEL 32 MMOL/L (20-31); CHLORIDE LEVEL 100 MMOL/L (98-107); CREATININE FOR GFR 1.07 MG/DL (0.55-1.30); GLOMERULAR FILTRATION RATE 52.4 (>32); GLUCOSE, FASTING 149 MG/DL (74-106); MAGNESIUM LEVEL 2.1 MG/DL (1.8-2.4); SODIUM LEVEL 138 MMOL/L (136-145); TOTAL PROTEIN 5.2 G/DL (5.7-8.2)
[2022-12-10 06:46] LABS: LYMPHOCYTES 22 % (16-44); METAMYELOCYTES 5 % (0-0); MONOCYTES 7 % (0-5); MYELOCYTES 2 % (0-0); NEUTROPHILS 56 % (28-66)
[2022-12-10 06:47] LABS: HYPOCHROMASIA 2+; PLATELET ESTIMATE NORMAL (NORMAL)
[2022-12-10 06:48] LABS: ANISOCYTOSIS 1+; POLYCHROMASIA 1+
[2022-12-10] MEDS: SYMBICORT 160/4.5MCG INHALER 6GM INH SCH ×2 (07:39→19:31)
[2022-12-10] MEDS: CALCIUM CARBONATE 500 MG CHEW U/D PO SCH ×4 (08:34→21:09)
[2022-12-10] MEDS: predniSONE 20 MG TAB PO SCH (08:34)
[2022-12-10] MEDS: BUMETANIDE 1 MG TAB PO SCH (08:34)
[2022-12-10] MEDS: INSULIN LISPRO (NovoLOG) PER UNIT SC SCH ×4 (08:34→21:10)
[2022-12-10] MEDS: EZETIMIBE 10MG TABLET (ZETIA) PO SCH (08:35)
[2022-12-10] MEDS: MAGNESIUM OXIDE 400MG TAB (MAG-OX) PO SCH ×3 (08:35→21:09)
[2022-12-10] MEDS: BABY POWDER 120GM TOP SCH ×2 (08:35→21:10)
[2022-12-10] MEDS: PANTOPRAZOLE 40MG TAB (PROTONIX) PO SCH (08:35)
[2022-12-10] MEDS: LACTOBACILLUS ACIDOPHILUS CAP (BACID) PO SCH ×2 (08:35→17:00)
[2022-12-10] MEDS: GABAPENTIN 300 MG CAP PO SCH ×3 (08:35→21:09)
[2022-12-10] MEDS: ACETAMINOPHEN TAB 650MG DOSE (2X325MG) PO PRN (08:40)
[2022-12-10] MEDS: traMADol 50 MG TAB PO PRN (11:58)
[2022-12-10 16:43] LABS: APPEARANCE, URINE MANUAL TURBID (CLEAR); COLOR, URINE MANUAL RED (YELLOW); PROTEIN, URINE MANUAL 3+ mg/dL (NEGATIVE); SPECIFIC GRAVITY,URINE MANUAL 1.015 (1.002-1.035)
[2022-12-10 16:44] LABS: BILIRUBIN, URINE MANUAL OBSCURED (NEGATIVE); BLOOD URINE MANUAL POSITIVE (NEGATIVE); GLUCOSE, URINE (UA) MANUAL NEGATIVE (NEGATIVE); KETONE, URINE MANUAL OBSCURED mg/dL (NEGATIVE); LEUKOCYTE ESTERASE, URINE MAN POSITIVE (NEGATIVE); NITRITE, URINE MANUAL OBSCURED (NEGATIVE); UROBILINOGEN, URINE MANUAL OBSCURED mg/dl (NORMAL)
[2022-12-10 16:46] LABS: RBC, URINE TNTC /hpf (0-3); WBC, URINE TNTC /hpf (0-3)
[2022-12-10 16:47] LABS: SQUAMOUS EPITHELIAL CELL URINE SMALL AMOUNT /hpf (SMALL AMT)
[2022-12-10 16:49] LABS: BACTERIA, URINE LARGE AMOUNT; HYALINE CAST, URINE 0-1 /lpf (0-1); TRANSITIONAL EPI CELLS, URINE SMALL AMOUNT /hpf
[2022-12-10] MEDS: RIVAROXABAN 15MG TAB (XARELTO) PO SCH (17:00)
[2022-12-11] MEDS: IPRATROPIUM 0.5MG/ALBUTEROL 2.5MG INH SOL UD 3ML (DUONEB) NEB SCH ×4 (02:53→19:22)
[2022-12-11 05:45] VITALS: BP 150/75; TEMP 97.5; O2SAT 96
[2022-12-11] MEDS: LevoFLOXacin 750 MG TABLET PO SCH (05:48)
[2022-12-11] MEDS: LEVOTHYROXINE 50MCG TABLET (0.05MG) PO SCH (05:48)
[2022-12-11] MEDS: SYMBICORT 160/4.5MCG INHALER 6GM INH SCH ×2 (07:22→19:22)
[2022-12-11] MEDS: LACTOBACILLUS ACIDOPHILUS CAP (BACID) PO SCH ×2 (08:31→17:09)
[2022-12-11] MEDS: INSULIN LISPRO (NovoLOG) PER UNIT SC SCH ×4 (08:31→20:49)
[2022-12-11] MEDS: CALCIUM CARBONATE 500 MG CHEW U/D PO SCH ×4 (08:32→20:54)
[2022-12-11] MEDS: PANTOPRAZOLE 40MG TAB (PROTONIX) PO SCH (08:32)
[2022-12-11] MEDS: BUMETANIDE 1 MG TAB PO SCH (08:32)
[2022-12-11] MEDS: MAGNESIUM OXIDE 400MG TAB (MAG-OX) PO SCH ×3 (08:32→20:53)
[2022-12-11] MEDS: predniSONE 20 MG TAB PO SCH (08:32)
[2022-12-11] MEDS: GABAPENTIN 300 MG CAP PO SCH ×3 (08:32→20:53)
[2022-12-11] MEDS: EZETIMIBE 10MG TABLET (ZETIA) PO SCH (08:32)
[2022-12-11] MEDS: BABY POWDER 120GM TOP SCH ×2 (08:33→20:54)
[2022-12-11] MEDS: traMADol 50 MG TAB PO PRN (08:34)
[2022-12-11] MEDS: ACETAMINOPHEN TAB 650MG DOSE (2X325MG) PO PRN ×2 (13:14→20:54)
[2022-12-11] MEDS: RIVAROXABAN 15MG TAB (XARELTO) PO SCH (17:09)
[2022-12-11] MEDS: SODIUM CHLORIDE 0.9% NASAL GEL 15GM (AYR) PRN (22:11)
[2022-12-12] MEDS: IPRATROPIUM 0.5MG/ALBUTEROL 2.5MG INH SOL UD 3ML (DUONEB) NEB SCH ×4 (01:16→19:23)
[2022-12-12 03:16] VITALS: O2SAT 94
[2022-12-12 05:30] VITALS: BP 152/75; TEMP 97.5; O2SAT 98
[2022-12-12] MEDS: LEVOTHYROXINE 50MCG TABLET (0.05MG) PO SCH (05:45)
[2022-12-12] MEDS: ACETAMINOPHEN TAB 650MG DOSE (2X325MG) PO PRN ×3 (05:45→16:07)
[2022-12-12] MEDS: SYMBICORT 160/4.5MCG INHALER 6GM INH SCH ×2 (08:00→19:23)
[2022-12-12] MEDS: INSULIN LISPRO (NovoLOG) PER UNIT SC SCH ×4 (08:16→21:00)
[2022-12-12] MEDS: CALCIUM CARBONATE 500 MG CHEW U/D PO SCH ×4 (08:17→21:47)
[2022-12-12] MEDS: EZETIMIBE 10MG TABLET (ZETIA) PO SCH (08:17)
[2022-12-12] MEDS: predniSONE 20 MG TAB PO SCH (08:17)
[2022-12-12] MEDS: MAGNESIUM OXIDE 400MG TAB (MAG-OX) PO SCH ×3 (08:17→21:47)
[2022-12-12] MEDS: BUMETANIDE 1 MG TAB PO SCH (08:18)
[2022-12-12] MEDS: GABAPENTIN 300 MG CAP PO SCH ×3 (08:18→21:47)
[2022-12-12] MEDS: LACTOBACILLUS ACIDOPHILUS CAP (BACID) PO SCH ×2 (08:18→17:19)
[2022-12-12] MEDS: BABY POWDER 120GM TOP SCH ×2 (08:19→21:51)
[2022-12-12] MEDS: PANTOPRAZOLE 40MG TAB (PROTONIX) PO SCH (08:19)
[2022-12-12 09:00] VITALS: O2SAT 93
[2022-12-12] MEDS: NYSTATIN 500,000U/5ML SUSP UDC SS SCH ×3 (16:06→22:02)
[2022-12-12] MEDS: RIVAROXABAN 15MG TAB (XARELTO) PO SCH (17:19)
[2022-12-12] MEDS: MUPIROCIN 2% OINT 22 GM TUBE TOP SCH (21:47)
[2022-12-13] MEDS: IPRATROPIUM 0.5MG/ALBUTEROL 2.5MG INH SOL UD 3ML (DUONEB) NEB SCH ×4 (02:22→19:10)
[2022-12-13] MEDS: LEVOTHYROXINE 50MCG TABLET (0.05MG) PO SCH (05:26)
[2022-12-13 05:30] VITALS: BP 140/74; TEMP 97.5; O2SAT 96
[2022-12-13] MEDS: SYMBICORT 160/4.5MCG INHALER 6GM INH SCH ×2 (07:40→19:10)
[2022-12-13] MEDS: PANTOPRAZOLE 40MG TAB (PROTONIX) PO SCH (09:05)
[2022-12-13] MEDS: INSULIN LISPRO (NovoLOG) PER UNIT SC SCH ×4 (09:05→19:46)
[2022-12-13] MEDS: GABAPENTIN 300 MG CAP PO SCH ×3 (09:05→21:01)
[2022-12-13] MEDS: BUMETANIDE 1 MG TAB PO SCH (09:05)
[2022-12-13] MEDS: EZETIMIBE 10MG TABLET (ZETIA) PO SCH (09:05)
[2022-12-13] MEDS: CALCIUM CARBONATE 500 MG CHEW U/D PO SCH ×4 (09:05→21:01)
[2022-12-13] MEDS: MAGNESIUM OXIDE 400MG TAB (MAG-OX) PO SCH ×3 (09:05→21:01)
[2022-12-13] MEDS: LACTOBACILLUS ACIDOPHILUS CAP (BACID) PO SCH ×2 (09:06→17:11)
[2022-12-13] MEDS: BABY POWDER 120GM TOP SCH ×2 (09:07→21:37)
[2022-12-13] MEDS: MUPIROCIN 2% OINT 22 GM TUBE TOP SCH ×2 (09:07→21:02)
[2022-12-13] MEDS: predniSONE 20 MG TAB PO SCH (09:07)
[2022-12-13] MEDS: NYSTATIN 500,000U/5ML SUSP UDC SS SCH ×3 (09:09→21:01)
[2022-12-13] MEDS: RIVAROXABAN 15MG TAB (XARELTO) PO SCH (17:11)
[2022-12-13] MEDS: SODIUM CHLORIDE 0.9% NASAL GEL 15GM (AYR) PRN (21:02)
[2022-12-14 00:29] VITALS: O2SAT 82
[2022-12-14 01:49] VITALS: O2SAT 98
[2022-12-14 02:12] VITALS: O2SAT 95
[2022-12-14] MEDS: IPRATROPIUM 0.5MG/ALBUTEROL 2.5MG INH SOL UD 3ML (DUONEB) NEB SCH ×4 (02:45→19:16)
[2022-12-14] MEDS: LEVOTHYROXINE 50MCG TABLET (0.05MG) PO SCH (05:44)
[2022-12-14 06:00] VITALS: BP 150/71; TEMP 97.5; O2SAT 98
[2022-12-14 07:08] LABS: HEMOGLOBIN 8.3 g/dl (12.0-15.5); MEAN CORPUSCULAR HEMOGLOBIN 26.9 pg (27.0-33.0); MEAN CORPUSCULAR HGB CONC 30.7 g/dl (32.0-36.5); MEAN CORPUSCULAR VOLUME 87.7 fl (80.0-96.0); PLATELET COUNT, AUTOMATED 135 10^3/uL (150-450); RED BLOOD COUNT 3.08 10^6/uL (4.00-5.40); WHITE BLOOD COUNT 8.4 10^3/uL (4.0-10.0)
[2022-12-14 07:31] LABS: BLOOD UREA NITROGEN 25 MG/DL (9-23); CALCIUM LEVEL 8.2 MG/DL (8.3-10.6); CARBON DIOXIDE LEVEL 35 MMOL/L (20-31); CHLORIDE LEVEL 101 MMOL/L (98-107); CREATININE FOR GFR 0.84 MG/DL (0.55-1.30); GLOMERULAR FILTRATION RATE > 60.0 (>32); GLUCOSE, FASTING 118 MG/DL (74-106); MAGNESIUM LEVEL 1.5 MG/DL (1.8-2.4); POTASSIUM SERUM 4.2 MMOL/L (3.5-5.1); SODIUM LEVEL 141 MMOL/L (136-145)
[2022-12-14] MEDS: SYMBICORT 160/4.5MCG INHALER 6GM INH SCH ×2 (07:59→19:16)
[2022-12-14] MEDS: predniSONE 10MG TAB PO SCH (08:11)
[2022-12-14] MEDS: INSULIN LISPRO (NovoLOG) PER UNIT SC SCH ×4 (08:11→20:03)
[2022-12-14] MEDS: NYSTATIN 500,000U/5ML SUSP UDC SS SCH ×3 (08:11→20:11)
[2022-12-14] MEDS: BUMETANIDE 1 MG TAB PO SCH (08:12)
[2022-12-14] MEDS: CALCIUM CARBONATE 500 MG CHEW U/D PO SCH ×4 (08:12→20:11)
[2022-12-14] MEDS: GABAPENTIN 300 MG CAP PO SCH ×3 (08:12→20:11)
[2022-12-14] MEDS: MAGNESIUM OXIDE 400MG TAB (MAG-OX) PO SCH ×3 (08:12→20:11)
[2022-12-14] MEDS: PANTOPRAZOLE 40MG TAB (PROTONIX) PO SCH (08:12)
[2022-12-14] MEDS: LACTOBACILLUS ACIDOPHILUS CAP (BACID) PO SCH ×2 (08:12→17:08)
[2022-12-14] MEDS: EZETIMIBE 10MG TABLET (ZETIA) PO SCH (08:16)
[2022-12-14] MEDS: BABY POWDER 120GM TOP SCH ×2 (08:16→20:12)
[2022-12-14] MEDS: MUPIROCIN 2% OINT 22 GM TUBE TOP SCH ×2 (08:17→20:12)
[2022-12-14] MEDS: RIVAROXABAN 15MG TAB (XARELTO) PO SCH (17:00)
[2022-12-14] MEDS: CEPACOL LOZENGE PO PRN (21:22)
[2022-12-15] MEDS: IPRATROPIUM 0.5MG/ALBUTEROL 2.5MG INH SOL UD 3ML (DUONEB) NEB SCH ×4 (01:41→20:04)
[2022-12-15] MEDS: LEVOTHYROXINE 50MCG TABLET (0.05MG) PO SCH (05:39)
[2022-12-15] MEDS: CEPACOL LOZENGE PO PRN (05:46)
[2022-12-15] MEDS: ACETAMINOPHEN TAB 650MG DOSE (2X325MG) PO PRN ×2 (05:46→15:10)
[2022-12-15 05:50] VITALS: BP 153/71; TEMP 98.1; O2SAT 97
[2022-12-15] MEDS: SYMBICORT 160/4.5MCG INHALER 6GM INH SCH ×2 (07:48→20:04)
[2022-12-15] MEDS: INSULIN LISPRO (NovoLOG) PER UNIT SC SCH ×4 (08:12→21:00)
[2022-12-15] MEDS: MAGNESIUM OXIDE 400MG TAB (MAG-OX) PO SCH ×3 (08:13→21:23)
[2022-12-15] MEDS: predniSONE 10MG TAB PO SCH (08:14)
[2022-12-15] MEDS: LACTOBACILLUS ACIDOPHILUS CAP (BACID) PO SCH ×2 (08:14→17:44)
[2022-12-15] MEDS: GABAPENTIN 300 MG CAP PO SCH ×3 (08:14→21:24)
[2022-12-15] MEDS: CALCIUM CARBONATE 500 MG CHEW U/D PO SCH ×4 (08:14→21:23)
[2022-12-15] MEDS: BUMETANIDE 1 MG TAB PO SCH (08:14)
[2022-12-15] MEDS: EZETIMIBE 10MG TABLET (ZETIA) PO SCH (08:15)
[2022-12-15] MEDS: PANTOPRAZOLE 40MG TAB (PROTONIX) PO SCH (08:15)
[2022-12-15] MEDS: SODIUM CHLORIDE 0.9% NASAL GEL 15GM (AYR) PRN (08:16)
[2022-12-15] MEDS: MUPIROCIN 2% OINT 22 GM TUBE TOP SCH ×2 (08:16→21:24)
[2022-12-15] MEDS: BABY POWDER 120GM TOP SCH ×2 (08:16→21:25)
[2022-12-15] MEDS: NYSTATIN 500,000U/5ML SUSP UDC SS SCH ×3 (08:17→21:23)
[2022-12-15] MEDS: RIVAROXABAN 15MG TAB (XARELTO) PO SCH (17:44)
[2022-12-16] MEDS: IPRATROPIUM 0.5MG/ALBUTEROL 2.5MG INH SOL UD 3ML (DUONEB) NEB SCH ×3 (00:21→13:45)
[2022-12-16 04:33] VITALS: BP 148/57; TEMP 98.6; O2SAT 98
[2022-12-16] MEDS: LEVOTHYROXINE 50MCG TABLET (0.05MG) PO SCH (05:15)
[2022-12-16] MEDS: ACETAMINOPHEN TAB 650MG DOSE (2X325MG) PO PRN ×2 (05:15→09:13)
[2022-12-16 06:32] LABS: HEMATOCRIT 25.2 % (36.0-47.0); HEMOGLOBIN 7.6 g/dl (12.0-15.5); MEAN CORPUSCULAR HEMOGLOBIN 26.8 pg (27.0-33.0); MEAN CORPUSCULAR HGB CONC 30.2 g/dl (32.0-36.5); MEAN CORPUSCULAR VOLUME 88.7 fl (80.0-96.0); PLATELET COUNT, AUTOMATED 133 10^3/uL (150-450); RED BLOOD COUNT 2.84 10^6/uL (4.00-5.40); WHITE BLOOD COUNT 9.9 10^3/uL (4.0-10.0)
[2022-12-16 06:59] LABS: BLOOD UREA NITROGEN 20 MG/DL (9-23); CARBON DIOXIDE LEVEL 35 MMOL/L (20-31); CHLORIDE LEVEL 100 MMOL/L (98-107); GLOMERULAR FILTRATION RATE > 60.0 (>32); GLUCOSE, FASTING 101 MG/DL (74-106); MAGNESIUM LEVEL 1.4 MG/DL (1.8-2.4); POTASSIUM SERUM 3.6 MMOL/L (3.5-5.1); SODIUM LEVEL 141 MMOL/L (136-145)
[2022-12-16] MEDS: INSULIN LISPRO (NovoLOG) PER UNIT SC SCH ×4 (07:30→21:00)
[2022-12-16] MEDS: SYMBICORT 160/4.5MCG INHALER 6GM INH SCH ×2 (08:02→20:53)
[2022-12-16] MEDS: BUMETANIDE 1 MG TAB PO SCH (08:48)
[2022-12-16] MEDS: EZETIMIBE 10MG TABLET (ZETIA) PO SCH (08:48)
[2022-12-16] MEDS: NYSTATIN 500,000U/5ML SUSP UDC SS SCH ×3 (08:48→20:32)
[2022-12-16] MEDS: MAGNESIUM OXIDE 400MG TAB (MAG-OX) PO SCH ×3 (08:49→20:32)
[2022-12-16] MEDS: PANTOPRAZOLE 40MG TAB (PROTONIX) PO SCH (08:49)
[2022-12-16] MEDS: predniSONE 10MG TAB PO SCH (08:49)
[2022-12-16] MEDS: GABAPENTIN 300 MG CAP PO SCH ×3 (08:49→20:32)
[2022-12-16] MEDS: CALCIUM CARBONATE 500 MG CHEW U/D PO SCH ×4 (08:49→20:32)
[2022-12-16] MEDS: LACTOBACILLUS ACIDOPHILUS CAP (BACID) PO SCH ×2 (08:49→17:15)
[2022-12-16] MEDS: MAG SULF 1GM/100ML (MAG RUN) 1 GM in IV 1 EA IV SCH ×3 (08:49→12:32)
[2022-12-16] MEDS: BABY POWDER 120GM TOP SCH ×2 (08:50→20:33)
[2022-12-16] MEDS: MUPIROCIN 2% OINT 22 GM TUBE TOP SCH ×2 (08:50→20:34)
[2022-12-16] MEDS ORDERED: SODIUM CHLORIDE 0.9% INJ 10 ML SYR IV SCH (09:00)
[2022-12-16] MEDS ORDERED: SODIUM CHLORIDE 0.9% INJ 10 ML SYR IV PRN (09:15)
[2022-12-16 12:10] LABS: HEMATOCRIT 28.1 % (36.0-47.0); HEMOGLOBIN 8.7 g/dl (12.0-15.5)
[2022-12-16] MEDS: SODIUM CHLORIDE 0.9% NASAL GEL 15GM (AYR) PRN (20:33)
[2022-12-17] MEDS: ACETAMINOPHEN TAB 650MG DOSE (2X325MG) PO PRN ×2 (04:29→12:21)
[2022-12-17 04:40] VITALS: BP 104/54; TEMP 97.7; O2SAT 97
[2022-12-17] MEDS: LEVOTHYROXINE 50MCG TABLET (0.05MG) PO SCH (05:47)
[2022-12-17 05:57] LABS: HEMATOCRIT 25.1 % (36.0-47.0); HEMOGLOBIN 7.7 g/dl (12.0-15.5); LYMPH # 0.5 10^3/uL (1.5-5.0); LYMPH % 5.1 % (24.0-44.0); MEAN CORPUSCULAR HEMOGLOBIN 26.9 pg (27.0-33.0); MEAN CORPUSCULAR HGB CONC 30.7 g/dl (32.0-36.5); MEAN CORPUSCULAR VOLUME 87.8 fl (80.0-96.0); MONO # 0.7 10^3/uL (0.0-0.8); MONO % 7.3 % (2.0-8.0); NEUTROPHILS # 8.2 10^3/uL (1.5-8.5); NEUTROPHILS % 86.4 % (36.0-66.0); PLATELET COUNT, AUTOMATED 134 10^3/uL (150-450); RED BLOOD COUNT 2.86 10^6/uL (4.00-5.40); WHITE BLOOD COUNT 9.5 10^3/uL (4.0-10.0)
[2022-12-17 06:26] LABS: BLOOD UREA NITROGEN 19 MG/DL (9-23); CALCIUM LEVEL 8.3 MG/DL (8.3-10.6); CARBON DIOXIDE LEVEL 36 MMOL/L (20-31); CHLORIDE LEVEL 102 MMOL/L (98-107); CREATININE FOR GFR 0.68 MG/DL (0.55-1.30); GLOMERULAR FILTRATION RATE > 60.0 (>32); GLUCOSE, FASTING 114 MG/DL (74-106); POTASSIUM SERUM 3.8 MMOL/L (3.5-5.1); SODIUM LEVEL 142 MMOL/L (136-145)
[2022-12-17] MEDS: INSULIN LISPRO (NovoLOG) PER UNIT SC SCH ×4 (07:06→20:53)
[2022-12-17] MEDS: SYMBICORT 160/4.5MCG INHALER 6GM INH SCH ×2 (07:52→19:46)
[2022-12-17] MEDS: predniSONE 10MG TAB PO SCH (08:11)
[2022-12-17] MEDS: NYSTATIN 500,000U/5ML SUSP UDC SS SCH ×3 (08:11→20:58)
[2022-12-17] MEDS: EZETIMIBE 10MG TABLET (ZETIA) PO SCH (08:12)
[2022-12-17] MEDS: BUMETANIDE 1 MG TAB PO SCH (08:12)
[2022-12-17] MEDS: CALCIUM CARBONATE 500 MG CHEW U/D PO SCH ×4 (08:12→20:58)
[2022-12-17] MEDS: LACTOBACILLUS ACIDOPHILUS CAP (BACID) PO SCH ×2 (08:13→17:11)
[2022-12-17] MEDS: GABAPENTIN 300 MG CAP PO SCH ×3 (08:13→20:58)
[2022-12-17] MEDS: MUPIROCIN 2% OINT 22 GM TUBE TOP SCH ×2 (08:13→21:00)
[2022-12-17] MEDS: BABY POWDER 120GM TOP SCH ×2 (08:13→20:59)
[2022-12-17] MEDS: PANTOPRAZOLE 40MG TAB (PROTONIX) PO SCH (08:13)
[2022-12-17] MEDS: SODIUM CHLORIDE 0.9% NASAL GEL 15GM (AYR) PRN (08:13)
[2022-12-17] MEDS: MAGNESIUM OXIDE 400MG TAB (MAG-OX) PO SCH ×3 (08:13→20:58)
[2022-12-17 11:17] LABS: HEMATOCRIT 25.8 % (36.0-47.0); HEMOGLOBIN 7.8 g/dl (12.0-15.5)
[2022-12-17] MEDS: FERROUS SULFATE 325MG TAB PO SCH ×2 (12:23→20:58)
[2022-12-18] MEDS: ACETAMINOPHEN TAB 650MG DOSE (2X325MG) PO PRN ×2 (03:24→09:30)
[2022-12-18 05:30] VITALS: BP 131/61; TEMP 97.9; O2SAT 95
[2022-12-18] MEDS: LEVOTHYROXINE 50MCG TABLET (0.05MG) PO SCH (06:52)
[2022-12-18] MEDS: INSULIN LISPRO (NovoLOG) PER UNIT SC SCH ×4 (07:30→21:00)
[2022-12-18] MEDS: EZETIMIBE 10MG TABLET (ZETIA) PO SCH (09:29)
[2022-12-18] MEDS: BUMETANIDE 1 MG TAB PO SCH (09:29)
[2022-12-18] MEDS: NYSTATIN 500,000U/5ML SUSP UDC SS SCH (09:29)
[2022-12-18] MEDS: GABAPENTIN 300 MG CAP PO SCH ×3 (09:31→21:41)
[2022-12-18] MEDS: FERROUS SULFATE 325MG TAB PO SCH ×2 (09:31→21:41)
[2022-12-18] MEDS: predniSONE 10MG TAB PO SCH (09:31)
[2022-12-18] MEDS: PANTOPRAZOLE 40MG TAB (PROTONIX) PO SCH (09:31)
[2022-12-18] MEDS: CALCIUM CARBONATE 500 MG CHEW U/D PO SCH ×4 (09:31→21:40)
[2022-12-18] MEDS: LACTOBACILLUS ACIDOPHILUS CAP (BACID) PO SCH ×2 (09:31→17:45)
[2022-12-18] MEDS: BABY POWDER 120GM TOP SCH ×2 (09:32→21:41)
[2022-12-18] MEDS: MAGNESIUM OXIDE 400MG TAB (MAG-OX) PO SCH ×3 (09:32→21:41)
[2022-12-18] MEDS: MUPIROCIN 2% OINT 22 GM TUBE TOP SCH ×2 (09:33→21:42)
[2022-12-18] MEDS: SYMBICORT 160/4.5MCG INHALER 6GM INH SCH ×2 (09:47→20:07)
[2022-12-18] MEDS: CEPACOL LOZENGE PO PRN (10:53)
[2022-12-18] MEDS: traMADol 50 MG TAB PO PRN ×2 (15:44→21:41)
[2022-12-18] MEDS: SUCRALFATE SUSP 1GM/10ML UD PO SCH ×2 (17:45→21:40)
[2022-12-18] MEDS: valACYclovir HCL 500 MG TAB PO SCH (21:40)
[2022-12-18] MEDS: oxyBUTYnin 5 MG TAB PO SCH (21:41)
[2022-12-19 05:45] VITALS: BP 140/63; TEMP 98.2; O2SAT 95
[2022-12-19 05:59] LABS: BASO % 0.1 % (0.0-1.0); EOS % 0.1 % (0.0-3.0); HEMATOCRIT 25.9 % (36.0-47.0); HEMOGLOBIN 7.6 g/dl (12.0-15.5); LYMPH # 0.5 10^3/uL (1.5-5.0); LYMPH % 5.6 % (24.0-44.0); MEAN CORPUSCULAR HEMOGLOBIN 26.5 pg (27.0-33.0); MEAN CORPUSCULAR HGB CONC 29.3 g/dl (32.0-36.5); MEAN CORPUSCULAR VOLUME 90.2 fl (80.0-96.0); MONO # 0.6 10^3/uL (0.0-0.8); MONO % 7.1 % (2.0-8.0); NEUTROPHILS # 7.8 10^3/uL (1.5-8.5); NEUTROPHILS % 86.4 % (36.0-66.0); PLATELET COUNT, AUTOMATED 161 10^3/uL (150-450); RED BLOOD COUNT 2.87 10^6/uL (4.00-5.40)
[2022-12-19 06:29] LABS: BLOOD UREA NITROGEN 16 MG/DL (9-23); CALCIUM LEVEL 8.8 MG/DL (8.3-10.6); CARBON DIOXIDE LEVEL 34 MMOL/L (20-31); CHLORIDE LEVEL 100 MMOL/L (98-107); CREATININE FOR GFR 0.72 MG/DL (0.55-1.30); GLOMERULAR FILTRATION RATE > 60.0 (>32); GLUCOSE, FASTING 95 MG/DL (74-106); MAGNESIUM LEVEL 1.6 MG/DL (1.8-2.4); POTASSIUM SERUM 3.7 MMOL/L (3.5-5.1); SODIUM LEVEL 141 MMOL/L (136-145)
[2022-12-19] MEDS: LEVOTHYROXINE 50MCG TABLET (0.05MG) PO SCH (06:35)
[2022-12-19] MEDS: INSULIN LISPRO (NovoLOG) PER UNIT SC SCH ×4 (07:30→21:00)
[2022-12-19] MEDS: SYMBICORT 160/4.5MCG INHALER 6GM INH SCH ×2 (07:34→20:00)
[2022-12-19] MEDS: SUCRALFATE SUSP 1GM/10ML UD PO SCH ×4 (08:50→20:30)
[2022-12-19] MEDS: oxyBUTYnin 5 MG TAB PO SCH ×3 (08:51→20:30)
[2022-12-19] MEDS: BABY POWDER 120GM TOP SCH ×2 (08:51→20:32)
[2022-12-19] MEDS: FERROUS SULFATE 325MG TAB PO SCH ×2 (08:52→20:30)
[2022-12-19] MEDS: GABAPENTIN 300 MG CAP PO SCH ×3 (08:52→20:30)
[2022-12-19] MEDS: predniSONE 10MG TAB PO SCH (08:52)
[2022-12-19] MEDS: BUMETANIDE 1 MG TAB PO SCH (08:52)
[2022-12-19] MEDS: EZETIMIBE 10MG TABLET (ZETIA) PO SCH (08:53)
[2022-12-19] MEDS: MAGNESIUM OXIDE 400MG TAB (MAG-OX) PO SCH ×3 (08:53→20:31)
[2022-12-19] MEDS: PANTOPRAZOLE 40MG TAB (PROTONIX) PO SCH (08:53)
[2022-12-19] MEDS: CALCIUM CARBONATE 500 MG CHEW U/D PO SCH ×4 (08:53→20:30)
[2022-12-19] MEDS: SODIUM CHLORIDE 0.9% NASAL GEL 15GM (AYR) PRN (08:53)
[2022-12-19] MEDS: LACTOBACILLUS ACIDOPHILUS CAP (BACID) PO SCH ×2 (08:53→16:55)
[2022-12-19] MEDS: valACYclovir HCL 500 MG TAB PO SCH ×3 (08:53→20:30)
[2022-12-19] MEDS: MUPIROCIN 2% OINT 22 GM TUBE TOP SCH ×2 (08:57→16:58)
[2022-12-19] MEDS: MAG SULF 1GM/100ML (MAG RUN) 1 GM in IV 1 EA IV SCH ×2 (10:07→11:35)
[2022-12-19] MEDS: ACETAMINOPHEN TAB 650MG DOSE (2X325MG) PO PRN ×2 (13:53→20:43)
[2022-12-19] MEDS: CEPACOL LOZENGE PO PRN ×3 (17:46→23:57)
[2022-12-20] MEDS: traMADol 50 MG TAB PO PRN ×2 (03:36→19:28)
[2022-12-20 05:06] VITALS: BP 145/59; TEMP 98.8; O2SAT 96
[2022-12-20] MEDS: LEVOTHYROXINE 50MCG TABLET (0.05MG) PO SCH (05:58)
[2022-12-20] MEDS: SUCRALFATE SUSP 1GM/10ML UD PO SCH ×4 (07:30→20:18)
[2022-12-20] MEDS: INSULIN LISPRO (NovoLOG) PER UNIT SC SCH ×4 (07:30→21:00)
[2022-12-20] MEDS: SYMBICORT 160/4.5MCG INHALER 6GM INH SCH ×2 (07:42→20:00)
[2022-12-20] MEDS: valACYclovir HCL 500 MG TAB PO SCH ×3 (08:34→20:19)
[2022-12-20] MEDS: predniSONE 10MG TAB PO SCH (08:34)
[2022-12-20] MEDS: oxyBUTYnin 5 MG TAB PO SCH ×3 (08:34→20:18)
[2022-12-20] MEDS: MAGNESIUM OXIDE 400MG TAB (MAG-OX) PO SCH ×3 (08:35→20:18)
[2022-12-20] MEDS: BUMETANIDE 1 MG TAB PO SCH (08:35)
[2022-12-20] MEDS: LACTOBACILLUS ACIDOPHILUS CAP (BACID) PO SCH ×2 (08:35→18:13)
[2022-12-20] MEDS: FERROUS SULFATE 325MG TAB PO SCH ×2 (08:35→20:19)
[2022-12-20] MEDS: CALCIUM CARBONATE 500 MG CHEW U/D PO SCH ×4 (08:35→20:18)
[2022-12-20] MEDS: GABAPENTIN 300 MG CAP PO SCH ×3 (08:35→20:19)
[2022-12-20] MEDS: PANTOPRAZOLE 40MG TAB (PROTONIX) PO SCH (08:38)
[2022-12-20] MEDS: BABY POWDER 120GM TOP SCH (08:40)
[2022-12-20] MEDS: EZETIMIBE 10MG TABLET (ZETIA) PO SCH (08:41)
[2022-12-20] MEDS: ACETAMINOPHEN TAB 650MG DOSE (2X325MG) PO PRN (10:46)
[2022-12-21] VITALS (11 sets, daily range): BP systolic 108–156; BP diastolic 47–66; TEMP 97.5–99.1; O2SAT 92–97
[2022-12-21] MEDS: BABY POWDER 120GM TOP SCH ×3 (02:21→20:35)
[2022-12-21] MEDS: LEVOTHYROXINE 50MCG TABLET (0.05MG) PO SCH (05:58)
[2022-12-21 06:30] LABS: BASO % 0.1 % (0.0-1.0); EOS % 0.1 % (0.0-3.0); HEMOGLOBIN 7.5 g/dl (12.0-15.5); LYMPH # 0.4 10^3/uL (1.5-5.0); LYMPH % 4.3 % (24.0-44.0); MEAN CORPUSCULAR HEMOGLOBIN 26.8 pg (27.0-33.0); MEAN CORPUSCULAR VOLUME 89.3 fl (80.0-96.0); MONO # 0.6 10^3/uL (0.0-0.8); MONO % 5.9 % (2.0-8.0); NEUTROPHILS # 8.7 10^3/uL (1.5-8.5); NEUTROPHILS % 88.9 % (36.0-66.0); PLATELET COUNT, AUTOMATED 190 10^3/uL (150-450); WHITE BLOOD COUNT 9.8 10^3/uL (4.0-10.0)
[2022-12-21 07:08] LABS: BLOOD UREA NITROGEN 13 MG/DL (9-23); CARBON DIOXIDE LEVEL 34 MMOL/L (20-31); CHLORIDE LEVEL 99 MMOL/L (98-107); CREATININE FOR GFR 0.71 MG/DL (0.55-1.30); GLOMERULAR FILTRATION RATE > 60.0 (>32); GLUCOSE, FASTING 92 MG/DL (74-106); MAGNESIUM LEVEL 1.7 MG/DL (1.8-2.4); POTASSIUM SERUM 4.1 MMOL/L (3.5-5.1); SODIUM LEVEL 138 MMOL/L (136-145)
[2022-12-21] MEDS: INSULIN LISPRO (NovoLOG) PER UNIT SC SCH ×4 (07:30→21:00)
[2022-12-21] MEDS: SYMBICORT 160/4.5MCG INHALER 6GM INH SCH ×2 (08:20→19:54)
[2022-12-21] MEDS: MAG SULF 1GM/100ML (MAG RUN) 1 GM in IV 1 EA IV SCH ×2 (09:05→10:46)
[2022-12-21] MEDS: CALCIUM CARBONATE 500 MG CHEW U/D PO SCH ×4 (09:29→20:33)
[2022-12-21] MEDS: SUCRALFATE SUSP 1GM/10ML UD PO SCH ×4 (09:29→20:33)
[2022-12-21] MEDS: EZETIMIBE 10MG TABLET (ZETIA) PO SCH (09:29)
[2022-12-21] MEDS: GABAPENTIN 300 MG CAP PO SCH ×3 (09:30→20:33)
[2022-12-21] MEDS: PANTOPRAZOLE 40MG TAB (PROTONIX) PO SCH (09:30)
[2022-12-21] MEDS: LACTOBACILLUS ACIDOPHILUS CAP (BACID) PO SCH ×2 (09:30→17:03)
[2022-12-21] MEDS: BUMETANIDE 1 MG TAB PO SCH (09:30)
[2022-12-21] MEDS: MAGNESIUM OXIDE 400MG TAB (MAG-OX) PO SCH ×3 (09:31→20:34)
[2022-12-21] MEDS: oxyBUTYnin 5 MG TAB PO SCH ×3 (09:31→20:33)
[2022-12-21] MEDS: valACYclovir HCL 500 MG TAB PO SCH ×3 (09:31→20:33)
[2022-12-21] MEDS: FERROUS SULFATE 325MG TAB PO SCH ×2 (09:31→20:33)
[2022-12-21] MEDS: ACETAMINOPHEN TAB 650MG DOSE (2X325MG) PO PRN (09:49)
[2022-12-21] MEDS ORDERED: MAG SULF 1GM/100ML (MAG RUN) 1 GM in IV 1 EA IV ONE (13:00)
[2022-12-21] MEDS: traMADol 50 MG TAB PO PRN (17:04)
[2022-12-21] MEDS: CEPACOL LOZENGE PO PRN (17:41)
[2022-12-21] MEDS ORDERED: SODIUM CHLORIDE 0.9% INJ 10 ML SYR IV PRN (18:30)
[2022-12-21] MEDS: guaiFENesin ER 600 MG TAB PO SCH (20:33)
[2022-12-22] MEDS: LEVOTHYROXINE 50MCG TABLET (0.05MG) PO SCH (05:50)
[2022-12-22 06:00] VITALS: BP 159/69; TEMP 98.1; O2SAT 96
[2022-12-22] MEDS: INSULIN LISPRO (NovoLOG) PER UNIT SC SCH ×4 (07:30→21:00)
[2022-12-22 07:39] LABS: HEMATOCRIT 30.6 % (36.0-47.0)
[2022-12-22 07:42] LABS: HEMOGLOBIN 9.6 g/dl (12.0-15.5)
[2022-12-22] MEDS: SYMBICORT 160/4.5MCG INHALER 6GM INH SCH ×2 (07:45→19:36)
[2022-12-22] MEDS: FERROUS SULFATE 325MG TAB PO SCH ×3 (09:00→20:59)
[2022-12-22] MEDS: PANTOPRAZOLE 40MG TAB (PROTONIX) PO SCH (09:47)
[2022-12-22] MEDS: guaiFENesin ER 600 MG TAB PO SCH ×2 (09:47→20:59)
[2022-12-22] MEDS: LACTOBACILLUS ACIDOPHILUS CAP (BACID) PO SCH ×2 (09:47→17:02)
[2022-12-22] MEDS: EZETIMIBE 10MG TABLET (ZETIA) PO SCH (09:47)
[2022-12-22] MEDS: valACYclovir HCL 500 MG TAB PO SCH ×3 (09:47→21:00)
[2022-12-22] MEDS: BUMETANIDE 1 MG TAB PO SCH (09:47)
[2022-12-22] MEDS: CALCIUM CARBONATE 500 MG CHEW U/D PO SCH ×4 (09:47→21:01)
[2022-12-22] MEDS: GABAPENTIN 300 MG CAP PO SCH ×3 (09:47→21:00)
[2022-12-22] MEDS: BABY POWDER 120GM TOP SCH ×2 (09:48→21:00)
[2022-12-22] MEDS: oxyBUTYnin 5 MG TAB PO SCH ×3 (09:48→21:00)
[2022-12-22] MEDS: MAGNESIUM OXIDE 400MG TAB (MAG-OX) PO SCH ×3 (09:48→21:00)
[2022-12-22] MEDS: SUCRALFATE SUSP 1GM/10ML UD PO SCH ×4 (09:49→21:01)
[2022-12-22] MEDS: ACETAMINOPHEN TAB 650MG DOSE (2X325MG) PO PRN (12:05)
[2022-12-23] MEDS: CEPACOL LOZENGE PO PRN ×3 (00:08→13:33)
[2022-12-23 05:20] VITALS: BP 151/69; TEMP 99.7; O2SAT 99
[2022-12-23] MEDS: LEVOTHYROXINE 50MCG TABLET (0.05MG) PO SCH (06:06)
[2022-12-23 06:21] LABS: BASO % 0.4 % (0.0-1.0); EOS % 0.2 % (0.0-3.0); HEMATOCRIT 29.9 % (36.0-47.0); HEMOGLOBIN 9.2 g/dl (12.0-15.5); LYMPH # 0.3 10^3/uL (1.5-5.0); LYMPH % 5.2 % (24.0-44.0); MEAN CORPUSCULAR HGB CONC 30.8 g/dl (32.0-36.5); MEAN CORPUSCULAR VOLUME 87.7 fl (80.0-96.0); MONO # 0.5 10^3/uL (0.0-0.8); NEUTROPHILS # 4.8 10^3/uL (1.5-8.5); NEUTROPHILS % 85.3 % (36.0-66.0); PLATELET COUNT, AUTOMATED 158 10^3/uL (150-450); RED BLOOD COUNT 3.41 10^6/uL (4.00-5.40); WHITE BLOOD COUNT 5.6 10^3/uL (4.0-10.0)
[2022-12-23 06:51] LABS: BLOOD UREA NITROGEN 14 MG/DL (9-23); CALCIUM LEVEL 7.6 MG/DL (8.3-10.6); CARBON DIOXIDE LEVEL 29 MMOL/L (20-31); CHLORIDE LEVEL 98 MMOL/L (98-107); GLOMERULAR FILTRATION RATE > 60.0 (>32); GLUCOSE, FASTING 90 MG/DL (74-106); MAGNESIUM LEVEL 1.7 MG/DL (1.8-2.4); POTASSIUM SERUM 4.1 MMOL/L (3.5-5.1); SODIUM LEVEL 136 MMOL/L (136-145)
[2022-12-23] MEDS: INSULIN LISPRO (NovoLOG) PER UNIT SC SCH ×4 (07:30→21:00)
[2022-12-23] MEDS ORDERED: MAG SULF 1GM/100ML (MAG RUN) 1 GM in IV 1 EA IV ONE (08:00)
[2022-12-23] MEDS: SYMBICORT 160/4.5MCG INHALER 6GM INH SCH ×2 (08:08→19:57)
[2022-12-23] MEDS: LACTOBACILLUS ACIDOPHILUS CAP (BACID) PO SCH ×2 (09:40→17:51)
[2022-12-23] MEDS: valACYclovir HCL 500 MG TAB PO SCH ×4 (09:40→21:09)
[2022-12-23] MEDS: FERROUS SULFATE 325MG TAB PO SCH ×2 (09:40→21:09)
[2022-12-23] MEDS: EZETIMIBE 10MG TABLET (ZETIA) PO SCH (09:40)
[2022-12-23] MEDS: MAGNESIUM OXIDE 400MG TAB (MAG-OX) PO SCH ×3 (09:40→21:09)
[2022-12-23] MEDS: SUCRALFATE SUSP 1GM/10ML UD PO SCH ×4 (09:40→21:08)
[2022-12-23] MEDS: guaiFENesin ER 600 MG TAB PO SCH ×2 (09:41→21:09)
[2022-12-23] MEDS: BUMETANIDE 1 MG TAB PO SCH (09:41)
[2022-12-23] MEDS: GABAPENTIN 300 MG CAP PO SCH ×4 (09:41→21:09)
[2022-12-23] MEDS: PANTOPRAZOLE 40MG TAB (PROTONIX) PO SCH (09:41)
[2022-12-23] MEDS: CALCIUM CARBONATE 500 MG CHEW U/D PO SCH ×4 (09:41→21:08)
[2022-12-23] MEDS: oxyBUTYnin 5 MG TAB PO SCH ×3 (09:41→21:09)
[2022-12-23] MEDS: BABY POWDER 120GM TOP SCH ×2 (09:42→21:21)
[2022-12-23 14:00] VITALS: TEMP 99.5
[2022-12-23] MEDS: ACETAMINOPHEN TAB 650MG DOSE (2X325MG) PO PRN (14:58)
[2022-12-23 16:00] VITALS: TEMP 99.5
[2022-12-23] MEDS ORDERED: ACETAMINOPHEN 1000MG 100ML IV BAG IV ONE (16:00)
[2022-12-23] MEDS ORDERED: ONDANSETRON 4MG 2ML VIAL IV ONE (16:00)
[2022-12-24] MEDS: traMADol 50 MG TAB PO PRN ×2 (02:36→09:48)
[2022-12-24 05:51] LABS: HEMOGLOBIN 9.1 g/dl (12.0-15.5); MEAN CORPUSCULAR HEMOGLOBIN 27.6 pg (27.0-33.0); MEAN CORPUSCULAR HGB CONC 31.4 g/dl (32.0-36.5); MEAN CORPUSCULAR VOLUME 87.9 fl (80.0-96.0); PLATELET COUNT, AUTOMATED 159 10^3/uL (150-450); WHITE BLOOD COUNT 4.6 10^3/uL (4.0-10.0)
[2022-12-24 06:00] VITALS: BP 155/54; TEMP 98.1; O2SAT 94
[2022-12-24] MEDS: LEVOTHYROXINE 50MCG TABLET (0.05MG) PO SCH (06:20)
[2022-12-24 06:24] LABS: BLOOD UREA NITROGEN 13 MG/DL (9-23); CALCIUM LEVEL 7.7 MG/DL (8.3-10.6); CARBON DIOXIDE LEVEL 28 MMOL/L (20-31); CHLORIDE LEVEL 99 MMOL/L (98-107); CREATININE FOR GFR 0.72 MG/DL (0.55-1.30); GLOMERULAR FILTRATION RATE > 60.0 (>32); GLUCOSE, FASTING 91 MG/DL (74-106); MAGNESIUM LEVEL 1.8 MG/DL (1.8-2.4); SODIUM LEVEL 137 MMOL/L (136-145)
[2022-12-24 06:49] LABS: ANISOCYTOSIS 3+; HYPOCHROMASIA 1+; LYMPHOCYTES 12 % (16-44); MONOCYTES 6 % (0-5); NEUTROPHILS 82 % (28-66); PLATELET ESTIMATE NORMAL (NORMAL)
[2022-12-24] MEDS: INSULIN LISPRO (NovoLOG) PER UNIT SC SCH ×4 (07:30→20:58)
[2022-12-24] MEDS: SYMBICORT 160/4.5MCG INHALER 6GM INH SCH ×2 (08:10→20:04)
[2022-12-24] MEDS: LACTOBACILLUS ACIDOPHILUS CAP (BACID) PO SCH ×2 (08:12→17:17)
[2022-12-24] MEDS: SUCRALFATE SUSP 1GM/10ML UD PO SCH ×4 (08:12→21:01)
[2022-12-24] MEDS: ACETAMINOPHEN TAB 650MG DOSE (2X325MG) PO PRN ×2 (09:49→21:02)
[2022-12-24] MEDS: MAGNESIUM OXIDE 400MG TAB (MAG-OX) PO SCH ×3 (09:49→21:00)
[2022-12-24] MEDS: GABAPENTIN 300 MG CAP PO SCH ×3 (09:49→21:00)
[2022-12-24] MEDS: CALCIUM CARBONATE 500 MG CHEW U/D PO SCH ×4 (09:49→21:01)
[2022-12-24] MEDS: EZETIMIBE 10MG TABLET (ZETIA) PO SCH (09:49)
[2022-12-24] MEDS: PANTOPRAZOLE 40MG TAB (PROTONIX) PO SCH (09:49)
[2022-12-24] MEDS: BABY POWDER 120GM TOP SCH ×2 (09:49→21:02)
[2022-12-24] MEDS: valACYclovir HCL 500 MG TAB PO SCH ×3 (09:50→21:01)
[2022-12-24] MEDS: BUMETANIDE 1 MG TAB PO SCH (09:50)
[2022-12-24] MEDS: guaiFENesin ER 600 MG TAB PO SCH ×2 (09:50→21:00)
[2022-12-24] MEDS: oxyBUTYnin 5 MG TAB PO SCH ×3 (09:50→21:00)
[2022-12-24] MEDS: FERROUS SULFATE 325MG TAB PO SCH ×2 (09:50→21:00)
[2022-12-24] MEDS: amLODIPine 5 MG TAB PO SCH (09:51)
[2022-12-24] MEDS ORDERED: oxyCODONE 5MG TAB PO ONE (13:45)
[2022-12-24] MEDS ORDERED: PERCOCET 5MG/325MG TAB PO PRN ×2 (14:20)
[2022-12-25] MEDS: LEVOTHYROXINE 50MCG TABLET (0.05MG) PO SCH (05:10)
[2022-12-25 06:00] VITALS: BP 149/53; TEMP 98.1; O2SAT 93
[2022-12-25] MEDS: INSULIN LISPRO (NovoLOG) PER UNIT SC SCH ×2 (07:30→11:43)
[2022-12-25] MEDS: SYMBICORT 160/4.5MCG INHALER 6GM INH SCH (08:39)
[2022-12-25] MEDS ORDERED: AMLO1TAB24 PO (08:59)
[2022-12-25] MEDS ORDERED: FERR1TAB8 PO (08:59)
[2022-12-25] MEDS ORDERED: SUCR1ORA PO (08:59)
[2022-12-25] MEDS ORDERED: RISATAB3 PO (08:59)
[2022-12-25] MEDS ORDERED: PERCOCET PO (08:59)
[2022-12-25] MEDS ORDERED: VALA500T5 PO (08:59)
[2022-12-25] MEDS: FERROUS SULFATE 325MG TAB PO SCH (09:00)
[2022-12-25] MEDS: CALCIUM CARBONATE 500 MG CHEW U/D PO SCH ×2 (09:40→11:43)
[2022-12-25] MEDS: guaiFENesin ER 600 MG TAB PO SCH (09:40)
[2022-12-25 09:41] VITALS: BP 149/53
[2022-12-25] MEDS: MAGNESIUM OXIDE 400MG TAB (MAG-OX) PO SCH (09:41)
[2022-12-25] MEDS: LACTOBACILLUS ACIDOPHILUS CAP (BACID) PO SCH (09:41)
[2022-12-25] MEDS: amLODIPine 5 MG TAB PO SCH (09:41)
[2022-12-25] MEDS: oxyBUTYnin 5 MG TAB PO SCH (09:41)
[2022-12-25] MEDS: valACYclovir HCL 500 MG TAB PO SCH (09:41)
[2022-12-25] MEDS: PANTOPRAZOLE 40MG TAB (PROTONIX) PO SCH (09:41)
[2022-12-25] MEDS: BUMETANIDE 1 MG TAB PO SCH (09:42)
[2022-12-25] MEDS: GABAPENTIN 300 MG CAP PO SCH (09:42)
[2022-12-25] MEDS: SUCRALFATE SUSP 1GM/10ML UD PO SCH ×2 (09:43→11:43)
[2022-12-25] MEDS: BABY POWDER 120GM TOP SCH (10:03)
[2022-12-25] MEDS: EZETIMIBE 10MG TABLET (ZETIA) PO SCH (10:03)
== END 2022-12-25 12:12 | DRG 871 ==
LOC: M ED 16:15 → M ED INP 19:07 → EEVIPCON 19:07 → M PCU 21:45 → M MSPAV 12-04 15:19
PROVIDERS: ADMIT Internal Medicine; ATTEND Internal Medicine
DX: A41.9 Sepsis, unspecified organism (principal); J18.9 Pneumonia, unspecified organism; I50.33 Acute on chronic diastolic (congestive) heart failure; D61.810 Antineoplastic chemotherapy induced pancytopenia; C19 Malignant neoplasm of rectosigmoid junction; E87.1 Hypo-osmolality and hyponatremia; C79.89 Secondary malignant neoplasm of other specified sites; J45.901 Unspecified asthma with (acute) exacerbation; D84.9 Immunodeficiency, unspecified; Z68.42 Body mass index [BMI] 45.0-49.9, adult; C79.82 Secondary malignant neoplasm of genital organs; D70.9 Neutropenia, unspecified; I48.91 Unspecified atrial fibrillation; D64.9 Anemia, unspecified; E78.5 Hyperlipidemia, unspecified; E03.9 Hypothyroidism, unspecified; E83.42 Hypomagnesemia; E87.6 Hypokalemia; K21.9 Gastro-esophageal reflux disease without esophagitis; I25.10 Atherosclerotic heart disease of native coronary artery without angina pectoris; F32.A Depression, unspecified; E66.01 Morbid (severe) obesity due to excess calories; I11.0 Hypertensive heart disease with heart failure; E11.9 Type 2 diabetes mellitus without complications; Z98.41 Cataract extraction status, right eye; Z98.42 Cataract extraction status, left eye; Z95.2 Presence of prosthetic heart valve; Z88.0 Allergy status to penicillin; Z88.2 Allergy status to sulfonamides; Z88.5 Allergy status to narcotic agent; Z79.899 Other long term (current) drug therapy; K44.9 Diaphragmatic hernia without obstruction or gangrene; R91.1 Solitary pulmonary nodule; M19.90 Unspecified osteoarthritis, unspecified site; Z96.653 Presence of artificial knee joint, bilateral

== ENCOUNTER 2022-12-24 09:15 | Outpatient (RCR) | payer MEDICARE ==
[2022-12-25] MEDS ORDERED: PERCOCET PO (08:59)
[2022-12-25] MEDS ORDERED: AMLO1TAB24 PO (08:59)
[2022-12-25] MEDS ORDERED: FERR1TAB8 PO (08:59)
[2022-12-25] MEDS ORDERED: SUCR1ORA PO (08:59)
[2022-12-25] MEDS ORDERED: VALA500T5 PO (08:59)
[2022-12-25] MEDS ORDERED: RISATAB3 PO (08:59)
[2023-01-01] MEDS ORDERED: LEVO1TAB40 PO (11:07)
[2023-01-06] MEDS ORDERED: BUME1TAB3 PO (10:43)
[2023-01-06] MEDS ORDERED: FLUT1BLS5 INH (10:43)
[2023-01-06] MEDS ORDERED: MUCI600T31 PO (10:43)
[2023-01-06] MEDS ORDERED: SUPECAP7 PO (10:43)
[2023-01-07] MEDS ORDERED: PANT-23 PO (02:30)
[2023-01-07] MEDS ORDERED: SUCR1TAB56 PO (02:30)
[2023-01-07] MEDS ORDERED: MAGN400T33 PO (02:30)
[2023-01-07] MEDS ORDERED: AMLO1TAB24 PO (02:30)
[2023-01-07] MEDS ORDERED: ACID100C PO (02:30)
[2023-01-07] MEDS ORDERED: FERR1TAB8 PO (02:30)
[2023-01-07] MEDS ORDERED: TUMS500C PO (02:30)
[2023-01-07] MEDS ORDERED: GUAI600T54 PO (02:30)
[2023-01-07] MEDS ORDERED: AQUAOIN12 TOP ×2 (02:30→02:36)
[2023-01-07] MEDS ORDERED: BUME1TAB3 PO (02:30)
[2023-01-07] MEDS ORDERED: MILKSUS3 PO (02:30)
[2023-01-07] MEDS ORDERED: DIFL150T PO (02:30)
[2023-01-07] MEDS ORDERED: OMEG10002 PO (02:30)
[2023-01-07] MEDS ORDERED: IPRA0.00 INH (02:30)
[2023-01-07] MEDS ORDERED: MIRA1POW3 PO (02:30)
[2023-01-07] MEDS ORDERED: ACET-907 PO (02:36)
== END 2023-01-06 ==
LOC: M ONCR 09:15 → EEVIPCON 09:15
PROVIDERS: ATTEND General Practice
DX: C79.82 Secondary malignant neoplasm of genital organs (principal)

== ENCOUNTER 2022-12-30 09:35 | Observation (INO) | payer MEDICARE ==
[~2022-12-30] VITALS: Ht 154.9 cm; Wt 104.8 kg
[~2022-12-30 09:35] MED LIST changes: +FERR1TAB8 PO; +PERCOCET PO; +RISATAB3 PO; +SUCR1ORA PO; +VALA500T5 PO
[2022-12-30] MEDS ORDERED: IPRATROPIUM 0.5MG/ALBUTEROL 2.5MG INH SOL UD 3ML (DUONEB) NEB ONE (09:50)
[2022-12-30] MEDS ORDERED: ALBUTEROL SULFATE 2.5MG/0.5ML INH NEB SOLN INH ONE (09:50)
[2022-12-30] MEDS ORDERED: methylPREDNISolone 125MG 2ML VIAL IV ONE (09:55)
[2022-12-30] MEDS ORDERED: LevoFLOXacin IV 750 MG in IV 1 EA IV ONE (09:55)
[2022-12-30 10:00] VITALS: O2SAT 95
[2022-12-30 10:27] LABS: ABG BASE EXCESS -2.7 (-2.0-2.0); ABG HCO3 19.7 MMOL/L (22.0-26.0); ABG PARTIAL PRESSURE CO2 27.5 mmHg (35.0-45.0); ABG PARTIAL PRESSURE O2 66.7 mmHg (75.0-100.0); ABG STANDARD HCO3 22.2 MMOL/L. (22.0-26.0); ABG TOTAL CO2 20.6 MMOL/L (23.0-31.0); ABG pH (ARTERIAL) 7.474 UNITS (7.350-7.450)
[2022-12-30 11:14] LABS: HEMATOCRIT 35.7 % (36.0-47.0); HEMOGLOBIN 10.7 g/dl (12.0-15.5); MEAN CORPUSCULAR HEMOGLOBIN 27.6 pg (27.0-33.0); PLATELET COUNT, AUTOMATED 358 10^3/uL (150-450); RED BLOOD COUNT 3.88 10^6/uL (4.00-5.40); WHITE BLOOD COUNT 7.2 10^3/uL (4.0-10.0)
[2022-12-30 11:41] LABS: ALBUMIN 1.7 G/DL (3.2-5.2); ALKALINE PHOSPHATASE 142 U/L (46-116); ALT/SGPT 16 U/L (7.0-40); AST/SGOT 25 U/L (<34); BILIRUBIN,DIRECT 0.6 MG/DL (<0.4); BILIRUBIN,TOTAL 1.2 MG/DL (0.3-1.2); BLOOD UREA NITROGEN 11 MG/DL (9-23); CALCIUM LEVEL 8.3 MG/DL (8.3-10.6); CARBON DIOXIDE LEVEL 23 MMOL/L (20-31); CHLORIDE LEVEL 102 MMOL/L (98-107); CK-MB VALUE MASS < 1.0 NG/ML (<3.6); CPK CREATINE PHOSPHOKINASE 49 U/L (34-145); CREATININE FOR GFR 0.82 MG/DL (0.55-1.30); GLOMERULAR FILTRATION RATE > 60.0 (>32); GLUCOSE, FASTING 107 MG/DL (74-106); MAGNESIUM LEVEL 1.4 MG/DL (1.8-2.4); MB/CK RELATIVE INDEX 2.04 (< OR =4); SODIUM LEVEL 134 MMOL/L (136-145); TOTAL PROTEIN 5.3 G/DL (5.7-8.2)
[2022-12-30 11:44] LABS: INR 1.33; PARTIAL THROMBOPLASTIN TIME 23.2 SECONDS (24.8-34.2); PROTHROMBIN TIME 16.7 SECONDS (12.5-14.5)
[2022-12-30 11:54] LABS: PROCALCITONIN 0.68 ng/ml
[2022-12-30 12:05] LABS: CK-MB VALUE MASS < 1.0 NG/ML (<3.6)
[2022-12-30 12:06] LABS: CPK CREATINE PHOSPHOKINASE 51 U/L (34-145); MB/CK RELATIVE INDEX 1.96 (< OR =4)
[2022-12-30 12:20] LABS: LYMPHOCYTES 4 % (16-44); MONOCYTES 3 % (0-5); NEUTROPHILS 88 % (28-66)
[2022-12-30 12:21] LABS: HYPOCHROMASIA 1+; PLATELET ESTIMATE NORMAL (NORMAL)
[2022-12-30 12:25] LABS: ANISOCYTOSIS 1+; POLYCHROMASIA 1+
[2022-12-30 12:34] LABS: AMYLASE < 20 U/L (30-118)
[2022-12-30] MEDS ORDERED: MAG SULF 1GM/100ML (MAG RUN) 1 GM in IV 1 EA IV ONE (13:15)
[2022-12-30] MEDS ORDERED: DEXTROSE 50% 50ML SYRINGE IV PRN (13:45)
[2022-12-30] MEDS ORDERED: GLUCAGON INJ 1MG VIAL SC PRN (13:45)
[2022-12-30] MEDS ORDERED: IPRATROPIUM 0.5MG/ALBUTEROL 2.5MG INH SOL UD 3ML (DUONEB) NEB PRN (13:45)
[2022-12-30] MEDS ORDERED: ACETAMINOPHEN TAB 650MG DOSE (2X325MG) PO PRN (13:45)
[2022-12-30] MEDS ORDERED: GLUCOSE 4GM CHEW TABLET PO PRN (13:45)
[2022-12-30] MEDS ORDERED: LIDOCAINE 2% 5ML JELLY UROJET TOP ONE (13:45)
[2022-12-30] MEDS: IPRATROPIUM 0.5MG/ALBUTEROL 2.5MG INH SOL UD 3ML (DUONEB) NEB SCH ×2 (14:00→21:37)
[2022-12-30] MEDS ORDERED: UNRESOLVED CLARIFICATION ENTRY XX STA (14:14)
[2022-12-30] MEDS: INSULIN LISPRO (NovoLOG) PER UNIT SC SCH ×2 (17:30→21:00)
[2022-12-30] MEDS: guaiFENesin 200 MG TAB PO SCH ×2 (18:00→23:32)
[2022-12-30] MEDS ORDERED: MED REC IN PROGRESS XX SCH (19:05)
[2022-12-30] MEDS ORDERED: HOME MED LIST COMPLETE! XX SCH (19:30)
[2022-12-30 20:21] VITALS: BP 120/74; TEMP 98.2; O2SAT 97
[2022-12-30] MEDS ORDERED: PROCHLORPERAZINE 5MG TAB PO PRN (21:10)
[2022-12-30] MEDS ORDERED: MIRALAX *UNIT DOSE* 17GM PACKET PO PRN (21:10)
[2022-12-30] MEDS ORDERED: ONDANSETRON 4MG TAB PO PRN (21:10)
[2022-12-30] MEDS: FERROUS SULFATE 325MG TAB PO SCH (21:46)
[2022-12-30] MEDS: MAGNESIUM OXIDE 400MG TAB (MAG-OX) PO SCH (21:46)
[2022-12-30] MEDS: SUCRALFATE SUSP 1GM/10ML UD PO SCH (21:46)
[2022-12-30] MEDS: GABAPENTIN 300 MG CAP PO SCH (21:46)
[2022-12-30] MEDS: valACYclovir HCL 500 MG TAB PO SCH ×2 (21:46→23:29)
[2022-12-30] MEDS: PERCOCET 5MG/325MG TAB PO PRN (21:47)
[2022-12-31] MEDS: IPRATROPIUM 0.5MG/ALBUTEROL 2.5MG INH SOL UD 3ML (DUONEB) NEB SCH ×4 (02:00→20:44)
[2022-12-31] MEDS: LEVOTHYROXINE 50MCG TABLET (0.05MG) PO SCH (05:49)
[2022-12-31] MEDS: guaiFENesin 200 MG TAB PO SCH ×4 (05:49→23:07)
[2022-12-31 05:56] VITALS: BP 108/58; TEMP 97; O2SAT 99
[2022-12-31 06:47] LABS: ALBUMIN 1.5 G/DL (3.2-5.2); ALKALINE PHOSPHATASE 110 U/L (46-116); ALT/SGPT 14 U/L (7.0-40); AST/SGOT 21 U/L (<34); BILIRUBIN,TOTAL 0.5 MG/DL (0.3-1.2); BLOOD UREA NITROGEN 14 MG/DL (9-23); CALCIUM LEVEL 7.9 MG/DL (8.3-10.6); CARBON DIOXIDE LEVEL 23 MMOL/L (20-31); CHLORIDE LEVEL 104 MMOL/L (98-107); GLOMERULAR FILTRATION RATE > 60.0 (>32); GLUCOSE, FASTING 163 MG/DL (74-106); MAGNESIUM LEVEL 1.7 MG/DL (1.8-2.4); SODIUM LEVEL 137 MMOL/L (136-145); TOTAL PROTEIN 4.6 G/DL (5.7-8.2)
[2022-12-31 07:59] LABS: HEMATOCRIT 29.7 % (36.0-47.0); HEMOGLOBIN 8.8 g/dl (12.0-15.5)
[2022-12-31] MEDS: SYMBICORT 160/4.5MCG INHALER 6GM INH SCH ×2 (08:22→20:44)
[2022-12-31] MEDS: SUCRALFATE SUSP 1GM/10ML UD PO SCH ×4 (09:05→21:18)
[2022-12-31] MEDS: LACTOBACILLUS ACIDOPHILUS CAP (BACID) PO SCH ×2 (09:05→17:21)
[2022-12-31] MEDS: PANTOPRAZOLE 40MG TAB (PROTONIX) PO SCH (09:05)
[2022-12-31] MEDS: valACYclovir HCL 500 MG TAB PO SCH ×3 (09:05→21:18)
[2022-12-31] MEDS: amLODIPine 5 MG TAB PO SCH (09:08)
[2022-12-31] MEDS: PERCOCET 5MG/325MG TAB PO PRN ×2 (09:08→19:15)
[2022-12-31] MEDS: GABAPENTIN 300 MG CAP PO SCH ×3 (09:09→21:18)
[2022-12-31] MEDS: POTASSIUM CHLORIDE 10MEQ SR TABLET PO SCH (09:09)
[2022-12-31] MEDS: FERROUS SULFATE 325MG TAB PO SCH ×2 (09:09→21:18)
[2022-12-31] MEDS: MAGNESIUM OXIDE 400MG TAB (MAG-OX) PO SCH ×3 (09:09→21:18)
[2022-12-31] MEDS: EZETIMIBE 10MG TABLET (ZETIA) PO SCH (09:09)
[2022-12-31] MEDS: INSULIN LISPRO (NovoLOG) PER UNIT SC SCH ×4 (09:10→21:00)
[2022-12-31] MEDS: LevoFLOXacin 750 MG TABLET PO SCH (12:52)
[2022-12-31 13:16] LABS: BASO % 0.2 % (0.0-1.0); HEMATOCRIT 31.5 % (36.0-47.0); HEMOGLOBIN 9.5 g/dl (12.0-15.5); LYMPH # 0.2 10^3/uL (1.5-5.0); LYMPH % 1.4 % (24.0-44.0); MEAN CORPUSCULAR HEMOGLOBIN 27.5 pg (27.0-33.0); MEAN CORPUSCULAR HGB CONC 30.2 g/dl (32.0-36.5); MONO # 0.5 10^3/uL (0.0-0.8); MONO % 3.2 % (2.0-8.0); NEUTROPHILS # 14.7 10^3/uL (1.5-8.5); NEUTROPHILS % 94.5 % (36.0-66.0); PLATELET COUNT, AUTOMATED 289 10^3/uL (150-450); RED BLOOD COUNT 3.46 10^6/uL (4.00-5.40); WHITE BLOOD COUNT 15.5 10^3/uL (4.0-10.0)
[2022-12-31 14:00] VITALS: BP 104/43; TEMP 97.9; O2SAT 97
[2022-12-31 22:00] VITALS: BP 113/50; TEMP 98.2; O2SAT 97
[2023-01-01] MEDS: IPRATROPIUM 0.5MG/ALBUTEROL 2.5MG INH SOL UD 3ML (DUONEB) NEB SCH ×3 (01:28→12:49)
[2023-01-01] MEDS: guaiFENesin 200 MG TAB PO SCH ×2 (05:34→11:52)
[2023-01-01] MEDS: LEVOTHYROXINE 50MCG TABLET (0.05MG) PO SCH (05:34)
[2023-01-01 06:00] VITALS: BP 119/60; TEMP 97.7; O2SAT 98
[2023-01-01] MEDS: SYMBICORT 160/4.5MCG INHALER 6GM INH SCH (08:00)
[2023-01-01 09:00] VITALS: BP 122/60
[2023-01-01] MEDS: amLODIPine 5 MG TAB PO SCH (09:00)
[2023-01-01] MEDS: FERROUS SULFATE 325MG TAB PO SCH (09:25)
[2023-01-01] MEDS: GABAPENTIN 300 MG CAP PO SCH (09:25)
[2023-01-01] MEDS: MAGNESIUM OXIDE 400MG TAB (MAG-OX) PO SCH (09:25)
[2023-01-01] MEDS: EZETIMIBE 10MG TABLET (ZETIA) PO SCH (09:25)
[2023-01-01] MEDS: LACTOBACILLUS ACIDOPHILUS CAP (BACID) PO SCH (09:26)
[2023-01-01] MEDS: POTASSIUM CHLORIDE 10MEQ SR TABLET PO SCH (09:26)
[2023-01-01] MEDS: PANTOPRAZOLE 40MG TAB (PROTONIX) PO SCH (09:26)
[2023-01-01] MEDS: valACYclovir HCL 500 MG TAB PO SCH (09:26)
[2023-01-01] MEDS: INSULIN LISPRO (NovoLOG) PER UNIT SC SCH ×2 (09:27→12:07)
[2023-01-01] MEDS: SUCRALFATE SUSP 1GM/10ML UD PO SCH ×2 (09:27→11:52)
[2023-01-01] MEDS ORDERED: LEVO1TAB40 PO (11:07)
[2023-01-01 11:34] LABS: BASO % 0.1 % (0.0-1.0); HEMATOCRIT 29.9 % (36.0-47.0); LYMPH # 0.3 10^3/uL (1.5-5.0); LYMPH % 1.9 % (24.0-44.0); MEAN CORPUSCULAR HEMOGLOBIN 27.7 pg (27.0-33.0); MEAN CORPUSCULAR HGB CONC 30.1 g/dl (32.0-36.5); MONO # 0.6 10^3/uL (0.0-0.8); MONO % 4.2 % (2.0-8.0); NEUTROPHILS # 13.5 10^3/uL (1.5-8.5); PLATELET COUNT, AUTOMATED 314 10^3/uL (150-450); RED BLOOD COUNT 3.25 10^6/uL (4.00-5.40); WHITE BLOOD COUNT 14.6 10^3/uL (4.0-10.0)
[2023-01-01] MEDS: LevoFLOXacin 750 MG TABLET PO SCH (11:52)
[2023-01-01] MEDS: PERCOCET 5MG/325MG TAB PO PRN (11:53)
== END 2023-01-01 14:19 | disposition home or self-care (01) ==
LOC: M ED 09:35 → M ED INP 09:36 → M MSPAV 20:24
PROVIDERS: ADMIT Family Medicine; ATTEND Family Medicine
DX: R55 Syncope and collapse (principal); Z95.0 Presence of cardiac pacemaker; I48.0 Paroxysmal atrial fibrillation; I25.10 Atherosclerotic heart disease of native coronary artery without angina pectoris; I10 Essential (primary) hypertension; Z79.51 Long term (current) use of inhaled steroids; Z85.038 Personal history of other malignant neoplasm of large intestine; C76.3 Malignant neoplasm of pelvis; E03.9 Hypothyroidism, unspecified; D72.829 Elevated white blood cell count, unspecified; Z88.0 Allergy status to penicillin; Z79.899 Other long term (current) drug therapy
CPT/HCPCS: 36415; 36600; 51701; 71045; 71250; 73564; 73590; 80048; 80053; 80076; 81000; 81015; 82150; 82550; 82553; 82803; 83605; 83735; 83880; 84145; 84484; 85014; 85018; 85025; 85610; 85730; 86140; 86850; 86870; 86900; 86901; 87040; 87077; 87088; 87186; 87486; 87581; 87633; 87798; 93005; 93041; 94640; 94760; 96365; 96367; 96375; 97161; 97165; 97530; 97535; 99285; G0378; J1815; J1956; J2930; J3475

== ENCOUNTER → 2023-01-01 | Outpatient (REF) ==
[~2023-01-01] MED LIST changes: +LEVO1TAB40 PO
== END ==
PROVIDERS: ATTEND Physician Assistant
DX: C20 Malignant neoplasm of rectum (principal); Z53.8 Procedure and treatment not carried out for other reasons

== ENCOUNTER → 2023-01-02 | Outpatient (REF) | payer MEDICARE | PROVIDERS: ATTEND Internal Medicine | DX: I51.7 Cardiomegaly (principal) ==

== ENCOUNTER 2023-01-06 18:08 | Inpatient (IN) | payer MEDICARE ==
[~2023-01-06] VITALS: Ht 162.6 cm; Wt 102.8 kg
[~2023-01-06 18:08] MED LIST changes: -ACET-907 PO; -ACID100C PO; -AQUAOIN12 TOP; -DIFL150T PO; -GUAI600T54 PO; -MILKSUS3 PO; -MIRA1POW3 PO; -OMEG10002 PO; -SUCR1TAB56 PO; -TUMS500C PO
[2023-01-06] MEDS ORDERED: ISOVUE-370 76% 100ML VIAL As Ordered ONE (20:32)
[2023-01-06 21:16] LABS: ALBUMIN 1.5 G/DL (3.2-5.2); BILIRUBIN,DIRECT 0.3 MG/DL (<0.4); BILIRUBIN,TOTAL 0.7 MG/DL (0.3-1.2)
[2023-01-06] MEDS ORDERED: NS 1,000 ML IV ONE (22:00)
[2023-01-06] MEDS ORDERED: cefTRIAXone SOD 2 GM in D5W MINI-BAG PLUS 50 ML IV ONE (22:00)
[2023-01-06] MEDS ORDERED: ONDANSETRON 4MG 2ML VIAL IV ONE (22:30)
[2023-01-06] MEDS ORDERED: fentaNYL 100 MCG/2 ML INJECTION IV PRN (22:35)
[2023-01-06] MEDS: fentaNYL 100 MCG/2 ML INJECTION IV PRN (22:48)
[2023-01-07] MEDS ORDERED: GLUCOSE 4GM CHEW TABLET PO PRN (00:25)
[2023-01-07] MEDS ORDERED: ACETAMINOPHEN TAB 650MG DOSE (2X325MG) PO PRN (00:25)
[2023-01-07] MEDS ORDERED: GLUCAGON INJ 1MG VIAL SC PRN (00:25)
[2023-01-07] MEDS ORDERED: DEXTROSE 50% 50ML SYRINGE IV PRN (00:25)
[2023-01-07] MEDS: NS 1,000 ML IV SCH ×2 (00:30→03:18)
[2023-01-07] MEDS: fentaNYL 100 MCG/2 ML INJECTION IV PRN (02:15)
[2023-01-07] MEDS: metroNIDAZOLE 500 MG in IV 1 EA IV SCH ×2 (02:16→09:19)
[2023-01-07] MEDS ORDERED: BUME1TAB3 PO (02:30)
[2023-01-07] MEDS ORDERED: MIRA1POW3 PO (02:30)
[2023-01-07] MEDS ORDERED: OMEG10002 PO (02:30)
[2023-01-07] MEDS ORDERED: AQUAOIN12 TOP ×2 (02:30→02:36)
[2023-01-07] MEDS ORDERED: DIFL150T PO (02:30)
[2023-01-07] MEDS ORDERED: MAGN400T33 PO (02:30)
[2023-01-07] MEDS ORDERED: ACID100C PO (02:30)
[2023-01-07] MEDS ORDERED: TUMS500C PO (02:30)
[2023-01-07] MEDS ORDERED: AMLO1TAB24 PO (02:30)
[2023-01-07] MEDS ORDERED: MILKSUS3 PO (02:30)
[2023-01-07] MEDS ORDERED: IPRA0.00 INH (02:30)
[2023-01-07] MEDS ORDERED: FERR1TAB8 PO (02:30)
[2023-01-07] MEDS ORDERED: PANT-23 PO (02:30)
[2023-01-07] MEDS ORDERED: GUAI600T54 PO (02:30)
[2023-01-07] MEDS ORDERED: SUCR1TAB56 PO (02:30)
[2023-01-07] MEDS ORDERED: ACET-907 PO (02:36)
[2023-01-07] MEDS ORDERED: HOME MED LIST COMPLETE! XX SCH (02:40)
[2023-01-07 03:00] VITALS: BP 122/56; TEMP 98.6; O2SAT 94
[2023-01-07] MEDS ORDERED: PROCHLORPERAZINE 5MG TAB PO PRN (03:00)
[2023-01-07] MEDS ORDERED: IPRATROPIUM 0.5MG/ALBUTEROL 2.5MG INH SOL UD 3ML (DUONEB) INH PRN (03:00)
[2023-01-07] MEDS ORDERED: ALBUTEROL 90 MCG/ACT 8GM HFA INHALER INH PRN (03:00)
[2023-01-07] MEDS ORDERED: MIRALAX *UNIT DOSE* 17GM PACKET PO PRN (03:00)
[2023-01-07] MEDS ORDERED: NYSTATIN 100,000 UNITS/GM TOPICAL PWD 15GM TOP PRN (03:55)
[2023-01-07] MEDS: LEVOTHYROXINE 50MCG TABLET (0.05MG) PO SCH (05:56)
[2023-01-07 05:58] VITALS: BP 119/54; TEMP 97.3; O2SAT 97
[2023-01-07 05:58] LABS: HEMATOCRIT 26.3 % (36.0-47.0); HEMOGLOBIN 8.1 g/dl (12.0-15.5); MEAN CORPUSCULAR HEMOGLOBIN 27.8 pg (27.0-33.0); MEAN CORPUSCULAR HGB CONC 30.8 g/dl (32.0-36.5); MEAN CORPUSCULAR VOLUME 90.4 fl (80.0-96.0); PLATELET COUNT, AUTOMATED 173 10^3/uL (150-450); RED BLOOD COUNT 2.91 10^6/uL (4.00-5.40); WHITE BLOOD COUNT 15.5 10^3/uL (4.0-10.0)
[2023-01-07 06:32] LABS: CREATININE FOR GFR 1.05 MG/DL (0.55-1.30); GLOMERULAR FILTRATION RATE 53.5 (>32); MAGNESIUM LEVEL 1.7 MG/DL (1.8-2.4); POTASSIUM SERUM 4.6 MMOL/L (3.5-5.1)
[2023-01-07 06:38] LABS: PROCALCITONIN 1.84 ng/ml
[2023-01-07] MEDS: INSULIN LISPRO (NovoLOG) PER UNIT SC SCH ×4 (07:30→21:00)
[2023-01-07] MEDS: ADVAIR HFA 115/21MCG INHALER INH SCH ×2 (07:43→20:59)
[2023-01-07] MEDS: POTASSIUM CHLORIDE 10MEQ SR TABLET PO SCH (09:00)
[2023-01-07] MEDS: MAGNESIUM OXIDE 400MG TAB (MAG-OX) PO SCH ×3 (09:15→20:36)
[2023-01-07] MEDS: BUMETANIDE 1 MG TAB PO SCH (09:15)
[2023-01-07] MEDS: EZETIMIBE 10MG TABLET (ZETIA) PO SCH (09:15)
[2023-01-07] MEDS: LACTOBACILLUS ACIDOPHILUS CAP (BACID) PO SCH ×3 (09:18→17:14)
[2023-01-07] MEDS: FERROUS SULFATE 325MG TAB PO SCH ×2 (09:18→20:36)
[2023-01-07] MEDS: amLODIPine 5 MG TAB PO SCH (09:18)
[2023-01-07] MEDS: SUCRALFATE 1 GM TAB PO SCH ×4 (09:18→20:36)
[2023-01-07] MEDS: guaiFENesin ER 600 MG TAB PO SCH ×2 (09:18→20:36)
[2023-01-07] MEDS: GABAPENTIN 300 MG CAP PO SCH ×3 (09:18→20:36)
[2023-01-07] MEDS: PANTOPRAZOLE 40MG TAB (PROTONIX) PO SCH (09:18)
[2023-01-07] MEDS: DOXYCYCLINE HYCLATE 100MG TABLET PO SCH ×2 (09:18→20:36)
[2023-01-07] MEDS: PERCOCET 5MG/325MG TAB PO PRN (09:22)
[2023-01-07] MEDS: HYDROMORPHONE HCL 0.5 MG/ 0.5 ML SYRINGE IV PRN ×3 (09:27→19:20)
[2023-01-07] MEDS: ONDANSETRON 4MG 2ML VIAL IV PRN ×2 (09:45→19:19)
[2023-01-07] MEDS ORDERED: LIDOCAINE 1% MDV 20ML VIAL As Ordered ONE (13:24)
[2023-01-07 14:00] VITALS: BP 108/48; TEMP 97.5; O2SAT 96
[2023-01-07] MEDS: MEROPENEM INJ 1 GM in IV 1 EA IV SCH (16:56)
[2023-01-07] MEDS ORDERED: SODIUM CHLORIDE 0.9% INJ 10 ML SYR IV PRN (17:30)
[2023-01-07] MEDS ORDERED: cefTRIAXone SOD 2 GM in D5W MINI-BAG PLUS 50 ML IV SCH (21:00)
[2023-01-07 21:09] VITALS: BP 129/57; TEMP 97.9; O2SAT 96
[2023-01-08] MEDS: MEROPENEM INJ 1 GM in IV 1 EA IV SCH ×4 (00:09→23:21)
[2023-01-08] MEDS: HYDROMORPHONE HCL 0.5 MG/ 0.5 ML SYRINGE IV PRN ×3 (05:31→16:28)
[2023-01-08] MEDS: LEVOTHYROXINE 50MCG TABLET (0.05MG) PO SCH (05:31)
[2023-01-08 06:26] VITALS: BP 128/46; TEMP 97.7; O2SAT 97
[2023-01-08] MEDS: ADVAIR HFA 115/21MCG INHALER INH SCH ×2 (07:19→20:36)
[2023-01-08] MEDS: INSULIN LISPRO (NovoLOG) PER UNIT SC SCH ×4 (07:30→21:00)
[2023-01-08] MEDS: GABAPENTIN 300 MG CAP PO SCH ×3 (08:04→21:34)
[2023-01-08] MEDS: EZETIMIBE 10MG TABLET (ZETIA) PO SCH (08:04)
[2023-01-08] MEDS: SUCRALFATE 1 GM TAB PO SCH ×4 (08:04→21:34)
[2023-01-08] MEDS: MAGNESIUM OXIDE 400MG TAB (MAG-OX) PO SCH ×3 (08:04→21:34)
[2023-01-08] MEDS: LACTOBACILLUS ACIDOPHILUS CAP (BACID) PO SCH ×3 (08:04→17:40)
[2023-01-08] MEDS: amLODIPine 5 MG TAB PO SCH (08:05)
[2023-01-08] MEDS: PANTOPRAZOLE 40MG TAB (PROTONIX) PO SCH (08:05)
[2023-01-08] MEDS: BUMETANIDE 1 MG TAB PO SCH (08:05)
[2023-01-08] MEDS: guaiFENesin ER 600 MG TAB PO SCH ×2 (08:05→21:34)
[2023-01-08] MEDS: SODIUM CHLORIDE 0.9% INJ 10 ML SYR IV SCH (08:06)
[2023-01-08] MEDS: FERROUS SULFATE 325MG TAB PO SCH ×2 (08:06→21:34)
[2023-01-08] MEDS: POTASSIUM CHLORIDE 10MEQ SR TABLET PO SCH (09:00)
[2023-01-08 10:04] LABS: BASO % 0.1 % (0.0-1.0); EOS % 0.1 % (0.0-3.0); HEMATOCRIT 26.6 % (36.0-47.0); HEMOGLOBIN 8.1 g/dl (12.0-15.5); LYMPH # 0.5 10^3/uL (1.5-5.0); LYMPH % 3.5 % (24.0-44.0); MEAN CORPUSCULAR HEMOGLOBIN 27.6 pg (27.0-33.0); MEAN CORPUSCULAR HGB CONC 30.5 g/dl (32.0-36.5); MEAN CORPUSCULAR VOLUME 90.8 fl (80.0-96.0); MONO # 0.8 10^3/uL (0.0-0.8); MONO % 5.2 % (2.0-8.0); NEUTROPHILS # 13.6 10^3/uL (1.5-8.5); PLATELET COUNT, AUTOMATED 182 10^3/uL (150-450); RED BLOOD COUNT 2.93 10^6/uL (4.00-5.40); WHITE BLOOD COUNT 15.1 10^3/uL (4.0-10.0)
[2023-01-08 10:37] LABS: ALBUMIN 1.3 G/DL (3.2-5.2); BILIRUBIN,TOTAL 0.6 MG/DL (0.3-1.2); CALCIUM LEVEL 7.3 MG/DL (8.3-10.6); CREATININE FOR GFR 0.99 MG/DL (0.55-1.30); GLOMERULAR FILTRATION RATE 57.3 (>32); MAGNESIUM LEVEL 1.6 MG/DL (1.8-2.4); POTASSIUM SERUM 4.2 MMOL/L (3.5-5.1); TOTAL PROTEIN 4.5 G/DL (5.7-8.2)
[2023-01-08] MEDS: MAG SULF 1GM/100ML (MAG RUN) 1 GM in IV 1 EA IV SCH ×4 (11:25→15:07)
[2023-01-08] MEDS: ONDANSETRON 4MG 2ML VIAL IV PRN (11:42)
[2023-01-08] MEDS ORDERED: ISOVUE-300 61% 100ML VIAL As Ordered ONE (14:07)
[2023-01-08 14:48] VITALS: BP 121/48; TEMP 98.2; O2SAT 99
[2023-01-08 20:00] VITALS: BP 117/47; TEMP 97.5; O2SAT 92
[2023-01-08] MEDS: PERCOCET 5MG/325MG TAB PO PRN (22:28)
[2023-01-09] MEDS: LEVOTHYROXINE 50MCG TABLET (0.05MG) PO SCH (05:51)
[2023-01-09 06:00] VITALS: BP 116/45; TEMP 97.7; O2SAT 95
[2023-01-09 06:07] LABS: BASO % 0.2 % (0.0-1.0); EOS % 0.2 % (0.0-3.0); HEMATOCRIT 25.8 % (36.0-47.0); LYMPH # 0.4 10^3/uL (1.5-5.0); LYMPH % 3.1 % (24.0-44.0); MEAN CORPUSCULAR HEMOGLOBIN 27.7 pg (27.0-33.0); MEAN CORPUSCULAR VOLUME 89.3 fl (80.0-96.0); MONO # 0.7 10^3/uL (0.0-0.8); MONO % 5.8 % (2.0-8.0); NEUTROPHILS # 11.4 10^3/uL (1.5-8.5); NEUTROPHILS % 89.3 % (36.0-66.0); PLATELET COUNT, AUTOMATED 183 10^3/uL (150-450); RED BLOOD COUNT 2.89 10^6/uL (4.00-5.40); WHITE BLOOD COUNT 12.7 10^3/uL (4.0-10.0)
[2023-01-09 06:33] LABS: ALBUMIN 1.2 G/DL (3.2-5.2); ALKALINE PHOSPHATASE 117 U/L (46-116); ALT/SGPT 12 U/L (7.0-40); AST/SGOT 13 U/L (<34); BILIRUBIN,TOTAL 0.5 MG/DL (0.3-1.2); BLOOD UREA NITROGEN 14 MG/DL (9-23); CALCIUM LEVEL 6.9 MG/DL (8.3-10.6); CARBON DIOXIDE LEVEL 25 MMOL/L (20-31); CHLORIDE LEVEL 100 MMOL/L (98-107); CREATININE FOR GFR 0.95 MG/DL (0.55-1.30); GLOMERULAR FILTRATION RATE > 60.0 (>32); GLUCOSE, FASTING 117 MG/DL (74-106); MAGNESIUM LEVEL 2.2 MG/DL (1.8-2.4); POTASSIUM SERUM 3.7 MMOL/L (3.5-5.1); SODIUM LEVEL 132 MMOL/L (136-145); TOTAL PROTEIN 4.2 G/DL (5.7-8.2)
[2023-01-09] MEDS: INSULIN LISPRO (NovoLOG) PER UNIT SC SCH ×4 (07:30→21:00)
[2023-01-09] MEDS: ADVAIR HFA 115/21MCG INHALER INH SCH ×2 (07:39→19:12)
[2023-01-09] MEDS: PANTOPRAZOLE 40MG TAB (PROTONIX) PO SCH ×2 (09:00→09:06)
[2023-01-09] MEDS: guaiFENesin ER 600 MG TAB PO SCH ×2 (09:00→09:06)
[2023-01-09] MEDS: GABAPENTIN 300 MG CAP PO SCH ×3 (09:05→21:36)
[2023-01-09] MEDS: MEROPENEM INJ 1 GM in IV 1 EA IV SCH ×2 (09:05→17:18)
[2023-01-09] MEDS: EZETIMIBE 10MG TABLET (ZETIA) PO SCH (09:06)
[2023-01-09] MEDS: LACTOBACILLUS ACIDOPHILUS CAP (BACID) PO SCH ×3 (09:06→17:17)
[2023-01-09] MEDS: SUCRALFATE 1 GM TAB PO SCH ×4 (09:06→21:36)
[2023-01-09] MEDS: BUMETANIDE 1 MG TAB PO SCH (09:06)
[2023-01-09] MEDS: FERROUS SULFATE 325MG TAB PO SCH ×2 (09:06→21:36)
[2023-01-09] MEDS: POTASSIUM CHLORIDE 10MEQ SR TABLET PO SCH (09:07)
[2023-01-09] MEDS: MAGNESIUM OXIDE 400MG TAB (MAG-OX) PO SCH ×3 (09:07→21:36)
[2023-01-09] MEDS: SODIUM CHLORIDE 0.9% INJ 10 ML SYR IV SCH (09:08)
[2023-01-09] MEDS: amLODIPine 5 MG TAB PO SCH (09:09)
[2023-01-09] MEDS: PERCOCET 5MG/325MG TAB PO PRN (09:13)
[2023-01-09 14:00] VITALS: BP 110/49; TEMP 97.5; O2SAT 97
[2023-01-09] MEDS: guaiFENesin SYRUP 200MG 10ML UDC PO SCH ×2 (17:17→21:36)
[2023-01-09 20:00] VITALS: BP 112/50; TEMP 97.3; O2SAT 96
[2023-01-10] VITALS (11 sets, daily range): BP systolic 88–123; BP diastolic 20–78; TEMP 97–97.7; O2SAT 93–98
[2023-01-10] MEDS: PERCOCET 5MG/325MG TAB PO PRN ×2 (01:49→16:23)
[2023-01-10] MEDS: LEVOTHYROXINE 50MCG TABLET (0.05MG) PO SCH (05:29)
[2023-01-10 06:12] LABS: BASO % 0.2 % (0.0-1.0); EOS # 0.1 10^3/uL (0.0-0.5); EOS % 0.5 % (0.0-3.0); HEMATOCRIT 23.7 % (36.0-47.0); HEMOGLOBIN 7.4 g/dl (12.0-15.5); LYMPH # 0.5 10^3/uL (1.5-5.0); LYMPH % 4.4 % (24.0-44.0); MEAN CORPUSCULAR HEMOGLOBIN 27.9 pg (27.0-33.0); MEAN CORPUSCULAR HGB CONC 31.2 g/dl (32.0-36.5); MEAN CORPUSCULAR VOLUME 89.4 fl (80.0-96.0); MONO % 9.5 % (2.0-8.0); NEUTROPHILS # 9.1 10^3/uL (1.5-8.5); NEUTROPHILS % 83.7 % (36.0-66.0); PLATELET COUNT, AUTOMATED 202 10^3/uL (150-450); RED BLOOD COUNT 2.65 10^6/uL (4.00-5.40); WHITE BLOOD COUNT 10.8 10^3/uL (4.0-10.0)
[2023-01-10 06:47] LABS: ALBUMIN 1.2 G/DL (3.2-5.2); ALKALINE PHOSPHATASE 108 U/L (46-116); ALT/SGPT 10 U/L (7.0-40); AST/SGOT 13 U/L (<34); BILIRUBIN,TOTAL 0.5 MG/DL (0.3-1.2); BLOOD UREA NITROGEN 13 MG/DL (9-23); CARBON DIOXIDE LEVEL 25 MMOL/L (20-31); CHLORIDE LEVEL 100 MMOL/L (98-107); CREATININE FOR GFR 0.85 MG/DL (0.55-1.30); GLOMERULAR FILTRATION RATE > 60.0 (>32); GLUCOSE, FASTING 94 MG/DL (74-106); POTASSIUM SERUM 3.9 MMOL/L (3.5-5.1); SODIUM LEVEL 135 MMOL/L (136-145); TOTAL PROTEIN 4.1 G/DL (5.7-8.2)
[2023-01-10] MEDS: INSULIN LISPRO (NovoLOG) PER UNIT SC SCH ×4 (07:30→20:57)
[2023-01-10 07:55] LABS: IRON (FE) 21 UG/DL (50-170); PERCENT SATURATION 19.4 % (13.2-45.0); TOTAL IRON BINDING CAPACITY 108 UG/DL (250-425)
[2023-01-10] MEDS: ADVAIR HFA 115/21MCG INHALER INH SCH ×2 (08:33→21:08)
[2023-01-10 08:37] LABS: FERRITIN 2450.8 NG/ML (7.3-270.7)
[2023-01-10] MEDS: amLODIPine 5 MG TAB PO SCH (09:00)
[2023-01-10] MEDS: BUMETANIDE 1 MG TAB PO SCH (09:15)
[2023-01-10] MEDS: LACTOBACILLUS ACIDOPHILUS CAP (BACID) PO SCH ×3 (09:15→17:37)
[2023-01-10] MEDS: GABAPENTIN 300 MG CAP PO SCH ×3 (09:15→20:40)
[2023-01-10] MEDS: EZETIMIBE 10MG TABLET (ZETIA) PO SCH (09:15)
[2023-01-10] MEDS: OMEPRAZOLE 20MG CAP PO SCH (09:15)
[2023-01-10] MEDS: POTASSIUM CHLORIDE 10MEQ SR TABLET PO SCH (09:16)
[2023-01-10] MEDS: guaiFENesin SYRUP 200MG 10ML UDC PO SCH ×4 (09:17→20:42)
[2023-01-10] MEDS: FERROUS SULFATE 325MG TAB PO SCH (09:17)
[2023-01-10] MEDS: SUCRALFATE 1 GM TAB PO SCH ×4 (09:17→20:40)
[2023-01-10] MEDS: MEROPENEM INJ 1 GM in IV 1 EA IV SCH ×3 (09:17)
[2023-01-10] MEDS: SODIUM CHLORIDE 0.9% INJ 10 ML SYR IV SCH (09:18)
[2023-01-10] MEDS: HYDROMORPHONE HCL 0.5 MG/ 0.5 ML SYRINGE IV PRN (09:19)
[2023-01-10] MEDS: MAGNESIUM OXIDE 400MG TAB (MAG-OX) PO SCH ×3 (10:08→20:40)
[2023-01-10] MEDS ORDERED: LR 1,000 ML IV ONE (14:50)
[2023-01-10] MEDS: LINEZOLID 600MG TABLET (ZYVOX) PO SCH (20:39)
[2023-01-10 22:44] LABS: HEMATOCRIT 27.6 % (36.0-47.0); HEMOGLOBIN 8.8 g/dl (12.0-15.5); MEAN CORPUSCULAR HEMOGLOBIN 28.5 pg (27.0-33.0); MEAN CORPUSCULAR HGB CONC 31.9 g/dl (32.0-36.5); MEAN CORPUSCULAR VOLUME 89.3 fl (80.0-96.0); PLATELET COUNT, AUTOMATED 238 10^3/uL (150-450); RED BLOOD COUNT 3.09 10^6/uL (4.00-5.40); WHITE BLOOD COUNT 12.1 10^3/uL (4.0-10.0)
[2023-01-11] MEDS: HYDROMORPHONE HCL 0.5 MG/ 0.5 ML SYRINGE IV PRN ×3 (02:17→17:55)
[2023-01-11] MEDS: LEVOTHYROXINE 50MCG TABLET (0.05MG) PO SCH (05:40)
[2023-01-11 06:06] VITALS: BP 109/44; TEMP 97.7; O2SAT 92
[2023-01-11 06:28] LABS: BASO % 0.4 % (0.0-1.0); EOS # 0.1 10^3/uL (0.0-0.5); EOS % 0.9 % (0.0-3.0); HEMATOCRIT 28.3 % (36.0-47.0); HEMOGLOBIN 8.8 g/dl (12.0-15.5); LYMPH # 0.6 10^3/uL (1.5-5.0); LYMPH % 6.3 % (24.0-44.0); MEAN CORPUSCULAR HEMOGLOBIN 28.4 pg (27.0-33.0); MEAN CORPUSCULAR HGB CONC 31.1 g/dl (32.0-36.5); MEAN CORPUSCULAR VOLUME 91.3 fl (80.0-96.0); MONO # 1.1 10^3/uL (0.0-0.8); MONO % 10.9 % (2.0-8.0); NEUTROPHILS # 7.5 10^3/uL (1.5-8.5); NEUTROPHILS % 78.4 % (36.0-66.0); PLATELET COUNT, AUTOMATED 220 10^3/uL (150-450); WHITE BLOOD COUNT 9.6 10^3/uL (4.0-10.0)
[2023-01-11 06:41] LABS: ALBUMIN 1.2 G/DL (3.2-5.2); ALKALINE PHOSPHATASE 112 U/L (46-116); ALT/SGPT 10 U/L (7.0-40); AST/SGOT 19 U/L (<34); BILIRUBIN,TOTAL 0.7 MG/DL (0.3-1.2); BLOOD UREA NITROGEN 12 MG/DL (9-23); CARBON DIOXIDE LEVEL 25 MMOL/L (20-31); CHLORIDE LEVEL 101 MMOL/L (98-107); CREATININE FOR GFR 0.72 MG/DL (0.55-1.30); GLOMERULAR FILTRATION RATE > 60.0 (>32); GLUCOSE, FASTING 89 MG/DL (74-106); MAGNESIUM LEVEL 1.7 MG/DL (1.8-2.4); POTASSIUM SERUM 4.5 MMOL/L (3.5-5.1); SODIUM LEVEL 133 MMOL/L (136-145); TOTAL PROTEIN 4.3 G/DL (5.7-8.2)
[2023-01-11] MEDS: ADVAIR HFA 115/21MCG INHALER INH SCH ×2 (07:20→19:57)
[2023-01-11] MEDS: INSULIN LISPRO (NovoLOG) PER UNIT SC SCH ×4 (07:30→20:52)
[2023-01-11] MEDS: guaiFENesin SYRUP 200MG 10ML UDC PO SCH ×3 (09:00→20:52)
[2023-01-11] MEDS: POTASSIUM CHLORIDE 10MEQ SR TABLET PO SCH (09:00)
[2023-01-11] MEDS: amLODIPine 5 MG TAB PO SCH (09:00)
[2023-01-11] MEDS: EZETIMIBE 10MG TABLET (ZETIA) PO SCH (09:25)
[2023-01-11] MEDS: GABAPENTIN 300 MG CAP PO SCH ×3 (09:25→21:02)
[2023-01-11] MEDS: OMEPRAZOLE 20MG CAP PO SCH (09:26)
[2023-01-11] MEDS: LINEZOLID 600MG TABLET (ZYVOX) PO SCH ×2 (09:26→21:02)
[2023-01-11] MEDS: SUCRALFATE 1 GM TAB PO SCH ×4 (09:26→21:02)
[2023-01-11] MEDS: LACTOBACILLUS ACIDOPHILUS CAP (BACID) PO SCH ×3 (09:26→17:54)
[2023-01-11] MEDS: SODIUM CHLORIDE 0.9% INJ 10 ML SYR IV SCH (09:26)
[2023-01-11] MEDS: MAGNESIUM OXIDE 400MG TAB (MAG-OX) PO SCH ×3 (09:26→21:02)
[2023-01-11 14:00] VITALS: BP 105/46; TEMP 97.7; O2SAT 96
[2023-01-11 19:48] VITALS: BP 137/60; TEMP 97.7; O2SAT 96
[2023-01-11] MEDS: PERCOCET 5MG/325MG TAB PO PRN (21:23)
[2023-01-12] MEDS: LEVOTHYROXINE 50MCG TABLET (0.05MG) PO SCH (05:58)
[2023-01-12] MEDS: PERCOCET 5MG/325MG TAB PO PRN (05:58)
[2023-01-12 05:59] VITALS: BP 104/56; TEMP 97.5; O2SAT 94
[2023-01-12 06:21] LABS: BASO % 0.3 % (0.0-1.0); EOS # 0.1 10^3/uL (0.0-0.5); EOS % 1.3 % (0.0-3.0); HEMATOCRIT 27.4 % (36.0-47.0); HEMOGLOBIN 8.7 g/dl (12.0-15.5); LYMPH # 0.6 10^3/uL (1.5-5.0); LYMPH % 9.1 % (24.0-44.0); MEAN CORPUSCULAR HEMOGLOBIN 28.7 pg (27.0-33.0); MEAN CORPUSCULAR HGB CONC 31.8 g/dl (32.0-36.5); MEAN CORPUSCULAR VOLUME 90.4 fl (80.0-96.0); MONO # 0.8 10^3/uL (0.0-0.8); MONO % 11.9 % (2.0-8.0); NEUTROPHILS % 73.7 % (36.0-66.0); PLATELET COUNT, AUTOMATED 235 10^3/uL (150-450); RED BLOOD COUNT 3.03 10^6/uL (4.00-5.40); WHITE BLOOD COUNT 6.8 10^3/uL (4.0-10.0)
[2023-01-12 06:36] LABS: ALBUMIN 1.1 G/DL (3.2-5.2); ALKALINE PHOSPHATASE 106 U/L (46-116); ALT/SGPT 10 U/L (7.0-40); AST/SGOT 17 U/L (<34); BILIRUBIN,TOTAL 0.5 MG/DL (0.3-1.2); BLOOD UREA NITROGEN 13 MG/DL (9-23); CALCIUM LEVEL 7.2 MG/DL (8.3-10.6); CARBON DIOXIDE LEVEL 26 MMOL/L (20-31); CHLORIDE LEVEL 101 MMOL/L (98-107); CREATININE FOR GFR 0.72 MG/DL (0.55-1.30); GLOMERULAR FILTRATION RATE > 60.0 (>32); GLUCOSE, FASTING 83 MG/DL (74-106); MAGNESIUM LEVEL 1.7 MG/DL (1.8-2.4); POTASSIUM SERUM 4.7 MMOL/L (3.5-5.1); SODIUM LEVEL 133 MMOL/L (136-145); TOTAL PROTEIN 4.3 G/DL (5.7-8.2)
[2023-01-12] MEDS: INSULIN LISPRO (NovoLOG) PER UNIT SC SCH ×4 (07:30→21:00)
[2023-01-12] MEDS: POTASSIUM CHLORIDE 10MEQ SR TABLET PO SCH (07:38)
[2023-01-12] MEDS: ADVAIR HFA 115/21MCG INHALER INH SCH ×2 (08:24→20:19)
[2023-01-12] MEDS: amLODIPine 5 MG TAB PO SCH (08:32)
[2023-01-12] MEDS: OMEPRAZOLE 20MG CAP PO SCH (08:41)
[2023-01-12] MEDS: EZETIMIBE 10MG TABLET (ZETIA) PO SCH (08:41)
[2023-01-12] MEDS: SUCRALFATE 1 GM TAB PO SCH ×4 (08:42→20:46)
[2023-01-12] MEDS: SODIUM CHLORIDE 0.9% INJ 10 ML SYR IV SCH (08:42)
[2023-01-12] MEDS: GABAPENTIN 300 MG CAP PO SCH ×3 (08:42→20:46)
[2023-01-12] MEDS: LINEZOLID 600MG TABLET (ZYVOX) PO SCH ×2 (08:42→20:46)
[2023-01-12] MEDS: guaiFENesin SYRUP 200MG 10ML UDC PO SCH ×3 (08:42→20:47)
[2023-01-12] MEDS: MAGNESIUM OXIDE 400MG TAB (MAG-OX) PO SCH ×3 (08:42→20:46)
[2023-01-12] MEDS: LACTOBACILLUS ACIDOPHILUS CAP (BACID) PO SCH ×3 (08:42→18:00)
[2023-01-12] MEDS: HYDROMORPHONE HCL 0.5 MG/ 0.5 ML SYRINGE IV PRN (12:02)
[2023-01-12] MEDS: metroNIDAZOLE (FLAGYL) 500MG TABLET PO SCH ×2 (15:13→21:54)
[2023-01-13] MEDS: metroNIDAZOLE (FLAGYL) 500MG TABLET PO SCH ×3 (05:53→21:19)
[2023-01-13] MEDS: LEVOTHYROXINE 50MCG TABLET (0.05MG) PO SCH (05:53)
[2023-01-13 05:58] VITALS: BP 108/61; TEMP 97.3; O2SAT 95
[2023-01-13] MEDS: ADVAIR HFA 115/21MCG INHALER INH SCH ×2 (08:36→19:54)
[2023-01-13] MEDS: INSULIN LISPRO (NovoLOG) PER UNIT SC SCH ×4 (08:36→20:28)
[2023-01-13] MEDS: POTASSIUM CHLORIDE 10MEQ SR TABLET PO SCH (09:00)
[2023-01-13] MEDS: amLODIPine 5 MG TAB PO SCH (09:00)
[2023-01-13] MEDS: LACTOBACILLUS ACIDOPHILUS CAP (BACID) PO SCH ×3 (09:03→17:20)
[2023-01-13] MEDS: PERCOCET 5MG/325MG TAB PO PRN ×2 (09:03→21:19)
[2023-01-13] MEDS: SUCRALFATE 1 GM TAB PO SCH ×4 (09:03→20:21)
[2023-01-13] MEDS: EZETIMIBE 10MG TABLET (ZETIA) PO SCH (09:03)
[2023-01-13] MEDS: MAGNESIUM OXIDE 400MG TAB (MAG-OX) PO SCH ×3 (09:04→20:22)
[2023-01-13] MEDS: LINEZOLID 600MG TABLET (ZYVOX) PO SCH (09:04)
[2023-01-13] MEDS: guaiFENesin SYRUP 200MG 10ML UDC PO SCH ×3 (09:04→20:22)
[2023-01-13] MEDS: GABAPENTIN 300 MG CAP PO SCH ×3 (09:04→20:21)
[2023-01-13] MEDS: OMEPRAZOLE 20MG CAP PO SCH (09:04)
[2023-01-13] MEDS: SODIUM CHLORIDE 0.9% INJ 10 ML SYR IV SCH (09:05)
[2023-01-13] MEDS: AMOXICILLIN 500 MG CAP PO SCH (20:21)
[2023-01-14] MEDS: LEVOTHYROXINE 50MCG TABLET (0.05MG) PO SCH (05:44)
[2023-01-14] MEDS: metroNIDAZOLE (FLAGYL) 500MG TABLET PO SCH ×3 (05:44→21:23)
[2023-01-14 06:00] VITALS: BP 106/62; TEMP 97; O2SAT 93
[2023-01-14] MEDS: SUCRALFATE 1 GM TAB PO SCH ×4 (07:30→20:29)
[2023-01-14] MEDS: INSULIN LISPRO (NovoLOG) PER UNIT SC SCH ×4 (07:30→20:54)
[2023-01-14] MEDS: ADVAIR HFA 115/21MCG INHALER INH SCH ×2 (08:20→20:39)
[2023-01-14] MEDS: amLODIPine 5 MG TAB PO SCH (09:00)
[2023-01-14] MEDS: POTASSIUM CHLORIDE 10MEQ SR TABLET PO SCH (09:00)
[2023-01-14] MEDS: SODIUM CHLORIDE 0.9% INJ 10 ML SYR IV SCH (09:00)
[2023-01-14] MEDS: guaiFENesin SYRUP 200MG 10ML UDC PO SCH ×3 (09:48→20:30)
[2023-01-14] MEDS: MAGNESIUM OXIDE 400MG TAB (MAG-OX) PO SCH ×3 (09:49→20:29)
[2023-01-14] MEDS: GABAPENTIN 300 MG CAP PO SCH ×3 (09:49→20:29)
[2023-01-14] MEDS: EZETIMIBE 10MG TABLET (ZETIA) PO SCH (09:49)
[2023-01-14] MEDS: OMEPRAZOLE 20MG CAP PO SCH (09:49)
[2023-01-14] MEDS: AMOXICILLIN 500 MG CAP PO SCH ×2 (09:49→20:30)
[2023-01-14] MEDS: LACTOBACILLUS ACIDOPHILUS CAP (BACID) PO SCH ×3 (09:49→17:04)
[2023-01-14] MEDS: PERCOCET 5MG/325MG TAB PO PRN ×2 (09:50→21:22)
[2023-01-14] MEDS ORDERED: ONDANSETRON 4MG ORAL DISINTEGRATING TAB SL PRN (20:55)
[2023-01-15 05:20] VITALS: BP 114/57; TEMP 97.5; O2SAT 94
[2023-01-15] MEDS: LEVOTHYROXINE 50MCG TABLET (0.05MG) PO SCH (06:07)
[2023-01-15] MEDS: metroNIDAZOLE (FLAGYL) 500MG TABLET PO SCH (06:07)
[2023-01-15] MEDS: PERCOCET 5MG/325MG TAB PO PRN (06:27)
[2023-01-15] MEDS: INSULIN LISPRO (NovoLOG) PER UNIT SC SCH ×2 (07:30→12:00)
[2023-01-15] MEDS: ADVAIR HFA 115/21MCG INHALER INH SCH (07:38)
[2023-01-15 08:15] LABS: BASO % 0.2 % (0.0-1.0); EOS # 0.1 10^3/uL (0.0-0.5); HEMATOCRIT 28.8 % (36.0-47.0); HEMOGLOBIN 8.7 g/dl (12.0-15.5); LYMPH # 0.4 10^3/uL (1.5-5.0); LYMPH % 6.7 % (24.0-44.0); MEAN CORPUSCULAR HEMOGLOBIN 28.3 pg (27.0-33.0); MEAN CORPUSCULAR HGB CONC 30.2 g/dl (32.0-36.5); MEAN CORPUSCULAR VOLUME 93.8 fl (80.0-96.0); MONO # 0.4 10^3/uL (0.0-0.8); MONO % 7.4 % (2.0-8.0); NEUTROPHILS # 4.8 10^3/uL (1.5-8.5); NEUTROPHILS % 83.5 % (36.0-66.0); PLATELET COUNT, AUTOMATED 268 10^3/uL (150-450); RED BLOOD COUNT 3.07 10^6/uL (4.00-5.40); WHITE BLOOD COUNT 5.8 10^3/uL (4.0-10.0)
[2023-01-15] MEDS: AMOXICILLIN 500 MG CAP PO SCH (08:18)
[2023-01-15] MEDS: LACTOBACILLUS ACIDOPHILUS CAP (BACID) PO SCH ×2 (08:18→11:34)
[2023-01-15] MEDS: guaiFENesin SYRUP 200MG 10ML UDC PO SCH ×2 (08:18→08:25)
[2023-01-15 08:19] VITALS: BP 114/57
[2023-01-15] MEDS: GABAPENTIN 300 MG CAP PO SCH (08:19)
[2023-01-15] MEDS: amLODIPine 5 MG TAB PO SCH (08:19)
[2023-01-15] MEDS: OMEPRAZOLE 20MG CAP PO SCH (08:20)
[2023-01-15] MEDS: EZETIMIBE 10MG TABLET (ZETIA) PO SCH (08:20)
[2023-01-15] MEDS: POTASSIUM CHLORIDE 10MEQ SR TABLET PO SCH (08:20)
[2023-01-15] MEDS: MAGNESIUM OXIDE 400MG TAB (MAG-OX) PO SCH (08:21)
[2023-01-15] MEDS: SUCRALFATE 1 GM TAB PO SCH ×2 (08:21→11:34)
[2023-01-15] MEDS: SODIUM CHLORIDE 0.9% INJ 10 ML SYR IV SCH (08:23)
[2023-01-15 08:47] LABS: ALBUMIN 1.2 G/DL (3.2-5.2); ALKALINE PHOSPHATASE 96 U/L (46-116); ALT/SGPT < 9 U/L (7.0-40); AST/SGOT 11 U/L (<34); BILIRUBIN,TOTAL 0.6 MG/DL (0.3-1.2); BLOOD UREA NITROGEN 9 MG/DL (9-23); CALCIUM LEVEL 7.4 MG/DL (8.3-10.6); CARBON DIOXIDE LEVEL 26 MMOL/L (20-31); CHLORIDE LEVEL 104 MMOL/L (98-107); CREATININE FOR GFR 0.67 MG/DL (0.55-1.30); GLOMERULAR FILTRATION RATE > 60.0 (>32); GLUCOSE, FASTING 95 MG/DL (74-106); MAGNESIUM LEVEL 1.6 MG/DL (1.8-2.4); POTASSIUM SERUM 4.6 MMOL/L (3.5-5.1); SODIUM LEVEL 137 MMOL/L (136-145); TOTAL PROTEIN 4.5 G/DL (5.7-8.2)
[2023-01-15] MEDS: MAG SULF 1GM/100ML (MAG RUN) 1 GM in IV 1 EA IV SCH ×2 (10:00→11:00)
[2023-01-15] MEDS ORDERED: AMOX500C PO (11:19)
[2023-01-15] MEDS ORDERED: METR-265 PO (11:19)
[2023-01-15] MEDS ORDERED: MAGNESIUM OXIDE 400MG TAB (MAG-OX) PO ONE (12:00)
== END 2023-01-15 13:17 | DRG 757 ==
LOC: M ED 18:08 → M ED INP 01-07 00:25 → M MSPAV 01-07 03:26
PROVIDERS: ADMIT Internal Medicine; ATTEND Internal Medicine
PROC: 0W9J3ZZ Drainage of Pelvic Cavity, Percutaneous Approach (ICD-10-PCS; principal; 2023-01-08)
PROC: 30233N1 Transfusion of Nonautologous Red Blood Cells into Peripheral Vein, Percutaneous Approach (ICD-10-PCS; 2023-01-10)
DX: N73.9 Female pelvic inflammatory disease, unspecified (principal); K65.1 Peritoneal abscess; C19 Malignant neoplasm of rectosigmoid junction; E87.1 Hypo-osmolality and hyponatremia; E87.20 Acidosis, unspecified; R78.81 Bacteremia; N82.8 Other female genital tract fistulae; N39.0 Urinary tract infection, site not specified; C79.89 Secondary malignant neoplasm of other specified sites; E78.5 Hyperlipidemia, unspecified; I25.10 Atherosclerotic heart disease of native coronary artery without angina pectoris; E03.9 Hypothyroidism, unspecified; I10 Essential (primary) hypertension; I48.91 Unspecified atrial fibrillation; E11.42 Type 2 diabetes mellitus with diabetic polyneuropathy; D50.9 Iron deficiency anemia, unspecified; Z92.21 Personal history of antineoplastic chemotherapy; Z88.2 Allergy status to sulfonamides; Z88.5 Allergy status to narcotic agent; Z88.8 Allergy status to other drugs, medicaments and biological substances; Z79.899 Other long term (current) drug therapy; Z98.41 Cataract extraction status, right eye; Z98.42 Cataract extraction status, left eye; Z95.0 Presence of cardiac pacemaker; K44.9 Diaphragmatic hernia without obstruction or gangrene; Z66 Do not resuscitate; Z95.2 Presence of prosthetic heart valve

== ENCOUNTER → 2023-01-06 | Outpatient (REF) ==
[~2023-01-06] MED LIST changes: +ACET-907 PO; +ACID100C PO; +AQUAOIN12 TOP; +DIFL150T PO; +FLUT1BLS5 INH; +GUAI600T54 PO; +MILKSUS3 PO; +MIRA1POW3 PO; +MUCI600T31 PO; +OMEG10002 PO; +SUCR1TAB56 PO; +SUPECAP7 PO; +TUMS500C PO
== END ==
PROVIDERS: ATTEND Physician Assistant
DX: N89.8 Other specified noninflammatory disorders of vagina (principal)

== ENCOUNTER → 2023-01-07 | Outpatient (REF) ==
[~2023-01-07] MED LIST changes: +ACET-907 PO; +ACID100C PO; +AQUAOIN12 TOP; +DIFL150T PO; +GUAI600T54 PO; +MILKSUS3 PO; +MIRA1POW3 PO; +OMEG10002 PO; +SUCR1TAB56 PO; +TUMS500C PO
== END ==
PROVIDERS: ATTEND Physician Assistant
DX: C20 Malignant neoplasm of rectum (principal); Z53.8 Procedure and treatment not carried out for other reasons

== ENCOUNTER → 2023-01-14 | Outpatient (REF) ==
[~2023-01-14] MED LIST changes: +AMOX500C PO; +METR-265 PO
== END ==
PROVIDERS: ATTEND Physician Assistant
DX: C20 Malignant neoplasm of rectum (principal); Z53.8 Procedure and treatment not carried out for other reasons

== ENCOUNTER → 2023-01-14 | Outpatient (REF) | PROVIDERS: ATTEND Physician Assistant | DX: C20 Malignant neoplasm of rectum (principal); Z53.8 Procedure and treatment not carried out for other reasons ==

== ENCOUNTER → 2023-01-14 | Outpatient (REF) | PROVIDERS: ATTEND Physician Assistant | DX: C20 Malignant neoplasm of rectum (principal); Z53.8 Procedure and treatment not carried out for other reasons ==

== ENCOUNTER → 2023-01-14 | Outpatient (REF) | PROVIDERS: ATTEND Physician Assistant | DX: C20 Malignant neoplasm of rectum (principal); Z53.8 Procedure and treatment not carried out for other reasons ==

== ENCOUNTER → 2023-01-17 | Outpatient (REF) ==
[2023-01-17 07:58] LABS: BASO % 0.3 % (0.0-1.0); EOS # 0.1 10^3/uL (0.0-0.5); EOS % 1.5 % (0.0-3.0); HEMATOCRIT 29.4 % (36.0-47.0); HEMOGLOBIN 8.8 g/dl (12.0-15.5); LYMPH # 0.5 10^3/uL (1.5-5.0); LYMPH % 7.6 % (24.0-44.0); MEAN CORPUSCULAR HEMOGLOBIN 28.3 pg (27.0-33.0); MEAN CORPUSCULAR HGB CONC 29.9 g/dl (32.0-36.5); MEAN CORPUSCULAR VOLUME 94.5 fl (80.0-96.0); MONO # 0.6 10^3/uL (0.0-0.8); MONO % 9.7 % (2.0-8.0); NEUTROPHILS % 79.8 % (36.0-66.0); PLATELET COUNT, AUTOMATED 258 10^3/uL (150-450); RED BLOOD COUNT 3.11 10^6/uL (4.00-5.40); WHITE BLOOD COUNT 6.2 10^3/uL (4.0-10.0)
[2023-01-17 08:07] LABS: ERYTHROCYTE SEDIMENTATION RATE 78 mm/hr (0-30)
== END ==
PROVIDERS: ATTEND Physician Assistant
DX: C20 Malignant neoplasm of rectum (principal)

== ENCOUNTER → 2023-01-20 | Outpatient (REF) ==
[~2023-01-20] MED LIST changes: +KP F1200 PO; +LINE1TAB6 PO; +ONDA-83; +OXYC1TAB23
[2023-01-20 08:22] LABS: BASO % 0.4 % (0.0-1.0); EOS # 0.1 10^3/uL (0.0-0.5); EOS % 1.2 % (0.0-3.0); HEMATOCRIT 28.1 % (36.0-47.0); HEMOGLOBIN 8.4 g/dl (12.0-15.5); LYMPH # 0.7 10^3/uL (1.5-5.0); LYMPH % 8.7 % (24.0-44.0); MEAN CORPUSCULAR HEMOGLOBIN 28.8 pg (27.0-33.0); MEAN CORPUSCULAR HGB CONC 29.9 g/dl (32.0-36.5); MEAN CORPUSCULAR VOLUME 96.2 fl (80.0-96.0); MONO # 0.5 10^3/uL (0.0-0.8); MONO % 7.2 % (2.0-8.0); NEUTROPHILS # 6.1 10^3/uL (1.5-8.5); NEUTROPHILS % 81.7 % (36.0-66.0); PLATELET COUNT, AUTOMATED 234 10^3/uL (150-450); RED BLOOD COUNT 2.92 10^6/uL (4.00-5.40); WHITE BLOOD COUNT 7.5 10^3/uL (4.0-10.0)
[2023-01-20 08:34] LABS: ERYTHROCYTE SEDIMENTATION RATE 124 mm/hr (0-30)
== END ==
PROVIDERS: ATTEND Physician Assistant
DX: C20 Malignant neoplasm of rectum (principal)

== ENCOUNTER → 2023-01-21 | Outpatient (CLI) | payer MEDICARE | LOC: M PAL 10:06 | PROVIDERS: ATTEND Nurse Practitioner Adult Health | DX: C20 Malignant neoplasm of rectum (principal); G89.3 Neoplasm related pain (acute) (chronic); K65.1 Peritoneal abscess; Z51.5 Encounter for palliative care; I11.9 Hypertensive heart disease without heart failure; I48.91 Unspecified atrial fibrillation; E03.9 Hypothyroidism, unspecified; E78.5 Hyperlipidemia, unspecified; E11.9 Type 2 diabetes mellitus without complications; G47.00 Insomnia, unspecified; K59.00 Constipation, unspecified; R11.0 Nausea; R53.1 Weakness; R53.83 Other fatigue; Z66 Do not resuscitate; Z80.0 Family history of malignant neoplasm of digestive organs; Z80.42 Family history of malignant neoplasm of prostate; Z79.891 Long term (current) use of opiate analgesic; Z79.899 Other long term (current) drug therapy; Z79.890 Hormone replacement therapy; Z79.84 Long term (current) use of oral hypoglycemic drugs; Z88.1 Allergy status to other antibiotic agents; Z88.2 Allergy status to sulfonamides; Z88.5 Allergy status to narcotic agent; Z92.21 Personal history of antineoplastic chemotherapy; Z95.0 Presence of cardiac pacemaker; Z93.3 Colostomy status ==

== ENCOUNTER → 2023-01-22 | Outpatient (REF) | payer MEDICARE | LOC: M LAB REF 11:51 | PROVIDERS: ATTEND Surgery | DX: N73.5 Female pelvic peritonitis, unspecified (principal) ==

== ENCOUNTER → 2023-01-27 | Outpatient (REF) ==
[2023-01-27 08:29] LABS: BASO % 0.4 % (0.0-1.0); EOS # 0.1 10^3/uL (0.0-0.5); EOS % 0.7 % (0.0-3.0); HEMOGLOBIN 7.9 g/dl (12.0-15.5); LYMPH # 0.5 10^3/uL (1.5-5.0); LYMPH % 5.9 % (24.0-44.0); MEAN CORPUSCULAR HEMOGLOBIN 28.9 pg (27.0-33.0); MEAN CORPUSCULAR HGB CONC 30.4 g/dl (32.0-36.5); MEAN CORPUSCULAR VOLUME 95.2 fl (80.0-96.0); MONO # 0.2 10^3/uL (0.0-0.8); MONO % 2.7 % (2.0-8.0); NEUTROPHILS # 7.2 10^3/uL (1.5-8.5); NEUTROPHILS % 89.8 % (36.0-66.0); PLATELET COUNT, AUTOMATED 110 10^3/uL (150-450); RED BLOOD COUNT 2.73 10^6/uL (4.00-5.40)
[2023-01-27 09:02] LABS: ERYTHROCYTE SEDIMENTATION RATE 93 mm/hr (0-30)
== END ==
PROVIDERS: ATTEND Physician Assistant
DX: C20 Malignant neoplasm of rectum (principal)

== ENCOUNTER → 2023-01-29 | Outpatient (REF) ==
[2023-01-29 08:29] LABS: HEMATOCRIT 27.7 % (36.0-47.0); HEMOGLOBIN 8.2 g/dl (12.0-15.5); MEAN CORPUSCULAR HEMOGLOBIN 29.1 pg (27.0-33.0); MEAN CORPUSCULAR HGB CONC 29.6 g/dl (32.0-36.5); MEAN CORPUSCULAR VOLUME 98.2 fl (80.0-96.0); RED BLOOD COUNT 2.82 10^6/uL (4.00-5.40); WHITE BLOOD COUNT 10.1 10^3/uL (4.0-10.0)
[2023-01-29 08:44] LABS: BLOOD UREA NITROGEN 23 MG/DL (9-23); CARBON DIOXIDE LEVEL 21 MMOL/L (20-31); CHLORIDE LEVEL 103 MMOL/L (98-107); CREATININE FOR GFR 0.91 MG/DL (0.55-1.30); GLOMERULAR FILTRATION RATE > 60.0 (>32); GLUCOSE, FASTING 74 MG/DL (74-106); POTASSIUM SERUM 5.2 MMOL/L (3.5-5.1); SODIUM LEVEL 137 MMOL/L (136-145)
[2023-01-29 09:01] LABS: PLATELET COUNT, AUTOMATED 84 10^3/uL (150-450)
== END ==
PROVIDERS: ATTEND Physician Assistant
DX: D64.9 Anemia, unspecified (principal)

== ENCOUNTER → 2023-02-03 | Outpatient (REF) ==
[2023-02-03 08:19] LABS: BASO # 0.1 10^3/uL (0.0-0.2); BASO % 0.4 % (0.0-1.0); EOS % 0.3 % (0.0-3.0); HEMATOCRIT 25.4 % (36.0-47.0); HEMOGLOBIN 7.8 g/dl (12.0-15.5); LYMPH % 8.7 % (24.0-44.0); MEAN CORPUSCULAR HEMOGLOBIN 29.2 pg (27.0-33.0); MEAN CORPUSCULAR HGB CONC 30.7 g/dl (32.0-36.5); MEAN CORPUSCULAR VOLUME 95.1 fl (80.0-96.0); MONO # 1.5 10^3/uL (0.0-0.8); MONO % 12.4 % (2.0-8.0); NEUTROPHILS # 8.9 10^3/uL (1.5-8.5); NEUTROPHILS % 74.6 % (36.0-66.0); PLATELET COUNT, AUTOMATED 230 10^3/uL (150-450); RED BLOOD COUNT 2.67 10^6/uL (4.00-5.40); WHITE BLOOD COUNT 11.9 10^3/uL (4.0-10.0)
[2023-02-03 08:48] LABS: BLOOD UREA NITROGEN 12 MG/DL (9-23); CALCIUM LEVEL 7.9 MG/DL (8.3-10.6); CARBON DIOXIDE LEVEL 21 MMOL/L (20-31); CHLORIDE LEVEL 102 MMOL/L (98-107); CREATININE FOR GFR 0.78 MG/DL (0.55-1.30); GLOMERULAR FILTRATION RATE > 60.0 (>32); GLUCOSE, FASTING 78 MG/DL (74-106); POTASSIUM SERUM 4.8 MMOL/L (3.5-5.1); SODIUM LEVEL 135 MMOL/L (136-145)
[2023-02-03 09:39] LABS: ERYTHROCYTE SEDIMENTATION RATE 126 mm/hr (0-30)
== END ==
PROVIDERS: ATTEND Physician Assistant
DX: C20 Malignant neoplasm of rectum (principal)

== ENCOUNTER → 2023-02-04 | Outpatient (REF) | payer MEDICARE | PROVIDERS: ATTEND Physician Assistant | DX: K61.1 Rectal abscess (principal) ==

== ENCOUNTER → 2023-02-04 | Outpatient (REF) | PROVIDERS: ATTEND Physician Assistant | DX: C20 Malignant neoplasm of rectum (principal); Z53.8 Procedure and treatment not carried out for other reasons ==

== ENCOUNTER → 2023-02-05 | Outpatient (REF) | payer MEDICARE | PROVIDERS: ATTEND Physician Assistant | DX: D64.9 Anemia, unspecified (principal) ==

== ENCOUNTER → 2023-02-05 | Outpatient (REF) | payer MEDICARE ==
[2023-02-05 09:20] LABS: HEMOGLOBIN 7.6 g/dl (12.0-15.5); MEAN CORPUSCULAR HEMOGLOBIN 28.6 pg (27.0-33.0); MEAN CORPUSCULAR HGB CONC 28.1 g/dl (32.0-36.5); MEAN CORPUSCULAR VOLUME 101.5 fl (80.0-96.0); PLATELET COUNT, AUTOMATED 289 10^3/uL (150-450); RED BLOOD COUNT 2.66 10^6/uL (4.00-5.40); WHITE BLOOD COUNT 9.7 10^3/uL (4.0-10.0)
[2023-02-05 09:45] LABS: BLOOD UREA NITROGEN 10 MG/DL (9-23); CALCIUM LEVEL 7.7 MG/DL (8.3-10.6); CARBON DIOXIDE LEVEL 17 MMOL/L (20-31); CHLORIDE LEVEL 106 MMOL/L (98-107); CREATININE FOR GFR 0.72 MG/DL (0.55-1.30); GLOMERULAR FILTRATION RATE > 60.0 (>32); GLUCOSE, FASTING 87 MG/DL (74-106); POTASSIUM SERUM 5.3 MMOL/L (3.5-5.1); SODIUM LEVEL 139 MMOL/L (136-145)
== END ==
PROVIDERS: ATTEND Physician Assistant
DX: D64.9 Anemia, unspecified (principal)

== ENCOUNTER → 2023-02-06 | Outpatient (CLI) | payer MEDICARE ==
[~2023-02-06] MED LIST changes: +GASTROGRAFIN SOLUTION 30ML As Ordered ONE; +ISOVUE-370 76% 100ML VIAL As Ordered ONE
== END ==
LOC: M RAD 09:05
PROVIDERS: ATTEND Physician Assistant
DX: L02.31 Cutaneous abscess of buttock (principal)
CPT/HCPCS: 74177; Q9963; Q9967

== ENCOUNTER → 2023-02-07 | Outpatient (REF) ==
[~2023-02-07] MED LIST changes: -GASTROGRAFIN SOLUTION 30ML As Ordered ONE; -ISOVUE-370 76% 100ML VIAL As Ordered ONE
== END ==
PROVIDERS: ATTEND Physician Assistant
DX: C20 Malignant neoplasm of rectum (principal); Z53.8 Procedure and treatment not carried out for other reasons

== ENCOUNTER → 2023-02-07 | Outpatient (REF) | payer MEDICARE | PROVIDERS: ATTEND Physician Assistant | DX: D64.9 Anemia, unspecified (principal); Z53.8 Procedure and treatment not carried out for other reasons ==

== ENCOUNTER → 2023-02-07 | Outpatient (REF) | payer MEDICARE | PROVIDERS: ATTEND Physician Assistant | DX: D64.9 Anemia, unspecified (principal); Z53.8 Procedure and treatment not carried out for other reasons ==

== ENCOUNTER → 2023-02-07 | Outpatient (REF) | PROVIDERS: ATTEND Physician Assistant | DX: C20 Malignant neoplasm of rectum (principal); Z53.8 Procedure and treatment not carried out for other reasons ==

== ENCOUNTER → 2023-02-07 | Outpatient (REF) | payer MEDICARE | PROVIDERS: ATTEND Physician Assistant | DX: D64.9 Anemia, unspecified (principal); Z53.8 Procedure and treatment not carried out for other reasons ==

== ENCOUNTER → 2023-02-07 | Outpatient (REF) | payer MEDICARE | PROVIDERS: ATTEND Physician Assistant | DX: D64.9 Anemia, unspecified (principal); Z53.8 Procedure and treatment not carried out for other reasons ==

== ENCOUNTER → 2023-02-07 | Outpatient (REF) | PROVIDERS: ATTEND Physician Assistant | DX: C20 Malignant neoplasm of rectum (principal); Z53.8 Procedure and treatment not carried out for other reasons ==

== ENCOUNTER → 2023-02-12 | Outpatient (REF) | payer MEDICARE ==
[2023-02-12 09:16] LABS: BASO % 0.3 % (0.0-1.0); EOS % 0.3 % (0.0-3.0); HEMATOCRIT 27.2 % (36.0-47.0); HEMOGLOBIN 7.9 g/dl (12.0-15.5); LYMPH # 0.5 10^3/uL (1.5-5.0); LYMPH % 3.5 % (24.0-44.0); MEAN CORPUSCULAR HEMOGLOBIN 29.6 pg (27.0-33.0); MEAN CORPUSCULAR VOLUME 101.9 fl (80.0-96.0); MONO # 1.1 10^3/uL (0.0-0.8); NEUTROPHILS # 12.2 10^3/uL (1.5-8.5); NEUTROPHILS % 85.2 % (36.0-66.0); PLATELET COUNT, AUTOMATED 342 10^3/uL (150-450); RED BLOOD COUNT 2.67 10^6/uL (4.00-5.40); WHITE BLOOD COUNT 14.3 10^3/uL (4.0-10.0)
[2023-02-12 09:29] LABS: ERYTHROCYTE SEDIMENTATION RATE > 130 mm/hr (0-30)
== END ==
PROVIDERS: ATTEND Physician Assistant
DX: C20 Malignant neoplasm of rectum (principal)